=== PATIENT | male | born 1945 | race Caucasian/White ===

== ENCOUNTER → 2018-01-04 10:12 | Outpatient (CLI) | payer MEDICARE, SELFPAY ==
[2018-01-04 10:48] VITALS: PULSE 100; PULSE 103; PULSE 82; PULSE 86; PULSE 90; PULSE 99; O2SAT 96; O2SAT 97; O2SAT 98
--- NOTE | 2018-01-04 15:37 | WT_ITS ---
PSN 6 Minute Walk Test - 6 Minute Walk Test 6 Minute Walk Test: 6 Minute Walk Test PSN:6-Minute Walk Test Start: 01/04/18 10: 47 Freq: Status: Active Protocol: RESP.6MINW Document 01/04/18 10:48 LESLEY (Rec: 01/04/18 10:50 [place] [id number]) 6 Minute Walk Test Date Performed 01/04/18 Time Performed 10:40 Height 5 ft 9 in Weight: 78.471 kg Weight in Pounds 173.[address]: Jasen Stuart Assistive device used: None Pre-test Oxygen Delivery Method Room Air Pulse Ox (%) 98 Pulse Rate (60-100 beats/min) 82 Dyspnea Jose Scale (0-10) 0 Exertion Jose Scale (6-20) 6 1st minute Oxygen Delivery Method Room Air Pulse Ox (%) 97 Pulse Rate (60-100 beats/min) 90 2nd minute Oxygen Delivery Method Room Air Pulse Ox (%) 96 Pulse Rate (60-100 beats/min) 99 3rd minute Oxygen Delivery Method Room Air Pulse Ox (%) 97 Pulse Rate (60-100 beats/min) 99 4th minute Oxygen Delivery Method Room Air Pulse Ox (%) 96 Pulse Rate (60-100 beats/min) 103 H 5th minute Oxygen Delivery Method Room Air Pulse Ox (%) 96 Pulse Rate (60-100 beats/min) 100 6th minute Oxygen Delivery Method Room Air Pulse Ox (%) 96 Pulse Rate (60-100 beats/min) 100 Dyspnea Jose Scale (0-10) 0 Exertion Jose Scale (6-20) 11 Post-test Oxygen Delivery Method Room Air Pulse Ox (%) 97 Pulse Rate (60-100 beats/min) 86 Full Laps Walked 22 Partial Lap, Number of Tiles Walked 38 Total Distance Walked (ft) 1336 - Interpretation Interpretation: The patient was able to ambulate 1336 feet over the course of 6 minutes on room air with no assistive devices or breaks. No significant desaturation or tachycardia was noted during testing. - Recommendations Recommendations: These findings are consistent with a normal walking oximetry.
== END ==
PROVIDERS: Family Provider Family Medicine; PCP Family Medicine; Visit Provider Internal Medicine Critical Care Medicine
DX: J44.9 Chronic obstructive pulmonary disease, unspecified (principal); I26.99 Other pulmonary embolism without acute cor pulmonale; F17.200 Nicotine dependence, unspecified, uncomplicated
CPT/HCPCS: 94618

== ENCOUNTER → 2018-01-05 09:50 | Outpatient (CLI) | payer MEDICARE, SELFPAY ==
--- NOTE | 2018-01-05 14:37 | PFTCOMP_ITS ---
COMPLETE PULMONARY FUNCTION TEST INTERPRETATION Brief HPI: Patient is a 72 year old male, currently under the care of myself, who presents to [facility] for complete pulmonary function tests secondary to diagnosis of COPD. Respiratory therapist reports good effort and reproducible results. Interpretation: Forced expiration spirometry shows a moderate large airways obstructive ventilatory defect with an FEV1 of 77 % predicted. There is a significant bronchodilator response in FEV1 by ATS criteria. Spirograms are of good quality and plateau slowly, indicating slowly emptying areas of the lungs. The respiratory flow volume loop shows decreased expiratory flow rates at all lung volumes consistent with airway obstruction. Lung volumes by body plethysmography show an elevated total lung capacity at 8.29 L, 133% predicted. FRC and RV are elevated out of proportion. Lung volume measurements are consistent with hyperinflation and air-trapping. Diffusion capacity by carbon monoxide is normal at 94 % predicted. The airway resistance is elevated. Compared to previous pulmonary function tests from 01/13/2017, there has been a significant change in spirometric values, DLCO and air trapping. Impression: Partially reversible moderate large airways obstructive ventilatory defect resulting in air trapping with hyperinflation and consistent with COPD/asthma overlap syndrome. There has been significant improvement compared to previous testing.
== END ==
PROVIDERS: Family Provider Family Medicine; PCP Family Medicine; Visit Provider Internal Medicine Critical Care Medicine
DX: J44.9 Chronic obstructive pulmonary disease, unspecified (principal); I26.99 Other pulmonary embolism without acute cor pulmonale; F17.200 Nicotine dependence, unspecified, uncomplicated
CPT/HCPCS: 94060; 94726; 94729

== ENCOUNTER → 2018-02-24 20:00 | Outpatient (CLI) | payer MEDICARE, SELFPAY | PROVIDERS: Family Provider Family Medicine; PCP Family Medicine; Visit Provider Internal Medicine Critical Care Medicine | DX: G47.10 Hypersomnia, unspecified (principal) | CPT/HCPCS: 95810 ==

== ENCOUNTER → 2018-03-30 20:43 | Outpatient (CLI) | payer MEDICARE, SELFPAY ==
[2018-03-30] MEDS: Zolpidem Tartrate 5 MG Tablet PO (21:50)
== END ==
PROVIDERS: Family Provider Family Medicine; PCP Family Medicine; Visit Provider Internal Medicine Critical Care Medicine
DX: G47.10 Hypersomnia, unspecified (principal)
CPT/HCPCS: 95811

== ENCOUNTER → 2018-06-18 11:17 | Outpatient (CLI) | payer MEDICARE, SELFPAY ==
[2018-06-18 12:36] LABS: Absolute Lymphocyte Count 10.24 X10^3/ul (0.83-4.51); Basophil# 0.02 X10^3/uL; Basophil% 0.2 % (0-1); Eosinophil# 0.14 X10^3/uL; Eosinophils% 1.1 % (0-5); Hemoglobin 9.9 g/dl (13.0-16.5); Lymphocyte # 10.24 X10^3/ul (4.0); Lymphocyte % 80.2 % (19-41); Mean Corpuscular Hgb 26.3 pg (27.0-32.0); Mean Corpuscular Volume 87.5 fL (80-94); Mean Platelet Vol. 9.2 fl (6.2-12.0); Monocyte# 0.37 X10^3/uL; Monocyte% 2.9 % (0-10); Neutrophil % 15.6 % (47-70); Platelet Count 314 K/mm3 (150-450); RBC Distribution Width CV 14.8 % (11.6-14.6); RBC Distribution Width SD 47.4 fl (35.1-43.9); Red Blood Count 3.77 M/mm3 (4.6-6.2); White Blood Count 12.8 K/mm3 (4.4-11.0)
[2018-06-18 12:39] LABS: Differential Indicated SCAN CRITERIA MET; POSITIVE COUNT NO; POSITIVE DIFFERENTIAL YES; POSITIVE MORPHOLOGY YES
[2018-06-18 12:59] LABS: ALB/GLOB Ratio 1.1 RATIO (0.9-2.4); AST(SGOT) 20 U/L (15-37); Alanine Aminotransfer ALT/SGPT 21 U/L (16-61); Albumin, Serum 3.7 g/dL (3.2-5.0); Alkaline Phosphatase 63 U/L (45-117); Anion Gap 7 (5-15); BUN 16 mg/dL (7-18); BUN/Creat Ratio 22.9 RATIO (10-20); Chloride 104 mmol/L (98-107); EST Glomerular Filtration Rate 118 mL/min (>60); Est Glom Filt Rate - Afr Amer 143 mL/min (>60); Globulin 3.5 g/dL (2.2-4.2); Glucose 86 mg/dL (74-106); PSA,Total - Annual Screen 1.39 ng/mL (0.00-4.00); Potassium 4.9 mmol/L (3.5-5.1); Protein, Total 7.2 g/dL (6.4-8.2); Sodium Level 140 mmol/L (136-145); Thyroid Stim Hormone (TSH) 0.66 uIU/mL (0.358-3.74)
[2018-06-21 14:42] LABS: Pathologist Review Reviewed
== END ==
PROVIDERS: Family Provider Family Medicine; PCP Family Medicine; Visit Provider Family Medicine
DX: Z00.01 Encounter for general adult medical examination with abnormal findings (principal); N40.1 Benign prostatic hyperplasia with lower urinary tract symptoms; E01.0 Iodine-deficiency related diffuse (endemic) goiter; Z12.5 Encounter for screening for malignant neoplasm of prostate; Z51.81 Encounter for therapeutic drug level monitoring
CPT/HCPCS: 36415; 80053; 84153; 84443; 85025; G0103

== ENCOUNTER → 2019-02-22 10:57 | Outpatient (CLI) | payer MEDICARE, OTHER, SELFPAY ==
[2019-02-22 12:59] LABS: Absolute Lymphocyte Count 9.28 X10^3/ul (0.83-4.51); Absolute Neutrophil Count 1.9 X10^3/uL (2.0-7.7); Basophil# 0.02 X10^3/uL; Basophil% 0.2 % (0-1); Eosinophil# 0.27 X10^3/uL; Eosinophils% 2.3 % (0-5); Hematocrit 28.1 % (40-54); Hemoglobin 8.6 g/dl (13.0-16.5); Lymphocyte # 9.28 X10^3/ul (4.0); Lymphocyte % 78.8 % (19-41); Mean Corp Hgb Conc 30.6 g/gl (32-36); Mean Corpuscular Volume 84.9 fL (80-94); Mean Platelet Vol. 8.5 fl (6.2-12.0); Monocyte# 0.31 X10^3/uL; Monocyte% 2.6 % (0-10); Neutrophil # 1.89 X10^3/uL (2.7-7.7); Platelet Count 345 K/mm3 (150-450); RBC Distribution Width CV 15.4 % (11.6-14.6); RBC Distribution Width SD 48.1 fl (35.1-43.9); Red Blood Count 3.31 M/mm3 (4.6-6.2); White Blood Count 11.8 K/mm3 (4.4-11.0)
[2019-02-22 13:00] LABS: Differential Indicated SCAN CRITERIA MET; POSITIVE COUNT NO; POSITIVE DIFFERENTIAL YES; POSITIVE MORPHOLOGY NO
[2019-02-22 13:12] LABS: Hypochromasia 2+; Platelet Estimate ADEQUATE (ADEQ); Schistocytes 1+
[2019-02-22 13:54] LABS: ALB/GLOB Ratio 1.2 RATIO (0.9-2.4); AST(SGOT) 18 U/L (15-37); Alanine Aminotransfer ALT/SGPT 20 U/L (16-61); Albumin, Serum 3.6 g/dL (3.2-5.0); Alkaline Phosphatase 63 U/L (45-117); Anion Gap 8 (5-15); BUN 19 mg/dL (7-18); Calcium,Total 8.6 mg/dL (8.5-10.1); Chloride 108 mmol/L (98-107); Creatinine, Serum 0.79 mg/dL (0.70-1.30); EST Glomerular Filtration Rate 102 mL/min (>60); Est Glom Filt Rate - Afr Amer 124 mL/min (>60); Ferritin 3 ng/mL (26-388); Glucose 96 mg/dL (74-106); Iron 22 ug/dL (65-175); Iron Binding Capacity,Total 458 ug/dL (250-450); Potassium 4.3 mmol/L (3.5-5.1); Protein, Total 6.6 g/dL (6.4-8.2); Sodium Level 142 mmol/L (136-145); Thyroid Stim Hormone (TSH) 0.41 uIU/mL (0.358-3.74)
[2019-02-22 14:03] LABS: Vitamin B12 405 pg/mL (211-911)
== END ==
PROVIDERS: Family Provider Family Medicine; PCP Family Medicine; Visit Provider Family Medicine
DX: I95.9 Hypotension, unspecified (principal); M79.609 Pain in unspecified limb; R20.2 Paresthesia of skin; R53.83 Other fatigue
CPT/HCPCS: 36415; 80053; 82607; 82728; 83540; 83550; 84443; 85025

== ENCOUNTER → 2019-05-05 10:38 | Outpatient (CLI) | payer MEDICARE, OTHER, SELFPAY ==
[2018-11-30 10:32] VITALS: BMI 25.4
[2019-05-05 10:55] VITALS: PULSE 87; PULSE 92; PULSE 93; PULSE 94; PULSE 95; O2SAT 92; O2SAT 94; O2SAT 95; O2SAT 96; O2SAT 97
--- NOTE | 2019-05-06 09:21 | PCM.PSN.6M ---
PSN 6 Minute Walk Test - 6 Minute Walk Test 6 Minute Walk Test: 6 Minute Walk Test PSN:6-Minute Walk Test Start: 05/05/19 10:55 Freq: Status: Active Protocol: RESP.6MINW Document 05/05/19 10:55 SMB (Rec: 05/05/19 10:58 SMB [id number]) 6 Minute Walk Test Date Performed 05/05/19 Time Performed 10:43 Height 5 ft 9 in Weight: 175 lb Weight in Pounds 175.[address]: Jasen Stuart Assistive device used: None Pre-test Oxygen Delivery Method Room Air Pulse Ox (%) 95 Pulse Rate (60-100 beats/min) 87 Dyspnea Jose Scale (0-10) 0 Exertion Jose Scale (6-20) 11 1st minute Oxygen Delivery Method Room Air Pulse Ox (%) 97 Pulse Rate (60-100 beats/min) 92 2nd minute Oxygen Delivery Method Room Air Pulse Ox (%) 92 Pulse Rate (60-100 beats/min) 92 3rd minute Oxygen Delivery Method Room Air Pulse Ox (%) 95 Pulse Rate (60-100 beats/min) 93 4th minute Oxygen Delivery Method Room Air Pulse Ox (%) 94 Pulse Rate (60-100 beats/min) 93 5th minute Oxygen Delivery Method Room Air Pulse Ox (%) 96 Pulse Rate (60-100 beats/min) 94 6th minute Oxygen Delivery Method Room Air Pulse Ox (%) 94 Pulse Rate (60-100 beats/min) 95 Post-test Oxygen Delivery Method Room Air Pulse Ox (%) 96 Pulse Rate (60-100 beats/min) 92 Dyspnea Jose Scale (0-10) 0 Exertion Jose Scale (6-20) 13 Full Laps Walked 22 Partial Lap, Number of Tiles Walked 7 Total Distance Walked (ft) 1305 - Interpretation Interpretation: The patient ambulated 1305 feet over the course of 6 minutes beginning on room air without assistive devices or breaks. Pretesting oxygen saturation was noted to be 95% on room air. With ambulation, the isac oxygen saturation was 92%. There was no significant exertional oxygen desaturation. - Recommendations Recommendations: There is no indication for the use of supplemental oxygen at this time.
== END ==
PROVIDERS: Family Provider Family Medicine; PCP Family Medicine; Referring Provider Internal Medicine Critical Care Medicine; Visit Provider Internal Medicine Critical Care Medicine
DX: J47.9 Bronchiectasis, uncomplicated (principal); I26.92 Saddle embolus of pulmonary artery without acute cor pulmonale
CPT/HCPCS: 94618

== ENCOUNTER → 2019-05-10 10:38 | Outpatient (CLI) | payer MEDICARE, OTHER, SELFPAY ==
[2018-11-30 10:32] VITALS: BMI 25.4
--- NOTE | 2019-05-10 13:13 | PFTCOMP ---
COMPLETE PULMONARY FUNCTION TEST INTERPRETATION Brief HPI: Patient is a 73 year old male, currently under the care of myself, who presents to [facility] for complete pulmonary function tests secondary to diagnosis of COPD. Respiratory therapist reports good effort and reproducible results. Interpretation: Forced expiration spirometry shows a moderately severe large airways obstructive ventilatory defect with an FEV1 of 56% predicted. There is no significant bronchodilator response by strict ATS criteria. Spirograms are of good quality and plateau slowly, indicating slowly emptying areas of the lungs. The respiratory flow volume loop shows decreased expiratory flow rates at all lung volumes consistent with airway obstruction. Lung volumes by body plethysmography show an elevated total lung capacity at 7.59 L, 122% predicted. FRC and RV are elevated out of proportion. Lung volume measurements are consistent with hyperinflation and air-trapping. Diffusion capacity by carbon monoxide is normal at 83% predicted. The airway resistance is elevated. Compared to previous pulmonary function tests from 01/05/2018, there is been a significant reduction in FVC and FEV1 by 19% and 16% respectively. Impression: Irreversible moderately severe large airways obstructive ventilatory defect resulting in air trapping with hyperinflation and slight worsening compared to previous testing.
== END ==
PROVIDERS: Family Provider Family Medicine; PCP Family Medicine; Referring Provider Internal Medicine Critical Care Medicine; Visit Provider Internal Medicine Critical Care Medicine
DX: J47.9 Bronchiectasis, uncomplicated (principal)
CPT/HCPCS: 94060; 94726; 94729

== ENCOUNTER → 2019-05-31 13:21 | Outpatient (CLI) | payer MEDICARE, OTHER, SELFPAY ==
[2019-05-23 08:26] VITALS: BMI 24.0
[2019-05-31 12:59] VITALS: BMI 24.3
--- NOTE | 2019-05-31 13:23 | CT_ITS ---
STUDY: LOW DOSE CT LUNG CANCER SCREENING REASON FOR EXAM: Male, 73 years old. Former smoker. The patient smoked 3 packs per day for 50 years. RADIATION DOSAGE (If Supplied By Facility): CTDIvol = ( 3.02 ) mGy, DLP = ( 107.97 ) mGycm TECHNIQUE: No contrast was administered. Low dose technique was utilized (average mAS-38 and kVp 120). 1.25 mm axial source images with a slice interval of 1.25-mm were reconstructed in lung windows. 2.5 mm axial source images with a slice interval of 2.5-mm were reconstructed in lung windows. 5.0 mm axial source images with a slice interval of 5.0-mm were reconstructed in soft tissue windows. Nodule measured using lung windows on PACS and/or independent workstation with automated measurement of minimum and maximum diameter. Nodule measurement reported as average diameter rounded to the nearest whole number. Growth is defined as an increase ins size of greater than 1.5 mm. COMPARISON: Comparison is made with prior examination dated August 21, 2017. NODULES: No nodular densities are seen. Emphysema: Hyperinflation. Mild degree of emphysematous changes. Focal area of bone can groundglass appearance with a small cystic changes in the posterior aspect of the left upper lobe abutting the left major fissure. This may represent a focal area of scarring and bronchiectasis. The previously seen reticular nodular pattern in both lungs have almost completely cleared. Endobronchial lesion: None. Aorta: Atherosclerotic plaques involving the aortic arch and descending thoracic aorta. Coronary arteries: Coronary artery calcifications. Mediastinal nodes: Small benign-appearing mediastinal lymph nodes. Other chest and abdominal findings: Moderate sized hiatal hernia. CT/Low Dose CT Lung Screening IMPRESSION: Lung-RADS category 2 - Continue annual screening with LDCT in 12 months. IMPORTANT NOTES FOR USE: ACR Lung-RADS Version 1.0 Assessment Categories Release Date: January 30, 2014 Category: Coded 0-4 bases on nodule(s) with highest degree of suspicion. Negative screen is defined as categories 1 and 2; a positive screen is defined as categories 3 and 4. Category 3 and 4A nodules that are unchanged on interval CT should be coded as category 2, and individuals returned to screening in 12 months. Category 4X: Category 3 or 4 nodules with additional imaging findings that increase the suspicion of lung cancer, such as spiculation, GGN that doubles in size in 1 year, enlarged lymph notes, etc. Category Modifiers: S (significant finding unrelated to lung cancer) and C (prior history of treated lung cancer) may be added to the 0-4 Lung-RADS Electronically Signed: Rodney Costello, at 13:47 EDT , Service support ,
== END ==
PROVIDERS: Family Provider Family Medicine; PCP Family Medicine; Referring Provider Nurse Practitioner Family; Visit Provider Nurse Practitioner Family
DX: Z12.2 Encounter for screening for malignant neoplasm of respiratory organs (principal)
CPT/HCPCS: G0297

== ENCOUNTER → 2019-11-15 06:14 | Outpatient (CLI) | payer MEDICARE, OTHER, SELFPAY ==
[2019-05-31 12:59] VITALS: BMI 24.3
--- NOTE | 2019-11-15 06:35 | MRI_ITS ---
STUDY: MRI LUMBAR SPINE WITHOUT CONTRAST REASON FOR EXAM: Male, 74 years old. lumbar radiculopathy, BACK PAIN, LEFT LEG PAIN,NKI TECHNIQUE: Standardized fat and water weighted pulse sequences were obtained in the sagittal and axial planes. COMPARISON: None FINDINGS: T12-L1: Normal endplates. Normal disc height, hydration and morphology. Normal bilateral facet joints. Normal central canal and bilateral lateral recesses. Normal bilateral intervertebral neural foramina. Normal lumbar lordosis. Mild scoliosis. Normal conus medullaris that terminates at the T12 level. L1-2: Normal endplates. Normal disc height, hydration and morphology. Normal bilateral facet joints. Normal central canal and bilateral lateral recesses. Normal bilateral intervertebral neural foramina. L2-3: Circumferential disc marginal osteophyte causing moderately severe narrowing of the neural foramina, left greater than right. Central thecal sac patent. L3-4: Disc space narrowing. Moderate central and lateral trefoil type spinal stenosis. Circumferential disc marginal osteophyte and hypertrophic facet disease. L4-5: Moderately severe central and lateral trefoil type spinal stenosis. L5-S1: Moderate to severe narrowing of the neural foramina, right greater than left due to hypertrophic facet disease. Thecal sac patent. Normal visualized sacral ala. Normal visualized paraspinous soft tissue structures. MRI/Spine Lumbar (Routine) IMPRESSION: Multilevel spinal stenosis as noted above. Mild scoliosis. Electronically Signed: Amaury Flanagan MD at 19:17 EST , Service support ,
== END ==
PROVIDERS: PCP Family Medicine; Referring Provider Family Medicine; Visit Provider Family Medicine
DX: M54.16 Radiculopathy, lumbar region (principal)
CPT/HCPCS: 72148

== ENCOUNTER 2019-11-28 20:50 | Emergency (ER) | payer MEDICARE, OTHER, SELFPAY ==
[2019-05-31 12:59] VITALS: BMI 24.3
[2019-11-28 20:51] VITALS: BP 118/61; PULSE 89; RESP 20; TEMP 36.7; O2SAT 93; BMI 24.3
--- NOTE | 2019-11-28 21:11 | EKG12_ITS ---
Test Reason : CP Blood Pressure : / mmHG Vent. Rate : 088 BPM Atrial Rate : 088 BPM P-R Int : 150 ms QRS Dur : 094 ms QT Int : 352 ms P-R-T Axes : 023 040 045 degrees QTc Int : 425 ms Normal sinus rhythm Normal ECG Confirmed by REBECCA LYON, ZACK ([id number]), health editor BERNA MOTA ([id number]) on 11/30/2019 1:53:08 PM Referred By: DAGOBERTO Confirmed By:ZACK FERNANDEZ MD
[2019-11-28 21:24] VITALS: BP 101/89; PULSE 84; RESP 16; TEMP 36.7; O2SAT 93
--- NOTE | 2019-11-28 21:30 | RAD_ITS ---
STUDY: X-RAY CHEST REASON FOR EXAM: Male, 74 years old. Chest pain. TECHNIQUE: Single AP portable view of the chest. COMPARISON: August 20, 2017. FINDINGS: The lungs are clear and expanded. There is no demonstrated pleural abnormality. Normal size heart. Normal mediastinum and wanda. Normal visualized pulmonary arteries. Normal visualized aortic arch and descending thoracic aorta. The thoracic spine is obscured by the mediastinum. Normal visualized ribs, clavicles, and shoulders. There is no demonstrated abnormality of the visualized soft tissue structures of the upper abdomen. RAD/Chest 1 View (Portable) IMPRESSION: No acute cardiopulmonary disease or major interval change. Electronically Signed: Aidan Medeiros DO at 21:43 EST Tel [phone], Service support ,
--- NOTE | 2019-11-28 21:33 | CT_ITS ---
STUDY: CTA CHEST REASON FOR EXAM: Male, 74 years old. DYSPNEA, CHEST DISCOMFORT SINCE YESTERDAY. Pt states feels like last time he had PE. Has been off thinners x 5 mo. RADIATION DOSAGE (If Supplied By Facility): CTDIvol = ( 12.82 ) mGy, DLP = ( 447.19 ) mGycm TECHNIQUE: The examination was performed with the intravenous administration of [id number] 75ml. Post-processing of the angiographic images was performed, with multiplanar reformation and 3D reconstruction. Individualized dose optimization techniques were used for this CT. COMPARISON: August 21, 2017 FINDINGS: Normal enhancement of the main pulmonary artery and right and left pulmonary arteries. Normal enhancement of the bilateral peripheral pulmonary arteries. There is no demonstrated pulmonary embolism. Atherosclerotic changes of the aorta without evidence for aneurysm.. There is no demonstrated aortic dissection. The heart is normal size and there is multivessel coronary artery calcification There are multiple enlarged mediastinal nodes of uncertain clinical significance Normal hilar regions. Normal visualized trachea and bronchi. The lungs are well expanded. There is mild atelectasis in both lower lobes greater on the left There is reticulonodular interstitial thickening in the left upper lobe as well as focal groundglass opacity. Normal pleura. Normal chest wall structures. Dorsal spine demonstrates degenerative changes Large hiatal hernia is observed Normal visualized upper abdomen. CT/CTA Chest W/WO Contrast IMPRESSION: Mild reticulonodular interstitial thickening in the left upper lobe possibly inflammatory as well as mild subsegmental atelectasis in both lower lobes greater on the left.. No definitive evidence for pulmonary embolus however if strong clinical suspicion for pulmonary embolus would recommend Doppler scan of the deep venous system of lower extremities Electronically Signed: Trevor Allen MD at 22:42 EST , Service support ,
[2019-11-28 21:37] LABS: Absolute Lymphocyte Count 12.34 X10^3/uL (0.83-4.51); Absolute Neutrophil Count 3.7 X10^3/uL (2.0-7.7); Basophil# 0.02 X10^3/uL; Basophil% 0.1 % (0-1); Eosinophil# 0.11 X10^3/uL; Eosinophils% 0.6 % (0-5); Hematocrit 33.9 % (40-54); Hemoglobin 11.1 g/dL (13.0-16.5); Lymphocyte # 12.34 X10^3/ul (4.0); Mean Corp Hgb Conc 32.7 g/dL (32-36); Mean Corpuscular Hgb 32.6 pg (27.0-32.0); Mean Corpuscular Volume 99.4 fL (80-94); Mean Platelet Vol. 8.7 fl (6.2-12.0); Monocyte# 1.64 X10^3/uL; Monocyte% 9.2 % (0-10); NRBC Flagged by Analyzer 0 % (0-5); Neutrophil # 3.74 X10^3/uL (2.7-7.7); Neutrophil % 20.9 % (47-70); POSITIVE DIFFERENTIAL YES; POSITIVE MORPHOLOGY YES; Platelet Count 285 K/mm3 (150-450); RBC Distribution Width CV 12.1 % (11.6-14.6); RBC Distribution Width SD 44.1 fl (35.1-43.9); Red Blood Count 3.41 M/mm3 (4.6-6.2); White Blood Count 17.9 K/mm3 (4.4-11.0)
[2019-11-28 21:41] LABS: Differential Indicated SCAN CRITERIA MET
[2019-11-28] MEDS: Aspirin 81 MG TAB.CHEW 324 MG PO (21:54)
[2019-11-28 21:58] LABS: Anion Gap 7 (5-15); BUN 16 mg/dL (7-18); BUN/Creat Ratio 20.8 RATIO (10-20); Calcium,Total 8.6 mg/dL (8.5-10.1); Chloride 106 mmol/L (98-107); Creatinine, Serum 0.77 mg/dL (0.70-1.30); EST Glomerular Filtration Rate 105 mL/min (>60); Est Glom Filt Rate - Afr Amer 127 mL/min (>60); Estimated Creatinine Clearance 65.79 ml/min; Glucose 109 mg/dL (74-106); Potassium 4.3 mmol/L (3.5-5.1); Sodium Level 139 mmol/L (136-145)
[2019-11-28 22:13] LABS: Differential Comment SCANNED
[2019-11-28 22:23] LABS: International Normalized Ratio 1.1; Prothrombin Time (Protime)PT. 14.3 SECONDS (11.7-14.9)
[2019-11-28 23:00] VITALS: BP 95/78; PULSE 83; RESP 15; O2SAT 96
--- NOTE | 2019-11-28 23:48 | ED.VISSUMM ---
- ER Visit Summary Date of Service: 11/28/19 Chief Complaint: Chest pain and shortness of breath History of Present Illness: The patient is a 74 M who presents with chest pain and shortness of breath that is been getting worse since yesterday. Patient states that his pain is sharp. Patient states the pain is over his lower chest, worse on the right. Patient states is worse with coughing and deep breathing. Patient admits to some diaphoresis. Patient admits to a cough but denies any sputum production. Patient does have a history of COPD. Patient states his pain is similar to the pain he had when he had a pulmonary embolism. Patient is no longer on Eliquis because his hemoglobin dropped below 8. Physical Examination: Vital signs are stable. Patient is afebrile. Patient is in no acute distress. Oral mucosa is pink and moist. Neck is supple. Trachea is midline. There is no JVD. Heart was regular rate and rhythm. Lung sounds were diminished bilaterally. There is adequate respiratory effort. Abdomen is soft. Bowel sounds are normal. Cranial nerves II through XII are intact. There are no focal motor or sensory deficits noted. Test Results: EKG showed normal sinus rhythm with a rate of 88. There are no acute ST or T wave changes. CBC shows a leukocytosis of 17.9. This is most likely due to his steroid. Hemoglobin was stable at 11.1. Troponin was normal. Portable chest x-ray was obtained. There are chronic changes. CTA of the chest was obtained. There is interstitial thickening of the left upper lobe but there is no evidence of pulmonary embolism. Emergency Department Course and Treatment: Patient was feeling better on reevaluation. Patient wants to go home. Patient was given a prescription for Levaquin. 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 Patient and his understood and were agreeable with the plan. All questions were answered. Disposition: Discharge home Impression: 1. COPD exacerbation 2. Bronchitis This note was generated with [employer] software. It may contain incorrect words, spelling, and punctuation that were not noted in review of the chart prior to signing ED Disposition - Plan for ED Patient: Disposition: Home or Assisted Living Diagnosis: COPD exacerbation, Bronchitis Instructions: Copd Flare Prescriptions: Levofloxacin [Levaquin] 750 mg PO DAILY #4 tab Prescription Printed Referrals: Evaristo Rodriguez DO [Primary Care Provider] - 5-7 Days Jasen Stuart MD [STAFF PHYSICIAN] - 5-7 Days
[2019-11-29 00:06] VITALS: BP 109/57; PULSE 84; RESP 14; O2SAT 93
[2019-11-29 14:41] LABS: Pathologist Review Reviewed
== END 2019-11-29 00:07 | disposition home or self-care (01) ==
PROVIDERS: Emergency Provider Emergency Medicine; PCP Family Medicine
DX: J44.1 Chronic obstructive pulmonary disease with (acute) exacerbation (principal); Z86.711 Personal history of pulmonary embolism; Z72.0 Tobacco use
CPT/HCPCS: 71045; 71275; 80048; 84484; 85025; 85610; 93005; 99285; Q9967; A4216

== ENCOUNTER → 2019-12-12 11:54 | Outpatient (CLI) | payer MEDICARE, OTHER, SELFPAY ==
[2019-11-28 20:51] VITALS: BMI 24.3
[2019-12-12 12:48] LABS: D-Dimer Quantitative (DVT/PE) 0.44 FEU/ug/m (0.27-0.49)
[2019-12-12 12:56] LABS: Anion Gap 8 (5-15); BUN 11 mg/dL (7-18); BUN/Creat Ratio 16.1 RATIO (10-20); Calcium,Total 9.2 mg/dL (8.5-10.1); Chloride 103 mmol/L (98-107); Creatinine, Serum 0.68 mg/dL (0.70-1.30); EST Glomerular Filtration Rate 121 mL/min (>60); Est Glom Filt Rate - Afr Amer 147 mL/min (>60); Glucose 99 mg/dL (74-106); Potassium 4.3 mmol/L (3.5-5.1); Sodium Level 139 mmol/L (136-145)
== END ==
PROVIDERS: PCP Family Medicine; Referring Provider Nurse Practitioner Acute Care; Visit Provider Nurse Practitioner Acute Care
DX: I26.99 Other pulmonary embolism without acute cor pulmonale (principal)
CPT/HCPCS: 36415; 80048; 85379

== ENCOUNTER 2019-12-12 19:51 | Emergency (ER) | payer MEDICARE, OTHER, SELFPAY ==
[2019-12-12 19:53] VITALS: BP 132/72; PULSE 98; RESP 17; TEMP 36.6; O2SAT 97; BMI 24.0
--- NOTE | 2019-12-12 20:24 | EKG12_ITS ---
Test Reason : CHEST OTHER Blood Pressure : / mmHG Vent. Rate : 089 BPM Atrial Rate : 089 BPM P-R Int : 152 ms QRS Dur : 088 ms QT Int : 340 ms P-R-T Axes : 023 060 059 degrees QTc Int : 413 ms Normal sinus rhythm Normal ECG Confirmed by REBECCA LYON, ZACK ([id number]), telegraph editor ERIN WHITE ([id number]) on 12/13/2019 1:47:26 PM Referred By: DAGOBERTO Confirmed By:ZACK FERNANDEZ MD
--- NOTE | 2019-12-12 20:25 | ED.VISSUMM ---
- ER Visit Summary Date of Service: 12/12/19 Chief Complaint: Chest pain History of Present Illness: The patient is a [address] COPD, anemia, hiatal hernia and spinal stenosis. Patient states for a month almost every day he has burning chest pain. Feels better when he belches. Worse when he lays down at night. Not associated with exertion. Today he had electrolytes and a negative d-dimer. His foster parent time to come the ER to be evaluated. He is never been told he had a hiatal hernia. He has had recent CTAs showing no PE. He did have a PE in the past. He denies any leg pain or swelling. This is not pleuritic. He denies any hemoptysis. Physical Examination: Older male no acute distress vital signs are stable afebrile. H EENT exam unremarkable. Neck nontender. Lungs clear to auscultation bilaterally. Heart regular rhythm no murmur. Abdomen soft and nontender. Normal bowel sounds no peritoneal signs. Patient is moving all 4 extremities. Calves are nontender without edema or cords. Neurologically is awake and alert with no focal motor deficits. Test Results: Chest x-ray shows no acute abnormality. Chronic changes concerning COPD and hiatal hernia. EKG normal sinus rhythm rate 89 no change from prior. CBC white counts 25,900 is been increasing recently. He just stopped steroids. Chemistries are normal. Normal creatinine and gap. Troponin negative. D-dimer from earlier today was negative. Emergency Department Course and Treatment: Clinically I think this is reflux from his hiatal hernia. Will undergo cardiac work-up. Pt. will be treated with GI cocktail and Protonix. Repeat exam patient states that his pain completely resolved after given a GI cocktail and Protonix. We discussed all his test results. Will be discharged home on Protonix. Treatment Plan: Protonix daily. Follow-up with his primary care physician. Disposition: discharge Impression: Chest pain Acute gastroesophageal reflux with history of hiatal hernia. This note was generated with [employer] dictation software. It may contain incorrect words, spelling, and punctuation that were not noted in review of the chart prior to signing ED Disposition - Plan for ED Patient: Referrals: Evaristo Rodriguez DO [Primary Care Provider] -
--- NOTE | 2019-12-12 20:30 | RAD_ITS ---
HISTORY: CHEST PAIN TODAY. PT WAS HAVING BLOOD WORK DRAWN AND SENT IN BY . EXAM: XR Chest 1 View COMPARISON: November 28, 2019 FINDINGS: LINES/DEVICES: None. LUNGS: There are chronic interstitial changes. No pneumothorax. No consolidation or effusion. Lungs are somewhat hyperexpanded with a paucity of peripheral parenchymal pulmonary perfusion suggestive of emphysema. MEDIASTINUM AND CARDIOVASCULAR STRUCTURES: Cardiac silhouette not enlarged. Central airways and mediastinal contour are unremarkable. Athersclerotic plaque within the aortic arch. Soft tissue prominence behind the heart is likely a hiatal hernia which is minimally larger than the previous study BONES AND SOFT TISSUES: Thoracic spondylosis. RAD/Chest 1 View (Portable) IMPRESSION: Chronic interestitial changes. No radiographic evidence of acute cardiopulmonary disease. COPD/emphysema. Hiatal hernia. at 2053 Reported and signed by: Demarcus Mims MD Electronically Signed: Demarcus Mims MD at 20:52 EDT Tel , Service support ,
[2019-12-12] MEDS: Mag Hydrox/Al Hydrox/Simeth 30 ML UDC PO (20:32)
[2019-12-12] MEDS: Pantoprazole Sodium 40 MG Tablet PO (20:46)
[2019-12-12 20:48] VITALS: PULSE 89; RESP 20; O2SAT 95
[2019-12-12 20:48] LABS: Absolute Lymphocyte Count 19.77 X10^3/uL (0.83-4.51); Absolute Neutrophil Count 4.2 X10^3/uL (2.0-7.7); Basophil# 0.04 X10^3/uL; Basophil% 0.2 % (0-1); Eosinophil# 0.05 X10^3/uL; Eosinophils% 0.2 % (0-5); Hematocrit 37.2 % (40-54); Lymphocyte # 19.77 X10^3/ul (4.0); Lymphocyte % 76.4 % (19-41); Mean Corp Hgb Conc 32.3 g/dL (32-36); Mean Corpuscular Hgb 32.6 pg (27.0-32.0); Mean Corpuscular Volume 101.1 fL (80-94); Mean Platelet Vol. 8.4 fl (6.2-12.0); Monocyte# 1.76 X10^3/uL; Monocyte% 6.8 % (0-10); NRBC Flagged by Analyzer 0 % (0-5); Neutrophil # 4.23 X10^3/uL (2.7-7.7); Neutrophil % 16.2 % (47-70); POSITIVE DIFFERENTIAL YES; POSITIVE MORPHOLOGY YES; Platelet Count 322 K/mm3 (150-450); RBC Distribution Width CV 12.3 % (11.6-14.6); RBC Distribution Width SD 45.5 fl (35.1-43.9); Red Blood Count 3.68 M/mm3 (4.6-6.2); White Blood Count 25.9 K/mm3 (4.4-11.0)
[2019-12-12 20:56] LABS: Differential Indicated SCAN CRITERIA MET
[2019-12-12 21:15] LABS: Anion Gap 2 (5-15); BUN 13 mg/dL (7-18); BUN/Creat Ratio 20.3 RATIO (10-20); Calcium,Total 8.9 mg/dL (8.5-10.1); Chloride 107 mmol/L (98-107); Creatinine, Serum 0.64 mg/dL (0.70-1.30); EST Glomerular Filtration Rate 130 mL/min (>60); Est Glom Filt Rate - Afr Amer 158 mL/min (>60); Estimated Creatinine Clearance 65.79 ml/min; Glucose 100 mg/dL (74-106); Potassium 4.7 mmol/L (3.5-5.1); Sodium Level 138 mmol/L (136-145)
[2019-12-12 23:22] VITALS: PULSE 78; RESP 18; O2SAT 96
--- NOTE | 2019-12-12 23:25 | ED.DEP ---
ED Disposition - Plan for ED Patient: Disposition: Home or Assisted Living Instructions: GERD (Adult) Prescriptions: Pantoprazole Sodium [Protonix] 40 mg PO DAILY #30 tab Prescription Printed Referrals: Evaristo Rodriguez DO [Primary Care Provider] - 1 Week if not improving Additional Instructions: Elevate the head of your bed. Protonix daily. Follow-up your primary care physician. Do not eat within 3 hours of going to bed.
== END 2019-12-12 23:31 | disposition home or self-care (01) ==
PROVIDERS: Emergency Provider Emergency Medicine; PCP Family Medicine
DX: I26.99 Other pulmonary embolism without acute cor pulmonale (principal); K21.9 Gastro-esophageal reflux disease without esophagitis; K44.9 Diaphragmatic hernia without obstruction or gangrene; J44.9 Chronic obstructive pulmonary disease, unspecified; D64.9 Anemia, unspecified
CPT/HCPCS: 36415; 71045; 80048; 84484; 85025; 85379; 93005; 99285

== ENCOUNTER → 2021-04-16 07:46 | Outpatient (CLI) | payer MEDICARE, OTHER, SELFPAY ==
[2020-10-16 07:47] VITALS: BMI 26.0
--- NOTE | 2021-04-17 09:44 | PFT ---
INTRODUCTION: The patient is a 75-year-old male that presents for pulmonary function studies secondary to a diagnosis of COPD. Respiratory therapy reports good patient effort. Bronchodilators were used during testing. INTERPRETATION: Forced expiration spirometry demonstrates the presence of a severe large airways obstructive ventilatory defect. There was a significant response to aerosolized bronchodilators noted. Spirograms are of good quality but do not plateau indicating slow emptying of the lungs. Body plethysmography was performed and reveals lung volumes to be within normal limits. Diffusing capacity by single breath CO is also within normal limits. When compared to previous pulmonary function studies from May 2019, there has been a 13% reduction in FEV1. IMPRESSION: Partially reversible severe large airways obstructive ventilatory defect with preserved lung volumes and diffusing capacity. There has been a reduction in FEV1 since 2019, as noted above.
== END ==
PROVIDERS: PCP Family Medicine; Referring Provider Internal Medicine Critical Care Medicine; Visit Provider Internal Medicine Critical Care Medicine
DX: J44.9 Chronic obstructive pulmonary disease, unspecified (principal)
CPT/HCPCS: 94060; 94726; 94729

== ENCOUNTER → 2021-05-02 07:37 | Outpatient (CLI) | payer MEDICARE, OTHER, SELFPAY ==
[2021-04-22 07:44] VITALS: BMI 26.9
--- NOTE | 2021-05-02 07:40 | CT_ITS ---
STUDY: LOW DOSE CT LUNG CANCER SCREENING REASON FOR EXAM: Male, 75 years old. Smoker and amp;amp;gt; 40 pack years RADIATION DOSAGE (If Supplied By Facility): CTDIvol = ( 3.02 ) mGy, DLP = ( 114.38 ) mGycm TECHNIQUE: No contrast was administered. Low dose technique was utilized (average mAS-38 and kVp 120). 1.25 mm axial source images with a slice interval of 1.25-mm were reconstructed in lung windows. 2.5 mm axial source images with a slice interval of 2.5-mm were reconstructed in lung windows. 5.0 mm axial source images with a slice interval of 5.0-mm were reconstructed in soft tissue windows. Nodule measured using lung windows on PACS and/or independent workstation with automated measurement of minimum and maximum diameter. Nodule measurement reported as average diameter rounded to the nearest whole number. Growth is defined as an increase ins size of greater than 1.5 mm. COMPARISON: Comparison is made with prior examination 05/31/2019. NODULES: No suspicious nodules are seen. Emphysema: Emphysematous changes. Stable 1.8 cm focal area of groundglass appearance in the posterior aspect of the left upper lobe adjacent to the left major fissure. Mild scarring in the lingular segment of the left upper lobe. Endobronchial lesion: None Aorta: Atherosclerotic plaques of the aorta. Coronary arteries: Coronary artery calcifications. Mediastinal nodes: Small benign-appearing mediastinal lymph nodes. Other chest and abdominal findings: CT/Low Dose CT Lung Screening IMPRESSION: Lung-RADS category 2 - Continue annual screening with LDCT in 12 months. IMPORTANT NOTES FOR USE: ACR Lung-RADS Version 1.1 Assessment Categories Release Date: 2018 Category: Coded 0-4 bases on nodule(s) with highest degree of suspicion. Negative screen is defined as categories 1 and 2; a positive screen is defined as categories 3 and 4. Category 3 and 4A nodules that are unchanged on interval CT should be coded as category 2, and individuals returned to screening in 12 months. Category 4X: Category 3 or 4 nodules with additional imaging findings that increase the suspicion of lung cancer, such as spiculation, GGN that doubles in size in 1 year, enlarged lymph notes, etc. Category Modifiers: S (significant finding unrelated to lung cancer) Electronically Signed: Rodney Costello MD at 9:25 EDT , Service support ,
== END ==
PROVIDERS: PCP Family Medicine; Referring Provider Nurse Practitioner Acute Care; Visit Provider Nurse Practitioner Acute Care
DX: Z12.2 Encounter for screening for malignant neoplasm of respiratory organs (principal); F17.210 Nicotine dependence, cigarettes, uncomplicated
CPT/HCPCS: 71271

== ENCOUNTER → 2021-07-17 | Outpatient (CLI) | payer MEDICARE, OTHER, SELFPAY ==
--- NOTE | 2021-07-17 14:40 | LES_PTH ---
PATIENT: REJI ORTIZ LOC: [facility] U#:[id number] AGE/SX: 75/M ROOM: RE07/17/[address]: Dr. Reji Payne MD : 1945 BED: DIS: 07/17/2021 SPEC #: [id number] RECD: 07/17/21 15:54 STATUS: HARRIET REMaria #: [id number] HEAVEN: 07/17/21 14:[address]: Reji Payne DEPT: SURGICAL PATHOLOGY RECD BY: Magi Puckett ENTERED: 07/18/21 09:02 SP TYPE: Lesion OTHR DR: Dr. 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 Mild actinic keratosis and solar elastosis. KENZIE:destiny 07/19/2021 COMMENT Case has been reviewed in consultation with Dr. Rolle who concurs with the above diagnosis. IDC:AM MICROSCOPIC DESCRIPTION Slides are reviewed. GROSS DESCRIPTION Received in fixative is one container labeled with the patient's name and designated left arm. The specimen consists of a lua-white skin ellipse measuring 3.4 x 1.5 cm and up to 0.5 cm in thickness. There is a round, raised lesion on the surface measuring 1.2 cm in diameter. The specimen is inked, serially sectioned and submitted entirely in two cassettes. Cassette 1 also contains the tips of the skin ellipse. / KENZIE:destiny 07/18/21 TC:0 CPT: 03796
== END | disposition home or self-care (01) ==
LOC: LABSPEC 07-18 08:36
PROVIDERS: PCP Family Medicine; Visit Provider Surgery
DX: C44.629 Squamous cell carcinoma of skin of left upper limb, including shoulder (principal); L57.8 Other skin changes due to chronic exposure to nonionizing radiation
CPT/HCPCS: 88305

== ENCOUNTER → 2022-02-17 | Outpatient (CLI) | payer MEDICARE, OTHER, SELFPAY ==
--- NOTE | 2022-02-17 14:45 | RAD_ITS ---
STUDY: X-RAY - LUMBAR SPINE REASON FOR EXAM: Male, 76 years old. LOW BACK PAIN/FALL TECHNIQUE: XR Spine Lumbar 2 or 3 Views COMPARISON: None FINDINGS: Normal lumbar lordosis. There is a dextroscoliosis of the lumbar spine. Grade 1 retrolisthesis of L3 on L4 and L5 to on L3. Vertebrae. There is multilevel endplate spondylosis of the lumbar vertebrae. There is multi-level degenerative disc disease with multi-level disc space narrowing. There are atherosclerotic vascular calcifications. The soft tissue structures are unremarkable. RAD/Lumbar Spine 2 or 3 Views IMPRESSION: Degenerative changes of the spine, as detailed above. Electronically Signed: Joe Bruce MD at 17:03 EDT ,
--- NOTE | 2022-02-17 14:45 | RAD_ITS ---
STUDY: X-RAY - PELVIS AND LEFT HIP REASON FOR EXAM: Male, 76 years old. PAIN OF LEFT HIP TECHNIQUE: XR Hip Unilateral with Pelvis when performed; 2-3 Views COMPARISON: None. FINDINGS: There is a non-specific bowel gas pattern. There are multiple calcified phleboliths. There are degenerative changes of the lumbar spine. Normal bilateral iliac wings, sacroiliac joints and visualized sacrum. Normal bilateral superior and inferior pubic rami. Normal pubic symphysis. Normal bilateral ischial tuberosities. Normal visualized femoral head. Normal acetabulum. There is mild articular joint space narrowing of the hip. RAD/HIP, UNI W/ Pelvis 2-3 Views IMPRESSION: Degenerative findings of the hips. Electronically Signed: Joe Bruce MD at 17:06 EDT ,
== END | disposition home or self-care (01) ==
LOC: RAD 14:39
PROVIDERS: PCP Family Medicine; Visit Provider Nurse Practitioner Family
DX: M54.50 Low back pain, unspecified (principal); M25.552 Pain in left hip
CPT/HCPCS: 36415; 72100; 73502; 85025; 86850; 86900; 86901

== ENCOUNTER 2022-02-18 05:49 | Day surgery (SDC) | payer MEDICARE, OTHER, SELFPAY ==
[2022-02-18 06:33] VITALS: BP 120/62; PULSE 96; RESP 18; TEMP 37.9; O2SAT 87; BMI 22.1
[2022-02-18] MEDS: Lactated Ringers 1,000 ML 15 ML IV (06:52)
--- NOTE | 2022-02-18 07:11 | PCM.HP.BLA ---
History and Physical Date of Admission: 02/18/22 Date of Service: 02/14/22 MR#:[id number]:[id number]: REJI ORTIZRep #:[id number] Provider:Heather Burnett/Sex: 76/M [facility] Vital Signs 02/14/22 08:38 02/14/22 09:02 Height 5 ft 9 in Weight: 151 lb 4 oz BMI 22.3 BP 79/45 L 101/48 L Blood Pressure Location Rt brachial Rt brachial Position Sitting Sitting Respiration 16 18 Pulse 95 Pulse Source NIBP Temp 96.8 F L Temp Source Temporal Pulse Oximetry (%) 92 Oxygen Delivery Method room air Intake Visit Reasons: PORT PLACEMENT Chief Complaint: discuss port Technical Publications Manager Required: No Is patient in pain?: No Allergies Penicillins Adverse Reaction (Severe, Verified 02/14/22 08:40) / promethazine [From Phenergan] Adverse Reaction (Severe, Verified 02/14/22 08:40) / adhesive Adverse Reaction (Intermediate, Verified 02/14/22 08:40) / enoxaparin [From Lovenox] Adverse Reaction (Intermediate, Verified 02/14/22 08:40) / PFSH Medical History Abnormal CT scan, chest Acute hypoxemic respiratory failure Arm pain, left Asthma Atrioventricular block, first degree B12 deficiency anemia Biceps tendinitis on left BPH (benign prostatic hyperplasia) Bronchiectasis Central sleep apnea CLL (chronic lymphocytic leukemia) Contusion of left shoulder COPD (chronic obstructive pulmonary disease) COPD exacerbation COPD with acute exacerbation Coronary atherosclerosis due to calcified coronary lesion Cough Degenerative joint disease Dyspnea Fatigue GERD (gastroesophageal reflux disease) HAP (hospital-acquired pneumonia) Hiatal hernia with gastroesophageal reflux History of Coumadin therapy History of SCC (squamous cell carcinoma) of skin HTN (hypertension) Hypoxia Impingement syndrome, shoulder, left Influenza A Iron deficiency anemia Left shoulder pain Orthopedic aftercare Osteoarthritis of left shoulder Other fracture of shaft of left humerus, initial encounter for closed fracture Pneumonia due to Streptococcus Pulmonary embolism Rotator cuff syndrome of left shoulder Rotator cuff tear, left Shoulder pain, right Sinus tachycardia Syncope Tobacco dependency Surgical History History of hydrocelectomy History of orchiectomy, unilateral Status post reverse total arthroplasty of left shoulder Family History Sister Breast cancer Mother Cancer patient states female cancer, when he was young Brother Lung cancer Social History household members: spouse current occupational status: retired Smoking Status: Current some day smoker tobacco type: cigarettes Tobacco: How many years used: 60 Electronic Cigarette Use: not used second hand exposure: Yes quit status: has quit before counseling given: provider counseling alcohol intake: current alcohol intake frequency: a few times a month substance use type: does not use caffeine: Yes Type: coffee Number of servings: 3 what type of physical activity do you participate in: none seatbelt use: always HPI HPI HPI: REJI ORTIZ, is a 76 M who presents to the office today for port placement due to CLL with his . Patient plan to start his chemo on Thursday next week. Initially patient's blood pressure was systolically 79 recheck was 101. Patient states she has not been eating much but has been drinking about 2-16 ounces of water and quite a bit of orange juice. Patient does have protein drinks at home as well but has not had 1 for 3 days. Patient states he does not have much of an appetite. ROS General General: Yes weight change and fatigue; No appetite, colon cancer or breast cancer HEENT HEENT: No difficulty swallowing, eye injury, eye surgery, swollen glands or hoarseness Endo Endocrine: No thyroid disease, diabetes mellitus, thyroid cancer, Hair loss, heat intolerance or cold intolerance Musc Musculoskeletal: Yes back problems Cardio Cardiovascular: No murmur, pacemaker, heart disease, atrial fibrillation, high blood pressure, heart attack, heart stent, palpitations, shortness of breat with exertion or chest pain Psych Psychiatric: No depression, anxiety or hearing voices Resp Respiratory: Yes shortness of breath, No sleep apnea, No cough, Yes COPD, Yes asthma, No emphysema and No wheezing Gastro Gastrointestinal: No abdominal pain, No nausea or vomiting, No diarrhea, Yes constipation, No blood in stool, Yes acid reflux, No hemorrhoids, No ulcers, No gallbladder problem and No black,tarry stools Filiberto Hematologic: No blood thinners, Yes blood disorders, No bleeding, Yes anemia and Yes blood clots Neuro Neurologic: No abnormal speech and No confusion Exam Const General: cooperative, healthy appearing, comfortable and no acute distress [facility] Head: normocephalic and atraumatic Neck Neck: normal visual inspection Resp Effort & Inspection: normal respiratory effort Cardio Rate: regular rate GI Inspection: non-distended Palpation: soft, no guarding and nontender Skin General: no rashes or lesions noted Neuro General: patient oriented x3 Psych Affect: normal affect COVID (Procedure Consent) Procedure Criteria Procedure Criteria: Yes Elective The surgeon/proceduralist and patient have discussed in detail the risk of exposure to and/or potential harm posed by the COVID-19 virus with having a surgery/procedure at this time versus the risk of delaying the surgery/procedure. It is not possible to know either the risk of delaying the surgery or procedure or chance of getting an infection with perfect accuracy, but a joint decision was made between the patient and the surgeon/proceduralist to proceed at this time with the scheduled surgery/procedure as indicated on the consent form. Assessment and Plan Assessment and Plan (1) Encounter for fitting and adjustment of vascular catheter: Status: Acute (2) CLL (chronic lymphocytic leukemia): Status: Chronic Plan - Dr. Jaquelin Carrizales MD: Patient's recheck of his blood pressure came back as 101/48 was previously 94 at oncology visit systolically. Discussed with patient the importance of continuing to drink and also drinking 3-4 protein drinks daily if he does not have much of an appetite as he will need good nutrition while going through chemotherapy. I have discussed above with the patient- Port-a-Cath placement. Right possible left scheduled for February 18 in a.m. Patient has been counseled as to the risks/benefits of the procedure. I have explained the risks of the surgery, including but not limited to: infection, bleeding, injury to any blood vessels/nerves, injury to lungs (such as pneumothorax or hemothorax and need for chest tube), not having any access, nonfunctioning of port due to thrombosis, infection of port, etc. the patient understands and agrees to proceed. I have answered all the patient's questions to the patient?s satisfaction and the patient and has no further questions. Jaquelin Carrizales M.D. Pager: [phone] [facility] [address] [place] [address], [address] [place] [id number] Office: [phone] Coding Level of Care Code Off vis,est,level 3 Diagnoses Encounter for fitting and adjustment of vascular catheter Z45.2 CLL (chronic lymphocytic leukemia) C91.10 02/14/22 0911<Electronically signed by Jaquelin Carrizales MD>Date Jaquelin Carrizales MD
[2022-02-18] MEDS: Cefazolin 2 GM in 0.9% Normal Saline 100 ML IV (07:26)
[2022-02-18] MEDS: Bupivacaine Mpf 0.5% 30 ML VIAL (07:47)
[2022-02-18] MEDS: Lidocaine 1% /Epi 1:100 (50ml) 50 ML VIAL (07:47)
--- NOTE | 2022-02-18 08:09 | OP.PCM_ITS ---
Report of Operation Date of Procedure: 02/18/22 Pre-Operative Diagnosis: z45.2, CLL Post-Operative Diagnosis: Same Surgery/Procedure Performed:: Placement of right IJ Port-A-Cath Use of fluoroscopy Use of ultrasound Surgeon: Jaquelin Carrizales Type of Anesthesia: Local MAC Anesthesiologist: Mervin Quintanilla Special Medications: Ancef 2 g IV x1 Specimen's removed: None Estimated Blood Loss (mL): < 10 cc Description of Procedure: After informed consent was given, the patient was brought to the operating room and placed in the supine position. Appropriate time out protocol was followed. Patient was then given IV conscious sedation for anesthesia. The patient's right upper chest and neck were then prepped with a surgical skin preparation and sterile surgical drapes were placed. After proper landmarks were ascertained, the skin at the upper right chest area was then infiltrated with 1:1 mixture of 1% lidocaine with epinephrine and 0.5% marcaine. A needle trocar was then inserted into the right internal jugular vein with ultrasound guidance-multiple vessels were viewed with u/s and the right IJ was chosen-- and there was good aspiration of venous blood. A wire was then threaded into the needle trocar and this was visualized under fluoroscopy to ensure that the wire was in the superior vena cava. Once this was done, then the needle trocar was removed. A small skin federico was made with an 11 blade knife at the wire entrance site. The dilator with the introducer sheath attached was then placed over the wire into the right internal jugular vein via the Seldinger technique and this was visualized under fluoroscopy. The dilator and sheath were in proper position as visualized by fluoroscopy. A subcutaneous pocket was then created caudad to the catheter insertion site. A transverse skin incision was made after the skin and subcutaneous tissues were infiltrated with local anesthetic. Blunt dissection was then used to create a space large enough for placement of the subcutaneous port. The catheter was then tunneled into the subcutaneous pocket. The wire and dilator were then removed. The catheter was then threaded into the introducer sheath and was positioned with its tip at the junction of the superior vena cava and the right atrium as visualized under fluoroscopy. The excess catheter was transected. The catheter was then attached to the subcutaneous port using manufacturers guidelines. The catheter was flushed with a heparin saline mixture prior to placement. Hemostasis was carefully controlled with electrocautery. The port was sutured to the subcutaneous fascia using 2-0 Vicryl suture at two sites. The port was then placed in the yoder bcutaneous pocket. The incision were reapproximated with interrupted subdermal 3-0 vicryl sutures. The skin was reapproximated with 3-0 nylon suture in a interrupted fashion. Steristrips were used for reinforcement of the skin closure at IJ insertion site and a sterile opsite dressings were applied. The patient tolerated the procedure well. Grafts/Implants Used: Implants Used: Bard PowerPort isp M.R.I. 6 Fr Lot [id number] Complications none
--- NOTE | 2022-02-18 08:11 | EX.PCM.DISCH ---
Discharge Instructions Procedure Port-A-Cath Diet Discharge Diet: Light diet - advance as tolerated Activity May shower in (days): 5 (Keep port site clean and dry x5 days. Neck incision okay to get wet after 1 day. Okay to lower shower and upper sponge bath. OR okay to taper off port site with a Ziploc bag to shower) Lifting Restrictions: No lifting > 15 pounds for 3 days with the arm on the side of the port Dressing / Incision Call your doctor if your incision/area has: Continuous Slow Oozing, Sudden Increased Bleeding, Increased Pain/ Swelling, Increased Redness, Foul Smelling Discharge and Swelling at the incision site Call your doctor if you observe: Fever of 101 or Higher Change Dressing in: 2 days Follow Up Care Please Follow Up With: Jaquelin Carrizales MD When: In 10 days for permanent suture removal?call office for appointment Test Results: Test results from this visit will be discussed in further detail at your follow-up appointment, if applicable. Discharge Plan Admission Attending Provider: Jaquelin Carrizales Primary Care Provider: Evaristo Rodriguez Discharge Orders/Prescriptions Prescriptions: New oxycodone-acetaminophen 5-325 mg tablet 1 tab PO Q6H PRN (Reason: pain) 3 Days Qty: 5 RF: 0 Continued albuterol sulfate [ProAir HFA] 90 mcg/actuation HFA aerosol inhaler 2 puff INHALATION Q6H PRN (Reason: shortness of breath or wheezing) Qty: 18 RF: 6 budesonide-formoterol [Symbicort] 160-4.5 mcg/actuation HFA aerosol inhaler 2 puff INHALATION BID Qty: 1 RF: 6 lorazepam 1 mg tablet 1 mg PO QHS PRN (Reason: Sleep) RF: 0 ferrous sulfate 325 mg (65 mg iron) tablet 325 mg PO DAILY RF: 0 cholecalciferol (vitamin D3) 50 mcg (2,000 unit) capsule 50 mcg PO DAILY RF: 0 lidocaine-prilocaine 2.5-2.5 % cream 1 applic topical ONCE PRN (Reason: port access) 30 Days Qty: 30 RF: 2 ondansetron 8 mg tablet,disintegrating 8 mg PO Q8H PRN (Reason: nausea and vomiting) Qty: 30 RF: 2 tamsulosin 0.4 MG capsule 0.8 mg PO QHS RF: 0 pantoprazole 40 MG tablet 40 mg PO DAILY Qty: 30 RF: 1 allopurinol 300 mg Tablet 300 mg PO DAILY 30 Days Qty: 30 RF: 0 Vitamin C 1,000 mg Tablet Extended Release 1,000 mg PO DAILY RF: 0 acyclovir 400 mg tablet 400 mg PO BID RF: 0 ropinirole 1 mg tablet 1 mg PO QHS Qty: 90 RF: 3 Referrals / Follow Up: Jasen Stuart MD [STAFF PHYSICIAN] - (Please call office for follow-up this week due to new supplemental O2) Evaristo Rodriguez DO [Primary Care Provider] - Jaquelin Carrizales MD [STAFF PHYSICIAN] - Disposition Disposition (needs filled in before D/C Order can be placed): Home, Self Care
--- NOTE | 2022-02-18 08:12 | RAD_ITS ---
STUDY: X-RAY CHEST REASON FOR EXAM: Male, 76 years old. Port -- pacu TECHNIQUE: Single AP portable view of the chest. COMPARISON: Comparison is made with prior study 12/12/2019. FINDINGS: A right-sided portacatheter has been placed. Tip is at the junction of the superior vena cava and right atrium. Mild degree of the vascular congestion. There is no demonstrated pleural abnormality. Normal size heart. Normal mediastinum and wanda. Normal visualized pulmonary arteries. There is atherosclerotic calcification of the aortic arch with tortuosity. There are diffuse degenerative changes of the visualized thoracic spine. Normal visualized ribs, clavicles, and shoulders. Hiatal hernia. RAD/CXR for Line Placement IMPRESSION: The tip of the right zach catheter is at the junction of the superior vena cava and right atrium. Mild degree of vascular congestion. Electronically Signed: Rodney Costello MD at 9:20 EDT ,
[2022-02-18 08:15] VITALS: BP 120/62; BP 98/49; PULSE 93; RESP 16; TEMP 37.7; O2SAT 95
[2022-02-18 08:20] VITALS: BP 106/54; BP 120/62; PULSE 92; RESP 16; O2SAT 95
[2022-02-18 08:25] VITALS: BP 112/58; BP 120/62; PULSE 90; RESP 16; O2SAT 95
[2022-02-18 08:30] VITALS: BP 114/64; BP 120/62; PULSE 87; RESP 18; TEMP 37.3; O2SAT 96
--- NOTE | 2022-02-18 09:30 | SUR.PHASEII ---
Pulse ox on room air is 83% pulse ox on o2 at 3L nc while ambulating is 89%
[2022-02-18 09:42] VITALS: BP 120/62; BP 98/73; PULSE 98; RESP 20; TEMP 36.9; O2SAT 93
--- NOTE | 2022-02-18 10:14 | CASEMGMT ---
RN CM updated that patient qualifies for home oxygen at discharge. RN CM in to discuss home oxygen setup with patient and . No preferences for DME and patient agreeable to [employer]. Patient needs 3 lpm at rest and with ambulation. Order received and faxed to [facility]. Patient provided with portable tank from [facility] for discharge. Patient and given instructions to call [employer] upon arrival at home for home setup. Patient and voiced understanding and had no further questions or concerns at this time.
== END 2022-02-18 10:08 | disposition home or self-care (01) ==
LOC: SDC 05:50 → AC 05:51
PROVIDERS: PCP Family Medicine; Referring Provider Surgery; Visit Provider Surgery
PROC: (CPT 36561; principal; 2022-02-18 07:15)
DX: Z45.2 Encounter for adjustment and management of vascular access device (principal); C91.10 Chronic lymphocytic leukemia of B-cell type not having achieved remission; J44.9 Chronic obstructive pulmonary disease, unspecified; F17.210 Nicotine dependence, cigarettes, uncomplicated; N40.0 Benign prostatic hyperplasia without lower urinary tract symptoms; K21.9 Gastro-esophageal reflux disease without esophagitis; I10 Essential (primary) hypertension; Z86.711 Personal history of pulmonary embolism; Z79.899 Other long term (current) drug therapy; Z79.51 Long term (current) use of inhaled steroids; D50.9 Iron deficiency anemia, unspecified; G47.33 Obstructive sleep apnea (adult) (pediatric); G25.81 Restless legs syndrome
CPT/HCPCS: 36561; 71045; 77001; J7120

== ENCOUNTER → 2022-03-04 | Outpatient (CLI) | payer MEDICARE, OTHER, SELFPAY ==
--- NOTE | 2022-03-04 13:46 | RAD_ITS ---
STUDY: XR Chest 2 Views 03/04/2022 1:55 PM REASON FOR EXAM: Male, 76 years old. CHEST PAIN Cough COMPARISON: 02/18/2022 TECHNIQUE: XR Chest 2 Views FINDINGS: There is no demonstrated pleural abnormality. There is a right Port-A-Cath and/or mediport in place. The tip is in the superior vena cava. There has been development of lower lobe infiltrates. Normal heart size. Normal mediastinum. Normal wanda. Prominent appearing increased interstitial lung markings. Normal visualized pulmonary arteries. There is atherosclerotic calcification of the aortic arch with tortuosity. There are diffuse degenerative changes of the visualized thoracic spine. There is degenerative osteoarthritis of the bilateral shoulders. There is no demonstrated abnormality of the visualized soft tissue structures of the upper abdomen. RAD/Chest PA and Lateral IMPRESSION: There has been development of lower lobe infiltrates. Electronically Signed: Joe Bruce MD at 14:14 EDT ,
== END | disposition home or self-care (01) ==
PROVIDERS: PCP Family Medicine; Referring Provider Physician Assistant Surgical; Visit Provider Physician Assistant Surgical
DX: C91.10 Chronic lymphocytic leukemia of B-cell type not having achieved remission (principal); J44.1 Chronic obstructive pulmonary disease with (acute) exacerbation
CPT/HCPCS: 71046

== ENCOUNTER 2022-03-05 10:02 | Inpatient (IN) | payer MEDICARE, OTHER, SELFPAY ==
[2022-03-05] VITALS (20 sets, daily range): BP systolic 84–110; BP diastolic 45–86; PULSE 77–117; RESP 18–25; TEMP 36.6–37.6; O2SAT 86–97; BMI 20.9; BMI 21.7
--- NOTE | 2022-03-05 10:18 | RAD_ITS ---
STUDY: X-RAY CHEST REASON FOR EXAM: Male, 76 years old. Tachypnea, hypoxia, bilateral rales and fever TECHNIQUE: Single AP portable view of the chest. COMPARISON: Comparison is made with prior study dated 03/04/2022. FINDINGS: EKG electrodes are seen. A right-sided Port-A-Cath is seen with the tip at the junction of the superior vena cava and right atrium. Since prior study, there has been progressive infiltrate in the left midlung and left lower lobe. Mild infiltrate at the right lung base. There is no demonstrated pleural abnormality. Normal size heart. Normal mediastinum and wanda. Normal visualized pulmonary arteries. There is atherosclerotic calcification of the aortic arch with tortuosity. Normal visualized thoracic spine. There is degenerative osteoarthritis of the bilateral shoulders. Small hiatal hernia. RAD/Chest 1 View (Portable) IMPRESSION: Progressive bilateral pulmonary infiltrates worse on the left side. This has progressed. Electronically Signed: Rodney Costello MD at 10:56 EDT ,
--- NOTE | 2022-03-05 10:18 | EKG12_ITS ---
Test Reason : SOB Blood Pressure : / mmHG Vent. Rate : 114 BPM Atrial Rate : 114 BPM P-R Int : 132 ms QRS Dur : 094 ms QT Int : 318 ms P-R-T Axes : 000 049 032 degrees QTc Int : 438 ms Sinus tachycardia Otherwise normal ECG Confirmed by YOUSIF LYON, FRANCA ([id number]), editor sound BERNA MOTA ([id number]) on 03/07/2022 1:46:37 PM Referred By: HARRY Confirmed By:CHAD DODD MD
[2022-03-05 10:46] LABS: Absolute Lymphocyte Count 22.32 X10^3/uL (0.83-4.51); Basophil# 0.03 X10^3/uL; Basophil% 0.1 % (0-1); Hematocrit 23.9 % (40-54); Hemoglobin 7.4 g/dL (13.0-16.5); Lymphocyte # 22.32 X10^3/ul (0.83-4.51); Lymphocyte % 91.2 % (19-41); Mean Corpuscular Hgb 33.9 pg (27.0-32.0); Mean Corpuscular Volume 109.6 fL (80-94); Mean Platelet Vol. 10.7 fl (6.2-12.0); Monocyte# 1.07 X10^3/uL; Monocyte% 4.4 % (0-10); NRBC Flagged by Analyzer 0 % (0-5); Neutrophil # 0.97 X10^3/uL (2.7-7.7); POSITIVE COUNT YES; POSITIVE DIFFERENTIAL YES; POSITIVE MORPHOLOGY YES; Platelet Count 97 K/mm3 (150-450); RBC Distribution Width CV 15.7 % (11.6-14.6); RBC Distribution Width SD 62.6 fl (35.1-43.9); Red Blood Count 2.18 M/mm3 (4.6-6.2); White Blood Count 24.5 K/mm3 (4.4-11.0)
--- NOTE | 2022-03-05 10:55 | EDS_ITS ---
HPI History of Present Illness Chief Complaint: Shortness of Breath Detail of Chief Complaint: Shortness of breath and cough for the past several days Informant: patient and family Onset/Context/Timing Onset: Days Context: Sudden Onset Timing: Continuous and Waxes and wanes Quality: Dyspnea, dyspnea on exertion and productive cough Location: Respiratory Current Severity: Mild Maximum Severity: Severe Worsened by: Movement Relieved by: Nothing Associated Symptoms Associated Symptoms: Subjective fever and shaking chills Narrative Narrative: Patient is a 76-year-old male who has history of CLL. Last dose of chemo February 20. He had a outpatient chest x-ray was interpreted as negative yesterday. Patient states he does not feel well. Family is concerned because he looks pale and he is ashen in color. He is tachypneic. He is on oxygen presently. Patient states he developed chest pain and was choking after having [place] food last night. He coughed up some phlegm. He thinks he may have aspirated. His has history of aspiration pneumonia. He complains of subjective fever. He denies chills. He does report cough productive of grayish sputum. He denies history of VTE. He denies leg pain, swelling discoloration. He has chronic postnasal drainage. He denies rhinorrhea or congestion. He denies anginal equivalent chest discomfort. He denies pleuritic chest discomfort. He denies black or maroon-colored stool. Prior similar symptoms: No Recent Illness/Hospitalization: No [facility], [facility] Medical History Abnormal CT scan, chest Acute hypoxemic respiratory failure Adjustment disorder Ambulates with cane Arm pain, left Asthma Atrioventricular block, first degree B12 deficiency anemia Back pain Biceps tendinitis on left BPH (benign prostatic hyperplasia) Bronchiectasis Cancer CLL (chronic lymphocytic leukemia) Contusion of left shoulder COPD (chronic obstructive pulmonary disease) COPD exacerbation COPD with acute exacerbation Coronary atherosclerosis due to calcified coronary lesion Cough Degenerative joint disease Dehydration Dyspnea Dysuria Easy bruising Encounter for education Fatigue Fever Former smoker GERD (gastroesophageal reflux disease) HAP (hospital-acquired pneumonia) Hiatal hernia with gastroesophageal reflux History of Coumadin therapy History of SCC (squamous cell carcinoma) of skin Hx of fracture of ankle Hypotension Hypoxia Impingement syndrome, shoulder, left Influenza A Iron deficiency anemia Left hip pain Left shoulder pain Low back pain Orthopedic aftercare Osteoarthritis of left shoulder Other fracture of shaft of left humerus, initial encounter for closed fracture Pneumonia due to Streptococcus Pulmonary embolism Pulmonary embolism Restless legs Rotator cuff syndrome of left shoulder Rotator cuff tear, left Shortness of breath on exertion Shoulder pain, right Sinus tachycardia Syncope Tobacco dependency Wears dentures Wears glasses Wears hearing aid Home Medications tamsulosin 0.8 mg PO QHS 08/20/17 [History Last Taken 08/20/17 19:00] pantoprazole 40 mg PO DAILY #30 tab 12/12/19 [Rx Last Taken 02/18/22 05:00] lorazepam 1 mg tablet 1 mg PO QHS PRN tab 07/09/21 [History Last Taken Unknown] ropinirole 1 mg tablet 1 mg PO QHS #90 tab 10/02/21 [Rx Last Taken Unknown] cholecalciferol (vitamin D3) 50 mcg (2,000 unit) capsule 50 mcg PO DAILY 01/30/22 [History Last Taken Unknown] ferrous sulfate 325 mg (65 mg iron) tablet 325 mg PO DAILY tab 01/30/22 [History Last Taken Unknown] allopurinol 300 mg PO DAILY 30 Days #30 tab 02/13/22 [Rx Last Taken 02/18/22 05:00] acyclovir 400 mg PO BID 02/14/22 [History Last Taken 02/18/22 05:00] lidocaine-prilocaine 2.5 %-2.5 % topical cream 1 applic TOPICAL ONCE PRN 30 Days #30 g 02/17/22 [Rx Last Taken Unknown] ondansetron 8 mg disintegrating tablet 8 mg PO Q8H PRN #30 tab 02/17/22 [Rx Last Taken Unknown] mirtazapine 15 mg tablet 7.5 mg PO DAILY #30 tab 02/25/22 [Rx Last Taken Unknown] albuterol sulfate 90 mcg/actuation aerosol inhaler 2 puff INHALATION Q6H PRN #18 g 03/05/22 [Rx Last Taken Unknown] budesonide-formoterol HFA 160 mcg-4.5 mcg/actuation aerosol inhaler 2 puff INHALATION BID #1 ea 03/05/22 [Rx Last Taken Unknown] Allergy/AdvReac Type Severity Reaction Status Date / Time No Known Allergies Allergy Verified 03/05/22 10:10 Family History Sister Breast cancer Mother Cancer patient states female cancer, when he was young Brother Lung cancer Surgical History History of hydrocelectomy History of orchiectomy, unilateral Social History household members: spouse current occupational status: retired Smoking Status: Former smoker Tobacco: How many years used: 60 Electronic Cigarette Use: not used second hand exposure: Yes quit status: has quit before counseling given: provider counseling alcohol intake: current alcohol intake frequency: a few times a month substance use type: does not use caffeine: Yes Type: coffee Number of servings: 3 what type of physical activity do you participate in: none seatbelt use: always ROS ROS ED Constitutional Constitutional ED: Reports chills, fever(s), sweats and weight loss Eyes Eyes: Denies blurry vision, change in vision or diplopia ENT ENT ED: Denies ear pain, rhinorrhea or sore throat Cardiovascular Cardiovascular: Denies chest pain, orthopnea, palpitations, paroxysmal nocturnal dyspnea or racing heartbeat Respiratory/Chest Respiratory/Chest: Reports cough, dyspnea and dyspnea on exertion; Denies orthopnea or paroxysmal nocturnal dyspnea Gastrointestinal Gastrointestinal: Reports nausea; Denies abdominal pain, constipation, diarrhea or vomiting Genitourinary Genitourinary ED: Denies dysuria, hematuria or urinary frequency Musculoskeletal Musculoskeletal: Denies arthralgias, back pain, myalgias or neck pain Integumentary Denies Abrasions or rash Neurologic Neurologic: Reports weakness; Denies headache(s) Endocrine Endocrinology: Denies polydipsia, polyphagia or polyuria Hematologic/Lymphatic Hematologic/Lymphatic: Reports anemia and easy bruising; Denies easy bleeding Allergic/Immunologic Allergic/Immunologic ED: Denies urticaria EXAM Physical Exam Const Vital Signs: 03/05/22 10:03 03/05/22 10:07 03/05/22 10:18 Temperature 99.7 F H 99.7 F H 99.6 F H Temperature Source Temporal Temporal Oral Pulse Rate 88 116 H 104 H Respiratory Rate 22 H 24 H 25 H Respiratory Effort Respiratory Depth Respiratory Pattern Blood Pressure 98/45 L 98/45 L 97/53 L Blood Pressure Mean 62 62 67 Pulse Ox 86 89 92 Oxygen Delivery Method Nasal Cannula Nasal Cannula Nasal Cannula Oxygen Flow Rate (L/min) 2 4 4 03/05/22 11:08 03/05/22 11:44 03/05/22 12:42 Temperature 98.7 F 97.8 F Temperature Source Oral Oral Pulse Rate 94 90 Respiratory Rate 24 H 25 H Respiratory Effort Labored Accessory Muscle Use Respiratory Depth Shallow Respiratory Pattern Tachypnea Blood Pressure 96/55 L 102/53 L Blood Pressure Mean 68 69 Pulse Ox 96 97 Oxygen Delivery Method Nasal Cannula Nasal Cannula Nasal Cannula Oxygen Flow Rate (L/min) 4 4 4 03/05/22 12:53 Temperature Temperature Source Pulse Rate 84 Respiratory Rate 20 H Respiratory Effort Respiratory Depth Respiratory Pattern Blood Pressure 110/54 L Blood Pressure Mean 72 Pulse Ox 96 Oxygen Delivery Method Nasal Cannula Oxygen Flow Rate (L/min) Positive well developed and cachectic General Appearance ED: well developed, cachectic, pallor and other Patient appears ill. He is tachypneic. He is ashen in color ; Negative for cyanotic, diaphoretic or NAD Nutritional Appearance: cachectic HEENT Reports dry mucous membranes HEENT Narrative: Posterior pharynx without erythema exudate. Mucosa is dry. Negative for trauma or tenderness Mouth ED: Yes dry mucous membranes Mouth: dry mucous membranes Eyes PERRL and EOMs intact bilaterally General Eye ED: Yes pale conjunctiva; Negative for scleral icterus Neck no lymphadenopathy, supple and no JVD Chest Wall inspection of chest normal Resp normal respiratory effort and clear to auscultation bilaterally Cardio regular rate, regular rhythm, S1 normal heart sound, S2 normal heart sound and no murmurs GI normal to inspection, nondistended, normoactive bowel sounds, non-tender and non-distended Palpation: soft Back/Spine no CVA tenderness Cervical Spine: cervical spine tenderness Thoracic Spine / Upper Back: thoracic spinal tenderness and paraspinal muscle te nderness Extremity normal to inspection General Extremety ED: Negative for edema or tenderness General Extremity: Negative for edema Neuro oriented x3 and CN's II-XII intact bilaterally Sensorium / Orientation: orientation impaired; Negative for alert Motor Exam: strength 5/5 throughout Psych mental status grossly normal Skin no rashes or lesions noted, no wounds and No skin turgor normal General Skin Exam: pallor; Negative for elasticity normal or jaundice MDM MDM MDM Narrative Medical decision making narrative: With patient being febrile at home and feels markedly warmer than his documented temperature concern patient has pneumonia. Sepsis work-up was initiated. Since he is hypotensive 1 L of normal saline was ordered. His systolic is greater than 90 and his mean arterial pressure 66. He was administered ceftriaxone and azithromycin for pulmonary pathogen coverage. Will obtain EKG to rule out ischemia since he is elderly and hypotensive. On reassessment at 1225 patient is hypotensive with a MAP less than 65. An additional liter of normal saline was ordered. Spoke with Dr. Brambila the hospitalist. She is going to personally see him and determine if he is a candidate for the ICU versus stepdown. Lab Data Attestation: I reviewed the patient's lab results. Lab results narrative: White count elevated due to CLL. He is anemic with a hemoglobin of 7.4. MCV is 109.6. Coags are unremarkable. Electrolyte panel is remarkable an elevated BUN to creatinine ratio. Lactate is normal. Labs: Laboratory Results - last 24 hr 03/05/22 03/05/22 03/05/22 10:35 10:35 10:35 WBC 24.5 H RBC 2.18 L Hgb 7.4 L Hct 23.9 L MCV 109.6 H MCH 33.9 H MCHC 31.0 L RDW Std Deviation 62.6 H RDW Coeff of Yao 15.7 H Plt Count 97 L MPV 10.7 Immature Gran % (Auto) 0.300 Neut % (Auto) 4.0 L Lymph % (Auto) 91.2 H Travis % (Auto) 4.4 Eos % (Auto) 0.0 Baso % (Auto) 0.1 Absolute Neuts (auto) 1.0 L Absolute Lymphs (auto) 22.32 H Nucleated RBC % 0 [address] Review May foll Smudge Cells 2+ Platelet Estimate SLT DEC PT 15.9 H INR 1.3 APTT 29.6 Sodium 135 L Potassium 4.3 Chloride 100 Carbon Dioxide 31.0 Anion Gap 4 L BUN 16 Creatinine 0.57 L Estim Creat Clear Calc 58.03 Est GFR (MDRD) Af Amer 179 Est GFR (MDRD) Non-Af 148 BUN/Creatinine Ratio 28.0 H Glucose 122 H Lactic Acid Calcium 8.1 L Total Bilirubin 0.70 AST 41 H ALT 58 Alkaline Phosphatase 76 Total Protein 5.7 L Albumin 2.1 L Globulin 3.6 Albumin/Globulin Ratio 0.6 L Blood Type Antibody Screen 03/05/22 03/05/22 10:35 10:35 WBC RBC Hgb Hct MCV MCH MCHC RDW Std Deviation RDW Coeff of Yao Plt Count MPV Immature Gran % (Auto) Neut % (Auto) Lymph % (Auto) Travis % (Auto) Eos % (Auto) Baso % (Auto) Absolute Neuts (auto) Absolute Lymphs (auto) Nucleated RBC % Diff Path Review Smudge Cells Platelet Estimate PT INR APTT Sodium Potassium Chloride Carbon Dioxide Anion Gap BUN Creatinine Estim Creat Clear Calc Est GFR (MDRD) Af Amer Est GFR (MDRD) Non-Af BUN/Creatinine Ratio Glucose Lactic Acid 0.8 Calcium Total Bilirubin AST ALT Alkaline Phosphatase Total Protein Albumin Globulin Albumin/Globulin Ratio Blood Type A POSITIVE Antibody Screen NEGATIVE Radiography Chest X-Ray - ED: 1 View and Read by ED Physician (Chest x-ray was independently reviewed and interpreted by me. There is hyperaeration with blunting of the costophrenic angle and flattening of his diaphragms. Cardiac silhouette and size normal. Perihilar region normal. [place] structures are unremarkable.) Diagnostic Testing: Clinical Impression(s) from Imaging Studies Chest X-Ray 03/05/22 10:18 IMPRESSION: Progressive bilateral pulmonary infiltrates worse on the left side. This has progressed. Electronically Signed: Rodney Costello MD at 10:56 EDT , EKG Initial EKG: Attestation: I personally reviewed and interpreted this EKG as follows: Interpretation: Sinus Tachycardia (Ventricular 114. PA interval 132 ms. Cures duration 94 ms. QT duration 318 ms. [place] is normal. Other than the tachycardia the EKG is normal.) Critical Care Time Critical Care Time: Yes Critical care time (excluding procedures): 30-74 minutes (34 minutes) and Including time spent: Discharge Plan Dx/Rx/DC Orders Clinical Impression: Acute hypotension, Fever, Acute and chronic respiratory failure with hypoxia, Chronic lymphocytic leukemia, Signs and symptoms of anemia, Symptomatic anemia Disposition Disposition: Acute Care [facility] Discharge Date/Time: 03/05/22 13:49
[2022-03-05 10:56] LABS: International Normalized Ratio 1.3; Partial Thromboplast Time 29.6 Seconds (24.1-36.2); Prothrombin Time (Protime)PT. 15.9 SECONDS (11.7-14.9)
[2022-03-05] MEDS: 0.9% Normal Saline 1,000 ML 999 ML IV (11:00)
[2022-03-05 11:03] LABS: ALB/GLOB Ratio 0.6 RATIO (0.9-2.4); AST(SGOT) 41 U/L (15-37); Alanine Aminotransfer ALT/SGPT 58 U/L (16-61); Albumin, Serum 2.1 g/dL (3.2-5.0); Alkaline Phosphatase 76 U/L (45-117); Anion Gap 4 (5-15); BUN 16 mg/dL (7-18); Calcium,Total 8.1 mg/dL (8.5-10.1); Chloride 100 mmol/L (98-107); Creatinine, Serum 0.57 mg/dL (0.70-1.30); EST Glomerular Filtration Rate 148 mL/min (>60); Est Glom Filt Rate - Afr Amer 179 mL/min (>60); Estimated Creatinine Clearance 58.03 ml/min; Globulin 3.6 g/dL (2.2-4.2); Glucose 122 mg/dL (74-106); Potassium 4.3 mmol/L (3.5-5.1); Protein, Total 5.7 g/dL (6.4-8.2); Sodium Level 135 mmol/L (136-145)
[2022-03-05 11:12] LABS: Differential Indicated SCAN CRITERIA MET
[2022-03-05 11:13] LABS: Platelet Estimate SLT DEC (ADEQ); Smudge Cells 2+
[2022-03-05 11:14] LABS: Lactic Acid 0.8 mmol/L (0.4-1.9)
[2022-03-05] MEDS: 0.9% Normal Saline 1,000 ML 1000 ML IV ×2 (11:37→13:15)
--- NOTE | 2022-03-05 12:33 | HP.PCM.HOS_ITS ---
[facility] - General General Date of Admission: 03/05/22 HPI Narrative REJI ORTIZ, is a 76 M with an extensive PMH as outlined who presents via the ED on 03/05/2022 with a complaint of weakness, fever and cough as well as shortness of breath,. His symptoms started a few days prior to admission. 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 He had an associated cough productive of grayish sputum. His last dose of chemotherapy was on the . He denied any chest pain, palpitations, dizziness, nausea or vomiting. However he was noted to be very pale and weak and so family brought him to the ED. He usually wears 3 L of oxygen at home but was requiring 5 L of oxygen. He also admitted to fever and chills. Review of systems otherwise negative. Patient was initially hypotensive in the ED but responded to fluids and at the time of review his blood pressure was up in the 100 systolic. At time of review, vitals were blood pressure 103/51, temperature of 97.8 and heart rate of 87. Respiratory rate was 20 on 4 L of oxygen. CBC showed hemoglobin of 7.4 with WBC of 24.5 and platelets of 97. Chemistry shows sodium of 135 with potassium of 4.3 and creatinine of 0.57. Urinalysis showed no evidence of UTI. Chest x-ray showed progressive bilateral pulmonary infiltrates worse on the left side. He was admitted to be managed for hypoxia due to pneumonia in an immunosuppressed patient. [facility] Medical History Abnormal CT scan, chest Acute hypoxemic respiratory failure Adjustment disorder Ambulates with cane Arm pain, left Asthma Atrioventricular block, first degree B12 deficiency anemia Back pain Biceps tendinitis on left BPH (benign prostatic hyperplasia) Bronchiectasis Cancer CLL (chronic lymphocytic leukemia) Contusion of left shoulder COPD (chronic obstructive pulmonary disease) COPD exacerbation COPD with acute exacerbation Coronary atherosclerosis due to calcified coronary lesion Cough Degenerative joint disease Dehydration Dyspnea Dysuria Easy bruising Encounter for education Fatigue Fever Former smoker GERD (gastroesophageal reflux disease) HAP (hospital-acquired pneumonia) Hiatal hernia with gastroesophageal reflux History of Coumadin therapy History of SCC (squamous cell carcinoma) of skin Hx of fracture of ankle Hypotension Hypoxia Impingement syndrome, shoulder, left Influenza A Iron deficiency anemia Left hip pain Left shoulder pain Low back pain Orthopedic aftercare Osteoarthritis of left shoulder Other fracture of shaft of left humerus, initial encounter for closed fracture Pneumonia due to Streptococcus Pulmonary embolism Pulmonary embolism Restless legs Rotator cuff syndrome of left shoulder Rotator cuff tear, left Shortness of breath on exertion Shoulder pain, right Sinus tachycardia Syncope Tobacco dependency Wears dentures Wears glasses Wears hearing aid Home Medications tamsulosin 0.8 mg PO QHS 08/20/17 [History Last Taken 08/20/17 19:00] pantoprazole 40 mg PO DAILY #30 tab 12/12/19 [Rx Last Taken 02/18/22 05:00] lorazepam 1 mg tablet 1 mg PO QHS PRN tab 07/09/21 [History Last Taken Unknown] ropinirole 1 mg tablet 1 mg PO QHS #90 tab 10/02/21 [Rx Last Taken Unknown] cholecalciferol (vitamin D3) 50 mcg (2,000 unit) capsule 50 mcg PO DAILY 01/30/22 [History Last Taken Unknown] ferrous sulfate 325 mg (65 mg iron) tablet 325 mg PO DAILY tab 01/30/22 [ History Last Taken Unknown] allopurinol 300 mg PO DAILY 30 Days #30 tab 02/13/22 [Rx Last Taken 02/18/22 05:00] acyclovir 400 mg PO BID 02/14/22 [History Last Taken 02/18/22 05:00] lidocaine-prilocaine 2.5 %-2.5 % topical cream 1 applic TOPICAL ONCE PRN 30 Days #30 g 02/17/22 [Rx Last Taken Unknown] ondansetron 8 mg disintegrating tablet 8 mg PO Q8H PRN #30 tab 02/17/22 [Rx Last Taken Unknown] mirtazapine 15 mg tablet 7.5 mg PO DAILY #30 tab 02/25/22 [Rx Last Taken Unknown] albuterol sulfate 90 mcg/actuation aerosol inhaler 2 puff INHALATION Q6H PRN #18 g 03/05/22 [Rx Last Taken Unknown] budesonide-formoterol HFA 160 mcg-4.5 mcg/actuation aerosol inhaler 2 puff INHALATION BID #1 ea 03/05/22 [Rx Last Taken Unknown] Allergy/AdvReac Type Severity Reaction Status Date / Time No Known Allergies Allergy Verified 03/05/22 10:10 Family History Sister Breast cancer Mother Cancer patient states female cancer, when he was young Brother Lung cancer Surgical History History of hydrocelectomy History of orchiectomy, unilateral Social History household members: spouse current occupational status: retired Smoking Status: Former smoker Tobacco: How many years used: 60 Electronic Cigarette Use: not used second hand exposure: Yes quit status: has quit before counseling given: provider counseling alcohol intake: current alcohol intake frequency: a few times a month substance use type: does not use caffeine: Yes Type: coffee Number of servings: 3 what type of physical activity do you participate in: none seatbelt use: always ROS Constitutional Constitutional: Reports chills, fatigue, fever(s), malaise and weakness; Denies anorexia or change in weight Eyes Eyes: Denies change in vision ENT HEENT: Denies dysphagia, nasal discharge or sore throat Cardiovascular Cardiovascular: Reports dyspnea on exertion; Denies chest pain, edema, lightheadedness, orthopnea, palpitations, paroxysmal nocturnal dyspnea, rapid heart rate or syncope Respiratory/Chest Respiratory/Chest: Reports cough, dyspnea, productive cough, shortness of breath at rest and shortness of breath with exertion; Denies excessive phlegm production, hemoptysis or wheezing Gastrointestinal Gastrointestinal: Denies abdominal pain, constipation, diarrhea, nausea or vomiting Genitourinary Genitourinary: Denies dysuria Neurologic Neurologic: Denies confusion, dizziness, focal weakness, numbness, seizures or syncope Psychiatric Psychiatric: Denies anxiety Vital Signs Vital Signs Vital Signs: 03/05/22 10:03 03/05/22 10:07 03/05/22 10:18 Temperature 99.7 F H 99.7 F H 99.6 F H Temperature Source Temporal Temporal Oral Pulse Rate 88 116 H 104 H Respiratory Rate 22 H 24 H 25 H Respiratory Effort Respiratory Depth Respiratory Pattern Blood Pressure 98/45 L 98/45 L 97/53 L Blood Pressure Mean 62 62 67 Pulse Ox 86 89 92 Oxygen Delivery Method Nasal Cannula Nasal Cannula Nasal Cannula Oxygen Flow Rate (L/min) 2 4 4 03/05/22 11:08 03/05/22 11:44 Temperature 98.7 F Temperature Source Oral Pulse Rate 94 Respiratory Rate 24 H Respiratory Effort Labored Accessory Muscle Use Respiratory Depth Shallow Respiratory Pattern Tachypnea Blood Pressure 96/55 L Blood Pressure Mean 68 Pulse Ox 96 Oxygen Delivery Method Nasal Cannula Nasal Cannula Oxygen Flow Rate (L/min) 4 4 Weight Weight: 141 lb 11.2 oz Body Mass Index (BMI) 20.9 Physical Exam Const alert and oriented x3 Constitutional Narrative: looks very pale and weak General Appearance: cooperative Orientation / Consciousness: lethargic HEENT normocephalic, head/scalp atraumatic and hearing grossly normal bilaterally HEENT Narrative: mucous membranes dry Eyes PERRL, EOMs intact bilaterally and conjunctivae normal Neck no lymphadenopathy and supple Resp Resp Narrative: Mildly diminished breath sounds bibasilarly. On 4 L of oxygen at time of review. Bilateral crackles. Minimal wheezing. Cardio regular rate, regular rhythm, S1 normal heart sound, S2 normal heart sound and no murmurs GI normal to inspection, nondistended, normoactive bowel sounds, soft to palpation, non-tender and non-distended Extremity normal to inspection, full ROM and no clubbing, cyanosis or edema Peripheral Pulses: Yes pulses 2+ throughout Skin no rashes or lesions noted Skin Narrative: Has chemotherapy port in place Neuro oriented x3 and CN's II-XII intact bilaterally Sensorium / Orientation: awake and alert Psych Psych Narrative: Looks lethargic. Results Lab / Micro Data Result Diagrams: 03/05/22 10:35 03/05/22 10:35 Labs: Laboratory Results - last 24 hr 03/05/22 10:35: WBC 24.5 H, RBC 2.18 L, Hgb 7.4 L, Hct 23.9 L, MCV 109.6 H, MCH 33.9 H, MCHC 31.0 L, RDW Std Deviation 62.6 H, RDW Coeff of Yao 15.7 H, Plt Count 97 L, MPV 10.7, Immature Gran % (Auto) 0.300, Neut % (Auto) 4.0 L, Lymph % (Auto) 91.2 H, Titus % (Auto) 4.4, Eos % (Auto) 0.0, Baso % (Auto) 0.1, Absolute Neuts (auto) 1.0 L, Absolute Lymphs (auto) 22.32 H, Nucleated RBC % 0, Diff Path Review May foll, Smudge Cells 2+, Platelet Estimate SLT 03/05/22 10:35: PT 15.9 H, INR 1.3, APTT 29.6 03/05/22 10:35: Sodium 135 L, Potassium 4.3, Chloride 100, Carbon Dioxide 31.0, Anion Gap 4 L, BUN 16, Creatinine 0.57 L, Estim Creat Clear Calc 58.03, Est GFR (MDRD) Af Amer 179, Est GFR (MDRD) Non-Af 148, BUN/Creatinine Ratio 28.0 H, Glucose 122 H, Calcium 8.1 L, Total Bilirubin 0.70, AST 41 H, ALT 58, Alkaline Phosphatase 76, Total Protein 5.7 L, Albumin 2.1 L, Globulin 3.6, Albumin/Globu esvin Ratio 0.6 L 03/05/22 10:35: Lactic Acid 0.8 03/05/22 10:35: Blood Type A POSITIVE, Antibody Screen NEGATIVE Radiology Impression Chest X-Ray 03/05/22 10:18 IMPRESSION: Progressive bilateral pulmonary infiltrates worse on the left side. This has progressed. Electronically Signed: Rodney Costello MD at 10:56 EDT , Assessment & Plan Assessment/Plan (1) Fever: (2) Acute and chronic respiratory failure with hypoxia: (3) Healthcare-associated pneumonia: PLAN: #Hypoxia due to health associated pneumonia * admit to PCU stepdown * continue hydration with IVF * start on IV vancomycin and zosyn * get blood and sputum cultures * titrate oxygen to maintain sats >90% * breathing treatment with bronchodilators. * #CLL * undergoing chemotherapy * has chemotherapy port in place * chemotherapy precautions * follow up with oncology on outpatient basis * #Acute Hypotension * responded to fluids * continue hydration with IVF and trend. * #Chronic hypoxic respiratory failure due to COPD * on 4L of oxygen. Usually wears 3L at home * titrate oxygen to maintain sats >90% * breathing treatment with bronchodilators * * #Restless leg syndrome: on ropinirole #BPH: on flomax #HYponatremia: platelets are 97. This is chronic. Will monitor. DVT prophylaxis: SCDs Code status: full code * Patient and counseled extensively about different types of CODE STATUS including full code, DNR CCA and DNR CCA. Patient elects to be full code. * Total [id number] time 18 minutes. Charges/Coding Visit Charges Inpatient E&M: 59816 Init Hosp L3 Procedures Hospitalists Procedures: 54200 Advncd Care Plan 30 Min
--- NOTE | 2022-03-05 14:00 | EKG12_ITS ---
Test Reason : CP/POSS ASPIRAION Blood Pressure : / mmHG Vent. Rate : 083 BPM Atrial Rate : 083 BPM P-R Int : 154 ms QRS Dur : 090 ms QT Int : 358 ms P-R-T Axes : -13 031 034 degrees QTc Int : 420 ms Normal sinus rhythm Normal ECG When compared with ECG of 05-MAR-2022 10:25, MANUAL COMPARISON REQUIRED, DATA IS UNCONFIRMED Confirmed by YOUSIF LYON, FRANCA ([id number]), editor & co founder BERNA MOTA ([id number]) on 03/07/2022 1:52:26 PM Referred By: JAZMIN Confirmed By:CHAD DODD MD
[2022-03-05] MEDS: Albuterol 2.5 MG/3 ML VIAL.NEB. INHALATION ×2 (14:48→20:05)
[2022-03-05 15:54] LABS: Squamous Epithelial Cells - UA 0 SEEN /hpf (0-5)
[2022-03-05 16:07] LABS: Color, Urine Yellow (Yellow); Glucose, Dipstick Normal (Normal); Ketone-Dipstick Negative (Negative); Leukocyte Esterase-Dipstick Negative /ul (Negative); Nitrite-Dipstick Negative (Negative); Occult Blood-Urine 10 /ul (Negative); Protein-Dipstick 15 mg/dl (Negative); Specific Gravity, Urine 1.015 (1.002-1.030); Urine Bilirubin Dipstick Negative (Negative); Urine Clarity Sl. Cloudy (Clear); Urine Urobilinogen 1 mg/dl (Normal)
[2022-03-05] MEDS: 0.9% Normal Saline 1,000 ML 150 ML IV (16:07)
[2022-03-05 16:21] LABS: Mucous, Urine 1+ /hpf (<or=2+)
[2022-03-05 16:22] LABS: Bacteria RARE /hpf (None Seen); Fine Granular Cast- Urine 0-5 SEEN /lpf (0-5); Red Blood Cells-Urine 0-5 SEEN /hpf (0-5); White Blood Cells 0-5 SEEN /hpf (0-5)
[2022-03-05] MEDS: Budesonide Respules 0.5 MG/2 ML AMPUL.NEB. INHALATION (20:05)
--- NOTE | 2022-03-05 20:22 | PCM.RX.CS ---
Consult Pharmacy has been consulted to manage selected antiobiotic: Vancomycin Type of Consult: New start Suspected Infection: Pneumonia Prior Doses of Antibiotics Received/Current Regimen: Received a loading dose of 1500mg iv x 1 on 03.05.22. Labs: Sodium 135 mmol/L (136-145) L 03/05/22 10:35 Potassium 4.3 mmol/L (3.5-5.1) 03/05/22 10:35 Chloride 100 mmol/L (98-107) 03/05/22 10:35 Carbon Dioxide 31.0 mmol/L (21.0-32.0) 03/05/22 10:35 Anion Gap 4 (5-15) L 03/05/22 10:35 BUN 16 mg/dL (7-18) 03/05/22 10:35 Creatinine 0.57 mg/dL (0.70-1.30) L 03/05/22 10:35 Est GFR (MDRD) Af Amer 179 mL/min (>60) 03/05/22 10:35 Est GFR (MDRD) Non-Af 148 mL/min (>60) 03/05/22 10:35 BUN/Creatinine Ratio 28.0 RATIO (10-20) H 03/05/22 10:35 Glucose 122 mg/dL (74-106) H 03/05/22 10:35 Weight used for dosin.7 kg Estimated Creatinine Clearance: 75 ml/min Goal Trough: 15-20 mcg/mL Pharmacy Plan for Drug Dosing: Renal function reviewed. Orders entered for 1gm iv q12h to start 12hrs after loading dose of 1500mg. Trough level ordered for 03.07.22 before 4th total dose. Pharmacy Service will continue to monitor and adjust dosing as required. Follow-Up Labs: Trough Vancomycin - 03.07.22 @0330 before 0400 dose
[2022-03-05] MEDS: Acyclovir 200 MG Capsule 400 MG PO (20:23)
[2022-03-05] MEDS: Pramipexole Di-HCl 0.5 MG Tablet PO (20:23)
[2022-03-05] MEDS: Tamsulosin HCl 0.4 MG Capsule 0.8 MG PO (20:23)
--- NOTE | 2022-03-05 21:20 | PCM.HOSP.N ---
Hospitalist Note Per discussion with staff, IVF temporarily had been held for abx administration. BP check with lower than prior. Ordered NS 500 cc bolus x 1 now and encouraged MIVF restart.
[2022-03-06] VITALS (23 sets, daily range): BP systolic 95–124; BP diastolic 50–71; PULSE 73–119; RESP 18–22; TEMP 36.1–36.8; O2SAT 92–100
[2022-03-06] MEDS: Vancomycin IV 1,000 MG/200 ML BAG 200 MG IV ×2 (03:26→16:01)
[2022-03-06] MEDS: Acetaminophen 325 MG Tablet 650 MG PO ×2 (05:06→17:32)
[2022-03-06] MEDS: 0.9% Normal Saline 1,000 ML 150 ML IV (05:22)
[2022-03-06] MEDS: 0.9% Saline Lock 10 ML Syringe IV ×2 (06:10→20:21)
[2022-03-06 06:19] LABS: Hematocrit 19.6 % (40-54); Mean Corp Hgb Conc 30.6 g/dL (32-36); Mean Corpuscular Hgb 34.1 pg (27.0-32.0); Mean Platelet Vol. 10.2 fl (6.2-12.0); POSITIVE COUNT YES; RBC Distribution Width CV 15.8 % (11.6-14.6); RBC Distribution Width SD 63.7 fl (35.1-43.9); Red Blood Count 1.76 M/mm3 (4.6-6.2); White Blood Count 16.8 K/mm3 (4.4-11.0)
[2022-03-06 06:23] LABS: Scan Indicated on CBC? Y/N YES- FLAGS NOTED
[2022-03-06 06:42] LABS: Mean Corpuscular Volume 111.4 fL (80-94); Platelet Count 69 K/mm3 (150-450)
[2022-03-06 07:11] LABS: Anion Gap 5 (5-15); BUN 12 mg/dL (7-18); BUN/Creat Ratio 32.1 RATIO (10-20); Calcium,Total 7.8 mg/dL (8.5-10.1); Chloride 107 mmol/L (98-107); Creatinine, Serum 0.37 mg/dL (0.70-1.30); EST Glomerular Filtration Rate 241 mL/min (>60); Est Glom Filt Rate - Afr Amer 291 mL/min (>60); Estimated Creatinine Clearance 60.24 ml/min; Glucose 100 mg/dL (74-106); Potassium 4.1 mmol/L (3.5-5.1); Sodium Level 140 mmol/L (136-145)
[2022-03-06] MEDS: Acyclovir 200 MG Capsule 400 MG PO ×2 (10:22→20:20)
[2022-03-06] MEDS: Pantoprazole Sodium 40 MG Tablet PO (10:23)
[2022-03-06] MEDS: Allopurinol 300 MG Tablet PO (10:23)
[2022-03-06] MEDS: Mirtazapine 15 MG Tablet 7.5 MG PO (10:23)
[2022-03-06] MEDS: Cholecalciferol (VIT D3) 25 MCG TABLET (1,000 UNITS) 50 MCG PO (10:23)
[2022-03-06] MEDS: Enoxaparin 40 MG/0.4 ML Syringe SC (10:52)
--- NOTE | 2022-03-06 11:21 | PN.HOSP_ITS ---
Subjective Subjective Patient seen and examined. He feels much better today. He has no active complaints and had an uneventful night. His breathing is better, though he is still coughing. Review of systems is otherwise negative. Objective Data Objective Data Vital Signs: Vital Signs Temp Pulse Resp BP Pulse Ox 97.1 F L 82 18 109/57 L 97 03/06/22 10:35 03/06/22 10:35 03/06/22 10:35 03/06/22 10:35 03/06/22 10:35 Oxygen Flow Rate (L/min) 2 Oxygen Delivery Method Nasal Cannula Weight: 147 lb 1.584 oz Body Mass Index (BMI) 21.7 Intake & Output: Intake and Output for Last 24 Hours 03/04/22 03/05/22 03/06/22 23:59 23:59 23:59 Intake Total 4622.5 / 4622.5 932.5 / 932.5 Output Total 100 / 100 500 / 500 Balance 4522.5 / 4522.5 432.5 / 432.5 Medical Nutrition Assessment Dietitian: Malnutrition Criteria Met Start: 03/05/22 1 6:14 Freq: Status: Active Protocol: Document 03/05/22 16:14 (Rec: 03/05/22 16:14 [id number]) Nutrition Malnutrition Evidence of Malnutrition Exists Yes Malnutrition (severe): Chronic Evidenced By Suboptimal Energy Intake ( Severe),Weight Loss (Severe), Physical Changes (Moderate) Clinical Problem Chronic Disease or Condition Related 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 Cloudy, Urine pH 6.0, Ur Specific [place] 1.015, Urine Protein 15 H, Urine Glucose (UA) Normal, Urine Ketones Negative, Urine Occult Blood 10 H, Urine Nitrite Negative, Urine Bilirubin Negative, Urine Urobilinogen 1 H, Ur Leukocyte Esterase Negative, Urine RBC 0-5 SEEN, Urine WBC 0-5 SEEN, Ur Squamous Epith Cells 0 SEEN, Urine Bacteria RARE, Fine Granular Casts 0-5 SEEN, Urine Mucus 1+ 03/06/22 06:00: WBC 16.8 H, RBC 1.76 L, Hgb 6.0 L*, Hct 19.6 L, MCV 111.4 H, MCH 34.1 H, MCHC 30.6 L, RDW Std Deviation 63.7 H, RDW Coeff of Yao 15.8 H, Plt Count 69 L, MPV 10.2, Diff Path Review February03/06/22 06:00: Sodium 140, Potassium 4.1, Chloride 107, Carbon Dioxide 28.0, Anion Gap 5, BUN 12, Creatinine 0.37 L, Estim Creat Clear Calc 60.24, Est GFR (MDRD) Af Amer 291, Est GFR (MDRD) Non-Af 241, BUN/Creatinine Ratio 32.1 H, Glucose 100, Calcium 7.8 L Micro: Microbiology 03/05/22 16:00 Sputum, Expectorated/Coughed Gram Stain - Final 03/05/22 16:00 Sputum, Expectorated/Coughed Respiratory Culture - Preliminary Gram negative lc 03/05/22 15:25 Urine, Clean Catch Urine Culture - Preliminary Culture exhibits no growth. Physical Exam Const alert, oriented x3 and no apparent distress Constitutional Narrative: looks much better today General Appearance: cooperative HEENT normocephalic, head/scalp atraumatic, hearing grossly normal bilaterally and moist oral mucous membranes Head and Scalp: normocephalic Eyes PERRL, EOMs intact bilaterally and conjunctivae normal Neck no lymphadenopathy and supple Resp Resp Narrative: Mildly diminished breath sounds bibasilarly. On 2L of oxygen at time of review. minimal wheezing and crackles. Cardio regular rate, regular rhythm, S1 normal heart sound, S2 normal heart sound and no murmurs GI normal to inspection, nondistended, normoactive bowel sounds, soft to palpation, non-tender and non-distended Extremity normal to inspection, full ROM and no clubbing, cyanosis or edema Peripheral Pulses: Yes pulses 2+ throughout Skin no rashes or lesions noted Skin Narrative: Has chemotherapy port in place Neuro oriented x3 and CN's II-XII intact bilaterally Sensorium / Orientation: awake and alert Psych Psych Narrative: Looks lethargic. Assessment & Plan Assessment/Plan (1) Fever: (2) Acute and chronic respiratory failure with hypoxia: (3) Healthcare-associated pneumonia: PLAN: #Hypoxia due to health associated pneumonia * feels much better today. breathing is much better and he is on 2L of oxygen * sputum and blood cultures pending * On IV vancomycin and zosyn * titrate oxygen to maintain sats >90% * breathing treatment with bronchodilators. 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 Says he has had repeated transfusions due to CLL, and was transfused with 2 units of PRBCs just last week * being transfused with a unit of PRBC * trend Hb and transfuse to keep Hb >7 * #CLL * undergoing chemotherapy * has chemotherapy port in place * chemotherapy precautions * follow up with oncology on outpatient basis * #Acute Hypotension * resolved. * #Chronic hypoxic respiratory failure due to COPD * on 2L of oxygen today. Usually wears 3L at home * titrate oxygen to maintain sats >90% * breathing treatment with bronchodilators * * #Restless leg syndrome: on ropinirole #BPH: on flomax #HYponatremia: * platelets are 69 today, down from 97 yesterday. * He does have chronic thrombocytopenia. DVT prophylaxis: SCDs Code status: full code * Charges/Coding Visit Charges Inpatient E&M: 04792 Subs Hosp L2
--- NOTE | 2022-03-06 11:35 | CASEMGMT ---
RN PITO Face to Face with patient for initial transition planning/care coordination assessment. RN CM introduced self and role at [facility]. Patient lying in bed, alert and oriented, at bedside. Patient willing to participate in assessment and is able to answer all questions appropriately. Care providers, pharmacy, and demographics verified. Patient wishes to discharge home, will monitor progress with therapy for possbile HHC. Patient states he has no further needs or concerns at this time. CM to follow for discharge planning needs that may arise. PCP: Michael Specialists: Narciso well drill operator rotary drill; Jones, oncologist Preferred Pharmacy: [facility] Insurance: [employer] other Prescription Benefit: yes Living Will/HPOA: yes, Kari Thomas LNOK: , son Living Arrangements: Patient lives with in a single story home with 3 steps and railing to enter the home. Patient states he was independent at home until recently as his has been assisting with ADLs. Transportation: DME/HHC: Patient states he [facility] shower chair, walker, [facility] with [facility]ability at 3lpm, pulse ox at home. No previous HHC or SNF. Disposition Plan: Patient to discharge home with family support and follow-up plans in place. Will monitor for HHC pending progress with therapy. Gwendolyn MCCARTY, RN, CM
[2022-03-06] MEDS: Ferrous Sulfate 325 MG Tablet PO (12:02)
[2022-03-06] MEDS: Albuterol 2.5 MG/3 ML VIAL.NEB. INHALATION ×2 (13:35→19:02)
[2022-03-06 14:03] LABS: Pathologist Review Reviewed
--- NOTE | 2022-03-06 14:51 | CASEMGMT ---
RN CM called [facility] and confirmed order for 3lpm continuously. CM to monitor if patient will need increase home oxygen needs at discharge.
[2022-03-06 15:27] LABS: Hematocrit 28.5 % (40-54); Hemoglobin 8.9 g/dL (13.0-16.5); POSITIVE COUNT YES
[2022-03-06] MEDS: Budesonide Respules 0.5 MG/2 ML AMPUL.NEB. INHALATION (19:02)
[2022-03-06] MEDS: Pramipexole Di-HCl 0.5 MG Tablet PO (20:19)
[2022-03-06] MEDS: Tamsulosin HCl 0.4 MG Capsule 0.8 MG PO (20:20)
[2022-03-07] VITALS (13 sets, daily range): BP systolic 96–122; BP diastolic 46–79; PULSE 77–106; RESP 18–20; TEMP 36.7–36.9; O2SAT 93–98
[2022-03-07 03:40] LABS: Hematocrit 25.6 % (40-54); Mean Corp Hgb Conc 31.3 g/dL (32-36); Mean Corpuscular Hgb 32.9 pg (27.0-32.0); Mean Corpuscular Volume 105.3 fL (80-94); Mean Platelet Vol. 11.3 fl (6.2-12.0); POSITIVE COUNT YES; POSITIVE MORPHOLOGY YES; Platelet Count 68 K/mm3 (150-450); RBC Distribution Width CV 18.5 % (11.6-14.6); RBC Distribution Width SD 69.5 fl (35.1-43.9); Red Blood Count 2.43 M/mm3 (4.6-6.2); White Blood Count 25.5 K/mm3 (4.4-11.0)
[2022-03-07 03:44] LABS: Scan Indicated on CBC? Y/N YES- FLAGS NOTED
[2022-03-07 03:57] LABS: Anion Gap 1 (5-15); BUN 9 mg/dL (7-18); BUN/Creat Ratio 24.9 RATIO (10-20); Calcium,Total 8.2 mg/dL (8.5-10.1); Chloride 106 mmol/L (98-107); Creatinine, Serum 0.36 mg/dL (0.70-1.30); EST Glomerular Filtration Rate 251 mL/min (>60); Est Glom Filt Rate - Afr Amer 303 mL/min (>60); Estimated Creatinine Clearance 60.24 ml/min; Glucose 97 mg/dL (74-106); Potassium 3.8 mmol/L (3.5-5.1); Sodium Level 140 mmol/L (136-145)
[2022-03-07 04:08] LABS: Vancomycin, Trough Level 9.5 ug/mL (5.0-15.0)
[2022-03-07 04:20] LABS: Differential Comment SCANNED
[2022-03-07] MEDS: Vancomycin IV 1,000 MG/200 ML BAG 200 MG IV (04:33)
--- NOTE | 2022-03-07 04:44 | PCM.RX.CS ---
Consult Pharmacy has been consulted to manage selected antiobiotic: Vancomycin Type of Consult: Follow-up Labs: Sodium 140 mmol/L (136-145) 03/07/22 03:23 Potassium 3.8 mmol/L (3.5-5.1) 03/07/22 03:23 Chloride 106 mmol/L (98-107) 03/07/22 03:23 Carbon Dioxide 33.0 mmol/L (21.0-32.0) H 03/07/22 03:23 Anion Gap 1 (5-15) L 03/07/22 03:23 BUN 9 mg/dL (7-18) 03/07/22 03:23 Creatinine 0.36 mg/dL (0.70-1.30) L 03/07/22 03:23 Est GFR (MDRD) Af Amer 303 mL/min (>60) 03/07/22 03:23 Est GFR (MDRD) Non-Af 251 mL/min (>60) 03/07/22 03:23 BUN/Creatinine Ratio 24.9 RATIO (10-20) H 03/07/22 03:23 Glucose 97 mg/dL (74-106) 03/07/22 03:23 Vancomycin Trough 9.5 ug/mL (5.0-15.0) 03/07/22 03:23 Microbiology: Microbiology 03/05/22 16:00 Sputum, Expectorated/Coughed Gram Stain - Final 03/05/22 16:00 Sputum, Expectorated/Coughed Respiratory Culture - Preliminary Gram negative lc 03/05/22 15:25 Urine, Clean Catch Urine Culture - Preliminary Culture exhibits no growth. Goal Trough: 15-20 mcg/mL Pharmacy Plan for Drug Dosing: Pharmacy Service will continue to monitor and adjust dosing as required. TROUGH 9.5 AT 11 HRS. INCREASE TO 1250 Q12 AND FOLLOW UP TROUGH PRIOR TO 4TH DOSE Follow-Up Labs: Trough Vancomycin Labs to be done on [date and time ordered]: 03/09 @ 2931
[2022-03-07] MEDS: Acetaminophen 325 MG Tablet 650 MG PO ×2 (05:48→12:32)
[2022-03-07] MEDS: Mirtazapine 15 MG Tablet 7.5 MG PO (08:42)
[2022-03-07] MEDS: Allopurinol 300 MG Tablet PO (08:43)
[2022-03-07] MEDS: Acyclovir 200 MG Capsule 400 MG PO ×2 (08:43→21:29)
[2022-03-07] MEDS: 0.9% Saline Lock 10 ML Syringe IV (08:43)
[2022-03-07] MEDS: Pantoprazole Sodium 40 MG Tablet PO (08:43)
[2022-03-07] MEDS: Cholecalciferol (VIT D3) 25 MCG TABLET (1,000 UNITS) 50 MCG PO (08:43)
[2022-03-07 09:14] LABS: Pathologist Review Reviewed
--- NOTE | 2022-03-07 09:28 | PN.HOSP_ITS ---
Subjective Subjective Patient seen and examined. He does feel much better today. He is still having an occasional cough productive of grayish sputum. He has no other complaints and review of systems is otherwise negative. Objective Data Objective Data Vital Signs: Vital Signs Temp Pulse Resp BP Pulse Ox 98.0 F 90 18 96/46 L 96 03/07/22 08:20 03/07/22 08:20 03/07/22 08:20 03/07/22 08:20 03/07/22 08:20 Oxygen Flow Rate (L/min) 4 Oxygen Delivery Method Nasal Cannula Weight: 147 lb 1.584 oz Body Mass Index (BMI) 21.7 Intake & Output: Intake and Output for Last 24 Hours 03/05/22 03/06/22 03/07/22 23:59 23:59 23:59 Intake Total 4622.5 / 4622.5 2780.0 / 2900.0 430 / 430 Output Total 100 / 100 825 / 825 900 / 900 Balance 4522.5 / 4522.5 1955.0 / 2075.0 -470 / -470 Medical Nutrition Assessment Dietitian: Malnutrition Criteria Met Start: 03/05/22 16:14 Freq: Status: Active Protocol: Document 03/05/22 16:14 LO (Rec: 03/05/22 16:14 LO [id number]) Nutrition Malnutrition Evidence of Malnutrition Exists Yes Malnutrition (severe): Chronic Evidenced By Suboptimal Energy Intake ( Severe),Weight Loss (Severe), Physical Changes (Moderate) Clinical Problem Chronic Disease or Condition Related 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3 L, RDW Std Deviation 69.5 H, RDW Coeff of Yao 18.5 H, Plt Count 68 L, MPV 11.3, Differential Comment SCANNED 03/07/22 03:23: Sodium 140, Potassium 3.8, Chloride 106, Carbon Dioxide 33.0 H, Anion Gap 1 L, BUN 9, Creatinine 0.36 L, Estim Creat Clear Calc 60.24, Est GFR (MDRD) Af Amer 303, Est GFR (MDRD) Non-Af 251, BUN/Creatinine Ratio 24.9 H, Glucose 97, Calcium 8.2 L 03/07/22 03:23: Vancomycin Trough 9.5 Micro: Microbiology 03/05/22 16:00 Sputum, Expectorated/Coughed Gram Stain - Final 03/05/22 16:00 Sputum, Expectorated/Coughed Respiratory Culture - Preliminary Citrobacter koseri Alpha Hemolytic Streptococcus 03/05/22 15:25 Urine, Clean Catch Urine Culture - Preliminary Culture exhibits no growth. Physical Exam Const alert, oriented x3 and no apparent distress General Appearance: cooperative Exam Limitations: no limitations HEENT normocephalic, head/scalp atraumatic, hearing grossly normal bilaterally and moist oral mucous membranes Head and Scalp: normocephalic Eyes PERRL, EOMs intact bilaterally and conjunctivae normal Neck no lymphadenopathy and supple Resp Resp Narrative: Mildly diminished breath sounds bibasilarly. On 3-4L of oxygen at time of review. Cardio regular rate, regular rhythm, S1 normal heart sound, S2 normal heart sound and no murmurs GI normal to inspection, nondistended, normoactive bowel sounds, soft to palpation, non-tender and non-distended Extremity normal to inspection, full ROM and no clubbing, cyanosis or edema Peripheral Pulses: Yes pulses 2+ throughout Skin no rashes or lesions noted Skin Narrative: Has chemotherapy port in place Neuro oriented x3 and CN's II-XII intact bilaterally Sensorium / Orientation: awake and alert Psych affect normal Assessment & Plan Assessment/Plan (1) Fever: (2) Acute and chronic respiratory failure with hypoxia: (3) Healthcare-associated pneumonia: PLAN: #Hypoxia due to health associated pneumonia * feels much better; still has a slight cough productive of grayish sputum * on 3-4L of oxygen today * sputum cultures growing Citrobacter koseir and Alpha hemolytic strep. DC vancomycin * titrate oxygen to maintain sats >90% * breathing treatment with bronchodilators. * blood cultures from 03/04 negative. * #Acute on chronic anemia due to CLL * s/p transfusion of one unit of PRBC. Hb today is up to 8. * has required recurrent transfusions due to acute on chronic anemia from CLL * goal is to keep Hb >7 * * #CLL * undergoing chemotherapy * has chemotherapy port in place * chemotherapy precautions * follow up with oncology on outpatient basis * #Acute Hypotension * resolved. * #Chronic hypoxic respiratory failure due to COPD * on 3-4L of oxygen today. Usually wears 3L at home * titrate oxygen to maintain sats >90% * breathing treatment with bronchodilators * #Restless leg syndrome: on ropinirole #BPH: on flomax #HYponatremia: * platelets are 68 today. * He does have chronic thrombocytopenia. Will monitor DVT prophylaxis: SCDs Code status: full code * Charges/Coding Visit Charges Inpatient E&M: 84942 Subs Hosp L2
[2022-03-07] MEDS: Ferrous Sulfate 325 MG Tablet PO (11:18)
--- NOTE | 2022-03-07 12:02 | CASEMGMT ---
Addendum entered by Belia Meyers 03/07/22 13:10: Pt qualifies for a Palliative referral per the [facility] palliative screening tool at this time. EPHRAIM SHELDON broached topic w/pt and . They are both agreeable to referral. Dr Baez aware and states ok for Palliative c/s at this time. Order placed. Call placed to Cass @ Palliative. Face Sheet and screening tool emailed to Palliative at this time. Original Note: EPHRAIM SHELDON NOTE: Per therapy, pt up w/SBA w/use of walker today. EPHRAIM SHELDON to room to discuss discharge planning. @ bedside. Pt and interested in HHC for pt. Pt and provided with list of HHC providers including quality and resource use data and consistent with the patient's preferred geographic region, medical needs, and insurance network. The preferred provider is [facility]. Order placed. Call placed to Casie @ [facility] and referral made. Awaiting acceptance. Jordyn MCCARTY RN CM
[2022-03-07] MEDS: Albuterol 2.5 MG/3 ML VIAL.NEB. INHALATION ×2 (13:22→19:12)
[2022-03-07] MEDS: Budesonide Respules 0.5 MG/2 ML AMPUL.NEB. INHALATION (19:12)
[2022-03-07] MEDS: Pramipexole Di-HCl 0.5 MG Tablet PO (19:50)
[2022-03-07] MEDS: Tamsulosin HCl 0.4 MG Capsule 0.8 MG PO (21:29)
[2022-03-08 03:26] VITALS: BP 109/58; PULSE 91; RESP 16; TEMP 36.7; O2SAT 96
[2022-03-08 04:37] VITALS: PULSE 80
[2022-03-08] MEDS: 0.9% Saline Lock 10 ML Syringe IV ×3 (05:43→10:14)
[2022-03-08] MEDS: Acetaminophen 325 MG Tablet 650 MG PO (05:58)
[2022-03-08 06:36] VITALS: PULSE 78
[2022-03-08 06:46] VITALS: PULSE 85; RESP 16; O2SAT 94
[2022-03-08] MEDS: Budesonide Respules 0.5 MG/2 ML AMPUL.NEB. INHALATION (06:46)
[2022-03-08] MEDS: Albuterol 2.5 MG/3 ML VIAL.NEB. INHALATION (06:46)
[2022-03-08 08:05] LABS: Hematocrit 25.8 % (40-54); Hemoglobin 8.1 g/dL (13.0-16.5); Mean Corp Hgb Conc 31.4 g/dL (32-36); Mean Corpuscular Hgb 33.5 pg (27.0-32.0); Mean Corpuscular Volume 106.6 fL (80-94); Mean Platelet Vol. 10.7 fl (6.2-12.0); POSITIVE COUNT YES; POSITIVE DIFFERENTIAL YES; POSITIVE MORPHOLOGY YES; Platelet Count 54 K/mm3 (150-450); RBC Distribution Width CV 17.6 % (11.6-14.6); Red Blood Count 2.42 M/mm3 (4.6-6.2); White Blood Count 23.9 K/mm3 (4.4-11.0)
[2022-03-08 08:09] LABS: Anion Gap 2 (5-15); BUN 7 mg/dL (7-18); BUN/Creat Ratio 13.6 RATIO (10-20); Calcium,Total 8.3 mg/dL (8.5-10.1); Chloride 106 mmol/L (98-107); Creatinine, Serum 0.52 mg/dL (0.70-1.30); EST Glomerular Filtration Rate 166 mL/min (>60); Est Glom Filt Rate - Afr Amer 201 mL/min (>60); Estimated Creatinine Clearance 60.24 ml/min; Glucose 100 mg/dL (74-106); Potassium 3.7 mmol/L (3.5-5.1); Sodium Level 142 mmol/L (136-145)
[2022-03-08 09:06] LABS: Scan Indicated on CBC? Y/N YES- FLAGS NOTED
[2022-03-08 09:13] VITALS: BP 99/52; PULSE 87; RESP 18; TEMP 36.2; O2SAT 97
[2022-03-08] MEDS: Cholecalciferol (VIT D3) 25 MCG TABLET (1,000 UNITS) 50 MCG PO (09:19)
[2022-03-08] MEDS: Allopurinol 300 MG Tablet PO (09:20)
[2022-03-08] MEDS: Pantoprazole Sodium 40 MG Tablet PO (09:20)
[2022-03-08] MEDS: Acyclovir 200 MG Capsule 400 MG PO (09:20)
--- NOTE | 2022-03-08 10:08 | PCM.DC.SUM ---
Providers Date of Admission: 03/05/22 Primary Care Physician: Dr. Evaristo Rodriguez DO Reason For Visit: PNEUMONIA Diagnosis Discharge Diagnosis (1) Fever: Status: Acute Code(s): R50.9 - Fever, unspecified Qualifiers: Fever type: unspecified Qualified Code(s): R50.9 - Fever, unspecified (2) Acute and chronic respiratory failure with hypoxia: Status: Chronic Code(s): J96.21 - Acute and chronic respiratory failure with hypoxia (3) Healthcare-associated pneumonia: Status: Acute Code(s): J18.9 - Pneumonia, unspecified organism Medications at Discharge Home Medications tamsulosin 0.8 mg PO QHS 08/20/17 pantoprazole 40 mg PO DAILY #30 tab 12/12/19 lorazepam 1 mg tablet 1 mg PO QHS PRN tab 07/09/21 ropinirole 1 mg tablet 1 mg PO QHS #90 tab 10/02/21 cholecalciferol (vitamin D3) 50 mcg (2,000 unit) capsule 50 mcg PO DAILY 01/30/22 ferrous sulfate 325 mg (65 mg iron) tablet 325 mg PO DAILY tab 01/30/22 allopurinol 300 mg PO DAILY 30 Days #30 tab 02/13/22 acyclovir 400 mg PO BID 02/14/22 lidocaine-prilocaine 2.5 %-2.5 % topical cream 1 applic TOPICAL ONCE PRN 30 Days #30 g 02/17/22 ondansetron 8 mg disintegrating tablet 8 mg PO Q8H PRN #30 tab 02/17/22 mirtazapine 15 mg tablet 7.5 mg PO DAILY #30 tab 02/25/22 albuterol sulfate 90 mcg/actuation aerosol inhaler 2 puff INHALATION Q6H PRN #18 g 03/05/22 budesonide-formoterol HFA 160 mcg-4.5 mcg/actuation aerosol inhaler 2 puff INHALATION BID #1 ea 03/05/22 levofloxacin 500 mg PO DAILY #5 tab 03/08/22 Hospital Course Summary of Care Provided Minutes Spent on Discharge: 45 Hospital Course: REJI ORTIZ, is a 76 M with an extensive PMH as outlined who presents via the ED on 03/05/2022 with a complaint of weakness, fever and cough as well as shortness of breath,. His symptoms started a few days prior to admission. 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 He had an associated cough productive of grayish sputum. His last dose of chemotherapy was on the . He denied any chest pain, palpitations, dizziness, nausea or vomiting. However he was noted to be very pale and weak and so family brought him to the ED. He usually wears 3 L of oxygen at home but was requiring 5 L of oxygen. He also admitted to fever and chills. Review of systems otherwise negative. Patient was initially hypotensive in the ED but responded to fluids and at the time of review his blood pressure was up in the 100 systolic. At time of review, vitals were blood pressure 103/51, temperature of 97.8 and heart rate of 87. Respiratory rate was 20 on 4 L of oxygen. CBC showed hemoglobin of 7.4 with WBC of 24.5 and platelets of 97. Chemistry shows sodium of 135 with potassium of 4.3 and creatinine of 0.57. Urinalysis showed no evidence of UTI. Chest x-ray showed progressive bilateral pulmonary infiltrates worse on the left side. He was admitted to be managed for hypoxia due to pneumonia in an immunosuppressed patient. He was placed on IV zosyn and vancomycin. His shortness of breath gradually improved and he felt much better. Blood cultures were negative and sputum cultures grew Citrobacter koseri and Streptoccus pneumoniae. He was weaned down to his baseline oxygen and felt much better. Hospital course was complicated by acute on chronic anemia, with Hb dropping to 6. This was due to his CLL which he required recurrent transfusions. He was transfused with one unit of PRBC, and Hb came up to 8. He remained stable and as discharged home on 03/08/2022 on PO levofloxacin 750mg daily x 5 days. He is to follow up with his PCP and oncologist in 1-2 weeks. Patient seen and examined prior to discharge. He had no active complaints and felt much better. Review of systems is otherwise negative. Labs and vitals reviewed. Home meds reivewed and reconciled. Physical Exam Const alert, oriented x3 and no apparent distress Constitutional Narrative: looks much better today General Appearance: cooperative and comfortable Orientation / Consciousness: awake Exam Limitations: no limitations HEENT normocephalic, head/scalp atraumatic, hearing grossly normal bilaterally and moist oral mucous membranes Eyes PERRL, EOMs intact bilaterally and conjunctivae normal Neck no lymphadenopathy and supple Resp Resp Narrative: Mildly diminished breath sounds bibasilarly. On 3-4L of oxygen, which is his baseline Cardio regular rate, regular rhythm, S1 normal heart sound, S2 normal heart sound and no murmurs GI normal to inspection, nondistended, normoactive bowel sounds, soft to palpation, non-tender and non-distended Extremity normal to inspection, full ROM and no clubbing, cyanosis or edema Skin no rashes or lesions noted Skin Narrative: Has chemotherapy port in place Neuro oriented x3 and CN's II-XII intact bilaterally Sensorium / Orientation: awake and alert Psych affect normal Medical Records Data Medical Nutrition Assessment Dietitian: Malnutrition Criteria Met Start: 03/05/22 16:14 Freq: Status: Active Protocol: Document 03/05/22 16:14 (Rec: 03/05/22 16:14 [id number]) Nutrition Malnutrition Evidence of Malnutrition Exists Yes Malnutrition (severe): Chronic Evidenced By Suboptimal Energy Intake ( Severe),Weight Loss (Severe), Physical Changes (Moderate) Clinical Problem Chronic Disease or Condition Related Malnutrition Etiology (severe) related to chronic lymphocytic leukemia Signs/Symptoms as evidenced by 5.7% weight loss in 1 month and <75% PO intake of estimated energy needs for >1 month Status Active Problem Recommendation Dietitian Recommendations/Changes Regular diet Ensure Enlive 4x daily with Medpass Weight / BMI Weight Weight: 147 lb 1.584 oz Body Mass Index (BMI) 21.7 ABG / Lab / Microbiology Data Result Diagrams: 03/08/22 07:43 03/08/22 07:43 Laboratory: Laboratory Results - last 24 hr 03/08/22 07:43: WBC 23.9 H, RBC 2.42 L, Hgb 8.1 L, Hct 25.8 L, MCV 106.6 H, MCH 33.5 H, MCHC 31.4 L, RDW Std Deviation 68.0 H, RDW Coeff of Yao 17.6 H, Plt Count 54 L, MPV 10.7, Differential Comment 03/08/22 07:43: Sodium 142, Potassium 3.7, Chloride 106, Carbon Dioxide 34.0 H, Anion Gap 2 L, BUN 7, Creatinine 0.52 L, Estim Creat Clear Calc 60.24, Est GFR (MDRD) Af Amer 201, Est GFR (MDRD) Non-Af 166, BUN/Creatinine Ratio 13.6, Glucose 100, Calcium 8.3 L Microbiology: Microbiology 03/05/22 16:00 Sputum, Expectorated/Coughed Gram Stain - Final 03/05/22 16:00 Sputum, Expectorated/Coughed Respiratory Culture - Preliminary Citrobacter koseri Streptococcus pneumoniae 03/05/22 15:25 Urine, Clean Catch Urine Culture - Final Culture exhibits no growth. 03/05/22 10:35 Blood Culture (Wb) - Port Blood Culture - Preliminary No growth in 48 hours. 03/05/22 11:10 Blood Culture (Wb) - Right Forearm Blood Culture - Preliminary No growth in 48 hours. D/C Instructions Discharge Diet: Low fat / Low cholesterol Discharge Activity: Return to Normal Activity Weight Bearing Status: Weight bearing as tolerated Call your doctor if you observe: Fever of 101 or Higher, Shortness of breath, Dizziness, Swelling in the ankles, Chest pain and Uncontrolled pain Meaningful Use Info Meaningful Use Diagnoses (Choose all that apply): None applicable Discharge Plan Admission Admit Date/Time: 03/05/22 12:56 Primary Reason for Your Visit: health associated pneumonia Attending Provider: Suejy Baez Primary Care Provider: Evaristo Rodriguez Instructions Patient Instructions: Healthcare-Associated Pneumonia Discharge Orders/Prescriptions Prescriptions: New levofloxacin 500 mg tablet 500 mg PO DAILY Qty: 5 RF: 0 Continued lorazepam 1 mg tablet 1 mg PO QHS PRN (Reason: Sleep) RF: 0 ferrous sulfate 325 mg (65 mg iron) tablet 325 mg PO DAILY RF: 0 cholecalciferol (vitamin D3) 50 mcg (2,000 unit) capsule 50 mcg PO DAILY RF: 0 lidocaine-prilocaine 2.5-2.5 % cream 1 applic topical ONCE PRN (Reason: port access) 30 Days Qty: 30 RF: 2 ondansetron 8 mg tablet,disintegrating 8 mg PO Q8H PRN (Reason: nausea and vomiting) Qty: 30 RF: 2 mirtazapine [Remeron] 15 mg tablet 7.5 mg PO DAILY Qty: 30 RF: 0 tamsulosin 0.4 MG capsule 0.8 mg PO QHS RF: 0 pantoprazole 40 MG tablet 40 mg PO DAILY Qty: 30 RF: 1 allopurinol 300 mg Tablet 300 mg PO DAILY 30 Days Qty: 30 RF: 0 acyclovir 400 mg tablet 400 mg PO BID RF: 0 ropinirole 1 mg tablet 1 mg PO QHS Qty: 90 RF: 3 albuterol sulfate [ProAir HFA] 90 mcg/actuation HFA aerosol inhaler 2 puff INHALATION Q6H PRN (Reason: shortness of breath or wheezing) Qty: 18 RF: 6 budesonide-formoterol [Symbicort] 160-4.5 mcg/actuation HFA aerosol inhaler 2 puff INHALATION BID Qty: 1 RF: 6 Referrals / Follow Up: Abner Goldman MD [STAFF PHYSICIAN] - Within 2 Weeks Evaristo Rodriguez DO [Primary Care Provider] - Within 2 Weeks Disposition Disposition (needs filled in before D/C Order can be placed): Home, Self Care Charges/Coding Visit Charges Inpatient E&M: 07033 Disch Hosp
[2022-03-08 10:46] VITALS: O2SAT 93; O2SAT 95
== END 2022-03-08 10:57 | disposition home or self-care (01) | DRG 177 ==
LOC: ED 13:02 → PCU 03-06 07:22
PROVIDERS: Family Medicine; Admitting Provider Student in an Organized Health Care Education/Training Program; Emergency Provider Emergency Medicine; PCP Family Medicine; Visit Provider Student in an Organized Health Care Education/Training Program
DX: J15.6 Pneumonia due to other Gram-negative bacteria (principal); E43 Unspecified severe protein-calorie malnutrition; D84.9 Immunodeficiency, unspecified; J96.11 Chronic respiratory failure with hypoxia; E87.1 Hypo-osmolality and hyponatremia; C91.10 Chronic lymphocytic leukemia of B-cell type not having achieved remission; J44.0 Chronic obstructive pulmonary disease with (acute) lower respiratory infection; J44.1 Chronic obstructive pulmonary disease with (acute) exacerbation; J13 Pneumonia due to Streptococcus pneumoniae; I95.9 Hypotension, unspecified; D63.0 Anemia in neoplastic disease; G25.81 Restless legs syndrome; I25.10 Atherosclerotic heart disease of native coronary artery without angina pectoris; N40.0 Benign prostatic hyperplasia without lower urinary tract symptoms; Y95 Nosocomial condition; Z68.21 Body mass index [BMI] 21.0-21.9, adult; Z99.81 Dependence on supplemental oxygen; Z79.899 Other long term (current) drug therapy; Z87.891 Personal history of nicotine dependence; Z80.1 Family history of malignant neoplasm of trachea, bronchus and lung
CPT/HCPCS: 36591; 71045; 71046; 80048; 80053; 80202; 81001; 83605; 85014; 85018; 85025; 85027; 85610; 85730; 86850; 86900; 86901; 86920; 86922; 87040; 87070; 87077; 87086; 87186; 87205; 93005; 94640; 97110; 97116; 97162; 97166; 97535; 97802; 99251; 99285; J7030; J7040; J7050; P9016; A4216; G0463; J0696

== ENCOUNTER 2022-04-21 20:27 | Emergency (ER) | payer MEDICARE, OTHER, SELFPAY ==
[2022-04-21 20:28] VITALS: BP 104/63; PULSE 113; RESP 18; TEMP 38.1; O2SAT 90; BMI 20.8
[2022-04-21 20:43] VITALS: TEMP 37.9
--- NOTE | 2022-04-21 20:57 | EKG12_ITS ---
Test Reason : fever Blood Pressure : / mmHG Vent. Rate : 097 BPM Atrial Rate : 097 BPM P-R Int : 154 ms QRS Dur : 090 ms QT Int : 328 ms P-R-T Axes : 072 064 063 degrees QTc Int : 416 ms Normal sinus rhythm Low voltage QRS (LIMB LEADS) Confirmed by REBECCA LYON, ZACK ([id number]), newspaper or periodical editor CARMEN MARIE ([id number]) on 04/22/2022 10:42:52 AM Referred By: Confirmed By:ZACK FERNANDEZ MD
--- NOTE | 2022-04-21 21:01 | EDS_ITS ---
HPI History of Present Illness Chief Complaint: Fever Informant: patient and spouse/S.O. Narrative Narrative: History of CLL diagnosed in February followed by Dr. Goldman, presents with mother today due to fever starting today. Unsteady gait. Patient reported productive cough starting yesterday. Last chemo was in March, she was due for recent 1 however held due to family members having COVID a week ago. He was negative from testing. He is vaccinated however did not get the last booster. No COVID infections in the past. No urinary symptoms. No recent vomiting or diarrhea. Status post Tylenol 8:30 PM of 650 mg prior to arrival. [facility] Medical History Abnormal CT scan, chest Acute hypoxemic respiratory failure Adjustment disorder Ambulates with cane Arm pain, left Asthma Atrioventricular block, first degree B12 deficiency anemia Back pain Biceps tendinitis on left BPH (benign prostatic hyperplasia) Bronchiectasis Cancer Chronic lymphocytic leukemia CLL (chronic lymphocytic leukemia) Contusion of left shoulder COPD (chronic obstructive pulmonary disease) COPD exacerbation COPD with acute exacerbation Coronary atherosclerosis due to calcified coronary lesion Cough Degenerative joint disease Dehydration Diarrhea Dyspnea Dysuria Easy bruising Encounter for chemotherapy management Encounter for education Fatigue Fever Former smoker GERD (gastroesophageal reflux disease) HAP (hospital-acquired pneumonia) Hiatal hernia with gastroesophageal reflux History of Coumadin therapy History of SCC (squamous cell carcinoma) of skin Hx of fracture of ankle Hypotension Hypoxia Impingement syndrome, shoulder, left Influenza A Iron deficiency anemia Left hip pain Left shoulder pain Low back pain Orthopedic aftercare Osteoarthritis of left shoulder Other fracture of shaft of left humerus, initial encounter for closed fracture Pneumonia due to Streptococcus Pulmonary embolism Pulmonary embolism Restless legs Rotator cuff syndrome of left shoulder Rotator cuff tear, left Shortness of breath on exertion Shoulder pain, right Signs and symptoms of anemia Sinus tachycardia Symptomatic anemia Syncope Tobacco dependency Wears dentures Wears glasses Wears hearing aid Home Medications tamsulosin 0.4 mg capsule 0.8 mg PO QHS prostate 08/20/17 [History Last Taken 08/20/17 19:00] pantoprazole 40 mg tablet,delayed release 40 mg PO DAILY #30 tabs 12/12/19 [Rx Last Taken 02/18/22 05:00] lorazepam 1 mg tablet 1 mg PO QHS PRN Sleep 07/09/21 [History Last Taken Unknown] ropinirole 1 mg tablet 1 mg PO QHS #90 tabs 10/02/21 [Rx Last Taken Unknown] cholecalciferol (vitamin D3) 50 mcg (2,000 unit) capsule 50 mcg PO DAILY vitamin 01/30/22 [History Last Taken Unknown] ferrous sulfate 325 mg (65 mg iron) tablet 325 mg PO DAILY supplement 01/30/22 [History Last Taken Unknown] acyclovir 400 mg tablet 400 mg PO BID CHEMO 02/14/22 [History Last Taken 02/18/22 05:00] lidocaine-prilocaine 2.5 %-2.5 % topical cream 1 applic topical ONCE PRN port access 30 days #30 grams 02/17/22 [Rx Last Taken Unknown] ondansetron 8 mg disintegrating tablet 8 mg PO Q8H PRN nausea and vomiting #30 tabs 02/17/22 [Rx Last Taken Unknown] albuterol sulfate 90 mcg/actuation aerosol inhaler (ProAir HFA) 2 puff inhalation Q6H PRN shortness of breath or wheezing #18 grams 03/05/22 [Rx Last Taken Unknown] budesonide-formoterol HFA 160 mcg-4.5 mcg/actuation aerosol inhaler (Symbicort) 2 puff inhalation BID #1 ea 03/05/22 [Rx Last Taken Unknown] mirtazapine 15 mg tablet (Remeron) 15 mg PO DAILY #30 tabs 03/27/22 [Rx Last Taken Unknown] midodrine 5 mg tablet 10 mg PO TID 04/21/22 [History Last Taken Unknown] nirmatrelvir 300 mg (150 mg x2)-ritonavir 100 mg tablet,dose pack(EUA) (Paxlovid) See Rx Instructions PO .COMPLEX #30 tabs 04/22/22 [Rx Last Taken Unknown] Allergy/AdvReac Type Severity Reaction Status Date / Time No Known Allergies Allergy Verified 04/21/22 20:31 Family History Sister Breast cancer Mother Cancer patient states female cancer, when he was young Brother Lung cancer Surgical History History of hydrocelectomy History of orchiectomy, unilateral Social History household members: spouse current occupational status: retired Smoking Status: Former smoker Tobacco: How many years used: 60 Electronic Cigarette Use: not used second hand exposure: Yes quit status: has quit before counseling given: provider counseling alcohol intake: current alcohol intake frequency: a few times a month substance use type: does not use caffeine: Yes Type: coffee Number of servings: 3 what type of physical activity do you participate in: none seatbelt use: always ROS ROS ED Constitutional Constitutional ED: Reports fever(s); Denies chills or sweats Eyes Eyes: Denies change in vision ENT ENT ED: Denies dysphagia or sore throat Cardiovascular Cardiovascular: Denies chest pain, leg edema, palpitations or racing heartbeat Respiratory/Chest Respiratory/Chest: Reports cough; Denies dyspnea or dyspnea on exertion Gastrointestinal Gastrointestinal: Denies abdominal pain, diarrhea, nausea or vomiting Genitourinary Genitourinary ED: Denies dysuria, hematuria or urinary frequency Musculoskeletal Musculoskeletal: Denies back pain, extremity pain or neck pain Integumentary Denies rash or wounds Neurologic Neurologic: Denies headache(s), paresthesias or weakness EXAM Physical Exam Const Vital Signs: 04/21/22 20:28 04/21/22 20:40 04/21/22 20:43 Temperature 100.6 F H 100.3 F H Temperature Source Temporal Oral Pulse Rate 113 H Respiratory Rate 18 Respiratory Effort Normal Non-Labored Respiratory Pattern Normal Blood Pressure 104/63 Blood Pressure Mean 76 Pulse Ox 90 Oxygen Delivery Method Room Air Oxygen Flow Rate (L/min) 04/21/22 21:24 04/21/22 21:24 04/21/22 21:24 Temperature 100.3 F H 100.3 F H Temperature Source Oral Oral Pulse Rate 94 Respiratory Rate 20 H Respiratory Effort Respiratory Pattern Blood Pressure 91/50 L Blood Pressure Mean 63 Pulse Ox 96 96 Oxygen Delivery Method Nasal Cannula Nasal Cannula Oxygen Flow Rate (L/min) 3 3 04/21/22 23:13 04/21/22 23:13 04/22/22 00:00 Temperature 98.1 F Temperature Source Oral Pulse Rate 77 86 Respiratory Rate 19 H 20 H Respiratory Effort Respiratory Pattern Blood Pressure 95/46 L 117/61 Blood Pressure Mean 62 79 Pulse Ox 97 97 Oxygen Delivery Method Nasal Cannula Nasal Cannula Oxygen Flow Rate (L/min) 3 3 Positive well nourished and well developed General Appearance ED: well developed and NAD HEENT Reports moist mucous membranes normocephalic and atraumatic Eyes PERRL, EOMs intact bilaterally and conjunctivae normal General Eye ED: Yes normal appearance of both eyes Neck no lymphadenopathy and supple General: Negative for tenderness Chest Wall Chest: Negative for tenderness Resp normal respiratory effort and normal air movement Effort and Inspection: symmetric chest movement; Negative for respiratory distress Cardio regular rate, regular rhythm and no murmurs Peripheral Pulses: pulses 2+ throughout GI normal to inspection, nondistended, normoactive bowel sounds and non-tender Palpation: Negative for guarding or rebound tenderness present Back/Spine no CVA tenderness and no thoracic nor lumbar tenderness Extremity normal to inspection General Extremety ED: Negative for edema or tenderness General Extremity: Negative for edema Neuro oriented x3 and no sensory deficits noted Sensorium / Orientation: awake and alert Skin no rashes or lesions noted and no wounds MDM MDM MDM Narrative Medical decision making narrative: Patient low-grade fever status post Tylenol. CLL patient last chemo over a month ago. Sepsis labs were ordered. White count of 8 hemoglobin 8.1 stable from previous. Creatinine 0.72. Sodium 134. Lactic is 0.8. Urine negative for any clear infection. Chest x-ray 1 view reviewed by myself and read by radiology shows no acute process. COVID testing however did return positive. Respiratory panel also negative. Initially came in on room air however supposed to wear chronic 3 L of oxygen. He was placed on this remained stable. He is in no respiratory distress. He is day 1 of symptoms with his fever today. Discussed treatment with Paxlovid for which she wishes to start. Only possible significant reaction was mirtazapine possible QT prolongation or normal QTC on EKG. Also noted tamsulosin could have increasing effects causing hypotension, he will hold this medication while taking COVID treatment meds. Strict return precautions. I spoke with his oncologist Dr. Goldman updated on his findings his chemo will be held for couple weeks. He will follow-up as an outpatient. Lab Data Attestation: I reviewed the patient's lab results. Labs: Laboratory Results - last 24 hr 04/21/22 04/21/22 04/21/22 21:00 21:00 21:00 WBC 8.0 RBC 2.35 L Hgb 8.1 L Hct 25.1 L MCV 106.8 H MCH 34.5 H MCHC 32.3 RDW Std Deviation 71.8 H RDW Coeff of Yao 18.5 H Plt Count 103 L MPV 10.4 Immature Gran % (Auto) 1.000 H Neut % (Auto) 23.7 L Lymph % (Auto) 69.7 H [place] % (Auto) 5.2 Eos % (Auto) 0.3 Baso % (Auto) 0.1 Absolute Neuts (auto) 1.9 L Absolute Lymphs (auto) 5.54 H Nucleated RBC % 0 Differential Comment SEE COMMENT Atypical Lymphocytes 1+ Platelet Estimate ADEQUATE RBC Morphology N CHROM Hypochromasia 1+ Anisocytosis 1+ Macrocytosis 1+ PT 15.5 H INR 1.3 APTT 29.0 Sodium 134 L Potassium 4.2 Chloride 100 Carbon Dioxide 28.0 Anion Gap 6 BUN 19 H Creatinine 0.72 Estim Creat Clear Calc 56.10 Est GFR (MDRD) Af Amer 137 Est GFR (MDRD) Non-Af 113 BUN/Creatinine Ratio 26.4 H Glucose 124 H Lactic Acid Calcium 7.9 L Total Bilirubin 0.30 AST 21 ALT 33 Alkaline Phosphatase 79 Total Protein 5.1 L Albumin 2.6 L Globulin 2.5 Albumin/Globulin Ratio 1.0 Urine Color Urine Clarity Urine pH Ur Specific [place] Urine Protein Urine Glucose (UA) Urine Ketones Urine Occult Blood Urine Nitrite Urine Bilirubin Urine Urobilinogen Ur Leukocyte Esterase Urine RBC Urine WBC Ur Squamous Epith Cells Urine Bacteria Urine Mucus 04/21/22 04/21/22 21:00 21:41 WBC RBC Hgb Hct MCV MCH MCHC RDW Std Deviation RDW Coeff of Yao Plt Count MPV Immature Gran % (Auto) Neut % (Auto) Lymph % (Auto) [place] % (Auto) Eos % (Auto) Baso % (Auto) Absolute Neuts (auto) Absolute Lymphs (auto) Nucleated RBC % Differential Comment Atypical Lymphocytes Platelet Estimate RBC Morphology Hypochromasia Anisocytosis Macrocytosis PT INR APTT Sodium Potassium Chloride Carbon Dioxide Anion Gap BUN Creatinine Estim Creat Clear Calc Est GFR (MDRD) Af Amer Est GFR (MDRD) Non-Af BUN/Creatinine Ratio Glucose Lactic Acid 0.8 Calcium Total Bilirubin AST ALT Alkaline Phosphatase Total Protein Albumin Globulin Albumin/Globulin Ratio Urine Color Yellow Urine Clarity Clear Urine pH 7.0 Ur Specific [place] 1.010 Urine Protein 15 H Urine Glucose (UA) Normal Urine Ketones Negative Urine Occult Blood 10 H Urine Nitrite Negative Urine Bilirubin Negative Urine Urobilinogen 1 H Ur Leukocyte Esterase 25 H Urine RBC 0-5 SEEN Urine WBC 0-5 SEEN Ur Squamous Epith Cells 0-5 SEEN Urine Bacteria RARE Urine Mucus 0 SEEN Radiography Chest X-Ray - ED: 1 View, Read by ED Physician and Read by Radiologist Diagnostic Testing: Clinical Impression(s) from Imaging Studies Chest X-Ray 04/21/22 21:28 IMPRESSION: Stable chest. No acute disease. Electronically Signed: Martin Fuentes MD at 22:19 EDT , EKG Initial EKG: Attestation: I personally reviewed and interpreted this EKG as follows: Comments: Sinus rate of 97, no ST or T wave changes. Discharge Plan Triage Chief Complaint: Fever ED Provider: Michael Auguste Dx/Rx/DC Orders Clinical Impression: COVID-19 virus infection, CLL (chronic lymphocytic leukemia), Fever, COPD (chronic obstructive pulmonary disease), Anemia Instructions: Coronavirus Disease 2019 (COVID-19): Caring for Yourself or Others Prescriptions: New Paxlovid (EUA) 300 mg (150 mg x 2)-100 mg tablets,dose pack See Rx Instructions .ROUTE .COMPLEX Qty: 30 0RF Rx Instructions: take TWO 150 mg tablets of nirmatrelvir with ONE 100 mg tablet of ritonavir twice daily for 5 days No Action lorazepam 1 mg tablet 1 mg PO QHS PRN (Reason: Sleep) ferrous sulfate 325 mg (65 mg iron) tablet 325 mg PO DAILY cholecalciferol (vitamin D3) 50 mcg (2,000 unit) capsule 50 mcg PO DAILY lidocaine-prilocaine 2.5-2.5 % cream 1 applic topical ONCE PRN (Reason: port access) 30 Days Qty: 30 2RF ondansetron 8 mg tablet,disintegrating 8 mg PO Q8H PRN (Reason: nausea and vomiting) Qty: 30 2RF tamsulosin 0.4 MG capsule 0.8 mg PO QHS Label Comments: urinary issues pantoprazole 40 MG tablet 40 mg PO DAILY Qty: 30 1RF acyclovir 400 mg tablet 400 mg PO BID midodrine 5 mg Tablet 10 mg PO TID Rx Instructions: do not give last dose of day after 6PM or within 4 hrs of bedtime ropinirole 1 mg tablet 1 mg PO QHS Qty: 90 3RF Rx Instructions: administer 1-3 hours before bedtime albuterol sulfate [ProAir HFA] 90 mcg/actuation HFA aerosol inhaler 2 puff INHALATION Q6H PRN (Reason: shortness of breath or wheezing) Qty: 18 6RF budesonide-formoterol [Symbicort] 160-4.5 mcg/actuation HFA aerosol inhaler 2 puff INHALATION BID Qty: 1 6RF Rx Instructions: administer with spacer, rinse mouth after each use mirtazapine [Remeron] 15 mg tablet 15 mg PO DAILY Qty: 30 2RF Primary Care Provider: Evaristo Rodriguez Referrals: Evaristo Rodriguez DO [Primary Care Provider] - 5-7 Days Activity Restrictions/Additional Instructions: Hold your tamsulosin while taking Paxlovid. Your chemo will be held for a couple weeks per Dr. goldman. Return for any worsening respiratory symptoms. Disposition Disposition: Home, Self Care Discharge Date/Time: 04/22/22 01:26
[2022-04-21 21:19] LABS: Absolute Lymphocyte Count 5.54 X10^3/uL (0.83-4.51); Absolute Neutrophil Count 1.9 X10^3/uL (2.0-7.7); Basophil# 0.01 X10^3/uL; Basophil% 0.1 % (0-1); Eosinophil# 0.02 X10^3/uL; Eosinophils% 0.3 % (0-5); Hematocrit 25.1 % (40-54); Hemoglobin 8.1 g/dL (13.0-16.5); Lymphocyte # 5.54 X10^3/ul (0.83-4.51); Lymphocyte % 69.7 % (19-41); Mean Corp Hgb Conc 32.3 g/dL (32-36); Mean Corpuscular Hgb 34.5 pg (27.0-32.0); Mean Corpuscular Volume 106.8 fL (80-94); Mean Platelet Vol. 10.4 fl (6.2-12.0); Monocyte# 0.41 X10^3/uL; Monocyte% 5.2 % (0-10); NRBC Flagged by Analyzer 0 % (0-5); Neutrophil # 1.89 X10^3/uL (2.7-7.7); Neutrophil % 23.7 % (47-70); POSITIVE DIFFERENTIAL YES; POSITIVE MORPHOLOGY YES; Platelet Count 103 K/mm3 (150-450); RBC Distribution Width CV 18.5 % (11.6-14.6); RBC Distribution Width SD 71.8 fl (35.1-43.9); Red Blood Count 2.35 M/mm3 (4.6-6.2)
[2022-04-21 21:24] VITALS: BP 91/50; PULSE 94; RESP 20; TEMP 37.9; O2SAT 96
[2022-04-21 21:28] LABS: AST(SGOT) 21 U/L (15-37); Alanine Aminotransfer ALT/SGPT 33 U/L (16-61); Albumin, Serum 2.6 g/dL (3.2-5.0); Alkaline Phosphatase 79 U/L (45-117); Anion Gap 6 (5-15); BUN 19 mg/dL (7-18); BUN/Creat Ratio 26.4 RATIO (10-20); Calcium,Total 7.9 mg/dL (8.5-10.1); Chloride 100 mmol/L (98-107); Creatinine, Serum 0.72 mg/dL (0.70-1.30); EST Glomerular Filtration Rate 113 mL/min (>60); Est Glom Filt Rate - Afr Amer 137 mL/min (>60); Globulin 2.5 g/dL (2.2-4.2); Glucose 124 mg/dL (74-106); International Normalized Ratio 1.3; Potassium 4.2 mmol/L (3.5-5.1); Protein, Total 5.1 g/dL (6.4-8.2); Prothrombin Time (Protime)PT. 15.5 SECONDS (11.7-14.9); Sodium Level 134 mmol/L (136-145)
--- NOTE | 2022-04-21 21:28 | RAD_ITS ---
EXAM: XR CHEST, 1 VIEW CLINICAL INDICATION: cough TECHNIQUE: Frontal view of the chest. This report was created using [employer] report generation technology. COMPARISON: 03/20/2022 FINDINGS: LUNGS AND PLEURAL SPACES: Unremarkable. No consolidation or edema. No pneumothorax. No effusion. HEART: Unremarkable. Cardiac silhouette not enlarged. MEDIASTINUM: Moderate size hiatal hernia redemonstrated. BONES/JOINTS: Degenerative changes of spine and acromioclavicular joints. SOFT TISSUES: Unremarkable. VASCULATURE: Atherosclerotic calcifications of the nonenlarged thoracic aortic arch. TUBES, LINES AND DEVICES: Stable right chest port. RAD/Chest 1 View (Portable) IMPRESSION: Stable chest. No acute disease. Electronically Signed: Martin Fuentes MD at 22:19 EDT ,
[2022-04-21 21:33] LABS: Lactic Acid 0.8 mmol/L (0.4-1.9)
[2022-04-21 21:54] LABS: Mucous, Urine 0 SEEN /hpf (<or=2+)
[2022-04-21 21:57] LABS: Color, Urine Yellow (Yellow); Glucose, Dipstick Normal (Normal); Ketone-Dipstick Negative (Negative); Leukocyte Esterase-Dipstick 25 /ul (Negative); Nitrite-Dipstick Negative (Negative); Occult Blood-Urine 10 /ul (Negative); Protein-Dipstick 15 mg/dl (Negative); Urine Bilirubin Dipstick Negative (Negative); Urine Clarity Clear (Clear); Urine Urobilinogen 1 mg/dl (Normal)
[2022-04-21 22:10] LABS: Differential Indicated SCAN CRITERIA MET
[2022-04-21 22:12] LABS: Platelet Estimate ADEQUATE (ADEQ)
[2022-04-21 22:13] LABS: Anisocytosis 1+; Atypical Lymphocyte 1+ %; Hypochromasia 1+; Macrocytosis 1+; Red Cell Morphology N CHROM NORMAL (NORM C&C)
[2022-04-21 22:41] LABS: Bacteria RARE /hpf (None Seen); Red Blood Cells-Urine 0-5 SEEN /hpf (0-5); Squamous Epithelial Cells - UA 0-5 SEEN /hpf (0-5); White Blood Cells 0-5 SEEN /hpf (0-5)
[2022-04-21 23:13] VITALS: BP 95/46; PULSE 77; RESP 19; TEMP 36.7; O2SAT 97
[2022-04-21 23:34] VITALS: O2SAT 97
[2022-04-22] VITALS: BP 117/61; PULSE 86; RESP 20; O2SAT 97
== END 2022-04-22 01:26 | disposition home or self-care (01) ==
PROVIDERS: Emergency Provider Emergency Medicine; PCP Family Medicine; Visit Provider Emergency Medicine
DX: U07.1 COVID-19 (principal); C91.10 Chronic lymphocytic leukemia of B-cell type not having achieved remission; J44.9 Chronic obstructive pulmonary disease, unspecified; D64.9 Anemia, unspecified; I25.10 Atherosclerotic heart disease of native coronary artery without angina pectoris; J45.909 Unspecified asthma, uncomplicated; M19.90 Unspecified osteoarthritis, unspecified site; Z87.891 Personal history of nicotine dependence; Z79.01 Long term (current) use of anticoagulants; Z79.899 Other long term (current) drug therapy
CPT/HCPCS: 36591; 71045; 80053; 81001; 83605; 85025; 85610; 85730; 87040; 87086; 87088; 87186; 87428; 87633; 93005; 99283; A4216

== ENCOUNTER → 2022-05-05 | Outpatient (CLI) | payer MEDICARE, OTHER, SELFPAY ==
--- NOTE | 2022-05-05 12:34 | CT_ITS ---
EXAM: CT CHEST, LUNG CANCER SCREENING WITHOUT INTRAVENOUS CONTRAST CLINICAL INDICATION: smoker and gt; 40 pack years TECHNIQUE: Helically acquired images were obtained of the chest without intravenous contrast using low dose (LDCT) lung cancer screening protocol. This CT exam was performed using one or more of the following dose reduction techniques: automated exposure control, adjustment of the mA and/or kV according to patient size, and/or use of iterative reconstruction technique. This report was created using [employer] report generation technology. COMPARISON: CT Lung Cancer Screening dated 05/02/2021 FINDINGS: LUNGS AND PLEURAL SPACES: Interval development of 2.4 cm lung density which appears to contain central cavitation. Additional new cluster of nodular densities within the left upper lobe associated with adjacent groundglass density in the lungs. Persistent slightly more prominent groundglass density within the posterior segment of the left upper lobe. All of these lesions may represent inflammatory or infectious process. Diffuse centrilobular pulmonary emphysema. No pleural effusion or thickening. No pneumothorax. HEART: Moderate coronary artery calcification. Heart size is normal. No pericardial effusion. MEDIASTINUM: Moderate size hiatal hernia is stable. Mediastinal lymph nodes are enlarged, increased in size from prior exam with short axis diameter of 12 mm. Esophagus is unremarkable. THYROID: Normal. No thyroid lesions. BONES/JOINTS: Normal. No suspicious lytic or blastic abnormality. VASCULATURE: Normal. Thoracic aorta is non-dilated. LYMPH NODES: See above. TUBES, LINES AND DEVICES: Interval placement of right IJ infusion catheter which extends to the mid superior vena cava. CT/Low Dose CT Lung Screening IMPRESSION: 1. New areas of pulmonary opacity within the upper lobes bilaterally which may represent inflammatory or infectious disease. Enlarging mediastinal lymph nodes which may be reactive in nature. 2. Lung-RADS score: 4BS - Very Suspicious. Additional clinically significant or potentially clinically significant findings are described. Recommend chest CT with or without contrast, PET/CT and/or tissue sampling depending on the probability of malignancy and comorbidities. PET/CT may be used when there is a >=8 mm solid component. For new large nodules that develop on an annual repeat screening CT, a 1 month LDCT may be recommended to address potentially infectious or inflammatory conditions. Electronically Signed: Jose Argueta MD at 16:49 EDT ,
== END | disposition home or self-care (01) ==
LOC: CT 12:30
PROVIDERS: PCP Family Medicine; Visit Provider Nurse Practitioner Acute Care
DX: Z12.2 Encounter for screening for malignant neoplasm of respiratory organs (principal); F17.210 Nicotine dependence, cigarettes, uncomplicated
CPT/HCPCS: 71271

== ENCOUNTER 2022-05-08 13:10 | Inpatient (IN) | payer MEDICARE, OTHER, SELFPAY ==
[2022-05-08] VITALS (15 sets, daily range): BP systolic 70–117; BP diastolic 32–69; PULSE 73–126; RESP 14–24; TEMP 36.6–37.5; O2SAT 90–100; BMI 19.9; BMI 20.9
--- NOTE | 2022-05-08 13:44 | EKG12_ITS ---
Test Reason : syncope Blood Pressure : / mmHG Vent. Rate : 109 BPM Atrial Rate : 109 BPM P-R Int : 144 ms QRS Dur : 084 ms QT Int : 314 ms P-R-T Axes : 068 050 050 degrees QTc Int : 422 ms Sinus tachycardia Otherwise normal ECG Confirmed by ONOFRE LYON, RADHA ([id number]), make up editor BERNA MOTA ([id number]) on 05/12/2022 11:24:55 AM Referred By: Confirmed By:RADHA ADHIKARI MD
--- NOTE | 2022-05-08 13:48 | EDS_ITS ---
HPI <ROSALIO Galvan - Last Filed: 05/08/22 17:36> History of Present Illness Chief Complaint: Fever Narrative Narrative: 76-year-old male with history of CLL who is currently under going chemotherapy, last dose was yesterday, today he did not go due to feeling ill. Patient also has COPD which he is on 3 L of nasal cannula daily. The last 24 hours he has been feeling fatigued, he had fevers from 99-1 03 at home. Due to him currently being on chemotherapy he is here for evaluation. He denies any cough, shortness of breath, however states that he was much more tired and per the , he had 4 syncopal episodes today while trying to get up and move around. Denies any injury. [facility] <ROSALIO Galvan - Last Filed: 05/08/22 17:36> [facility] Medical History (Updated 05/10/22 @ 10:[address] aPblito Lee, DO) Abnormal CT scan, chest Acute hypoxemic respiratory failure Adjustment disorder Ambulates with cane Arm pain, left Asthma Atrioventricular block, first degree B12 deficiency anemia Back pain Biceps tendinitis on left BPH (benign prostatic hyperplasia) Bronchiectasis Cancer Chronic anemia Chronic lymphocytic leukemia CLL (chronic lymphocytic leukemia) Contusion of left shoulder COPD (chronic obstructive pulmonary disease) COPD exacerbation COPD with acute exacerbation Coronary atherosclerosis due to calcified coronary lesion Cough Degenerative joint disease Dehydration Diarrhea Dyspnea Dysuria Easy bruising Encounter for chemotherapy management Encounter for education Fatigue Fever Former smoker GERD (gastroesophageal reflux disease) HAP (hospital-acquired pneumonia) Hiatal hernia Hiatal hernia with gastroesophageal reflux History of Coumadin therapy History of SCC (squamous cell carcinoma) of skin Hx of fracture of ankle Hypotension Hypoxia Impingement syndrome, shoulder, left Influenza A Iron deficiency anemia Left hip pain Left shoulder pain Low back pain On home oxygen therapy Orthopedic aftercare Osteoarthritis of left shoulder Other fracture of shaft of left humerus, initial encounter for closed fracture Pneumonia due to Streptococcus Pulmonary embolism Pulmonary embolism Restless legs Rotator cuff syndrome of left shoulder Rotator cuff tear, left Shortness of breath on exertion Shoulder pain, right Signs and symptoms of anemia Sinus tachycardia Symptomatic anemia Syncope Tobacco dependency Wears dentures Wears glasses Wears hearing aid Home Medications tamsulosin 0.4 mg capsule 0.8 mg PO QHS prostate 08/20/17 [History Last Taken 05/07/22] lorazepam 1 mg tablet 1 mg PO QHS PRN Sleep 07/09/21 [History Last Taken 05/08/22] cholecalciferol (vitamin D3) 50 mcg (2,000 unit) capsule 50 mcg PO DAILY vitamin 01/30/22 [History Last Taken 05/08/22] ferrous sulfate 325 mg (65 mg iron) tablet 325 mg PO DAILY supplement 01/30/22 [History Last Taken 05/08/22] acyclovir 400 mg tablet 400 mg PO BID CHEMO 02/14/22 [History Last Taken 05/08/22] lidocaine-prilocaine 2.5 %-2.5 % topical cream 1 applic topical ONCE PRN port access 30 days #30 grams 02/17/22 [Rx Last Taken 05/07/22] ondansetron 8 mg disintegrating tablet 8 mg PO Q8H PRN nausea and vomiting #30 tabs 02/17/22 [Rx Last Taken Unknown] albuterol sulfate 90 mcg/actuation aerosol inhaler (ProAir HFA) 2 puff inhalation Q6H PRN shortness of breath or wheezing #18 grams 03/05/22 [Rx Last Taken 3 Days Ago ~05/05/22] budesonide-formoterol HFA 160 mcg-4.5 mcg/actuation aerosol inhaler (Symbicort) 2 puff inhalation BID #1 ea 03/05/22 [Rx Last Taken 05/08/22] midodrine 5 mg tablet 10 mg PO TID 04/21/22 [History Last Taken 05/08/22] mirtazapine 15 mg tablet (Remeron) 15 mg PO QHS SLEEP 05/08/22 [History Last Taken 05/07/22] pantoprazole 40 mg tablet,delayed release 40 mg PO DAILY GERD 05/08/22 [History Last Taken 05/08/22] ropinirole 1 mg tablet 1 mg PO QHS RLS 05/08/22 [History Last Taken 05/07/22] amoxicillin 875 mg-potassium clavulanate 125 mg tablet 1 tab PO BID #10 tabs 05/10/22 [Rx Last Taken Unknown] Allergy/AdvReac Type Severity Reaction Status Date / Time No Known Allergies Allergy Verified 05/08/22 13:11 Family History Sister Breast cancer Mother Cancer patient states female cancer, when he was young Brother Lung cancer Surgical History History of hydrocelectomy History of orchiectomy, unilateral Social History household members: spouse current occupational status: retired Smoking Status: Former smoker Tobacco: How many years used: 60 Electronic Cigarette Use: not used second hand exposure: Yes quit status: has quit before counseling given: provider counseling alcohol intake: current alcohol intake frequency: a few times a month substance use type: does not use caffeine: Yes Type: coffee Number of servings: 3 what type of physical activity do you participate in: none seatbelt use: always ROS <ROSALIO Galvan - Last Filed: 05/08/22 17:36> ROS ED ROS Narrative Constitutional: Negative for weight loss, weakness. Positive for fever and chills Eyes: Negative for vision loss, vision change, double vision ENT: Negative for any sore throat, ear pain, congestion Cardiovascular: Negative for any chest pain, tightness, palpitations Respiratory: Negative for any cough, sputum production, hemoptysis, dyspnea, dyspnea on exertion, orthopnea Gastrointestinal: Negative for any abdominal pain, nausea, vomiting, diarrhea, constipation, blood in stool, blood in vomit. Positive for decreased appetite : Negative for any urinary frequency, dysuria, retention, blood in urine Muscle skeletal: Negative for any muscle joint pain, stiffness, myalgias, arthralgias, neck pain, back pain Neurological: Negative for any headache, syncope, numbness or tingling, dizziness Skin: Negative for any rashes, lumps, itching, abrasions, lacerations Psychiatric: Negative for any depression, anxiety, stress, suicidal ideation, homicidal ideation Hematologic: Negative for any easy bruising, excessive bruising, easy bleeding Allergies: Negative for any eczema, hives, rash EXAM <ROSALIO Galvan - Last Filed: 05/08/22 17:36> Physical Exam Narrative Exam Narrative: Vital signs reviewed. Patient has a 99.570 here which is low-grade, patient's blood pressure is low at 90/50, per the , he does have history of low blood pressure. HEET: Head normocephalic atraumatic, TMs clear bilaterally. Posterior pharynx is dry moist mucous membranes. Nares clear bilaterally. Neck: Supple with no lymphadenopathy or tenderness. No signs of meningismus, negative jolt sign. Cardiac: Regular rate and rhythm no murmurs gallops or rubs, equal peripheral pulses bilaterally. Respiratory: Patient lung sounds show some crackles to bilateral lower bases,. No chest tenderness. Abdomen: Soft, nontender, nondistended. No abdominal bruit or pulsatile masses. No hepatosplenomegaly Extremities: No peripheral edema, no signs of gross trauma or deformity. Active full range of motion of all extremities. Neuro: Cranial nerves II through XII intact, no focal neurological deficits. Skin: Clean dry and intact with no rash, purpura, petechiae, vesicles or pust ules. Backs/flank: No CVA tenderness, no midline spinal tenderness, no deformity. Psych: Normal mood and affect. No SI, HI or acute psychosis. Const Vital Signs: 05/08/22 13:11 05/08/22 13:17 05/08/22 13:17 Temperature 99.5 F H 99.5 F H 99.5 F H Temperature Source Temporal Oral Oral Pulse Rate 126 H 114 H 114 H Respiratory Rate 14 24 H 24 H Respiratory Pattern Blood Pressure 81/37 L 95/54 L 95/54 L Blood Pressure Mean 51 67 67 Pulse Ox 90 93 93 Oxygen Delivery Method Room Air Room Air Nasal Cannula Oxygen Flow Rate (L/min) 3 3 05/08/22 13:24 05/08/22 13:53 05/08/22 13:54 Temperature Temperature Source Pulse Rate 110 H Respiratory Rate 14 Respiratory Pattern Tachypnea Blood Pressure 70/50 L Blood Pressure Mean 56 Pulse Ox 93 93 Oxygen Delivery Method Nasal Cannula Nasal Cannula Oxygen Flow Rate (L/min) 3 3 05/08/22 13:54 05/08/22 15:05 05/08/22 16:06 Temperature 99.5 F H 98.8 F Temperature Source Oral Oral Pulse Rate 92 83 Respiratory Rate 22 H 24 H Respiratory Pattern Blood Pressure 72/37 L 78/42 L Blood Pressure Mean 48 54 Pulse Ox 97 100 Oxygen Delivery Method Nasal Cannula Nasal Cannula Oxygen Flow Rate (L/min) 3 3 05/08/22 16:31 05/08/22 16:33 05/08/22 17:17 Temperature Temperature Source Pulse Rate 80 80 80 Respiratory Rate 20 H 18 Respiratory Pattern Blood Pressure 75/46 L 91/45 L 96/46 L Blood Pressure Mean 55 60 62 Pulse Ox 100 97 Oxygen Delivery Method Nasal Cannula Nasal Cannula Oxygen Flow Rate (L/min) 3 [address] <Dr. Michael Auguste DO - Last Filed: 05/11/22 01:37> Physical Exam Const Vital Signs: 05/08/22 13:11 05/08/22 13:17 05/08/22 13:17 Temperature 99.5 F H 99.5 F H 99.5 F H Temperature Source Temporal Oral Oral Pulse Rate 126 H 114 H 114 H Respiratory Rate 14 24 H 24 H Respiratory Pattern Blood Pressure 81/37 L 95/54 L 95/54 L Blood Pressure Mean 51 67 67 Pulse Ox 90 93 93 Oxygen Delivery Method Room Air Room Air Nasal Cannula Oxygen Flow Rate (L/min) 3 3 05/08/22 13:24 05/08/22 13:53 05/08/22 13:54 Temperature Temperature Source Pulse Rate 110 H Respiratory Rate 14 Respiratory Pattern Tachypnea Blood Pressure 70/50 L Blood Pressure Mean 56 Pulse Ox 93 93 Oxygen Delivery Method Nasal Cannula Nasal Cannula Oxygen Flow Rate (L/min) 3 3 05/08/22 13:54 05/08/22 15:05 05/08/22 16:06 Temperature 99.5 F H 98.8 F Temperature Source Oral Oral Pulse Rate 92 83 Respiratory Rate 22 H 24 H Respiratory Pattern Blood Pressure 72/37 L 78/42 L Blood Pressure Mean 48 54 Pulse Ox 97 100 Oxygen Delivery Method Nasal Cannula Nasal Cannula Oxygen Flow Rate (L/min) 3 3 05/08/22 16:31 05/08/22 16:33 05/08/22 17:17 Temperature Temperature Source Pulse Rate 80 80 80 Respiratory Rate 20 H 18 Respiratory Pattern Blood Pressure 75/46 L 91/45 L 96/46 L Blood Pressure Mean 55 60 62 Pulse Ox 100 97 Oxygen Delivery Method Nasal Cannula Nasal Cannula Oxygen Flow Rate (L/min) 3 3 MDM <ROSALIO Galvan - Last Filed: 05/08/22 17:36> MDM Lab Data Labs: Laboratory Results - last 24 hr 05/08/22 05/08/22 05/08/22 14:45 14:45 14:45 WBC 14.2 H RBC 2.42 L Hgb 8.6 L Hct 26.6 L MCV 109.9 H MCH 35.5 H MCHC 32.3 RDW Std Deviation 69.3 H RDW Coeff of Yao 17.2 H Plt Count 100 L MPV 11.7 Immature Gran % (Auto) 0.400 Neut % (Auto) 48.5 Lymph % (Auto) 48.6 H Howard % (Auto) 2.0 Eos % (Auto) 0.3 Baso % (Auto) 0.2 Absolute Neuts (auto) 6.9 Absolute Lymphs (auto) 6.87 H Nucleated RBC % 0 Differential Comment SCANNED PT 16.2 H INR 1.3 APTT 27.7 Sodium 132 L Potassium 4.3 Chloride 99 Carbon Dioxide 27.0 Anion Gap 6 BUN 36 H Creatinine 1.16 Estim Creat Clear Calc 47.66 Est GFR (MDRD) Af Amer 79 Est GFR (MDRD) Non-Af 65 BUN/Creatinine Ratio 31.0 H Glucose 122 H Lactic Acid Calcium 7.4 L Total Bilirubin 0.20 AST 16 ALT 23 Alkaline Phosphatase 58 Total Protein 4.7 L Albumin 2.2 L Globulin 2.5 Albumin/Globulin Ratio 0.9 Urine Color Urine Clarity Urine pH Ur Specific Coolin Urine Protein Urine Glucose (UA) Urine Ketones Urine Occult Blood Urine Nitrite Urine Bilirubin Urine Urobilinogen Ur Leukocyte Esterase Urine RBC Urine WBC Ur Squamous Epith Cells Urine Bacteria Urine Mucus 05/08/22 05/08/22 14:45 15:06 WBC RBC Hgb Hct MCV MCH MCHC RDW Std Deviation RDW Coeff of Yao Plt Count MPV Immature Gran % (Auto) Neut % (Auto) Lymph % (Auto) Howard % (Auto) Eos % (Auto) Baso % (Auto) Absolute Neuts (auto) Absolute Lymphs (auto) Nucleated RBC % Differential Comment PT INR APTT Sodium Potassium Chloride Carbon Dioxide Anion Gap BUN Creatinine Estim Creat Clear Calc Est GFR (MDRD) Af Amer Est GFR (MDRD) Non-Af BUN/Creatinine Ratio Glucose Lactic Acid 1.9 Calcium Total Bilirubin AST ALT Alkaline Phosphatase Total Protein Albumin Globulin Albumin/Globulin Ratio Urine Color Yellow Urine Clarity Sl. Cloudy Urine pH 5.0 Ur Specific Coolin 1.020 Urine Protein 30 H Urine Glucose (UA) Normal Urine Ketones 5 H Urine Occult Blood 10 H Urine Nitrite Negative Urine Bilirubin Negative Urine Urobilinogen Normal Ur Leukocyte Esterase 25 H Urine RBC 0-5 SEEN Urine WBC 0-5 SEEN Ur Squamous Epith Cells 0-5 SEEN Urine Bacteria RARE Urine Mucus 0 SEEN Radiography Diagnostic Testing: Clinical Impression(s) from Imaging Studies Chest X-Ray 05/08/22 15:30 IMPRESSION: No radiographic evidence of acute cardiopulmonary disease. Electronically Signed: Paramjit Hernandez MD at 15:41 EDT , EKG Sinus tachycardia,: Attestation: I personally reviewed and interpreted this EKG as follows: Interpretation: Sinus Rhythm Comments: Sinus tachycardia at a rate of 109 bpm, ID interval 144 ms, QRS duration 84 ms, no acute ST elevation, no acute infarct noted Treatment and Re-Evaluation Narrative: Patient appears ill, patient is hypotensive, alert and orient x4. Patient presents the emergency department with fatigue, fevers, chills, 4 separate episodes of syncope at home. Patient did receive a full septic work-up with 2 sets of blood cultures. Patient's urinalysis shows 25 leuks however no significant infection. Patient's CBC shows a leukocytosis with a white blood count of 14.2, yesterday her white blood count 25.8. Patient is patient's hemoglobin is 8.6, patient's chemistries show a sodium of 132, patient's lactic acid is 1.9, creatinine is 1.16. Patient's positive for COVID-19 however this could be from patient's last COVID-19 admission 2 weeks ago. Patient has history of CLL and received chemotherapy. IV Rocephin was given. Patient blood pressure was 74 systolic, however after 2 L of IV fluid, patient's blood pressure is now 96/46, pulse of 80. Patient is on 3 L of nasal cannula, this is baseline. Patient's EKG showed tachycardia however no ectopy. Due to the patient's condition, hypotension, multiple syncopal episodes, patient will need to be admitted to the hospital. There is also concern the patient had fever and chills while being on chemotherapy, patient did have a positive urine culture for E. coli however patient's urine today is normal. Patient stable for admission. <Dr. Michael Auguste, DO - Last Filed: 05/11/22 01:37> MDM MDM Narrative Medical decision making narrative: Attending note: Patient seen and evaluated with procurement director. I perform my own [id number] evaluation. I agree with the plan of work-up. Presents with fever since yesterday with 4 syncopal episodes today. Denies chest pains or shortness of breath. History of CLL we started chemotherapy yesterday. Last month with held secondary to being diagnosed with COVID. Previously vaccinated without any booster. He was seen by myself approximately 2 weeks ago with his findings. There was sick contact with family who had COVID. He finished Paxlovid. Residual cough since COVID. He has no urinary symptoms. No vomiting or diarrhea. History of low blood pressure on midodrine. He was given his dose while in the ED. Wears chronic 3 L of oxygen. Denies any rash. Exam alert and orient x3 moist mucosal membranes. Heart was tachycardic. Abdomen soft. There is no rash of the skin. EKG sinus tachycardia. Neutropenic work-up initiated with chemo started yesterday. Will need admission due to multiple syncopal episodes. Will evaluating from last visit couple weeks ago he had leukocytes in urine is asymptomatic however culture returned positive for E. coli. Confirmed with spouse he was never called in antibiotics. Will cover with IV Rocephin. Lab Data Labs: Laboratory Results - last 24 hr 05/08/22 05/08/22 05/08/22 14:45 14:45 14:45 WBC 14.2 H RBC 2.42 L Hgb 8.6 L Hct 26.6 L MCV 109.9 H MCH 35.5 H MCHC 32.3 RDW Std Deviation 69.3 H RDW Coeff of Yao 17.2 H Plt Count 100 L MPV 11.7 Immature Gran % (Auto) 0.400 Neut % (Auto) 48.5 Lymph % (Auto) 48.6 H Howard % (Auto) 2.0 Eos % (Auto) 0.3 Baso % (Auto) 0.2 Absolute Neuts (auto) 6.9 Absolute Lymphs (auto) 6.87 H Nucleated RBC % 0 Differential Comment SCANNED PT 16.2 H INR 1.3 APTT 27.7 Sodium 132 L Potassium 4.3 Chloride 99 Carbon Dioxide 27.0 Anion Gap 6 BUN 36 H Creatinine 1.16 Estim Creat Clear Calc 47.66 Est GFR (MDRD) Af Amer 79 Est GFR (MDRD) Non-Af 65 BUN/Creatinine Ratio 31.0 H Glucose 122 H Lactic Acid Calcium 7.4 L Total Bilirubin 0.20 AST 16 ALT 23 Alkaline Phosphatase 58 Total Protein 4.7 L Albumin 2.2 L Globulin 2.5 Albumin/Globulin Ratio 0.9 Urine Color Urine Clarity Urine pH Ur Specific Coolin Urine Protein Urine Glucose (UA) Urine Ketones Urine Occult Blood Urine Nitrite Urine Bilirubin Urine Urobilinogen Ur Leukocyte Esterase Urine RBC Urine WBC Ur Squamous Epith Cells Urine Bacteria Urine Mucus 05/08/22 05/08/22 14:45 15:06 WBC RBC Hgb Hct MCV MCH MCHC RDW Std Deviation RDW Coeff of Yao Plt Count MPV Immature Gran % (Auto) Neut % (Auto) Lymph % (Auto) Howard % (Auto) Eos % (Auto) Baso % (Auto) Absolute Neuts (auto) Absolute Lymphs (auto) Nucleated RBC % Differential Comment PT INR APTT Sodium Potassium Chloride Carbon Dioxide Anion Gap BUN Creatinine Estim Creat Clear Calc Est GFR (MDRD) Af Amer Est GFR (MDRD) Non-Af BUN/Creatinine Ratio Glucose Lactic Acid 1.9 Calcium Total Bilirubin AST ALT Alkaline Phosphatase Total Protein Albumin Globulin Albumin/Globulin Ratio Urine Color Yellow Urine Clarity Sl. Cloudy Urine pH 5.0 Ur Specific Coolin 1.020 Urine Protein 30 H Urine Glucose (UA) Normal Urine Ketones 5 H Urine Occult Blood 10 H Urine Nitrite Negative Urine Bilirubin Negative Urine Urobilinogen Normal Ur Leukocyte Esterase 25 H Urine RBC 0-5 SEEN Urine WBC 0-5 SEEN Ur Squamous Epith Cells 0-5 SEEN Urine Bacteria RARE Urine Mucus 0 SEEN Radiography Diagnostic Testing: Clinical Impression(s) from Imaging Studies Chest X-Ray 05/08/22 15:30 IMPRESSION: No radiographic evidence of acute cardiopulmonary disease. Electronically Signed: Paramjit Hernandez MD at 15:41 EDT , Discharge Plan Dx/Rx/DC Orders Clinical Impression: Syncope, Acute hypotension, Fever and chills, History of cancer chemotherapy, COVID-19, Acute dehydration Disposition Disposition: Acute Care Hospital [facility]
[2022-05-08] MEDS: Acetaminophen 325 MG Tablet 650 MG PO (13:49)
[2022-05-08] MEDS: Lidocaine/Prilocaine HCl 5 GM Tube TOPICAL (14:29)
[2022-05-08] MEDS: 0.9% Normal Saline 1,000 ML 999 ML IV ×2 (14:56→15:47)
[2022-05-08 15:14] LABS: Absolute Lymphocyte Count 6.87 X10^3/uL (0.83-4.51); Absolute Neutrophil Count 6.9 X10^3/uL (2.0-7.7); Basophil# 0.03 X10^3/uL; Basophil% 0.2 % (0-1); Eosinophil# 0.04 X10^3/uL; Eosinophils% 0.3 % (0-5); Hematocrit 26.6 % (40-54); Hemoglobin 8.6 g/dL (13.0-16.5); Lymphocyte # 6.87 X10^3/ul (0.83-4.51); Lymphocyte % 48.6 % (19-41); Mean Corp Hgb Conc 32.3 g/dL (32-36); Mean Corpuscular Hgb 35.5 pg (27.0-32.0); Mean Corpuscular Volume 109.9 fL (80-94); Mean Platelet Vol. 11.7 fl (6.2-12.0); Monocyte# 0.29 X10^3/uL; NRBC Flagged by Analyzer 0 % (0-5); Neutrophil # 6.86 X10^3/uL (2.7-7.7); Neutrophil % 48.5 % (47-70); POSITIVE DIFFERENTIAL YES; POSITIVE MORPHOLOGY YES; Platelet Count 100 K/mm3 (150-450); RBC Distribution Width CV 17.2 % (11.6-14.6); RBC Distribution Width SD 69.3 fl (35.1-43.9); Red Blood Count 2.42 M/mm3 (4.6-6.2); White Blood Count 14.2 K/mm3 (4.4-11.0)
[2022-05-08 15:16] LABS: Differential Indicated SCAN CRITERIA MET
[2022-05-08 15:23] LABS: International Normalized Ratio 1.3; Partial Thromboplast Time 27.7 Seconds (24.1-36.2); Prothrombin Time (Protime)PT. 16.2 SECONDS (11.7-14.9)
[2022-05-08 15:28] LABS: Mucous, Urine 0 SEEN /hpf (<or=2+)
--- NOTE | 2022-05-08 15:30 | RAD_ITS ---
INDICATION: cough EXAMINATION/TECHNIQUE: X-RAY - XR Chest 1 View COMPARISON: 04/21/2022. FINDINGS: LINES/DEVICES: Right chest port visualizes catheter tip in SVC.. LUNGS: No consolidation, edema or effusion. No pneumothorax. MEDIASTINUM AND CARDIOVASCULAR STRUCTURES: Cardiac silhouette not enlarged. Central airways and mediastinal contour are unremarkable. BONES AND SOFT TISSUES: Unremarkable. RAD/Chest 1 View (Portable) IMPRESSION: No radiographic evidence of acute cardiopulmonary disease. Electronically Signed: Paramjit Hernandez MD at 15:41 EDT ,
[2022-05-08 15:32] LABS: Color, Urine Yellow (Yellow); Glucose, Dipstick Normal (Normal); Ketone-Dipstick 5 mg/dl (Negative); Leukocyte Esterase-Dipstick 25 /ul (Negative); Nitrite-Dipstick Negative (Negative); Occult Blood-Urine 10 /ul (Negative); Protein-Dipstick 30 mg/dl (Negative); Urine Bilirubin Dipstick Negative (Negative); Urine Clarity Sl. Cloudy (Clear); Urine Urobilinogen Normal (Normal)
[2022-05-08 15:41] LABS: ALB/GLOB Ratio 0.9 RATIO (0.9-2.4); AST(SGOT) 16 U/L (15-37); Alanine Aminotransfer ALT/SGPT 23 U/L (16-61); Albumin, Serum 2.2 g/dL (3.2-5.0); Alkaline Phosphatase 58 U/L (45-117); Anion Gap 6 (5-15); BUN 36 mg/dL (7-18); Calcium,Total 7.4 mg/dL (8.5-10.1); Chloride 99 mmol/L (98-107); Creatinine, Serum 1.16 mg/dL (0.70-1.30); EST Glomerular Filtration Rate 65 mL/min (>60); Est Glom Filt Rate - Afr Amer 79 mL/min (>60); Estimated Creatinine Clearance 47.66 ml/min; Globulin 2.5 g/dL (2.2-4.2); Glucose 122 mg/dL (74-106); Potassium 4.3 mmol/L (3.5-5.1); Protein, Total 4.7 g/dL (6.4-8.2); Sodium Level 132 mmol/L (136-145)
[2022-05-08 15:44] LABS: Differential Comment SCANNED
[2022-05-08 15:52] LABS: Lactic Acid 1.9 mmol/L (0.4-1.9)
[2022-05-08 16:00] LABS: Bacteria RARE /hpf (None Seen); Red Blood Cells-Urine 0-5 SEEN /hpf (0-5); Squamous Epithelial Cells - UA 0-5 SEEN /hpf (0-5); White Blood Cells 0-5 SEEN /hpf (0-5)
[2022-05-08] MEDS: Ceftriaxone 1 GM/50 ML BAG IV (16:30)
--- NOTE | 2022-05-08 18:11 | HP.PCM.HOS_ITS ---
HPI - General General Date of Admission: 05/08/22 Date of Service: 05/08/22 Chief Complaint: fever. syncope HPI Narrative REJI ORTIZ, is a 76 M who presents presents with fever. Fever began today and was anywhere between 99-104 Fahrenheit. Pt has been passing out, roughly 5x today. Hypotensive in ED, which responded well with 2 liters of IVF. Pt received CTX and Vanc in ED. Did have chemo yesterday and felt similar w chemo in past. H ad COVID 19 2 weeks ago and received paxlovid. [facility] Medical History Abnormal CT scan, chest Acute hypoxemic respiratory failure Adjustment disorder Ambulates with cane Arm pain, left Asthma Atrioventricular block, first degree B12 deficiency anemia Back pain Biceps tendinitis on left BPH (benign prostatic hyperplasia) Bronchiectasis Cancer Chronic lymphocytic leukemia CLL (chronic lymphocytic leukemia) Contusion of left shoulder COPD (chronic obstructive pulmonary disease) COPD exacerbation COPD with acute exacerbation Coronary atherosclerosis due to calcified coronary lesion Cough Degenerative joint disease Dehydration Diarrhea Dyspnea Dysuria Easy bruising Encounter for chemotherapy management Encounter for education Fatigue Fever Former smoker GERD (gastroesophageal reflux disease) HAP (hospital-acquired pneumonia) Hiatal hernia Hiatal hernia with gastroesophageal reflux History of Coumadin therapy History of SCC (squamous cell carcinoma) of skin Hx of fracture of ankle Hypotension Hypoxia Impingement syndrome, shoulder, left Influenza A Iron deficiency anemia Left hip pain Left shoulder pain Low back pain On home oxygen therapy Orthopedic aftercare Osteoarthritis of left shoulder Other fracture of shaft of left humerus, initial encounter for closed fracture Pneumonia due to Streptococcus Pulmonary embolism Pulmonary embolism Restless legs Rotator cuff syndrome of left shoulder Rotator cuff tear, left Shortness of breath on exertion Shoulder pain, right Signs and symptoms of anemia Sinus tachycardia Symptomatic anemia Syncope Tobacco dependency Wears dentures Wears glasses Wears hearing aid Home Medications tamsulosin 0.4 mg capsule 0.8 mg PO QHS prostate 08/20/17 [History Last Taken 05/07/22] lorazepam 1 mg tablet 1 mg PO QHS PRN Sleep 07/09/21 [History Last Taken 05/08/22] cholecalciferol (vitamin D3) 50 mcg (2,000 unit) capsule 50 mcg PO DAILY vitamin 01/30/22 [History Last Taken 05/08/22] ferrous sulfate 325 mg (65 mg iron) tablet 325 mg PO DAILY supplement 01/30/22 [History Last Taken 05/08/22] acyclovir 400 mg tablet 400 mg PO BID CHEMO 02/14/22 [History Last Taken 05/08/22] lidocaine-prilocaine 2.5 %-2.5 % topical cream 1 applic topical ONCE PRN port access 30 days #30 grams 02/17/22 [Rx Last Taken 05/07/22] ondansetron 8 mg disintegrating tablet 8 mg PO Q8H PRN nausea and vomiting #30 tabs 02/17/22 [Rx Last Taken Unknown] albuterol sulfate 90 mcg/actuation aerosol inhaler (ProAir HFA) 2 puff inhalation Q6H PRN shortness of breath or wheezing #18 grams 03/05/22 [Rx Last Taken 3 Days Ago ~05/05/22] budesonide-formoterol HFA 160 mcg-4.5 mcg/actuation aerosol inhaler (Symbicort) 2 puff inhalation BID #1 ea 03/05/22 [Rx Last Taken 05/08/22] midodrine 5 mg tablet 10 mg PO TID 04/21/22 [History Last Taken 05/08/22] mirtazapine 15 mg tablet (Remeron) 15 mg PO QHS SLEEP 05/08/22 [History Last Taken 05/07/22] pantoprazole 40 mg tablet,delayed release 40 mg PO DAILY GERD 05/08/22 [History Last Taken 05/08/22] ropinirole 1 mg tablet 1 mg PO QHS RLS 05/08/22 [History Last Taken 05/07/22] Allergy/AdvReac Type Severity Reaction Status Date / Time No Known Allergies Allergy Verified 05/08/22 13:11 Family History Sister Breast cancer Mother Cancer patient states female cancer, when he was young Brother Lung cancer Surgical History History of hydrocelectomy History of orchiectomy, unilateral Social History household members: spouse current occupational status: retired Smoking Status: Former smoker Tobacco: How many years used: 60 Electronic Cigarette Use: not used second hand exposure: Yes quit status: has quit before counseling given: provider counseling alcohol intake: current alcohol intake frequency: a few times a month substance use type: does not use caffeine: Yes Type: coffee Number of servings: 3 what type of physical activity do you participate in: none seatbelt use: always ROS ROS Narrative Lost 35# since October. Cough since COVID, non-productive. Otherwise ROS negative except as in HPI and ROS. Vital Signs Vital Signs Vital Signs: 05/08/22 13:11 05/08/22 13:17 05/08/22 13:17 Temperature 37.5 C H 37.5 C H 37.5 C H Temperature Source Temporal Oral Oral Pulse Rate 126 H 114 H 114 H Respiratory Rate 14 24 H 24 H Respiratory Pattern Blood Pressure 81/37 L 95/54 L 95/54 L Blood Pressure Mean 51 67 67 Pulse Ox 90 93 93 Oxygen Delivery Method Room Air Room Air Nasal Cannula Oxygen Flow Rate (L/min) 3 3 05/08/22 13:24 05/08/22 13:53 05/08/22 13:54 Temperature Temperature Source Pulse Rate 110 H Respiratory Rate 14 Respiratory Pattern Tachypnea Blood Pressure 70/50 L Blood Pressure Mean 56 Pulse Ox 93 93 Oxygen Delivery Method Nasal Cannula Nasal Cannula Oxygen Flow Rate (L/min) 3 3 05/08/22 13:54 05/08/22 15:05 05/08/22 16:06 Temperature 37.5 C H 37.1 C Temperature Source Oral Oral Pulse Rate 92 83 Respiratory Rate 22 H 24 H Respiratory Pattern Blood Pressure 72/37 L 78/42 L Blood Pressure Mean 48 54 Pulse Ox 97 100 Oxygen Delivery Method Nasal Cannula Nasal Cannula Oxygen Flow Rate (L/min) 3 3 05/08/22 16:31 05/08/22 16:33 05/08/22 17:17 Temperature Temperature Source Pulse Rate 80 80 80 Respiratory Rate 20 H 18 Respiratory Pattern Blood Pressure 75/46 L 91/45 L 96/46 L Blood Pressure Mean 55 60 62 Pulse Ox 100 97 Oxygen Delivery Method Nasal Cannula Nasal Cannula Oxygen Flow Rate (L/min) 3 3 05/08/22 17:43 Temperature 36.9 C Temperature Source Temporal Pulse Rate 77 Respiratory Rate 22 H Respiratory Pattern Blood Pressure 107/51 L Blood Pressure Mean 69 Pulse Ox 97 Oxygen Delivery Method Nasal Cannula Oxygen Flow Rate (L/min) 3 Weight Weight: 61.235 kg Body Mass Index (BMI) 19.9 Physical Exam Const alert and no apparent distress HEENT normocephalic and head/scalp atraumatic Resp normal respiratory effort, no retractions, no use of accessory muscles and clear to auscultation bilaterally Cardio regular rate, regular rhythm, S1 normal heart sound and S2 normal heart sound GI normal to inspection, nondistended, normoactive bowel sounds, soft to palpation, non-tender and non-distended Extremity normal to inspection Neuro Sensorium / Orientation: awake and alert Psych affect normal Results Lab / Micro Data Attestation: I reviewed the patient's lab results. Result Diagrams: 05/08/22 14:45 05/08/22 14:45 Labs: Laboratory Results - last 24 hr 05/08/22 14:45: WBC 14.2 H, RBC 2.42 L, Hgb 8.6 L, Hct 26.6 L, MCV 109.9 H, MCH 35.5 H, MCHC 32.3, RDW Std Deviation 69.3 H, RDW Coeff of Yao 17.2 H, Plt Count 100 L, MPV 11.7, Immature Gran % (Auto) 0.400, Neut % (Auto) 48.5, Lymph % (Au to) 48.6 H, [place] % (Auto) 2.0, Eos % (Auto) 0.3, Baso % (Auto) 0.2, Absolute Neuts (auto) 6.9, Absolute Lymphs (auto) 6.87 H, Nucleated RBC % 0, Differential Comment SCANNED 05/08/22 14:45: PT 16.2 H, INR 1.3, APTT 27.7 05/08/22 14:45: Sodium 132 L, Potassium 4.3, Chloride 99, Carbon Dioxide 27.0, Anion Gap 6, BUN 36 H, Creatinine 1.16, Estim Creat Clear Calc 47.66, Est GFR (MDRD) Af Amer 79, Est GFR (MDRD) Non-Af 65, BUN/Creatinine Ratio 31.0 H, Glucose 122 H, Calcium 7.4 L, Total Bilirubin 0.20, AST 16, ALT 23, Alkaline Phosphatase 58, Total Protein 4.7 L, Albumin 2.2 L, Globulin 2.5, Albumin/Globulin Ratio 0.9 05/08/22 14:45: Lactic Acid 1.9 05/08/22 15:06: Urine Color Yellow, Urine Clarity Sl. Cloudy, Urine pH 5.0, Ur Specific [place] 1.020, Urine Protein 30 H, Urine Glucose (UA) Normal, Urine Ketones 5 H, Urine Occult Blood 10 H, Urine Nitrite Negative, Urine Bilirubin Negative, Urine Urobilinogen Normal, Ur Leukocyte Esterase 25 H, Urine RBC 0-5 SEEN, Urine WBC 0-5 SEEN, Ur Squamous Epith Cells 0-5 SEEN, Urine Bacteria RARE, Urine Mucus 0 SEEN Micro: Microbiology 05/08/22 14:00 Nasal Secretion SARS-CoV-2 & FLU Antigen (Rapid) - Final SARS-CoV-2 (COVID 19) Radiology Impression Chest X-Ray 05/08/22 15:30 IMPRESSION: No radiographic evidence of acute cardiopulmonary disease. Electronically Signed: Paramjit Hernandez MD at 15:41 EDT Reading Location ID and State: [facility] / [place] Tel , Service support , Assessment & Plan Assessment/Plan (1) Hypotension: PLAN: Resolved Suspect d/t dehydration IVF monitor (2) COVID-19 virus infection: PLAN: +04/21 and received Paxlovid Positive again today. Unclear if this is persistent from prior infection, but cannot rule out a new infection or rebound. Since onset was a while ago, will not treat at this time. Isolation for now. Will d/w Inside [employer] 05/09 if to continue iso or not. Pt on chronic 3liters due to COPD (3) Pneumonia: PLAN: Suspect pneumococcal Check pneumonia studies CTX and azithromycin PLAN: Plan VTE prophylaxis: LMWH Code Status: d/w pt: full code. Charges/Coding Visit Charges Inpatient E&M: 18472 Init Hosp L3
[2022-05-08] MEDS: 0.9% Normal Saline 1,000 ML 150 ML IV (18:33)
[2022-05-08] MEDS: Hydrocortisone Sod Succinate 100 MG/2 ML Vial IV (21:10)
[2022-05-08] MEDS: Mirtazapine 15 MG Tablet PO (21:21)
[2022-05-08] MEDS: guaiFENesin 1,200 MG Tablet 1200 MG PO (21:21)
[2022-05-08] MEDS: Acyclovir 200 MG Capsule 400 MG PO (21:21)
[2022-05-08] MEDS: Midodrine HCl 5 MG Tablet 10 MG PO (21:22)
[2022-05-08] MEDS: Pramipexole Di-HCl 0.5 MG Tablet PO (21:22)
--- NOTE | 2022-05-08 22:23 | PCM.PN.BLA ---
Progress Note Patient remained hypotensive, IV fluid bolus and IV hydrocortisone ordered.
[2022-05-09] VITALS (12 sets, daily range): BP systolic 96–112; BP diastolic 41–65; PULSE 69–86; RESP 15–20; TEMP 36.2–37.1; O2SAT 92–100
[2022-05-09] MEDS: 0.9% Normal Saline 1,000 ML 150 ML IV ×5 (00:30→23:25)
[2022-05-09] MEDS: Hydrocortisone Sod Succinate 100 MG/2 ML Vial IV ×4 (05:03→23:25)
[2022-05-09] MEDS: Midodrine HCl 5 MG Tablet 10 MG PO ×3 (05:03→21:20)
[2022-05-09 06:35] LABS: Absolute Neutrophil Count 5.1 X10^3/uL (2.0-7.7); Basophil# 0.03 X10^3/uL; Basophil% 0.3 % (0-1); Eosinophil# 0.04 X10^3/uL; Eosinophils% 0.4 % (0-5); Hematocrit 24.2 % (40-54); Hemoglobin 7.7 g/dL (13.0-16.5); Lymphocyte % 48.6 % (19-41); Mean Corp Hgb Conc 31.8 g/dL (32-36); Mean Corpuscular Hgb 35.3 pg (27.0-32.0); Mean Platelet Vol. 11.7 fl (6.2-12.0); Monocyte# 0.53 X10^3/uL; Monocyte% 4.8 % (0-10); NRBC Flagged by Analyzer 0 % (0-5); Neutrophil # 5.09 X10^3/uL (2.7-7.7); Neutrophil % 45.6 % (47-70); POSITIVE COUNT YES; POSITIVE DIFFERENTIAL YES; POSITIVE MORPHOLOGY YES; Platelet Count 74 K/mm3 (150-450); RBC Distribution Width CV 17.2 % (11.6-14.6); RBC Distribution Width SD 69.6 fl (35.1-43.9); Red Blood Count 2.18 M/mm3 (4.6-6.2); White Blood Count 11.1 K/mm3 (4.4-11.0)
[2022-05-09 06:43] LABS: Differential Indicated SCAN CRITERIA MET
[2022-05-09] MEDS: Albuterol 2.5 MG/3 ML VIAL.NEB. INHALATION ×3 (07:03→19:04)
[2022-05-09] MEDS: Budesonide Respules 0.5 MG/2 ML AMPUL.NEB. INHALATION ×2 (07:03→19:04)
[2022-05-09 07:04] LABS: Differential Comment SCANNED; Platelet Estimate MOD DEC (ADEQ)
[2022-05-09 07:05] LABS: Anisocytosis RARE; Hypochromasia 1+; Microcytosis RARE
[2022-05-09 07:09] LABS: Anion Gap 4 (5-15); BUN 28 mg/dL (7-18); BUN/Creat Ratio 40.5 RATIO (10-20); Calcium,Total 7.1 mg/dL (8.5-10.1); Chloride 109 mmol/L (98-107); Creatinine, Serum 0.69 mg/dL (0.70-1.30); EST Glomerular Filtration Rate 118 mL/min (>60); Est Glom Filt Rate - Afr Amer 143 mL/min (>60); Estimated Creatinine Clearance 58.15 ml/min; Glucose 109 mg/dL (74-106); Potassium 4.1 mmol/L (3.5-5.1); Sodium Level 138 mmol/L (136-145)
--- NOTE | 2022-05-09 07:48 | PCM.PN.HOSP ---
Subjective Subjective No new events. Breathing well. Objective Data Objective Data Vital Signs: Vital Signs Temp Pulse Resp BP Pulse Ox O2 Del Method O2 Flow Rate 36.6 C 77 19 H 96/65 92 Nasal Cannula 4 05/09/22 04:00 05/09/22 07:04 05/09/22 07:04 05/09/22 04:00 05/09/22 07:04 05/09/22 07:04 05/09/22 07:04 Oxygen Flow Rate (L/min) 4 Oxygen Delivery Method Nasal Cannula Weight: 64.41 kg Body Mass Index (BMI) 20.9 Intake & Output: Intake and Output for Last 24 Hours 05/07/22 05/08/22 05/09/22 23:59 23:59 23:59 Intake Total 3472.5 / 3472.5 1120.0 / 1120.0 Output Total 400 / 400 Balance 3072.5 / 3072.5 1120.0 / 1120.0 Lab / Micro Data Result Diagrams: 05/09/22 06:20 05/09/22 06:20 Labs: Laboratory Results - last 24 hr 05/08/22 14:45: WBC 14.2 H, RBC 2.42 L, Hgb 8.6 L, Hct 26.6 L, MCV 109.9 H, MCH 35.5 H, MCHC 32.3, RDW Std Deviation 69.3 H, RDW Coeff of Yao 17.2 H, Plt Count 100 L, MPV 11.7, Immature Gran % (Auto) 0.400, Neut % (Auto) 48.5, Lymph % (Auto) 48.6 H, [place] % (Auto) 2.0, Eos % (Auto) 0.3, Baso % (Auto) 0.2, Absolute Neuts (auto) 6.9, Absolute Lymphs (auto) 6.87 H, Nucleated RBC % 0, Differential Comment SCANNED 05/08/22 14:45: PT 16.2 H, INR 1.3, APTT 27.7 05/08/22 14:45: Sodium 132 L, Potassium 4.3, Chloride 99, Carbon Dioxide 27.0, Anion Gap 6, BUN 36 H, Creatinine 1.16, Estim Creat Clear Calc 47.66, Est GFR (MDRD) Af Amer 79, Est GFR (MDRD) Non-Af 65, BUN/Creatinine Ratio 31.0 H, Glucose 122 H, Calcium 7.4 L, Total Bilirubin 0.20, AST 16, ALT 23, Alkaline Phosphatase 58, Total Protein 4.7 L, Albumin 2.2 L, Globulin 2.5, Albumin/Globulin Ratio 0.9 05/08/22 14:45: Lactic Acid 1.9 05/08/22 15:06: Urine Color Yellow, Urine Clarity Sl. Cloudy, Urine pH 5.0, Ur Specific [place] 1.020, Urine Protein 30 H, Urine Glucose (UA) Normal, Urine Ketones 5 H, Urine Occult Blood 10 H, Urine Nitrite Negative, Urine Bilirubin Negative, Urine Urobilinogen Normal, Ur Leukocyte Esterase 25 H, Urine RBC 0-5 SEEN, Urine WBC 0-5 SEEN, Ur Squamous Epith Cells 0-5 SEEN, Urine Bacteria RARE, Urine Mucus 0 SEEN 05/09/22 06:20: WBC 11.1 H, RBC 2.18 L, Hgb 7.7 L, Hct 24.2 L, MCV 111.0 H, MCH 35.3 H, MCHC 31.8 L, RDW Std Deviation 69.6 H, RDW Coeff of Yao 17.2 H, Plt Count 74 L, MPV 11.7, Immature Gran % (Auto) 0.300, Neut % (Auto) 45.6 L, Lymph % (Auto) 48.6 H, [place] % (Auto) 4.8, Eos % (Auto) 0.4, Baso % (Auto) 0.3, Absolute Neuts (auto) 5.1, Absolute Lymphs (auto) 5.40 H, Nucleated RBC % 0, Differential Comment SCANNED, Platelet Estimate MOD DEC, Hypochromasia 1+, Anisocytosis RARE, Microcytosis RARE 05/09/22 06:20: Sodium 138, Potassium 4.1, Chloride 109 H, Carbon Dioxide 25.0, Anion Gap 4 L, BUN 28 H, Creatinine 0.69 L, Estim Creat Clear Calc 58.15, Est GFR (MDRD) Af Amer 143, Est GFR (MDRD) Non-Af 118, BUN/Creatinine Ratio 40.5 H, Glucose 109 H, Calcium 7.1 L Micro: Microbiology 05/08/22 23:03 Urine, Clean Catch Legionella Antigen - Final 05/08/22 23:03 Urine, Clean Catch Streptococcus pneumoniae Antigen (M - Final 05/08/22 14:00 Nasal Secretion SARS-CoV-2 & FLU Antigen (Rapid) - Final SARS-CoV-2 (COVID 19) Radiography Diagnostic Testing: Radiology Impression Chest X-Ray 05/08/22 15:30 IMPRESSION: No radiographic evidence of acute cardiopulmonary disease. Electronically Signed: Paramjit Hernandez MD at 15:41 EDT Reading Location ID and State: [facility] / [place] Tel , Service support , Physical Exam Const alert and no apparent distress Resp normal respiratory effort, no retractions, no use of accessory muscles and clear to auscultation bilaterally Cardio regular rate, regular rhythm, S1 normal heart sound and S2 normal heart sound GI normal to inspection, nondistended, normoactive bowel sounds, soft to palpation, non-tender and non-distended Psych affect normal Assessment & Plan Assessment/Plan (1) Hypotension: QUALIFIERS: Hypotension type: hypotension due to hypovolemia Qualified Code(s): I95.89 - Other hypotension; E86.1 - Hypovolemia PLAN: Resolved Suspect d/t dehydration IVF monitor (2) COVID-19 virus infection: PLAN: +04/21 and received Paxlovid Positive again today. Unclear if this is persistent from prior infection, but cannot rule out a new infection or rebound. Since onset was a while ago, will not treat at this time. Given his underlying CLL as patient is immunocompromised as recommended by CDC guidelines and isolation with the test based strategy and that would be 2 consecutive respiratory specimens collected greater than 24 hours apart. Pt on chronic 3liters due to COPD (3) Pneumonia: QUALIFIERS: Pneumonia type: due to Pneumococcus Laterality: unspecified laterality Lung location: unspecified part of lung Qualified Code(s): J13 - Pneumonia due to Streptococcus pneumoniae PLAN: Suspect pneumococcal legionella and strep antigens negative. CTX and azithromycin (4) Chronic anemia: PLAN: Hemoglobin down slightly down to 7.7. No indication to transfuse. Will monitor. PLAN: Plan VTE prophylaxis: LMWH Code Status: d/w pt: full code. Discussed with the patient's . She said she contracted COVID-19 about 2 weeks prior to the patient. Charges/Coding Visit Charges Inpatient E&M: 00514 Subs Hosp L2
[2022-05-09] MEDS: Enoxaparin 40 MG/0.4 ML Syringe SC (09:32)
[2022-05-09] MEDS: guaiFENesin 1,200 MG Tablet 1200 MG PO ×2 (09:32→21:20)
[2022-05-09] MEDS: Acyclovir 200 MG Capsule 400 MG PO ×2 (09:32→21:20)
[2022-05-09] MEDS: Pantoprazole Sodium 40 MG Tablet PO (09:33)
[2022-05-09] MEDS: Ferrous Sulfate 325 MG Tablet PO (10:41)
--- NOTE | 2022-05-09 10:55 | CASEMGMT ---
RN PITO called patient in room for initial transition planning/care coordination assessment. RN PITO introduced self and role at [facility]. Patient alert and oriented, at bedside and prefers talk with CM. , Kari, willing to participate in assessment and is able to answer all questions appropriately. Care providers, pharmacy, and demographics verified. Patient and wish to discharge home with resumption of HHC with [facility]. states she has no further needs or concerns at this time. CM to follow for discharge planning needs that may arise. PCP: Michael Specialists: Narciso, brick loader; Jones, oncologist Preferred Pharmacy: [facility] Insurance: [employer] other Prescription Benefit: yes Living Will/HPOA: yes, Kari Thomas, HPOA LNOK: Living Arrangements: Patient lives with in a single story home with 3 steps and railing to enter the home. Patient is independent at home, but assists with ADLs at times. Transportation: DME/HHC: Patient has walker, shower chair, grab bars, pulse ox, and home oxygen through [employer] at 3lpm with portability. No previous SNF. Patient is active with [facility] for residential. Disposition Plan: Patient to discharge home with resumption of HHC, family support, and follow-up plans in place. Gwendolyn MCCARTY, RN, CM
--- NOTE | 2022-05-09 11:39 | CASEMGMT ---
Green sheet on chart for increased home oxygen and [facility] HHC. Merry YE CM
[2022-05-09] MEDS: Pramipexole Di-HCl 0.5 MG Tablet PO (21:20)
[2022-05-09] MEDS: Mirtazapine 15 MG Tablet PO (21:20)
[2022-05-10 03:00] VITALS: PULSE 63
[2022-05-10 04:00] VITALS: BP 97/47; PULSE 71; RESP 14; TEMP 37.1; O2SAT 96
[2022-05-10] MEDS: Midodrine HCl 5 MG Tablet 10 MG PO (06:03)
[2022-05-10] MEDS: Hydrocortisone Sod Succinate 100 MG/2 ML Vial IV (06:04)
[2022-05-10] MEDS: 0.9% Normal Saline 1,000 ML 150 ML IV (06:08)
[2022-05-10] MEDS: Budesonide Respules 0.5 MG/2 ML AMPUL.NEB. INHALATION (07:16)
[2022-05-10] MEDS: Albuterol 2.5 MG/3 ML VIAL.NEB. INHALATION (07:16)
[2022-05-10 07:17] VITALS: PULSE 72; RESP 18; O2SAT 94
[2022-05-10 07:23] VITALS: PULSE 68
[2022-05-10 08:58] VITALS: BP 120/58; PULSE 89; RESP 20; TEMP 36.1; O2SAT 94
[2022-05-10] MEDS: Pantoprazole Sodium 40 MG Tablet PO (09:00)
[2022-05-10] MEDS: Acyclovir 200 MG Capsule 400 MG PO (09:00)
[2022-05-10] MEDS: guaiFENesin 1,200 MG Tablet 1200 MG PO (09:00)
[2022-05-10] MEDS: Enoxaparin 40 MG/0.4 ML Syringe SC (09:00)
--- NOTE | 2022-05-10 10:30 | DCINST_ITS ---
Discharge Instructions Diet Discharge Diet: No restrictions Dressing / Incision Call your doctor if you observe: Shortness of breath and Fainting spells Follow Up Care Test Results: Test results from this visit will be discussed in further detail at your follow- up appointment, if applicable. Discharge Plan Admission Admit Date/Time: 05/08/22 18:01 Primary Reason for Your Visit: hypotension, syncope. Attending Provider: Pablito eLe Primary Care Provider: Evaristo Rodriguez Instructions Additional Instructions / Restrictions: Self isolate for at least 5 days, then wear a mask around people for the next 5 days. When around people in the same room, wear a face mask. Individuals also in the room should wear a mask. If possible, use a different bathroom and bedroom. Perform adequate hand hygiene. Avoid sharing dishes, glasses, etc. Discharge Orders/Prescriptions Prescriptions: New amoxicillin-pot clavulanate 875-125 mg tablet 1 tab PO BID Qty: 10 0RF Continued lorazepam 1 mg tablet 1 mg PO QHS PRN (Reason: Sleep) ferrous sulfate 325 mg (65 mg iron) tablet 325 mg PO DAILY cholecalciferol (vitamin D3) 50 mcg (2,000 unit) capsule 50 mcg PO DAILY lidocaine-prilocaine 2.5-2.5 % cream 1 applic topical ONCE PRN (Reason: port access) 30 Days Qty: 30 2RF ondansetron 8 mg tablet,disintegrating 8 mg PO Q8H PRN (Reason: nausea and vomiting) Qty: 30 2RF tamsulosin 0.4 MG capsule 0.8 mg PO QHS Label Comments: urinary issues acyclovir 400 mg tablet 400 mg PO BID midodrine 5 mg Tablet 10 mg PO TID Rx Instructions: do not give last dose of day after 6PM or within 4 hrs of bedtime ropinirole 1 mg tablet 1 mg PO QHS Rx Instructions: administer 1-3 hours before bedtime pantoprazole 40 MG tablet,delayed release (DR/EC) 40 mg PO DAILY mirtazapine [Remeron] 15 mg tablet 15 mg PO QHS albuterol sulfate [ProAir HFA] 90 mcg/actuation HFA aerosol inhaler 2 puff INHALATION Q6H PRN (Reason: shortness of breath or wheezing) Qty: 18 6RF budesonide-formoterol [Symbicort] 160-4.5 mcg/actuation HFA aerosol inhaler 2 puff INHALATION BID Qty: 1 6RF Rx Instructions: administer with spacer, rinse mouth after each use Referrals / Follow Up: Evaristo Rodriguez DO [Primary Care Provider] - Within 2 Weeks Disposition Disposition (needs filled in before D/C Order can be placed): Home Health Service
--- NOTE | 2022-05-10 10:37 | PCM.DC.SUM ---
Providers Date of Admission: 05/08/22 Primary Care Physician: Dr. Evaristo Rodriguez, Reason For Visit: HYPOTENSION Diagnosis Discharge Diagnosis (1) Hypotension: Status: Acute Code(s): I95.9 - Hypotension, unspecified Qualifiers: Hypotension type: hypotension due to hypovolemia Qualified Code(s): I95.89 - Other hypotension; E86.1 - Hypovolemia Plan: Resolved Suspect d/t dehydration IVF monitor (2) COVID-19 virus infection: Status: Acute Code(s): U07.1 - COVID-19 Plan: +04/21 and received Paxlovid Positive again today. Unclear if this is persistent from prior infection, but cannot rule out a new infection or rebound. Since onset was a while ago, will not treat at this time. Given his underlying CLL as patient is immunocompromised as recommended by CDC guidelines and isolation with the test based strategy and that would be 2 consecutive respiratory specimens collected greater than 24 hours apart. Pt on chronic 3liters due to COPD (3) Pneumonia: Status: Acute Code(s): J18.9 - Pneumonia, unspecified organism Qualifiers: Pneumonia type: due to Pneumococcus Laterality: unspecified laterality Lung location: unspecified part of lung Qualified Code(s): J13 - Pneumonia due to Streptococcus pneumoniae Plan: Suspect pneumococcal legionella and strep antigens negative. Discharged with 5 days of amoxicillin/clavulanic acid (4) Chronic anemia: Status: Chronic Code(s): D64.9 - Anemia, unspecified Plan: Hemoglobin down slightly down to 7.7. No indication to transfuse. Will monitor. (5) Syncope: Status: Acute Code(s): R55 - Syncope and collapse Plan: Present on admission. Secondary to hypotension. No further work-up necessary since hypotension has resolved. Plan VTE prophylaxis: LMWH Code Status: d/w pt: full code. Discussed with the patient's . She said she contracted COVID-19 about 2 weeks prior to the patient. Medications at Discharge Home Medications tamsulosin 0.4 mg capsule 0.8 mg PO QHS prostate 08/20/17 lorazepam 1 mg tablet 1 mg PO QHS PRN Sleep 07/09/21 cholecalciferol (vitamin D3) 50 mcg (2,000 unit) capsule 50 mcg PO DAILY vitamin 01/30/22 ferrous sulfate 325 mg (65 mg iron) tablet 325 mg PO DAILY supplement 01/30/22 acyclovir 400 mg tablet 400 mg PO BID CHEMO 02/14/22 lidocaine-prilocaine 2.5 %-2.5 % topical cream 1 applic topical ONCE PRN port access 30 days #30 grams 02/17/22 ondansetron 8 mg disintegrating tablet 8 mg PO Q8H PRN nausea and vomiting #30 tabs 02/17/22 albuterol sulfate 90 mcg/actuation aerosol inhaler (ProAir HFA) 2 puff inhalation Q6H PRN shortness of breath or wheezing #18 grams 03/05/22 budesonide-formoterol HFA 160 mcg-4.5 mcg/actuation aerosol inhaler (Symbicort) 2 puff inhalation BID #1 ea 03/05/22 midodrine 5 mg tablet 10 mg PO TID 04/21/22 mirtazapine 15 mg tablet (Remeron) 15 mg PO QHS SLEEP 05/08/22 pantoprazole 40 mg tablet,delayed release 40 mg PO DAILY GERD 05/08/22 ropinirole 1 mg tablet 1 mg PO QHS RLS 05/08/22 amoxicillin 875 mg-potassium clavulanate 125 mg tablet 1 tab PO BID #10 tabs 05/10/22 Hospital Course Operations None Procedures None Summary of Care Provided Minutes Spent on Discharge: 32 Physical Exam Const alert and no apparent distress Constitutional Narrative: On room air and pulse ox around 97%. Resp normal respiratory effort, no retractions, no use of accessory muscles and clear to auscultation bilaterally Medical Records Data Medical Nutrition Assessment Dietitian: Malnutrition Criteria Met Start: 05/09/22 12:06 Freq: Status: Active Protocol: Document 05/09/22 12:06 (Rec: 05/09/22 12:06 [id number]) Nutrition Malnutrition Evidence of Malnutrition Exists Yes Malnutrition (severe): Chronic Evidenced By Suboptimal Energy Intake ( Severe),Weight Loss (Severe) Clinical Problem Chronic Disease or Condition Related Malnutrition Etiology severe, chronic malnutrition r /t inadequate energy intake w/ increased energy needs d/t cancer Signs/Symptoms as evidenced by unintentional wt loss of 6.8kg/10% x 4 months, estimated PO intake meeting <75% of estimated energy needs > 3 months Status Active Problem Recommendation Dietitian Recommendations/Changes continue regular diet and 120mL ensure enlive 4x/day d/t malnutrition Weight / BMI Weight Weight: 64.41 kg Body Mass Index (BMI) 20.9 ABG / Lab / Microbiology Data Result Diagrams: 05/09/22 06:20 05/09/22 06:20 Microbiology: Microbiology 05/08/22 15:06 Urine, Clean Catch Urine Culture - Final Mixed Gram Pos & Gram Neg Org 05/09/22 16:05 Nasal Secretion SARS-CoV-2 Antigen (Rapid) - Final SARS-CoV-2 (COVID 19) 05/08/22 23:03 Urine, Clean Catch Legionella Antigen - Final 05/08/22 23:03 Urine, Clean Catch Streptococcus pneumoniae Antigen (M - Final 05/08/22 14:00 Nasal Secretion SARS-CoV-2 & FLU Antigen (Rapid) - Final SARS-CoV-2 (COVID 19) D/C Instructions Discharge Diet: No restrictions Call your doctor if you observe: Shortness of breath and Fainting spells Meaningful Use Info Meaningful Use Diagnoses (Choose all that apply): None applicable Discharge Plan Admission Admit Date/Time: 05/08/22 18:01 Primary Reason for Your Visit: hypotension, syncope. Attending Provider: Pablito Lee Primary Care Provider: Evaristo Rodriguez Instructions Additional Instructions / Restrictions: Self isolate for at least 5 days, then wear a mask around people for the next 5 days. When around people in the same room, wear a face mask. Individuals also in the room should wear a mask. If possible, use a different bathroom and bedroom. Perform adequate hand hygiene. Avoid sharing dishes, glasses, etc. Discharge Orders/Prescriptions Prescriptions: New amoxicillin-pot clavulanate 875-125 mg tablet 1 tab PO BID Qty: 10 0RF Continued lorazepam 1 mg tablet 1 mg PO QHS PRN (Reason: Sleep) ferrous sulfate 325 mg (65 mg iron) tablet 325 mg PO DAILY cholecalciferol (vitamin D3) 50 mcg (2,000 unit) capsule 50 mcg PO DAILY lidocaine-prilocaine 2.5-2.5 % cream 1 applic topical ONCE PRN (Reason: port access) 30 Days Qty: 30 2RF ondansetron 8 mg tablet,disintegrating 8 mg PO Q8H PRN (Reason: nausea and vomiting) Qty: 30 2RF tamsulosin 0.4 MG capsule 0.8 mg PO QHS Label Comments: urinary issues acyclovir 400 mg tablet 400 mg PO BID midodrine 5 mg Tablet 10 mg PO TID Rx Instructions: do not give last dose of day after 6PM or within 4 hrs of bedtime ropinirole 1 mg tablet 1 mg PO QHS Rx Instructions: administer 1-3 hours before bedtime pantoprazole 40 MG tablet,delayed release (DR/EC) 40 mg PO DAILY mirtazapine [Remeron] 15 mg tablet 15 mg PO QHS albuterol sulfate [ProAir HFA] 90 mcg/actuation HFA aerosol inhaler 2 puff INHALATION Q6H PRN (Reason: shortness of breath or wheezing) Qty: 18 6RF budesonide-formoterol [Symbicort] 160-4.5 mcg/actuation HFA aerosol inhaler 2 puff INHALATION BID Qty: 1 6RF Rx Instructions: administer with spacer, rinse mouth after each use Referrals / Follow Up: Evaristo Rodriguez DO [Primary Care Provider] - Within 2 Weeks *[facility] [Provider Group] - Within 1 Week Disposition Disposition (needs filled in before D/C Order can be placed): Home Health Service Charges/Coding Visit Charges Inpatient E&M: 17092 Disch Hosp
[2022-05-10 11:17] VITALS: O2SAT 93; O2SAT 97
== END 2022-05-10 11:42 | disposition home health service (06) | DRG 314 ==
LOC: ED 17:35 → PCU 18:13
PROVIDERS: Nurse Practitioner; Emergency Provider Emergency Medicine; PCP Family Medicine
DX: I95.89 Other hypotension (principal); J13 Pneumonia due to Streptococcus pneumoniae; U07.1 COVID-19; E43 Unspecified severe protein-calorie malnutrition; D84.81 Immunodeficiency due to conditions classified elsewhere; J44.0 Chronic obstructive pulmonary disease with (acute) lower respiratory infection; C91.10 Chronic lymphocytic leukemia of B-cell type not having achieved remission; E86.0 Dehydration; E86.1 Hypovolemia; D63.0 Anemia in neoplastic disease; I25.10 Atherosclerotic heart disease of native coronary artery without angina pectoris; Z99.81 Dependence on supplemental oxygen; Z68.20 Body mass index [BMI] 20.0-20.9, adult; Z79.899 Other long term (current) drug therapy; Z12.2 Encounter for screening for malignant neoplasm of respiratory organs; Z87.891 Personal history of nicotine dependence
CPT/HCPCS: 36415; 36591; 71045; 71271; 80048; 80053; 81001; 83605; 83615; 85025; 85610; 85730; 87040; 87070; 87077; 87086; 87088; 87186; 87205; 87428; 87449; 87811; 93005; 94640; 96361; 96367; 96375; 96376; 96413; 96415; 97802; 99284; J7030; J7040; J7050; J9034; A4216; J0696; J2405; J3490; Q5115

== ENCOUNTER 2022-07-04 15:27 | Inpatient (IN) | payer MEDICARE, OTHER, SELFPAY ==
[2022-07-04] VITALS (24 sets, daily range): BP systolic 62–138; BP diastolic 29–71; PULSE 108–162; RESP 17–29; TEMP 37.4–37.9; O2SAT 90–100; BMI 19.6; BMI 20.2
--- NOTE | 2022-07-04 15:49 | CT_ITS ---
STUDY: CT ABDOMEN AND PELVIS WITH CONTRAST REASON FOR EXAM: Male, 76 years old. Back pain, fever and chemo yesterday for CLL RADIATION DOSAGE (If Supplied By Facility): CTDIvol = ( 8.88 ) mGy, DLP = ( 522.52 ) mGycm TECHNIQUE: Transaxial images were obtained from the dome of the diaphragm to the symphysis pubis without oral contrast. IV 100mL Isovue-370 was administered. Sagittal and coronal images were reconstructed. Individualized dose optimization techniques were used for this CT. COMPARISON: None. FINDINGS: Patchy nodular airspace opacities are seen in the right lower lobe possibly representing inflammatory disease although metastasis are not entirely excluded. Heart is normal in size. There is a small pericardial effusion.. There is a large intrathoracic hiatal hernia The liver is enlarged but homogeneous attenuation. There is no focal mass. There is mild biliary duct dilatation. No definitive evidence for stone within the distal duct or pancreatic mass.. Tiny calcified stones in the gallbladder without evidence for acute cholecystitis.. Normal spleen. Normal pancreas. Normal bilateral adrenal glands. No evidence for renal obstruction. There is a tiny cyst in the right kidney.. Large intrathoracic hiatal hernia noted. Nonspecific ileus with diffuse fecal retention in colon.. No evidence for acute appendicitis. Atherosclerotic changes of the aorta without evidence for aneurysm. Normal inferior vena cava. Normal retroperitoneum. Nonspecific enlargement of the prostate encroaching upon the base of bladder which is mildly distended and diffusely thick-walled possibly due to outlet obstruction. Normal abdominal wall. Lumbar spine demonstrates advanced degenerative changes. There is wedging of the superior endplate of L1 which appears acute. In the absence of recent trauma pathologic fracture cannot be entirely excluded CT/Abdomen/Pelvis WITH Contrast IMPRESSION: Patchy nodular airspace opacities in the right lower lobe possibly inflammatory although metastatic disease not entirely excluded... Cholelithiasis in association with mild ductal dilatation but no definitive evidence for intraductal stone or pancreatic mass. MRI/MRCP would be helpful for further assessment if indicated Compression fracture of L1 which appears recent. In the absence of recent trauma however pathologic fracture may be considered. MRI would be useful for further evaluation if indicated. Electronically Signed: Trevor Allen MD at 18:27 EDT ,
--- NOTE | 2022-07-04 15:49 | EKG12_ITS ---
Test Reason : Blood Pressure : / mmHG Vent. Rate : 113 BPM Atrial Rate : 113 BPM P-R Int : 138 ms QRS Dur : 086 ms QT Int : 294 ms P-R-T Axes : 018 064 053 degrees QTc Int : 403 ms Sinus tachycardia Otherwise normal ECG Confirmed by ONOFRE LYON, RADHA ([id number]), book or script editor BERNA MOTA ([id number]) on 07/07/2022 10:21:39 AM Referred By: JAZIEL Confirmed By:RADHA ADHIKARI MD
--- NOTE | 2022-07-04 15:51 | EDS_ITS ---
HPI History of Present Illness Chief Complaint: Fever Narrative Narrative: Patient with past medical history of CLL, on chemotherapy, presents with his family because of fever. They state that while he was at the infusion center today he had a fever of 101 ?F. He had taken Tylenol this morning. He is also on medication for low blood pressure. While he was getting his Neupogen shot today, he complained of mid to low back pain. This is new for him. Family states that the infusion center was concerned that he might have an aneurysm. He is on round 5 of chemotherapy and is supposed to get another infusion next month. Patient is denying back pain currently however. They present him mainly because of the low blood pressure, fever, and mid to low back pain. [facility] Medical History Abnormal CT scan, chest Acute hypoxemic respiratory failure Adjustment disorder Ambulates with cane Anemia Arm pain, left Asthma Atrioventricular block, first degree B12 deficiency anemia Back pain Biceps tendinitis on left BPH (benign prostatic hyperplasia) Bronchiectasis Cancer Central sleep apnea Chronic anemia Chronic lymphocytic leukemia CLL (chronic lymphocytic leukemia) Contusion of left shoulder COPD (chronic obstructive pulmonary disease) COPD exacerbation COPD with acute exacerbation Coronary atherosclerosis due to calcified coronary lesion Cough Degenerative joint disease Dehydration Diarrhea Dyspnea Dysuria Easy bruising Edema Encounter for chemotherapy management Encounter for education Fatigue Fever Former smoker GERD (gastroesophageal reflux disease) HAP (hospital-acquired pneumonia) Hiatal hernia Hiatal hernia with gastroesophageal reflux History of Coumadin therapy History of SCC (squamous cell carcinoma) of skin HTN (hypertension) Hx of fracture of ankle Hypersomnia Hypotension Hypoxia Impingement syndrome, shoulder, left Influenza A Iron deficiency anemia Left hip pain Left shoulder pain Low back pain On home oxygen therapy Orthopedic aftercare ZOHRA (obstructive sleep apnea) Osteoarthritis of left shoulder Other fracture of shaft of left humerus, initial encounter for closed fracture Pneumonia due to Streptococcus Psoriasis Pulmonary embolism Pulmonary embolism Rash and other nonspecific skin eruption Restless leg syndrome Restless legs Rotator cuff syndrome of left shoulder Rotator cuff tear, left Shortness of breath on exertion Shoulder pain, right Signs and symptoms of anemia Sinus tachycardia Skin lesion of left arm Smoking greater than 40 pack years Squamous cell cancer of skin of forearm (~07/2021) Stage 3 severe COPD by GOLD classification Symptomatic anemia Syncope Thrombocytopenia Tobacco dependency Unexplained weight loss Wears dentures Wears glasses Wears hearing aid Home Medications tamsulosin 0.4 mg capsule 0.8 mg PO QHS prostate 08/20/17 [History Last Taken 07/03/22] lorazepam 1 mg tablet 1 mg PO QHS PRN Anxiety 07/09/21 [History Last Taken 07/04/22] cholecalciferol (vitamin D3) 50 mcg (2,000 unit) capsule 50 mcg PO DAILY vitamin 01/30/22 [History Last Taken 07/04/22] ferrous sulfate 325 mg (65 mg iron) tablet 325 mg PO DAILY supplement 01/30/22 [History Last Taken 07/04/22] acyclovir 400 mg tablet 400 mg PO BID CHEMO 02/14/22 [History Last Taken 07/04/22] lidocaine-prilocaine 2.5 %-2.5 % topical cream 1 applic topical ONCE PRN port access 30 days #30 grams 02/17/22 [Rx Last Taken 05/07/22] albuterol sulfate 90 mcg/actuation aerosol inhaler (ProAir HFA) 2 puff inhalation Q6H PRN shortness of breath or wheezing #18 grams 03/05/22 [Rx Last Taken 07/03/22] budesonide-formoterol HFA 160 mcg-4.5 mcg/actuation aerosol inhaler (Symbicort) 2 puff inhalation BID #1 ea 03/05/22 [Rx Last Taken 07/04/22] pantoprazole 40 mg tablet,delayed release 40 mg PO DAILY GERD 05/08/22 [History Last Taken 07/04/22] ropinirole 1 mg tablet 1 mg PO QHS RLS 05/08/22 [History Last Taken 07/03/22] sertraline 25 mg tablet (Zoloft) 25 mg PO QHS 05/29/22 [History Last Taken 07/03/22] midodrine 5 mg tablet 10 mg PO TID 07/04/22 [History Last Taken 07/04/22] triamcinolone acetonide 0.1 % topical cream 1 applic topical BID PRN PRN psoriasis 07/04/22 [History Last Taken 07/04/22] Allergy/AdvReac Type Severity Reaction Status Date / Time Penicillins Allergy Severe Rash Verified 07/04/22 15:28 Family History Sister Breast cancer Mother Cancer patient states female cancer, when he was young Brother Lung cancer Surgical History History of hydrocelectomy History of orchiectomy, unilateral Status post reverse total arthroplasty of left shoulder Social History household members: spouse current occupational status: retired Smoking Status: Former smoker Tobacco: How many years used: 60 Electronic Cigarette Use: not used second hand exposure: Yes quit status: has quit before counseling given: provider counseling alcohol intake: current alcohol intake frequency: a few times a month substance use type: does not use caffeine: Yes Type: coffee Number of servings: 3 what type of physical activity do you participate in: none seatbelt use: always ROS ROS ED ROS Narrative Constitutional: Positive fever, no chills. Reported low blood pressure, but on medication for it. HEENT: No sore throat. No neck pain. No loss of vision. No rhinorrhea. Cardiovascular: No chest pain. No palpitations. No pedal edema. Respiratory: Occasional cough, no shortness of breath. Abdominal: No abdominal pain. No nausea. No vomiting. Genitourinary: No dysuria. No hematuria. Musculoskeletal: No myalgias. No arthralgias. Mid to low back pain. Neurologic: No headaches. No dizziness. No lightheadedness. Skin: No rash. No change in color. Psychiatric: No depression. No anxiety. EXAM Physical Exam Narrative Exam Narrative: Afebrile. Vital signs noted. Mild cachexia. HEENT: Normocephalic. Atraumatic. PERRL, EOMI. Neck soft and supple. No point tenderness or step off. Cardiovascular: Positive tachycardia. No murmurs, rubs, or gallops appreciated. Respiratory: No tachypnea. Lungs clear to auscultation bilaterally. Gastrointestinal: Abdomen soft, nontender, with normoactive bowel sounds. No rebound or guarding. Neurological: Awake. Alert. Nonfocal, nonlateralizing. Skin: No rash. Normal color. No pallor. Musculoskeletal: No pedal edema. Full range of motion extremities. No vertebral point tenderness or bony step-off of back. Const Vital Signs: 07/04/22 15:29 07/04/22 16:00 07/04/22 16:00 Temperature 99.4 F H Temperature Source Temporal Pulse Rate 119 H 118 H Respiratory Rate 26 H 29 H Respiratory Effort Normal Respiratory Pattern Normal Blood Pressure 89/38 L 62/47 L Blood Pressure Mean 55 52 Pulse Ox 100 93 Oxygen Delivery Method Nasal Cannula Nasal Cannula Oxygen Flow Rate (L/min) 3 3 07/04/22 16:35 07/04/22 16:43 07/04/22 17:00 Temperature 99.9 F H 99.9 F H Temperature Source Temporal Temporal Pulse Rate 117 H 116 H Respiratory Rate 26 H 22 H Respiratory Effort Respiratory Pattern Blood Pressure 79/29 L 97/49 L Blood Pressure Mean 45 65 Pulse Ox 92 95 Oxygen Delivery Method Nasal Cannula Nasal Cannula Nasal Cannula Oxygen Flow Rate (L/min) 3 3 3 07/04/22 18:00 07/04/22 19:00 Temperature 99.7 F H 99.9 F H Temperature Source Temporal Oral Pulse Rate 122 H 108 H Respiratory Rate 23 H 22 H Respiratory Effort Respiratory Pattern Blood Pressure 93/39 L 71/46 L Blood Pressure Mean 57 54 Pulse Ox 93 96 Oxygen Delivery Method Room Air Nasal Cannula Oxygen Flow Rate (L/min) 3 Sepsis Attestation Sepsis Alert: Yes Sepsis Attestation: Agree w/Sepsis Date exam was performed: 07/04/22 Time exam was performed: 17:39 Possible Source of Sepsis: Pulmonary Sepsis Organ Dysfunction Criteria Present: SBP < 90 mmHg or MAP < 65 mmHg MDM MDM MDM Narrative Medical decision making narrative: Neutropenic fever work-up was instituted. Patient has baseline low blood pressure and has being medicated for it. He is neutropenic at 1.7 with hemoglobin 9.2, hematocrit 28.8. Platelet count low chronically at 62/throm bocytopenic. Coags are negative. CMP shows creatinine of 1.15 with a BUN of 38. Lactic acid normal at 1.7. Urinalysis shows no evidence of infection. Chest x-ray interpreted by myself shows questionable infiltrates in the bilateral lower lung bases. This was confirmed by radiology. After sepsis fluid bolus, his blood pressure still fluctuates but is below 100. I do feel this is his baseline, family states that is usually 105. Given his hypotension, he was treated for pneumonia with meropenem given his severe penicillin allergy and vancomycin. Patient was discussed with Dr. Christie with oncology who agrees with admission. Family was concerned with him having an aneurysm so CT of the abdomen pelvis was obtained which shows no acute process. Patient was then discussed with the hospitalist, Dr. Molina, for admission to the ICU. Disposition is admit. Lab Data Attestation: I reviewed the patient's lab results. Labs: Laboratory Results - last 24 hr 07/04/22 07/04/22 07/04/22 16:28 16:28 16:28 WBC 1.7 L RBC 2.63 L Hgb 9.2 L Hct 28.8 L MCV 109.5 H MCH 35.0 H MCHC 31.9 L RDW Std Deviation 59.0 H RDW Coeff of Yao 14.6 Plt Count 62 L MPV 10.4 Neut % (Auto) Not Reportable Absolute Neuts (auto) 0.6 L Absolute Lymphs (auto) 0.63 L Total Counted 100 Neutrophils % (Manual) 30 L Band Neutrophils % 6 H Lymphocytes % (Manual) 45 H Monocytes % (Manual) 8 Metamyelocytes % 6 H Myelocytes % 5 H Differential Comment SEE COMMENT Diff Path Review May foll Atypical Lymphocytes 1+ Platelet Estimate MOD DEC RBC Morphology N CHROM Hypochromasia RARE Anisocytosis 1+ Macrocytosis 1+ PT 17.0 H INR 1.4 APTT 32.8 Sodium 136 Potassium 4.1 Chloride 101 Carbon Dioxide 28.0 Anion Gap 7 BUN 38 H Creatinine 1.15 Estim Creat Clear Calc 47.36 Est GFR (MDRD) Af Amer 80 Est GFR (MDRD) Non-Af 66 BUN/Creatinine Ratio 33.0 H Glucose 101 Lactic Acid Calcium 8.4 L Total Bilirubin 0.60 AST 10 L ALT 14 L Alkaline Phosphatase 53 Total Protein 5.3 L Albumin 2.6 L Globulin 2.7 Albumin/Globulin Ratio 1.0 Urine Color Urine Clarity Urine pH Ur Specific [place] Urine Protein Urine Glucose (UA) Urine Ketones Urine Occult Blood Urine Nitrite Urine Bilirubin Urine Urobilinogen Ur Leukocyte Esterase Urine RBC Urine WBC Ur Squamous Epith Cells Urine Bacteria Urine Mucus 07/04/22 07/04/22 16:28 16:39 WBC RBC Hgb Hct MCV MCH MCHC RDW Std Deviation RDW Coeff of Yao Plt Count MPV Neut % (Auto) Absolute Neuts (auto) Absolute Lymphs (auto) Total Counted Neutrophils % (Manual) Band Neutrophils % Lymphocytes % (Manual) Monocytes % (Manual) Metamyelocytes % Myelocytes % Differential Comment Diff Path Review Atypical Lymphocytes Platelet Estimate RBC Morphology Hypochromasia Anisocytosis Macrocytosis PT INR APTT Sodium Potassium Chloride Carbon Dioxide Anion Gap BUN Creatinine Estim Creat Clear Calc Est GFR (MDRD) Af Amer Est GFR (MDRD) Non-Af BUN/Creatinine Ratio Glucose Lactic Acid 1.7 Calcium Total Bilirubin AST ALT Alkaline Phosphatase Total Protein Albumin Globulin Albumin/Globulin Ratio Urine Color Yellow Urine Clarity Sl. Cloudy Urine pH 5.0 Ur Specific [place] 1.015 Urine Protein 30 H Urine Glucose (UA) Normal Urine Ketones Negative Urine Occult Blood 10 H Urine Nitrite Negative Urine Bilirubin Negative Urine Urobilinogen Normal Ur Leukocyte Esterase Negative Urine RBC 0-5 SEEN Urine WBC 0 SEEN Ur Squamous Epith Cells 0-5 SEEN Urine Bacteria 2+ Urine Mucus 0 SEEN Radiography Diagnostic Testing: Clinical Impression(s) from Imaging Studies Abdomen/Pelvis CT 07/04/22 15:49 IMPRESSION: Patchy nodular airspace opacities in the right lower lobe possibly inflammatory although metastatic disease not entirely excluded... Cholelithiasis in association with mild ductal dilatation but no definitive evidence for intraductal stone or pancreatic mass. MRI/MRCP would be helpful for further assessment if indicated Compression fracture of L1 which appears recent. In the absence of recent trauma however pathologic fracture may be considered. MRI would be useful for further evaluation if indicated. Electronically Signed: Trevor Allen MD at 18:27 EDT , Chest X-Ray 07/04/22 16:52 IMPRESSION: Bilateral opacities which may represent developing pneumonia. Right-sided Port-A-Cath in stable position. Electronically Signed: Wilson Lombardo MD at 17:05 EDT , Critical Care Time Critical Care Time: Yes Critical care time (excluding procedures): 30-74 minutes (31) Discharge Plan Dx/Rx/DC Orders Clinical Impression: CLL (chronic lymphocytic leukemia), Pneumonia, Neutropenia with fever, Sepsis Disposition Disposition: Acute Care Hospital [facility]
[2022-07-04] MEDS: 0.9% Normal Saline 1,000 ML 999 ML IV ×2 (16:30→19:11)
[2022-07-04 16:45] LABS: Hematocrit 28.8 % (40-54); Hemoglobin 9.2 g/dL (13.0-16.5); Mean Corp Hgb Conc 31.9 g/dL (32-36); Mean Corpuscular Volume 109.5 fL (80-94); Mean Platelet Vol. 10.4 fl (6.2-12.0); POSITIVE COUNT YES; POSITIVE DIFFERENTIAL YES; POSITIVE MORPHOLOGY YES; Platelet Count 62 K/mm3 (150-450); RBC Distribution Width CV 14.6 % (11.6-14.6); Red Blood Count 2.63 M/mm3 (4.6-6.2); White Blood Count 1.7 K/mm3 (4.4-11.0)
[2022-07-04 16:52] LABS: International Normalized Ratio 1.4; Partial Thromboplast Time 32.8 Seconds (24.1-36.2)
--- NOTE | 2022-07-04 16:52 | RAD_ITS ---
EXAM: XR CHEST, 1 VIEW CLINICAL INDICATION: Fever TECHNIQUE: Frontal view of the chest. This report was created using [employer] report generation technology. COMPARISON: 05/08/2022 FINDINGS: LUNGS AND PLEURAL SPACES: There are focal opacities over the right lower and left upper lobe which may represent developing pneumonia. No effusions or pneumothorax is seen. HEART: Unremarkable. Cardiac silhouette not enlarged. MEDIASTINUM: Central airways and mediastinal contour are unremarkable. BONES/JOINTS: Unremarkable. SOFT TISSUES: Unremarkable. TUBES, LINES AND DEVICES: Right-sided Port-A-Cath in stable position. RAD/Chest 1 View (Portable) IMPRESSION: Bilateral opacities which may represent developing pneumonia. Right-sided Port-A-Cath in stable position. Electronically Signed: Wilson Lombardo MD at 17:05 EDT ,
[2022-07-04 16:58] LABS: Differential Indicated MANUAL DIFF
[2022-07-04 17:02] LABS: Mucous, Urine 0 SEEN /hpf (<or=2+); White Blood Cells 0 SEEN /hpf (0-5)
[2022-07-04 17:04] LABS: Color, Urine Yellow (Yellow); Glucose, Dipstick Normal (Normal); Ketone-Dipstick Negative (Negative); Leukocyte Esterase-Dipstick Negative /ul (Negative); Nitrite-Dipstick Negative (Negative); Occult Blood-Urine 10 /ul (Negative); Protein-Dipstick 30 mg/dl (Negative); Specific Gravity, Urine 1.015 (1.002-1.030); Urine Bilirubin Dipstick Negative (Negative); Urine Clarity Sl. Cloudy (Clear); Urine Urobilinogen Normal (Normal)
[2022-07-04 17:11] LABS: AST(SGOT) 10 U/L (15-37); Alanine Aminotransfer ALT/SGPT 14 U/L (16-61); Albumin, Serum 2.6 g/dL (3.2-5.0); Alkaline Phosphatase 53 U/L (45-117); Anion Gap 7 (5-15); BUN 38 mg/dL (7-18); Calcium,Total 8.4 mg/dL (8.5-10.1); Chloride 101 mmol/L (98-107); Creatinine, Serum 1.15 mg/dL (0.70-1.30); EST Glomerular Filtration Rate 66 mL/min (>60); Est Glom Filt Rate - Afr Amer 80 mL/min (>60); Estimated Creatinine Clearance 47.36 ml/min; Globulin 2.7 g/dL (2.2-4.2); Glucose 101 mg/dL (74-106); Potassium 4.1 mmol/L (3.5-5.1); Protein, Total 5.3 g/dL (6.4-8.2); Sodium Level 136 mmol/L (136-145)
[2022-07-04 17:14] LABS: Neutrophil-Band 6 % (0-5); Neutrophil-Segmented 30 % (47-70); Total Cells Counted 100 (MANUAL DIFF)
[2022-07-04 17:15] LABS: Lymphocyte 45 % (19-41); Metamyelocyte 6 % (0-1); Monocyte 8 % (0-10); Myelocyte 5 % (0-0)
[2022-07-04 17:22] LABS: Bacteria 2+ /hpf (None Seen); Red Blood Cells-Urine 0-5 SEEN /hpf (0-5); Squamous Epithelial Cells - UA 0-5 SEEN /hpf (0-5)
[2022-07-04 17:35] LABS: Absolute Lymphocyte Count 0.63 X10^3/uL (0.83-4.51); Absolute Neutrophil Count 0.6 X10^3/uL (2.0-7.7)
[2022-07-04 17:36] LABS: Atypical Lymphocyte 1+ %
[2022-07-04 17:37] LABS: Anisocytosis 1+; Hypochromasia RARE; Macrocytosis 1+; Platelet Estimate MOD DEC (ADEQ); Red Cell Morphology N CHROM NORMAL (NORM C&C)
[2022-07-04 18:07] LABS: Lactic Acid 1.7 mmol/L (0.4-1.9)
--- NOTE | 2022-07-04 19:24 | PCM.HP.STD ---
HPI - General General Date of Admission: 07/04/22 Date of Service: 07/04/22 Chief Complaint: Fever and hypotension HPI Narrative REJI ORTIZ, is a 76 M with a significant history of CLL who presents to the emergency department with fever and hypotension. Reportedly patient is on his fifth round of chemotherapy. At baseline patient has hypotension and on midodrine and with baseline blood pressure of around 105-110/60. On the day of presentation patient went to an infusion center to get erythrocyte stimulator shot. While at the infusion center patient was found to have hypotension and a fever of 101F. Also a day before presentation patient had chills. Further patient has fatigue; and anorexia. Patient complains of abdominal pain and lower back pain. Reportedly he took Tylenol on the day of presentation. He has a productive cough of yellow to lua sputum that is improving. His cough started when he had COVID this year, 2021. Family report that a CAT scan outpatient done showed an abnormal chest and there is plan to get a repeat CAT scan (probably high-sensitivity CAT scan) in August 2022. On presentation emergency department discussed the case with oncology who recommended patient stay at the hospital. Of note patient has lost about 30 pounds in the past 6 months. At baseline patient has urinary urgency. [facility] Medical History Abnormal CT scan, chest Acute hypoxemic respiratory failure Adjustment disorder Ambulates with cane Anemia Arm pain, left Asthma Atrioventricular block, first degree B12 deficiency anemia Back pain Biceps tendinitis on left BPH (benign prostatic hyperplasia) Bronchiectasis Cancer Central sleep apnea Chronic anemia Chronic lymphocytic leukemia CLL (chronic lymphocytic leukemia) Contusion of left shoulder COPD (chronic obstructive pulmonary disease) COPD exacerbation COPD with acute exacerbation Coronary atherosclerosis due to calcified coronary lesion Cough Degenerative joint disease Dehydration Diarrhea Dyspnea Dysuria Easy bruising Edema Encounter for chemotherapy management Encounter for education Fatigue Fever Former smoker GERD (gastroesophageal reflux disease) HAP (hospital-acquired pneumonia) Hiatal hernia Hiatal hernia with gastroesophageal reflux History of Coumadin therapy History of SCC (squamous cell carcinoma) of skin HTN (hypertension) Hx of fracture of ankle Hypersomnia Hypotension Hypoxia Impingement syndrome, shoulder, left Influenza A Iron deficiency anemia Left hip pain Left shoulder pain Low back pain On home oxygen therapy Orthopedic aftercare ZOHRA (obstructive sleep apnea) Osteoarthritis of left shoulder Other fracture of shaft of left humerus, initial encounter for closed fracture Pneumonia due to Streptococcus Psoriasis Pulmonary embolism Pulmonary embolism Rash and other nonspecific skin eruption Restless leg syndrome Restless legs Rotator cuff syndrome of left shoulder Rotator cuff tear, left Shortness of breath on exertion Shoulder pain, right Signs and symptoms of anemia Sinus tachycardia Skin lesion of left arm Smoking greater than 40 pack years Squamous cell cancer of skin of forearm (~07/2021) Stage 3 severe COPD by GOLD classification Symptomatic anemia Syncope Thrombocytopenia Tobacco dependency Unexplained weight loss Wears dentures Wears glasses Wears hearing aid Home Medications tamsulosin 0.4 mg capsule 0.8 mg PO QHS prostate 08/20/17 [History Last Taken 07/03/22] lorazepam 1 mg tablet 1 mg PO QHS PRN Anxiety 07/09/21 [History Last Taken 07/04/22] cholecalciferol (vitamin D3) 50 mcg (2,000 unit) capsule 50 mcg PO DAILY vitamin 01/30/22 [History Last Taken 07/04/22] ferrous sulfate 325 mg (65 mg iron) tablet 325 mg PO DAILY supplement 01/30/22 [History Last Taken 07/04/22] acyclovir 400 mg tablet 400 mg PO BID CHEMO 02/14/22 [History Last Taken 07/04/22] lidocaine-prilocaine 2.5 %-2.5 % topical cream 1 applic topical ONCE PRN port access 30 days #30 grams 02/17/22 [Rx Last Taken 05/07/22] albuterol sulfate 90 mcg/actuation aerosol inhaler (ProAir HFA) 2 puff inhalation Q6H PRN shortness of breath or wheezing #18 grams 03/05/22 [Rx Last Taken 07/03/22] budesonide-formoterol HFA 160 mcg-4.5 mcg/actuation aerosol inhaler (Symbicort) 2 puff inhalation BID #1 ea 03/05/22 [Rx Last Taken 07/04/22] pantoprazole 40 mg tablet,delayed release 40 mg PO DAILY GERD 05/08/22 [History Last Taken 07/04/22] ropinirole 1 mg tablet 1 mg PO QHS RLS 05/08/22 [History Last Taken 07/03/22] sertraline 25 mg tablet (Zoloft) 25 mg PO QHS 05/29/22 [History Last Taken 07/03/22] midodrine 5 mg tablet 10 mg PO TID 07/04/22 [History Last Taken 07/04/22] triamcinolone acetonide 0.1 % topical cream 1 applic topical BID PRN PRN psoriasis 07/04/22 [History Last Taken 07/04/22] Allergy/AdvReac Type Severity Reaction Status Date / Time Penicillins Allergy Severe Rash Verified 07/04/22 15:28 Family History Sister Breast cancer Mother Cancer patient states female cancer, when he was young Brother Lung cancer Surgical History History of hydrocelectomy History of orchiectomy, unilateral Status post reverse total arthroplasty of left shoulder Social History household members: spouse current occupational status: retired Smoking Status: Current some day smoker tobacco type: cigarettes Tobacco: How many years used: 60 Electronic Cigarette Use: not used second hand exposure: Yes quit status: has quit before counseling given: provider counseling alcohol intake: current alcohol intake frequency: a few times a month substance use type: does not use caffeine: Yes Type: coffee Number of servings: 3 what type of physical activity do you participate in: none seatbelt use: always ROS ROS Narrative Pertinent positives and pertinent negatives as noted in HPI. All other systems were reviewed and are negative Vital Signs Vital Signs Vital Signs: 07/04/22 15:29 07/04/22 16:00 07/04/22 16:00 Temperature 99.4 F H Temperature Source Temporal Pulse Rate 119 H 118 H Respiratory Rate 26 H 29 H Respiratory Effort Normal Respiratory Pattern Normal Blood Pressure 89/38 L 62/47 L Blood Pressure Mean 55 52 Pulse Ox 100 93 Oxygen Delivery Method Nasal Cannula Nasal Cannula Oxygen Flow Rate (L/min) 3 3 07/04/22 16:35 07/04/22 16:43 07/04/22 17:00 Temperature 99.9 F H 99.9 F H Temperature Source Temporal Temporal Pulse Rate 117 H 116 H Respiratory Rate 26 H 22 H Respiratory Effort Respiratory Pattern Blood Pressure 79/29 L 97/49 L Blood Pressure Mean 45 65 Pulse Ox 92 95 Oxygen Delivery Method Nasal Cannula Nasal Cannula Nasal Cannula Oxygen Flow Rate (L/min) 3 3 3 07/04/22 18:00 Temperature 99.7 F H Temperature Source Temporal Pulse Rate 122 H Respiratory Rate 23 H Respiratory Effort Respiratory Pattern Blood Pressure 93/39 L Blood Pressure Mean 57 Pulse Ox 93 Oxygen Delivery Method Room Air Oxygen Flow Rate (L/min) Weight Weight: 60.328 kg Body Mass Index (BMI) 19.6 Physical Exam Narrative Physical exam: General: Emaciated. Head: Normocephalic, atraumatic, no tenderness Eyes: Vision is grossly intact. EOMI ENT, no trauma, dry mucous membranes, thrush; no rhinorrhea Neck: Nontender, full range of motion CVS: Regular rate and rhythm. S1-S2 present. No murmur, gallop or rub. Respiratory : clear to auscultation bilaterally, chest wall nontender, no wheezing Abdomen: Soft, nontender, nondistended, normal bowel sounds, no masses : Deferred Back: Nontender, no CVA tenderness. Extremities: Nontender full range of motion, no trauma Skin: Diffused pinkish rash. No trauma, no abrasions Neuro:Lethargic, oriented, cranial nerves II through XII grossly intact. Psychiatry: Appears depressed. Results Lab / Micro Data Result Diagrams: 07/04/22 16:28 07/04/22 16:28 Labs: Laboratory Results - last 24 hr 07/04/22 16:28: WBC 1.7 L, RBC 2.63 L, Hgb 9.2 L, Hct 28.8 L, MCV 109.5 H, MCH 35.0 H, MCHC 31.9 L, RDW Std Deviation 59.0 H, RDW Coeff of Yao 14.6, Plt Count 62 L, MPV 10.4, Neut % (Auto) Not Reportable, Absolute Neuts (auto) 0.6 L, Absolute Lymphs (auto) 0.63 L, Total Counted 100, Neutrophils % (Manual) 30 L, Band Neutrophils % 6 H, Lymphocytes % (Manual) 45 H, Monocytes % (Manual) 8, Metamyelocytes % 6 H, Myelocytes % 5 H, Differential Comment SEE COMMENT, Diff Path Review May foll, Atypical Lymphocytes 1+, Platelet Estimate MOD DEC, RBC Morphology N CHROM, Hypochromasia RARE, Anisocytosis 1+, Macrocytosis 1+ 07/04/22 16:28: PT 17.0 H, INR 1.4, APTT 32.8 07/04/22 16:28: Sodium 136, Potassium 4.1, Chloride 101, Carbon Dioxide 28.0, Anion Gap 7, BUN 38 H, Creatinine 1.15, Estim Creat Clear Calc 47.36, Est GFR (MDRD) Af Amer 80, Est GFR (MDRD) Non-Af 66, BUN/Creatinine Ratio 33.0 H, Glucose 101, Calcium 8.4 L, Total Bilirubin 0.60, AST 10 L, ALT 14 L, Alkaline Phosphatase 53, Total Protein 5.3 L, Albumin 2.6 L, Globulin 2.7, Albumin/Globulin Ratio 1.0 07/04/22 16:28: Lactic Acid 1.7 07/04/22 16:39: Urine Color Yellow, Urine Clarity Sl. Cloudy, Urine pH 5.0, Ur Specific Sloan 1.015, Urine Protein 30 H, Urine Glucose (UA) Normal, Urine Ketones Negative, Urine Occult Blood 10 H, Urine Nitrite Negative, Urine Bilirubin Negative, Urine Urobilinogen Normal, Ur Leukocyte Esterase Negative, Urine RBC 0-5 SEEN, Urine WBC 0 SEEN, Ur Squamous Epith Cells 0-5 SEEN, Urine Bacteria 2+, Urine Mucus 0 SEEN Radiology Impression Abdomen/Pelvis CT 07/04/22 15:49 IMPRESSION: Patchy nodular airspace opacities in the right lower lobe possibly inflammatory although metastatic disease not entirely excluded... Cholelithiasis in association with mild ductal dilatation but no definitive evidence for intraductal stone or pancreatic mass. MRI/MRCP would be helpful for further assessment if indicated Compression fracture of L1 which appears recent. In the absence of recent trauma however pathologic fracture may be considered. MRI would be useful for further evaluation if indicated. Electronically Signed: Trevor Allen MD at 18:27 EDT , Chest X-Ray 07/04/22 16:52 IMPRESSION: Bilateral opacities which may represent developing pneumonia. Right-sided Port-A-Cath in stable position. Electronically Signed: Wilson Lombardo MD at 17:05 EDT , Assessment & Plan Assessment/Plan (1) Sepsis: (2) Pneumonia: (3) Neutropenia with fever: PLAN: Plan Sepsis likely secondary to pneumonia The patient presented with sepsis due to (pneumonia) with acute sepsis related organ dysfunction as evidenced by (hypotension with MAP below his baseline.). SIRS criteria: Respiratory rate more than 20 Heart rate more than 90 WBC of less than 4000 organ dysfunction: MAP less than 65; and less than at patient baseline MAP. Thrombocytopenia is chronic. INR more than 1.5 or APTT more than 60 seconds Lactic acid is less than 2. Review of patient's chest x-ray showed some opacities. Also family report that chest CT post COVID is abnormal. However chest x-ray on presentation was visualized and independently interpreted shows developing pneumonia and I agree with radiologist interpretation. CT lungs and 05/05/2022 is noted for a pulmonary opacities and enlarging mediastinal lymph nodes. Patient is allergic to penicillin (rash). Patient received vancomycin and Merrem at the emergency department and continued. Patient received normal saline bolus at 30 mL/kg per sepsis protocol. Patient was successfully resuscitated to around baseline blood pressures. Of note family report that previously patient got edema toes from IV hydration at the hospital. Maintenance infusion of normal saline 75 mils per hour ordered. Levophed was ordered but not initiated as his blood pressure improved to baseline. Strep pneumoniae and Legionella urine antigen ordered. Blood cultures ordered emergency department. Urinalysis reviewed showed negative leukocyte esterase; negative nitrites; urine bacteria 2+; urine WBC 0. Urine culture ordered emergency department follow. Neutropenic fever Reportedly home temperature of 101. Absolute neutrophil of 600. Port-A-Cath area does not look infected. Antibiotics as above. Neutropenic precautions ordered. KAI His creatinine on presentation was 1.15. His baseline creatinine is from 0.56-0.69. Gentle IV hydration ordered. Avoid nephrotoxic's. Trend BMP. COPD Stable with no wheezes. Home inhalers continued. Thrush Nystatin swish and swallow ordered. Mild protein calorie malnutrition. Emaciated. Lost about 30 pounds in the past 6 months. BMI of 19.6 kg per metered square. Albumin of 2.6. Dietitian consult. Ensure Enlive ordered. CLL Active and on chemotherapy. DVT prophylaxis SCDs ordered. No chemical thromboprophylaxis secondary to thrombocytopenia Charges/Coding Visit Charges Inpatient E&M: 31219 Init Hosp L3
[2022-07-04] MEDS: Acetaminophen 500 MG Tablet 1000 MG PO (20:10)
--- NOTE | 2022-07-04 21:28 | SEPSISATNOTE ---
Sepsis Attestation Sepsis Attestation: Agree w/Sepsis Date exam was performed: 07/04/22 Time exam was performed: 19:30 Possible Source of Sepsis: Pulmonary Sepsis Organ Dysfunction Criteria Present: SBP < 90 mmHg or MAP < 65 mmHg Fluid Resuscitation Fluid resuscitation indicated?: Yes Fluid Resuscitation ordered: 30 ml/kg fluid bolus ordered Sepsis Note Response to fluids: Fluid responsive hypotension
[2022-07-04] MEDS: 0.9% Normal Saline 1,000 ML 75 ML IV (21:38)
[2022-07-04] MEDS: NYSTATIN 500,000 UNIT/5 ML UDC 500000 UNIT PO (21:41)
[2022-07-04] MEDS: Acyclovir 200 MG Capsule 400 MG PO (21:42)
[2022-07-04] MEDS: Pramipexole Di-HCl 0.5 MG Tablet PO (21:42)
[2022-07-04] MEDS: Tamsulosin HCl 0.4 MG Capsule 0.8 MG PO (21:42)
[2022-07-04] MEDS: Sertraline 50 MG Tablet 25 MG PO (21:42)
--- NOTE | 2022-07-04 22:12 | NURSING ---
Levophed was started at 2114 d/t MAP<60 x3. notified, ordered new MAP goal to be at least 60mmHg.
[2022-07-04] MEDS: TITRATION PARAMETER CHANGE 1 EACH IV (23:05)
--- NOTE | 2022-07-04 23:10 | NURSING ---
Pt sitting up at side of bed, refuses to wait on staff to gown and place N-95 masks on, states I have to pee, this ain't natural going in the bed. Pt reassured that he was not soiling his bed by using the primofit. When the room lights were turned on, pt found to have pulled out his PIV and had his own blood down both bed rails, across his face and chest. Site cleansed and dried, no drsg needed. IVF connected to VAD. Pt given bath and linens changed. Bed exit alarm remains on.
--- NOTE | 2022-07-04 23:10 | PCM.RX.CS ---
Consult Pharmacy has been consulted to manage selected antiobiotic: Vancomycin Type of Consult: New start Suspected Infection: Sepsis Prior Doses of Antibiotics Received/Current Regimen: Medications Vancomycin HCl 750 mg/ Sodium (Chloride) 265 mls @ 250 mls/hr IV Q24H SINDY Discontinued Medications Vancomycin HCl 1,500 mg/ (Sodium Chloride) 530 mls @ 250 mls/hr IV X1 ONE Stop: 07/04/22 20:37 Last Admin: 07/04/22 20:14 Dose: 250 mls/hr Labs: Sodium 136 mmol/L (136-145) 07/04/22 16:28 Potassium 4.1 mmol/L (3.5-5.1) 07/04/22 16:28 Chloride 101 mmol/L (98-107) 07/04/22 16:28 Carbon Dioxide 28.0 mmol/L (21.0-32.0) 07/04/22 16:28 Anion Gap 7 (5-15) 07/04/22 16:28 BUN 38 mg/dL (7-18) H 07/04/22 16:28 Creatinine 1.15 mg/dL (0.70-1.30) 07/04/22 16:28 Est GFR (MDRD) Af Amer 80 mL/min (>60) 07/04/22 16:28 Est GFR (MDRD) Non-Af 66 mL/min (>60) 07/04/22 16:28 BUN/Creatinine Ratio 33.0 RATIO (10-20) H 07/04/22 16:28 Glucose 101 mg/dL (74-106) 07/04/22 16:28 Microbiology: Microbiology 07/04/22 18:02 Nasal Secretion SARS-CoV-2 & FLU Antigen (Rapid) - Final SARS-CoV-2 (COVID 19) Weight used for dosin.1 kg Estimated Creatinine Clearance: 47 Goal Trough: 10-15 mcg/mL Pharmacy Plan for Drug Dosing: Pharmacy Service will continue to monitor and adjust dosing as required. Follow-Up Labs: Trough Vancomycin Labs to be done on [date and time ordered]: 07/06/22 @1930
--- NOTE | 2022-07-04 23:20 | EKG12_ITS ---
Test Reason : RHYTHM CHANGE Blood Pressure : / mmHG Vent. Rate : 158 BPM Atrial Rate : 163 BPM P-R Int : 000 ms QRS Dur : 086 ms QT Int : 318 ms P-R-T Axes : 000 050 060 degrees QTc Int : 515 ms Supraventricular tachycardia Otherwise normal ECG When compared with ECG of 04-JUL-2022 16:03, MANUAL COMPARISON REQUIRED, DATA IS UNCONFIRMED Confirmed by ONOFRE LYON, RADHA ([id number]), writer editor BERNA MOTA ([id number]) on 07/08/2022 12:51:33 PM Referred By: GILBERTO CORONADO Confirmed By:RADHA ADHIKARI MD
--- NOTE | 2022-07-04 23:30 | NURSING ---
Pt repeated attempts to get up w/out staff d/t needing to pee, coretemp F/C placed after educating pt on its use and he gives consent for placement.
--- NOTE | 2022-07-04 23:30 | EKG12_ITS ---
Test Reason : AFIB Blood Pressure : / mmHG Vent. Rate : 134 BPM Atrial Rate : 120 BPM P-R Int : 000 ms QRS Dur : 086 ms QT Int : 264 ms P-R-T Axes : 000 058 055 degrees QTc Int : 394 ms Atrial fibrillation Abnormal ECG When compared with ECG of 04-JUL-2022 23:12, MANUAL COMPARISON REQUIRED, DATA IS UNCONFIRMED Confirmed by ONOFRE LYON, RADHA ([id number]), publications editor BERNA MOTA ([id number]) on 07/08/2022 12:51:17 PM Referred By: IVONNE Confirmed By:RADHA ADHIKARI MD
[2022-07-05] VITALS (62 sets, daily range): BP systolic 65–149; BP diastolic 42–90; PULSE 78–148; RESP 15–28; TEMP 36.7–38.6; O2SAT 95–100
[2022-07-05] MEDS: 0.9% Saline Lock 10 ML Syringe IV ×2 (00:47→05:07)
[2022-07-05] MEDS: Amiodarone 360 MG in Dextrose 5% Viaflo Bag 192.8 ML 33.3 MG CONT INF (00:56)
[2022-07-05 04:13] LABS: Hematocrit 27.4 % (40-54); Hemoglobin 8.6 g/dL (13.0-16.5); Mean Corp Hgb Conc 31.4 g/dL (32-36); Mean Corpuscular Hgb 34.4 pg (27.0-32.0); Mean Corpuscular Volume 109.6 fL (80-94); Mean Platelet Vol. 10.7 fl (6.2-12.0); POSITIVE COUNT YES; POSITIVE DIFFERENTIAL YES; POSITIVE MORPHOLOGY YES; RBC Distribution Width CV 14.5 % (11.6-14.6); RBC Distribution Width SD 58.8 fl (35.1-43.9); White Blood Count 1.7 K/mm3 (4.4-11.0)
[2022-07-05 04:18] LABS: Differential Indicated MANUAL DIFF; Platelet Count 45 K/mm3 (150-450)
[2022-07-05 04:30] LABS: Anion Gap 6 (5-15); BUN 28 mg/dL (7-18); BUN/Creat Ratio 37.4 RATIO (10-20); Calcium,Total 7.7 mg/dL (8.5-10.1); Chloride 108 mmol/L (98-107); Creatinine, Serum 0.75 mg/dL (0.70-1.30); EST Glomerular Filtration Rate 108 mL/min (>60); Est Glom Filt Rate - Afr Amer 131 mL/min (>60); Estimated Creatinine Clearance 56.06 ml/min; Glucose 94 mg/dL (74-106); Potassium 3.8 mmol/L (3.5-5.1); Sodium Level 141 mmol/L (136-145)
[2022-07-05 05:02] LABS: Magnesium 1.9 mg/dL (1.6-2.6); Thyroid Stim Hormone (TSH) 0.13 uIU/mL (0.358-3.74)
[2022-07-05 05:19] LABS: Neutrophil-Band 3 % (0-5); Neutrophil-Segmented 7 % (47-70); Total Cells Counted 100 (MANUAL DIFF)
[2022-07-05 05:20] LABS: Lymphocyte 77 % (19-41); Metamyelocyte 2 % (0-1); Monocyte 8 % (0-10); Myelocyte 3 % (0-0); Platelet Estimate MKD DEC (ADEQ)
[2022-07-05 05:21] LABS: Absolute Lymphocyte Count 1.29 X10^3/uL (0.83-4.51); Absolute Neutrophil Count 0.2 X10^3/uL (2.0-7.7); Anisocytosis RARE; Hypochromasia RARE; Lymphocyte # 1.29 X10^3/ul (0.83-4.51); Microcytosis RARE; Neutrophil # 0.17 X10^3/uL (2.7-7.7)
[2022-07-05] MEDS: Amiodarone 360 MG in Dextrose 5% Viaflo Bag 192.8 ML 16.7 MG CONT INF ×2 (06:32→16:58)
[2022-07-05] MEDS: Acetaminophen 325 MG Tablet 650 MG PO (07:58)
[2022-07-05] MEDS: NYSTATIN 500,000 UNIT/5 ML UDC 500000 UNIT PO ×4 (07:58→20:41)
[2022-07-05] MEDS: Cholecalciferol (VIT D3) 25 MCG TABLET (1,000 UNITS) 50 MCG PO (07:59)
[2022-07-05] MEDS: Midodrine HCl 5 MG Tablet 10 MG PO ×3 (07:59→16:58)
[2022-07-05] MEDS: Pantoprazole Sodium 40 MG Tablet PO (07:59)
[2022-07-05] MEDS: Acyclovir 200 MG Capsule 400 MG PO ×2 (08:00→20:42)
[2022-07-05] MEDS: CHLORHEXIDINE GLUC 2% CLOTH 1 EACH TOWELETTE TOPICAL (10:23)
--- NOTE | 2022-07-05 11:37 | PCM.PN.HOSP ---
Subjective Subjective Maintaining his blood pressures on pressors. But he is alert and interactive. Objective Data Objective Data Vital Signs: Vital Signs Temp Pulse Resp BP Pulse Ox O2 Del Method O2 Flow Rate 99.2 F H 94 18 110/58 L 98 Nasal Cannula 3 07/05/22 10:00 07/05/22 11:00 07/05/22 11:00 07/05/22 11:15 07/05/22 11:00 07/05/22 11:00 07/05/22 11:00 Oxygen Flow Rate (L/min) 3 Oxygen Delivery Method Nasal Cannula Weight: 135 lb 5.821 oz Body Mass Index (BMI) 20.2 Intake & Output: Intake and Output for Last 24 Hours 07/04/22 07/05/22 07/06/22 03:59 03:59 03:59 Intake Total 2845.27 / 3249.97 1477.76 / 1477.76 Output Total 150 / 1600 1450 / 1450 Balance 2695.27 / 1649.97 27.76 / 27.76 Lab / Micro Data Result Diagrams: 07/06/22 03:00 07/06/22 03:00 Labs: Laboratory Results - last 24 hr 07/04/22 16:28: WBC 1.7 L, RBC 2.63 L, Hgb 9.2 L, Hct 28.8 L, MCV 109.5 H, MCH 35.0 H, MCHC 31.9 L, RDW Std Deviation 59.0 H, RDW Coeff of Yao 14.6, Plt Count 62 L, MPV 10.4, Neut % (Auto) Not Reportable, Absolute Neuts (auto) 0.6 L, Absolute Lymphs (auto) 0.63 L, Total Counted 100, Neutrophils % (Manual) 30 L, Band Neutrophils % 6 H, Lymphocytes % (Manual) 45 H, Monocytes % (Manual) 8, Metamyelocytes % 6 H, Myelocytes % 5 H, Differential Comment SEE COMMENT, Diff Path Review May foll, Atypical Lymphocytes 1+, Platelet Estimate MOD DEC, RBC Morphology N CHROM, Hypochromasia RARE, Anisocytosis 1+, Macrocytosis 1+ 07/04/22 16:28: PT 17.0 H, INR 1.4, APTT 32.8 07/04/22 16:28: Sodium 136, Potassium 4.1, Chloride 101, Carbon Dioxide 28.0, Anion Gap 7, BUN 38 H, Creatinine 1.15, Estim Creat Clear Calc 47.36, Est GFR (MDRD) Af Amer 80, Est GFR (MDRD) Non-Af 66, BUN/Creatinine Ratio 33.0 H, Glucose 101, Calcium 8.4 L, Total Bilirubin 0.60, AST 10 L, ALT 14 L, Alkaline Phosphatase 53, Total Protein 5.3 L, Albumin 2.6 L, Globulin 2.7, Albumin/Globulin Ratio 1.0 07/04/22 16:28: Lactic Acid 1.7 07/04/22 16:39: Urine Color Yellow, Urine Clarity Sl. Cloudy, Urine pH 5.0, Ur Specific [place] 1.015, Urine Protein 30 H, Urine Glucose (UA) Normal, Urine Ketones Negative, Urine Occult Blood 10 H, Urine Nitrite Negative, Urine Bilirubin Negative, Urine Urobilinogen Normal, Ur Leukocyte Esterase Negative, Urine RBC 0-5 SEEN, Urine WBC 0 SEEN, Ur Squamous Epith Cells 0-5 SEEN, Urine Bacteria 2+, Urine Mucus 0 SEEN 07/05/22 03:55: WBC 1.7 L, RBC 2.50 L, Hgb 8.6 L, Hct 27.4 L, MCV 109.6 H, MCH 34.4 H, MCHC 31.4 L, RDW Std Deviation 58.8 H, RDW Coeff of Yao 14.5, Plt Count 45 L*, MPV 10.7, Neut % (Auto) Not Reportable, Absolute Neuts (auto) 0.2 L, Absolute Lymphs (auto) 1.29, Total Counted 100, Neutrophils % (Manual) 7 L, Band Neutrophils % 3, Lymphocytes % (Manual) 77 H*, Monocytes % (Manual) 8, Metamyelocytes % 2 H, Myelocytes % 3 H, Diff Path Review May foll, Platelet Estimate MKD DEC, Hypochromasia RARE, Anisocytosis RARE, Microcytosis RARE 07/05/22 03:55: Sodium 141, Potassium 3.8, Chloride 108 H, Carbon Dioxide 27.0, Anion Gap 6, BUN 28 H, Creatinine 0.75, Estim Creat Clear Calc 56.06, Est GFR (MDRD) Af Amer 131, Est GFR (MDRD) Non-Af 108, BUN/Creatinine Ratio 37.4 H, Glucose 94, Calcium 7.7 L 07/05/22 03:55: Magnesium 1.9, TSH 0.13 L Micro: Microbiology 07/04/22 16:39 Urine, Clean Catch Urine Culture - Preliminary Mixed Gram Pos & Gram Neg Org 07/05/22 03:55 Urine Catheter - Jo Legionella Antigen - Final 07/05/22 03:55 Urine Catheter - Jo Streptococcus pneumoniae Antigen (M - Final 07/04/22 18:02 Nasal Secretion SARS-CoV-2 & FLU Antigen (Rapid) - Final SARS-CoV-2 (COVID 19) Radiography Diagnostic Testing: Radiology Impression Abdomen/Pelvis CT 07/04/22 15:49 IMPRESSION: Patchy nodular airspace opacities in the right lower lobe possibly inflammatory although metastatic disease not entirely excluded... Cholelithiasis in association with mild ductal dilatation but no definitive evidence for intraductal stone or pancreatic mass. MRI/MRCP would be helpful for further assessment if indicated Compression fracture of L1 which appears recent. In the absence of recent trauma however pathologic fracture may be considered. MRI would be useful for further evaluation if indicated. Electronically Signed: Trevor Allen MD at 18:27 EDT , Chest X-Ray 07/04/22 16:52 IMPRESSION: Bilateral opacities which may represent developing pneumonia. Right-sided Port-A-Cath in stable position. Electronically Signed: Wilson Lombardo MD at 17:05 EDT , Physical Exam Narrative General: Alert, Oriented x3, Cooperative, No apparent distress HEENT: Atraumatic, PERRLA, EOMI, Normocephalic Oral: Dry mucosa Neck: Supple, No JVD Lungs: Clear to auscultation, Normal air movement, No rhonchi, No wheeze, No rales Cardiovascular: Regular rate, Regular Rhythm, Normal S1, Normal S2, No murmurs Abdomen: Soft, Non Tender, Non-Distended, No Hepato-splenomegaly Extremities: No edema, Capillary Refill Less than 3 Seconds Skin: No rashes, No breakdown Musculoskeletal: No Tenderness to Palpation of Joints or Extremities Neurological: Cranial nerves II-XII grossly intact, Motor Exam 5/5 strength throughout, Sensory exam intact to light touch and pain Psych/Mental Status: Flat affect, Appropriate Assessment & Plan Assessment/Plan (1) Sepsis: (2) Pneumonia: (3) Neutropenia with fever: PLAN: Plan 1. Septic shock secondary to pneumonia with neutropenic fever/CLL/KAI/thrombocytopenia ? Continue with pressor support as well as IV fluids ? He does have significant allergy to penicillin so continue with meropenem and vancomycin ?Appreciate director of physical security assistance ? We will obtain a CT of his chest today ? Currently on chemotherapy ? Absolute neutrophil count is down to 200 ? Creatinine has normalized ? Continue with his oral midodrine as well as as acyclovir ? Thrombocytopenia is likely secondary to both infection as well as chemotherapy ? COVID antigen came back positive however he did develop COVID in April so I do believe that he is just continuing to turn positive despite not being COVID-positive 2. COPD ? Stable not currently in exacerbation ? Continue with inhalers 3. Mild protein calorie malnutrition ? Consult human resources benefits assistant DVT: SCDs Charges/Coding Visit Charges Inpatient E&M: 17905 Subs Hosp L2
[2022-07-05] MEDS: Menthol/Lanolin/Calamine/Znox 113 GM Tube 1 APPLIC TOPICAL ×2 (12:01→20:47)
--- NOTE | 2022-07-05 12:04 | CASEMGMT ---
EPHRAIM SHELDON Assessment: TC to pt for initial transition planning/care coordination assessment. Assessment completed with pt . EPHRAIM SHELDON introduced self and role at [facility], pt voices understanding and consents to assessment. Care providers, pharmacy, and demographics verified/updated. Admitting Dx: sepsis, neutropenic fever PCP:Michael Specialists:ted Stuart; jason Goldman Preferred Pharmacy: [facility] Insurance: My 1% other Prescription Benefit: yes LW/HPOA: Pt has a LW on file at [facility]. Pt states pt also has a DPOA and she will bring in to be scanned into the chart. LNOK: Kari Thomas, ' Armando Thomas, son Living Arrangements: Pt lives with and son in a single story house with 3 steps to enter with a rail. reports she assists pt with bathing and dressing for safety. Transportation: Pt provides transportation for pt. DME/HHC/SNF: Pt has a walker, shower chair, grab bars in the bathroom, pox and oxygen through [employer] at 3L with portability. Pt will bring in portable tank upon dc. Pt is currently receiving services through [facility] for SN. Pt denies SNF stays. Pt states no concerns with going home at time of dc. She states pt would not like to have any further services than the SN from the [facility]. Pt states no further concerns/needs. CM to follow. Advised pt to ask CM if any further question/concerns/needs arise, voices understanding. Pt Goal: Home with resumption of HHC Plan: Home with resumption of HHC
[2022-07-05] MEDS: Ensure Plus High Protein 120 ML LIQUID PO ×2 (13:32→16:58)
[2022-07-05] MEDS: Triamcinolone 0.5% Cream 1 APPLIC TOPICAL (13:34)
--- NOTE | 2022-07-05 13:50 | CT_ITS ---
STUDY: CT Chest W/O Contrast Injection 07/05/2022 3:09 PM REASON FOR EXAM: Male, 76 years old. CLL with hypoxemia, new opacities seen on CXR Individualized dose optimization techniques were used for this CT. TECHNIQUE: Transaxial imaging was performed withoutIV contrast material. COMPARISON: 05.05.22 FINDINGS: There are degenerative changes of the shoulders. There is no pneumothorax. There are bilateral pleural effusions. There are bilateral diffuse patchy infiltrates suggesting a pneumonia. There is a right Port-A-Cath and/or mediport in place. The tip is in the superior vena cava. There are calcifications of the coronary arteries. Normal mediastinum. Normal hilar regions. Normal pulmonary arteries. There is atherosclerotic calcification of the aortic arch with tortuosity and elongation of the aortic arch and descending thoracic aorta. There are multi-level degenerative changes of the thoracic spine. There is a small hiatal hernia. Stable hypodensity in the liver. Lymph nodes around the stomach at the level of the hiatal hernia. Stable L1 compression deformity. CT/Chest without Contrast IMPRESSION: Small bilateral pleural effusions. There is a hiatal hernia. Since the prior study, there is been development of more numerous infiltrate suggesting a pneumonia which has worsened or metastatic disease which is worse Electronically Signed: Joe Bruce MD at 15:13 EDT ,
--- NOTE | 2022-07-05 14:03 | EX.PCM.CONCC ---
Assessment & Plan Assessment/Plan (1) Sepsis: (2) Pneumonia: (3) Neutropenia with fever: PLAN: Plan Sepsis likely secondary to pneumonia The patient presented with sepsis due to (pneumonia) with acute sepsis related organ dysfunction as evidenced by (hypotension with MAP below his baseline.). Review of patient's chest x-ray showed some opacities. Also family report that chest CT post COVID is abnormal. However chest x-ray on presentation was visualized and independently interpreted shows developing pneumonia and I agree with radiologist interpretation. CT lungs and 05/05/2022 is noted for a pulmonary opacities and enlarging mediastinal lymph nodes. Patient is allergic to penicillin (rash). Patient received vancomycin and Meropenem at the emergency department and continued. Patient received normal saline bolus at 30 mL/kg per sepsis protocol. Patient was successfully resuscitated to around baseline blood pressures. Of note family report that previously patient got edema toes from IV hydration at the hospital. Maintenance infusion of normal saline 75 mils per hour ordered. Levophed was ordered but not initiated as his blood pressure improved to baseline. Strep pneumoniae and Legionella urine antigen ordered. Blood cultures ordered emergency department. Urinalysis reviewed showed negative leukocyte esterase; negative nitrites; urine bacteria 2+; urine WBC 0. Urine culture ordered emergency department follow. - Plan to obtain CT Chest WO Contrast today given new pulmonary opacities - Will have to obtain his CT imaging from 1 month ago to assess and compare - Continue antibiotics for now Shock Combined septic + hypovolemic He has been febrile and has significant unaccounted for losses Given that he is making good UO, that is a re-assuring sign If pressor requirement worsens during the day, consider low threshold to add stress dose steroids Neutropenic fever Reportedly home temperature of 101. Absolute neutrophil of 600. Port-A-Cath area does not look infected. Antibiotics as above. Neutropenic precautions to continue. KAI His creatinine on presentation was 1.15. His baseline creatinine is from 0.56-0.69. Gentle IV hydration ordered. Avoid nephrotoxic's. Trend BMP. COPD Stable with no wheezes. Home inhalers continued. Thrush Nystatin swish and swallow ordered. Mild protein calorie malnutrition. Emaciated. Lost about 30 pounds in the past 6 months. BMI of 19.6 kg per metered square. Albumin of 2.6. Dietitian consult. Ensure Enlive ordered. CLL Active and on chemotherapy. DVT prophylaxis SCDs ordered. No chemical thromboprophylaxis secondary to thrombocytopenia I have personally spent 45 minutes of face to face critical care time in this consultation not including time spent in procedures. I have discussed his plan of care with family members at bedside as well as primary Medicine Attending, all questions have been answered as well. Billing code for service: [id number] HPI Consult Data Date of Consult: 07/05/22 HPI Narrative HPI Narrative: REJI ORTIZ, is a 76 M with a significant history of CLL who presents to the emergency department with fever and hypotension.? Reportedly patient is on his fifth round of chemotherapy.? At baseline patient has hypotension and on midodrine and with baseline blood pressure of around 105-110/60.? On the day of presentation patient went to an infusion center to get erythrocyte stimulator shot.? While at the infusion center patient was found to have hypotension and a fever of 101F.? Also a day before presentation patient had chills.? Further patient has fatigue; and anorexia.? Patient complains of abdominal pain and lower back pain.? Reportedly he took Tylenol on the day of presentation.? He has a productive cough of yellow to lua sputum that is improving.? His cough started when he had COVID this year, 2021.? Family report that a CAT scan outpatient done showed an abnormal chest and there is plan to get a repeat CAT scan (probably high-sensitivity CAT scan) in August 2022. On presentation emergency department discussed the case with oncology who recommended patient stay at the hospital. Of note patient has lost about 30 pounds in the past 6 months. At baseline patient has urinary urgency. Pulmonary / ICU has been consulted due to ongoing shock / sepsis and hypoxemia with abnormal imaging. [facility] Medical History Abnormal CT scan, chest Acute hypoxemic respiratory failure Adjustment disorder Ambulates with cane Anemia Arm pain, left Asthma Atrioventricular block, first degree B12 deficiency anemia Back pain Biceps tendinitis on left BPH (benign prostatic hyperplasia) Bronchiectasis Cancer Central sleep apnea Chronic anemia Chronic lymphocytic leukemia CLL (chronic lymphocytic leukemia) Contusion of left shoulder COPD (chronic obstructive pulmonary disease) COPD exacerbation COPD with acute exacerbation Coronary atherosclerosis due to calcified coronary lesion Cough Degenerative joint disease Dehydration Diarrhea Dyspnea Dysuria Easy bruising Edema Encounter for chemotherapy management Encounter for education Fatigue Fever Former smoker GERD (gastroesophageal reflux disease) HAP (hospital-acquired pneumonia) Hiatal hernia Hiatal hernia with gastroesophageal reflux History of Coumadin therapy History of SCC (squamous cell carcinoma) of skin HTN (hypertension) Hx of fracture of ankle Hypersomnia Hypotension Hypoxia Impingement syndrome, shoulder, left Influenza A Iron deficiency anemia Left hip pain Left shoulder pain Low back pain On home oxygen therapy Orthopedic aftercare ZOHRA (obstructive sleep apnea) Osteoarthritis of left shoulder Other fracture of shaft of left humerus, initial encounter for closed fracture Pneumonia due to Streptococcus Psoriasis Pulmonary embolism Pulmonary embolism Rash and other nonspecific skin eruption Restless leg syndrome Restless legs Rotator cuff syndrome of left shoulder Rotator cuff tear, left Shortness of breath on exertion Shoulder pain, right Signs and symptoms of anemia Sinus tachycardia Skin lesion of left arm Smoking greater than 40 pack years Squamous cell cancer of skin of forearm (~07/2021) Stage 3 severe COPD by GOLD classification Symptomatic anemia Syncope Thrombocytopenia Tobacco dependency Unexplained weight loss Wears dentures Wears glasses Wears hearing aid Home Medications tamsulosin 0.4 mg capsule 0.8 mg PO QHS prostate 08/20/17 [History Last Taken 07/03/22] lorazepam 1 mg tablet 1 mg PO QHS PRN Anxiety 07/09/21 [History Last Taken 07/04/22] cholecalciferol (vitamin D3) 50 mcg (2,000 unit) capsule 50 mcg PO DAILY vitamin 01/30/22 [History Last Taken 07/04/22] ferrous sulfate 325 mg (65 mg iron) tablet 325 mg PO DAILY supplement 01/30/22 [History Last Taken 07/04/22] acyclovir 400 mg tablet 400 mg PO BID CHEMO 02/14/22 [History Last Taken 07/04/22] lidocaine-prilocaine 2.5 %-2.5 % topical cream 1 applic topical ONCE PRN port access 30 days #30 grams 02/17/22 [Rx Last Taken 05/07/22] albuterol sulfate 90 mcg/actuation aerosol inhaler (ProAir HFA) 2 puff inhalation Q6H PRN shortness of breath or wheezing #18 grams 03/05/22 [Rx Last Taken 07/03/22] budesonide-formoterol HFA 160 mcg-4.5 mcg/actuation aerosol inhaler (Symbicort) 2 puff inhalation BID #1 ea 03/05/22 [Rx Last Taken 07/04/22] pantoprazole 40 mg tablet,delayed release 40 mg PO DAILY GERD 05/08/22 [History Last Taken 07/04/22] ropinirole 1 mg tablet 1 mg PO QHS RLS 05/08/22 [History Last Taken 07/03/22] sertraline 25 mg tablet (Zoloft) 25 mg PO QHS 05/29/22 [History Last Taken 07/03/22] midodrine 5 mg tablet 10 mg PO TID 07/04/22 [History Last Taken 07/04/22] triamcinolone acetonide 0.1 % topical cream 1 applic topical BID PRN PRN psoriasis 07/04/22 [History Last Taken 07/04/22] Allergy/AdvReac Type Severity Reaction Status Date / Time Penicillins Allergy Severe Rash Verified 07/04/22 15:28 Family History Sister Breast cancer Mother Cancer patient states female cancer, when he was young Brother Lung cancer Surgical History History of hydrocelectomy History of orchiectomy, unilateral Status post reverse total arthroplasty of left shoulder Social History household members: spouse current occupational status: retired Smoking Status: Current some day smoker tobacco type: cigarettes Tobacco: How many years used: 60 Electronic Cigarette Use: not used second hand exposure: Yes quit status: has quit before counseling given: provider counseling alcohol intake: current alcohol intake frequency: a few times a month substance use type: does not use caffeine: Yes Type: coffee Number of servings: 3 what type of physical activity do you participate in: none seatbelt use: always Physical Exam Narrative General: Emaciated. Head: Normocephalic, atraumatic, no tenderness Eyes: Vision is grossly intact. EOMI ENT, no trauma, dry mucous membranes, thrush; no rhinorrhea Neck: Nontender, full range of motion CVS:? Regular rate and rhythm.? S1-S2 present.? No murmur, gallop or rub. Respiratory : clear to auscultation bilaterally, chest wall nontender, no wheezing Abdomen: Soft, nontender, nondistended, normal bowel sounds, no masses : Deferred Back: Nontender, no CVA tenderness. Extremities: Nontender full range of motion, no trauma Skin: Diffused pinkish rash.? No trauma, no abrasions Neuro:Lethargic, oriented, cranial nerves II through XII grossly intact. Psychiatry: Appears depressed. Medical Records Data Medical Nutrition Assessment Dietitian: Malnutrition Criteria Met Start: 07/05/22 11:59 Freq: Status: Active Protocol: Document 07/05/22 12:00 RMA (Rec: 07/05/22 12:00 RMA [id number]) Nutrition Malnutrition Evidence of Malnutrition Exists Yes Malnutrition (severe): Chronic Evidenced By Suboptimal Energy Intake ( Severe),Weight Loss (Severe), Physical Changes (Moderate) Clinical Problem Chronic Disease or Condition Related Malnutrition Etiology Severe protein-calorie malnutrition in the context of chronic disease related to increased energy expenditure and inadequate oral intake Signs/Symptoms as evidenced by ~15% wt loss x past 6 months, ~8-9% wt loss x past 4 months, BMI 20.0, moderate muscle/fat wasting in the clavicle, orbitals, arms, legs and face and oral intake meeting less than 50% estimated nutrition needs x past 4-6 months Status Active Problem Recommendation Dietitian Recommendations/Changes Continue regular diet and encourage PO at meals. Will add magic cup BID w/ lunch and dinner. Will add 120 ml ensure plus high protein 4 times per day w / medpass. Adjust ONS as needed to optimize oral intake and prevent further weight loss. Lab / Micro Data Result Diagrams: 07/05/22 03:55 07/05/22 03:55 Labs: Laboratory Results - last 24 hr 07/04/22 16:28: WBC 1.7 L, RBC 2.63 L, Hgb 9.2 L, Hct 28.8 L, MCV 109.5 H, MCH 35.0 H, MCHC 31.9 L, RDW Std Deviation 59.0 H, RDW Coeff of Yao 14.6, Plt Count 62 L, MPV 10.4, Neut % (Auto) Not Reportable, Absolute Neuts (auto) 0.6 L, Absolute Lymphs (auto) 0.63 L, Total Counted 100, Neutrophils % (Manual) 30 L, Band Neutrophils % 6 H, Lymphocytes % (Manual) 45 H, Monocytes % (Manual) 8, Metamyelocytes % 6 H, Myelocytes % 5 H, Differential Comment SEE COMMENT, Diff Path Review May foll, Atypical Lymphocytes 1+, Platelet Estimate MOD DEC, RBC Morphology N CHROM, Hypochromasia RARE, Anisocytosis 1+, Macrocytosis 1+ 07/04/22 16:28: PT 17.0 H, INR 1.4, APTT 32.8 07/04/22 16:28: Sodium 136, Potassium 4.1, Chloride 101, Carbon Dioxide 28.0, Anion Gap 7, BUN 38 H, Creatinine 1.15, Estim Creat Clear Calc 47.36, Est GFR (MDRD) Af Amer 80, Est GFR (MDRD) Non-Af 66, BUN/Creatinine Ratio 33.0 H, Glucose 101, Calcium 8.4 L, Total Bilirubin 0.60, AST 10 L, ALT 14 L, Alkaline Phosphatase 53, Total Protein 5.3 L, Albumin 2.6 L, Globulin 2.7, Albumin/Globulin Ratio 1.0 07/04/22 16:28: Lactic Acid 1.7 07/04/22 16:39: Urine Color Yellow, Urine Clarity Sl. Cloudy, Urine pH 5.0, Ur Specific Cameron 1.015, Urine Protein 30 H, Urine Glucose (UA) Normal, Urine Ketones Negative, Urine Occult Blood 10 H, Urine Nitrite Negative, Urine Bilirubin Negative, Urine Urobilinogen Normal, Ur Leukocyte Esterase Negative, Urine RBC 0-5 SEEN, Urine WBC 0 SEEN, Ur Squamous Epith Cells 0-5 SEEN, Urine Bacteria 2+, Urine Mucus 0 SEEN 07/05/22 03:55: WBC 1.7 L, RBC 2.50 L, Hgb 8.6 L, Hct 27.4 L, MCV 109.6 H, MCH 34.4 H, MCHC 31.4 L, RDW Std Deviation 58.8 H, RDW Coeff of Yao 14.5, Plt Count 45 L*, MPV 10.7, Neut % (Auto) Not Reportable, Absolute Neuts (auto) 0.2 L, Absolute Lymphs (auto) 1.29, Total Counted 100, Neutrophils % (Manual) 7 L, Band Neutrophils % 3, Lymphocytes % (Manual) 77 H*, Monocytes % (Manual) 8, Metamyelocytes % 2 H, Myelocytes % 3 H, Diff Path Review May caroline, Platelet Estimate MKD DEC, Hypochromasia RARE, Anisocytosis RARE, Microcytosis RARE 07/05/22 03:55: Sodium 141, Potassium 3.8, Chloride 108 H, Carbon Dioxide 27.0, Anion Gap 6, BUN 28 H, Creatinine 0.75, Estim Creat Clear Calc 56.06, Est GFR (MDRD) Af Amer 131, Est GFR (MDRD) Non-Af 108, BUN/Creatinine Ratio 37.4 H, Glucose 94, Calcium 7.7 L 07/05/22 03:55: Magnesium 1.9, TSH 0.13 L Micro: Microbiology 07/04/22 16:39 Urine, Clean Catch Urine Culture - Preliminary Mixed Gram Pos & Gram Neg Org 07/05/22 03:55 Urine Catheter - Jo Legionella Antigen - Final 07/05/22 03:55 Urine Catheter - Jo Streptococcus pneumoniae Antigen (M - Final 07/04/22 18:02 Nasal Secretion SARS-CoV-2 & FLU Antigen (Rapid) - Final SARS-CoV-2 (COVID 19) Radiology Impression Abdomen/Pelvis CT 07/04/22 15:49 IMPRESSION: Patchy nodular airspace opacities in the right lower lobe possibly inflammatory although metastatic disease not entirely excluded... Cholelithiasis in association with mild ductal dilatation but no definitive evidence for intraductal stone or pancreatic mass. MRI/MRCP would be helpful for further assessment if indicated Compression fracture of L1 which appears recent. In the absence of recent trauma however pathologic fracture may be considered. MRI would be useful for further evaluation if indicated. Electronically Signed: Trevor Allen MD at 18:27 EDT , Chest X-Ray 07/04/22 16:52 IMPRESSION: Bilateral opacities which may represent developing pneumonia. Right-sided Port-A-Cath in stable position. Electronically Signed: Wilson Lombardo MD at 17:05 EDT ,
[2022-07-05] MEDS: 0.9% Normal Saline 1,000 ML 75 ML IV (18:23)
[2022-07-05] MEDS: Budesonide Respules 0.5 MG/2 ML AMPUL.NEB. INHALATION (20:16)
[2022-07-05] MEDS: Tamsulosin HCl 0.4 MG Capsule 0.8 MG PO (20:41)
[2022-07-05] MEDS: Sertraline 50 MG Tablet 25 MG PO (20:41)
[2022-07-05] MEDS: Pramipexole Di-HCl 0.5 MG Tablet PO ×2 (20:41→20:42)
[2022-07-05] MEDS: LORazepam 1 MG Tablet PO (21:34)
[2022-07-06] VITALS (30 sets, daily range): BP systolic 86–120; BP diastolic 47–71; PULSE 75–97; RESP 16–25; TEMP 36.7–37.3; O2SAT 94–100
[2022-07-06] MEDS: Budesonide Respules 0.5 MG/2 ML AMPUL.NEB. INHALATION ×2 (07:32→20:09)
[2022-07-06] MEDS: Pantoprazole Sodium 40 MG Tablet PO (07:56)
[2022-07-06] MEDS: Acyclovir 200 MG Capsule 400 MG PO ×2 (07:56→21:39)
[2022-07-06] MEDS: Cholecalciferol (VIT D3) 25 MCG TABLET (1,000 UNITS) 50 MCG PO (07:57)
[2022-07-06] MEDS: NYSTATIN 500,000 UNIT/5 ML UDC 500000 UNIT PO ×4 (07:57→21:37)
[2022-07-06] MEDS: Midodrine HCl 5 MG Tablet 10 MG PO ×3 (07:57→17:03)
[2022-07-06] MEDS: Ensure Plus High Protein 120 ML LIQUID PO ×3 (07:57→17:04)
[2022-07-06] MEDS: Menthol/Lanolin/Calamine/Znox 113 GM Tube 1 APPLIC TOPICAL ×2 (07:57→21:40)
[2022-07-06 08:40] LABS: Absolute Lymphocyte Count 0.34 X10^3/uL (0.83-4.51); Absolute Neutrophil Count 0.2 X10^3/uL (2.0-7.7); Basophil# 0.01 X10^3/uL; Basophil% 1.6 % (0-1); Eosinophil# 0.02 X10^3/uL; Eosinophils% 3.2 % (0-5); Hematocrit 24.4 % (40-54); Hemoglobin 8.1 g/dL (13.0-16.5); Lymphocyte # 0.34 X10^3/ul (0.83-4.51); Lymphocyte % 54.8 % (19-41); Mean Corp Hgb Conc 33.2 g/dL (32-36); Mean Corpuscular Hgb 35.8 pg (27.0-32.0); Mean Platelet Vol. 12.7 fl (6.2-12.0); Monocyte# 0.04 X10^3/uL; Monocyte% 6.5 % (0-10); NRBC Flagged by Analyzer 0 % (0-5); Neutrophil # 0.21 X10^3/uL (2.7-7.7); Neutrophil % 33.9 % (47-70); POSITIVE COUNT YES; POSITIVE DIFFERENTIAL YES; POSITIVE MORPHOLOGY YES; Platelet Count 28 K/mm3 (150-450); RBC Distribution Width CV 14.5 % (11.6-14.6); RBC Distribution Width SD 56.8 fl (35.1-43.9); Red Blood Count 2.26 M/mm3 (4.6-6.2); White Blood Count 0.6 K/mm3 (4.4-11.0)
[2022-07-06 08:41] LABS: Differential Indicated SCAN CRITERIA MET
[2022-07-06 09:00] LABS: Anion Gap 7 (5-15); BUN 25 mg/dL (7-18); BUN/Creat Ratio 45.4 RATIO (10-20); Calcium,Total 7.8 mg/dL (8.5-10.1); Chloride 108 mmol/L (98-107); Creatinine, Serum 0.55 mg/dL (0.70-1.30); EST Glomerular Filtration Rate 154 mL/min (>60); Est Glom Filt Rate - Afr Amer 186 mL/min (>60); Estimated Creatinine Clearance 57.24 ml/min; Glucose 101 mg/dL (74-106); Potassium 3.9 mmol/L (3.5-5.1); Sodium Level 142 mmol/L (136-145)
[2022-07-06] MEDS: CHLORHEXIDINE GLUC 2% CLOTH 1 EACH TOWELETTE TOPICAL (10:08)
[2022-07-06] MEDS: 0.9% Normal Saline 1,000 ML 75 ML IV (11:08)
--- NOTE | 2022-07-06 11:58 | PN.CC_ITS ---
Assessment & Plan Assessment/Plan (1) Sepsis: (2) Pneumonia: (3) Neutropenia with fever: PLAN: Plan Sepsis likely secondary to pneumonia The patient presented with sepsis due to (pneumonia) with acute sepsis related organ dysfunction as evidenced by (hypotension with MAP below his baseline.). Review of patient's chest x-ray showed some opacities. Also family report that chest CT post COVID is abnormal. However chest x-ray on presentation was visualized and independently interpreted shows developing pneumonia and I agree with radiologist interpretation. CT lungs and 05/05/2022 is noted for a pulmonary opacities and enlarging mediastinal lymph nodes. Patient is allergic to penicillin (rash). Patient received vancomycin and Meropenem at the emergency department and continued. Patient received normal saline bolus at 30 mL/kg per sepsis protocol. Patient was successfully resuscitated to around baseline blood pressures. Of note family report that previously patient got edema toes from IV hydration at the hospital. Maintenance infusion of normal saline 75 mils per hour ordered. Levophed was ordered but not initiated as his blood pressure improved to baseline. Strep pneumoniae and Legionella urine antigen ordered. Blood cultures ordered emergency department. Urinalysis reviewed showed negative leukocyte esterase; negative nitrites; urine bacteria 2+; urine WBC 0. Urine culture ordered emergency department follow. - CT chest suggestive of worsening bilateral patchy infiltrates - concerning for worsening infection. - Continue antibiotics for now until cultures finalize - May need a bronchoscopy with BAL if clinical condition and radiographic picture does not continue to improve - Will likely need an outpatient CT Chest WO Contrast in 6 weeks Shock Combined septic + hypovolemic He has been febrile and has significant unaccounted for losses Given that he is making good UO, that is a re-assuring sign Off pressors since this am Neutropenic fever Reportedly home temperature of 101. Absolute neutrophil of 600. Port-A-Cath area does not look infected. Antibiotics as above. Neutropenic precautions to continue. KAI His creatinine on presentation was 1.15. His baseline creatinine is from 0.56- 0.69. Gentle IV hydration ordered. Avoid nephrotoxic's. Trend BMP. COPD Stable with no wheezes. Home inhalers continued. Thrush Nystatin swish and swallow ordered. Mild protein calorie malnutrition. Emaciated. Lost about 30 pounds in the past 6 months. BMI of 19.6 kg per metered square. Albumin of 2.6. Dietitian consult. Ensure Enlive ordered. CLL Active and on chemotherapy. DVT prophylaxis SCDs ordered. No chemical thromboprophylaxis secondary to thrombocytopenia I have personally spent 33 minutes of face to face critical care time in this consultation not including time spent in procedures. I have discussed his plan of care with family members at bedside as well as primary Medicine Attending, all questions have been answered as well. Billing code for service: 88646 Subjective Subjective Feels much better today. Off pressors since this am. CT chest suggestive of worsening bilateral patchy infiltrates - concerning for worsening infection. Sputum is growing pseudomonas. Objective Data Objective Data Vital Signs: Vital Signs Temp Pulse Resp BP Pulse Ox O2 Del Method O2 Flow Rate 36.9 C 80 18 113/67 100 Nasal Cannula 3 07/06/22 10:00 07/06/22 11:03 07/06/22 11:00 07/06/22 11:00 07/06/22 11:00 07/06/22 11:00 07/06/22 11:00 Oxygen Flow Rate (L/min) 3 Oxygen Delivery Method Nasal Cannula Weight: 63.4 kg Body Mass Index (BMI) 20.2 Intake & Output: Intake and Output for Last 24 Hours 07/04/22 07/05/22 07/06/22 23:59 23:59 23:59 Intake Total 2683.52 / 2685.87 3293.80 / 3293.80 1282.06 / 1282.06 Output Total 150 / 150 2600 / 2600 825 / 825 Balance 2533.52 / 2535.87 693.80 / 693.80 457.06 / 457.06 Medical Nutrition Assessment Dietitian: Malnutrition Criteria Met Start: 07/05/22 11:59 Freq: Status: Active Protocol: Document 07/05/22 12:00 RMA (Rec: 07/05/22 12:00 RMA [id number]) Nutrition Malnutrition Evidence of Malnutrition Exists Yes Malnutrition (severe): Chronic Evidenced By Suboptimal Energy Intake ( Severe),Weight Loss (Severe), Physical Changes (Moderate) Clinical Problem Chronic Disease or Condition Related Malnutrition Etiology Severe protein-calorie malnutrition in the context of chronic disease related to increased energy expenditure and inadequate oral intake Signs/Symptoms as evidenced by ~15% wt loss x past 6 months, ~8-9% wt loss x past 4 months, BMI 20.0, moderate muscle/fat wasting in the clavicle, orbitals, arms, legs and face and oral intake meeting less than 50% estimated nutrition needs x past 4-6 months Status Active Problem Recommendation Dietitian Recommendations/Changes Continue regular diet and encourage PO at meals. Will add magic cup BID w/ lunch and dinner. Will add 120 ml ensure plus high protein 4 times per day w / medpass. Adjust ONS as needed to optimize oral intake and prevent further weight loss. Lab / Micro Data Result Diagrams: 07/06/22 03:00 07/06/22 03:00 Labs: Laboratory Results - last 24 hr 07/06/22 03:00: WBC 0.6 L*, RBC 2.26 L, Hgb 8.1 L, Hct 24.4 L, MCV 108.0 H, MCH 35.8 H, MCHC 33.2 D, RDW Std Deviation 56.8 H, RDW Coeff of Yao 14.5, Plt Count 28 L*, MPV 12.7 H, Immature Gran % (Auto) 0.000, Neut % (Auto) 33.9 L, Lymph % (Auto) 54.8 H, [place] % (Auto) 6.5, Eos % (Auto) 3.2, Baso % (Auto) 1.6 H, Absolute Neuts (auto) 0.2 L, Absolute Lymphs (auto) 0.34 L, Nucleated RBC % 0, Differential Comment , Diff Path Review February07/06/22 03:00: Sodium 142, Potassium 3.9, Chloride 108 H, Carbon Dioxide 27.0, Anion Gap 7, BUN 25 H, Creatinine 0.55 L, Estim Creat Clear Calc 57.24, Est GFR (MDRD) Af Amer 186, Est GFR (MDRD) Non-Af 154, BUN/Creatinine Ratio 45.4 H, Gluc ose 101, Calcium 7.8 L Micro: Microbiology 07/05/22 12:15 Sputum, Expectorated/Coughed Respiratory Culture - Preliminary GNR Poss Pseudomonas sp 07/04/22 16:39 Urine, Clean Catch Urine Culture - Final Mixed Gram Pos & Gram Neg Org 07/05/22 03:55 Urine Catheter - Jo Legionella Antigen - Final 07/05/22 03:55 Urine Catheter - Jo Streptococcus pneumoniae Antigen (M - Final 07/04/22 18:02 Nasal Secretion SARS-CoV-2 & FLU Antigen (Rapid) - Final SARS-CoV-2 (COVID 19) Radiography Diagnostic Testing: Radiology Impression Chest CT 07/05/22 13:50 IMPRESSION: Small bilateral pleural effusions. There is a hiatal hernia. Since the prior study, there is been development of more numerous infiltrate suggesting a pneumonia which has worsened or metastatic disease which is worse Electronically Signed: Joe Bruce MD at 15:13 EDT Reading Location ID and State: [facility] / [place] , Service support , Physical Exam Narrative General: Emaciated. Head: Normocephalic, atraumatic, no tenderness Eyes: Vision is grossly intact. EOMI ENT, no trauma, dry mucous membranes, thrush; no rhinorrhea Neck: Nontender, full range of motion CVS:? Regular rate and rhythm.? S1-S2 present.? No murmur, gallop or rub. Respiratory : clear to auscultation bilaterally, chest wall nontender, no wheezing Abdomen: Soft, nontender, nondistended, normal bowel sounds, no masses : Deferred Back: Nontender, no CVA tenderness. Extremities: Nontender full range of motion, no trauma Skin: Diffused pinkish rash.? No trauma, no abrasions Neuro:Lethargic, oriented, cranial nerves II through XII grossly intact. Psychiatry: Appears depressed.
--- NOTE | 2022-07-06 13:00 | PN.HOSP_ITS ---
Subjective Subjective Doing well today, no issues overnight. Off of pressors Objective Data Objective Data Vital Signs: Vital Signs Temp Pulse Resp BP Pulse Ox O2 Del Method O2 Flow Rate 98.1 F 80 16 86/52 L 100 Nasal Cannula 3 07/06/22 12:00 07/06/22 12:00 07/06/22 12:00 07/06/22 12:00 07/06/22 12:00 07/06/22 12:00 07/06/22 12:00 Oxygen Flow Rate (L/min) 3 Oxygen Delivery Method Nasal Cannula Weight: 139 lb 12.369 oz Body Mass Index (BMI) 20.2 Intake & Output: Intake and Output for Last 24 Hours 07/05/22 07/06/22 07/07/22 03:59 03:59 03:59 Intake Total 2845.27 / 3249.97 3377.86 / 3377.86 1036.25 / 1036.25 Output Total 150 / 1600 2900 / 2900 525 / 525 Balance 2695.27 / 1649.97 477.86 / 477.86 511.25 / 511.25 Medical Nutrition Assessment Dietitian: Malnutrition Criteria Met Start: 07/05/22 11:59 Freq: Status: Active Protocol: Document 07/05/22 12:00 RMA (Rec: 07/05/22 12:00 RMA [id number]) Nutrition Malnutrition Evidence of Malnutrition Exists Yes Malnutrition (severe): Chronic Evidenced By Suboptimal Energy Intake ( Severe),Weight Loss (Severe), Physical Changes (Moderate) Clinical Problem Chronic Disease or Condition Related Malnutrition Etiology Severe protein-calorie malnutrition in the context of chronic disease related to increased energy expenditure and inadequate oral intake Signs/Symptoms as evidenced by ~15% wt loss x past 6 months, ~8-9% wt loss x past 4 months, BMI 20.0, moderate muscle/fat wasting in the clavicle, orbitals, arms, legs and face and oral intake meeting less than 50% estimated nutrition needs x past 4-6 months Status Active Problem Recommendation Dietitian Recommendations/Changes Continue regular diet and encourage PO at meals. Will add magic cup BID w/ lunch and dinner. Will add 120 ml ensure plus high protein 4 times per day w / medpass. Adjust ONS as needed to optimize oral intake and prevent further weight loss. Lab / Micro Data Result Diagrams: 07/06/22 03:00 07/06/22 03:00 Labs: Laboratory Results - last 24 hr 07/06/22 03:00: WBC 0.6 L*, RBC 2.26 L, Hgb 8.1 L, Hct 24.4 L, MCV 108.0 H, MCH 35.8 H, MCHC 33.2 D, RDW Std Deviation 56.8 H, RDW Coeff of Yao 14.5, Plt Count 28 L*, MPV 12.7 H, Immature Gran % (Auto) 0.000, Neut % (Auto) 33.9 L, Lymph % (Auto) 54.8 H, [place] % (Auto) 6.5, Eos % (Auto) 3.2, Baso % (Auto) 1.6 H, Absolute Neuts (auto) 0.2 L, Absolute Lymphs (auto) 0.34 L, Nucleated RBC % 0, Differential Comment , Diff Path Review February07/06/22 03:00: Sodium 142, Potassium 3.9, Chloride 108 H, Carbon Dioxide 27.0, Anion Gap 7, BUN 25 H, Creatinine 0.55 L, Estim Creat Clear Calc 57.24, Est GFR (MDRD) Af Amer 186, Est GFR (MDRD) Non-Af 154, BUN/Creatinine Ratio 45.4 H, Glucose 101, Calcium 7.8 L Micro: Microbiology 07/05/22 12:15 Sputum, Expectorated/Coughed Respiratory Culture - Preliminary GNR Poss Pseudomonas sp 07/04/22 16:39 Urine, Clean Catch Urine Culture - Final Mixed Gram Pos & Gram Neg Org 07/05/22 03:55 Urine Catheter - Jo Legionella Antigen - Final 07/05/22 03:55 Urine Catheter - Oj Streptococcus pneumoniae Antigen (M - Final 07/04/22 18:02 Nasal Secretion SARS-CoV-2 & FLU Antigen (Rapid) - Final SARS-CoV-2 (COVID 19) Radiography Diagnostic Testing: Radiology Impression Chest CT 07/05/22 13:50 IMPRESSION: Small bilateral pleural effusions. There is a hiatal hernia. Since the prior study, there is been development of more numerous infiltrate suggesting a pneumonia which has worsened or metastatic disease which is worse Electronically Signed: Joe Bruce MD at 15:13 EDT , Physical Exam Narrative General: Alert, Oriented x3, Cooperative, No apparent distress HEENT: Atraumatic, PERRLA, EOMI, Normocephalic Oral: Dry mucosa Neck: Supple, No JVD Lungs: Clear to auscultation, Normal air movement, No rhonchi, No wheeze, No rales Cardiovascular: Regular rate, Regular Rhythm, Normal S1, Normal S2, No murmurs Abdomen: Soft, Non Tender, Non-Distended, No Hepato-splenomegaly Extremities: No edema, Capillary Refill Less than 3 Seconds Skin: No rashes, No breakdown Musculoskeletal: No Tenderness to Palpation of Joints or Extremities Neurological: Cranial nerves II-XII grossly intact, Motor Exam 5/5 strength throughout, Sensory exam intact to light touch and pain Psych/Mental Status: Flat affect, Appropriate Assessment & Plan Assessment/Plan (1) Sepsis: (2) Pneumonia: (3) Neutropenia with fever: PLAN: Plan 1. Septic shock secondary to pneumonia with neutropenic fever/CLL/KAI/thrombocytopenia ? Continue with pressor support as well as IV fluids ? He does have significant allergy to penicillin so continue with meropenem and vancomycin, sputum culture with possible Pseudomonas, previous sputum Pseudomonas was pansensitive ?Appreciate business economist assistance ? CT of the chest yesterday demonstrates either worsening metastatic disease or worsening infection ? Currently on chemotherapy, was at the infusion center and was sent over to the ER ? Absolute neutrophil count is down to 200, white blood cell count is down to 600 ? Creatinine has normalized ? Continue with his oral midodrine as well as as acyclovir ? Thrombocytopenia is likely secondary to both infection as well as chemotherapy ? COVID antigen came back positive however he did develop COVID in April so I do believe that he is just continuing to turn positive despite not being COVID- positive 2. COPD ? Stable not currently in exacerbation ? Continue with inhalers 3. Mild protein calorie malnutrition ? Consult field crop farm worker DVT: SCDs Charges/Coding Visit Charges Inpatient E&M: 19940 Subs Hosp L2
[2022-07-06] MEDS: Acetaminophen 325 MG Tablet 650 MG PO (17:07)
[2022-07-06 20:08] LABS: Vancomycin, Trough Level 3.9 ug/mL (5.0-15.0)
[2022-07-06] MEDS: Albuterol 2.5 MG/3 ML VIAL.NEB. INHALATION (20:09)
[2022-07-06] MEDS: LORazepam 1 MG Tablet PO (20:13)
[2022-07-06] MEDS: Sertraline 50 MG Tablet 25 MG PO (21:38)
[2022-07-06] MEDS: Tamsulosin HCl 0.4 MG Capsule 0.8 MG PO (21:41)
--- NOTE | 2022-07-06 23:13 | PCM.RX.CS ---
Consult Pharmacy has been consulted to manage selected antiobiotic: Vancomycin Type of Consult: Follow-up Suspected Infection: Sepsis Prior Doses of Antibiotics Received/Current Regimen: Medications Vancomycin HCl 750 mg/ Sodium (Chloride) 265 mls @ 250 mls/hr IV Q12H SINDY Discontinued Medications Vancomycin HCl 750 mg/ Sodium (Chloride) 265 mls @ 250 mls/hr IV Q24H SINDY Last Admin: 07/06/22 21:17 Dose: Infused Labs: Sodium 142 mmol/L (136-145) 07/06/22 03:00 Potassium 3.9 mmol/L (3.5-5.1) 07/06/22 03:00 Chloride 108 mmol/L (98-107) H 07/06/22 03:00 Carbon Dioxide 27.0 mmol/L (21.0-32.0) 07/06/22 03:00 Anion Gap 7 (5-15) 07/06/22 03:00 BUN 25 mg/dL (7-18) H 07/06/22 03:00 Creatinine 0.55 mg/dL (0.70-1.30) L 07/06/22 03:00 Est GFR (MDRD) Af Amer 186 mL/min (>60) 07/06/22 03:00 Est GFR (MDRD) Non-Af 154 mL/min (>60) 07/06/22 03:00 BUN/Creatinine Ratio 45.4 RATIO (10-20) H 07/06/22 03:00 Glucose 101 mg/dL (74-106) 07/06/22 03:00 Vancomycin Trough 3.9 ug/mL (5.0-15.0) L 07/06/22 19:47 Microbiology: Microbiology 07/05/22 12:15 Sputum, Expectorated/Coughed Gram Stain - Final 07/05/22 12:15 Sputum, Expectorated/Coughed Respiratory Culture - Preliminary GNR Poss Pseudomonas sp 07/04/22 16:39 Urine, Clean Catch Urine Culture - Final Mixed Gram Pos & Gram Neg Org 07/05/22 03:55 Urine Catheter - Jo Legionella Antigen - Final 07/05/22 03:55 Urine Catheter - Jo Streptococcus pneumoniae Antigen (M - Final 07/04/22 18:02 Nasal Secretion SARS-CoV-2 & FLU Antigen (Rapid) - Final SARS-CoV-2 (COVID 19) Weight used for dosin.4 kg Estimated Creatinine Clearance: 103 Goal Trough: 10-15 mcg/mL Pharmacy Plan for Drug Dosing: Vancomycin trough level of 3.9 was low. Target range is 10-15. Owing certainly to his increase in renal function (SCr decreased from 0.75 to 0.55). Per aminoglycoside dosing calculator, a new dose of 750mg q12h will give an estimated trough of 14.3. Will draw another level prior to the 4th dose of the new regimen. Pharmacy Service will continue to monitor and adjust dosing as required. Follow-Up Labs: Trough Vancomycin Labs to be done on [date and time ordered]: 07/08/22 @8921
[2022-07-07] VITALS (22 sets, daily range): BP systolic 90–148; BP diastolic 47–84; PULSE 79–105; RESP 16–28; TEMP 36.3–37.4; O2SAT 97–100
[2022-07-07] MEDS: 0.9% Normal Saline 1,000 ML 75 ML IV ×2 (00:28→14:23)
[2022-07-07] MEDS: Acetaminophen 325 MG Tablet 650 MG PO (05:21)
--- NOTE | 2022-07-07 06:32 | PCM.PN.INT ---
Assessment & Plan Assessment/Plan (1) Septic shock: PLAN: Plan Assessment: 1. Septic shock secondary to COVID-19/pseudomonal pneumonia 2. Neutropenic fever 3. Acute kidney injury 4. History of COPD 5. History of CLL on chemotherapy 6. Pancytopenia Plan: 1. Supplemental oxygen to maintain saturations at or above 90%. 2. Continue antimicrobials. Okay to discontinue vancomycin. 3. Continue to monitor blood counts and transfuse if hemoglobin drops below 7 g/dL. 4. Consider oncology consultation. 5. Given the patient's lack of vasopressors, okay to transfer out of the intensive care unit. This note was generated with [employer] dictation software. It may contain incorrect words, spelling, and punctuation that were not noted in checking the note before signing. Subjective Subjective The patient was seen and examined at the bedside this morning. Events from the last 24 hours have been reviewed. The patient is currently afebrile, hemodynamically stable and maintaining appropriate oxygen saturations on 3 L/min via nasal cannula. He is anxious to be discharged home. Objective Data Objective Data The patient's most recent lab work, culture data and imaging studies have all been personally reviewed. COVID rapid antigen testing was positive on July 04. Sputum culture was positive for Pseudomonas aeruginosa. Vital Signs: Vital Signs Temp Pulse Resp BP Pulse Ox O2 Del Method O2 Flow Rate 99.2 F H 86 22 H 113/65 98 Nasal Cannula 3 07/07/22 04:00 07/07/22 05:00 07/07/22 05:00 07/07/22 05:00 07/07/22 05:00 07/07/22 05:00 07/07/22 05:00 Oxygen Flow Rate (L/min) 3 Oxygen Delivery Method Nasal Cannula Weight: 142 lb 10.225 oz Body Mass Index (BMI) 20.2 Intake & Output: Intake and Output for Last 24 Hours 07/05/22 07/06/22 07/07/22 23:59 23:59 23:59 Intake Total 3293.80 / 3293.80 1907.06 / 1907.06 1120 / 1120 Output Total 2600 / 2600 1445 / 1845 900 / 900 Balance 693.80 / 693.80 462.06 / 62.06 220 / 220 Medical Nutrition Assessment Dietitian: Malnutrition Criteria Met Start: 07/05/22 11:59 Freq: Status: Active Protocol: Document 07/05/22 12:00 RMA (Rec: 07/05/22 12:00 RMA [id number]) Nutrition Malnutrition Evidence of Malnutrition Exists Yes Malnutrition (severe): Chronic Evidenced By Suboptimal Energy Intake ( Severe),Weight Loss (Severe), Physical Changes (Moderate) Clinical Problem Chronic Disease or Condition Related Malnutrition Etiology Severe protein-calorie malnutrition in the context of chronic disease related to increased energy expenditure and inadequate oral intake Signs/Symptoms as evidenced by ~15% wt loss x past 6 months, ~8-9% wt loss x past 4 months, BMI 20.0, moderate muscle/fat wasting in the clavicle, orbitals, arms, legs and face and oral intake meeting less than 50% estimated nutrition needs x past 4-6 months Status Active Problem Recommendation Dietitian Recommendations/Changes Continue regular diet and encourage PO at meals. Will add magic cup BID w/ lunch and dinner. Will add 120 ml ensure plus high protein 4 times per day w / medpass. Adjust ONS as needed to optimize oral intake and prevent further weight loss. Lab / Micro Data Attestation: I reviewed the patient's lab results. Result Diagrams: 07/08/22 04:18 07/08/22 04:18 Labs: Laboratory Results - last 24 hr 07/06/22 03:00: WBC 0.6 L*, RBC 2.26 L, Hgb 8.1 L, Hct 24.4 L, MCV 108.0 H, MCH 35.8 H, MCHC 33.2 D, RDW Std Deviation 56.8 H, RDW Coeff of Yao 14.5, Plt Count 28 L*, MPV 12.7 H, Immature Gran % (Auto) 0.000, Neut % (Auto) 33.9 L, Lymph % (Auto) 54.8 H, [place] % (Auto) 6.5, Eos % (Auto) 3.2, Baso % (Auto) 1.6 H, Absolute Neuts (auto) 0.2 L, Absolute Lymphs (auto) 0.34 L, Nucleated RBC % 0, Differential Comment , Diff Path Review February07/06/22 03:00: Sodium 142, Potassium 3.9, Chloride 108 H, Carbon Dioxide 27.0, Anion Gap 7, BUN 25 H, Creatinine 0.55 L, Estim Creat Clear Calc 57.24, Est GFR (MDRD) Af Amer 186, Est GFR (MDRD) Non-Af 154, BUN/Creatinine Ratio 45.4 H, Glucose 101, Calcium 7.8 L 07/06/22 19:47: Vancomycin Trough 3.9 L Micro: Microbiology 07/05/22 12:15 Sputum, Expectorated/Coughed Gram Stain - Final 07/05/22 12:15 Sputum, Expectorated/Coughed Respiratory Culture - Preliminary GNR Poss Pseudomonas sp 07/04/22 16:39 Urine, Clean Catch Urine Culture - Final Mixed Gram Pos & Gram Neg Org 07/05/22 03:55 Urine Catheter - Jo Legionella Antigen - Final 07/05/22 03:55 Urine Catheter - Jo Streptococcus pneumoniae Antigen (M - Final 07/04/22 18:02 Nasal Secretion SARS-CoV-2 & FLU Antigen (Rapid) - Final SARS-CoV-2 (COVID 19) Physical Exam Const alert and no apparent distress Constitutional Narrative: Sitting in bedside recliner. General Appearance: cooperative HEENT normocephalic and head/scalp atraumatic Eyes PERRL, EOMs intact bilaterally and conjunctivae normal Neck supple General: trachea midline Chest inspection of chest normal Resp normal respiratory effort Auscultation: Negative for rales, rhonchi or wheezes Cardio regular rate and regular rhythm GI normal to inspection, nondistended, normoactive bowel sounds Extremity no clubbing, cyanosis or edema Skin no rashes or lesions noted Neuro moves all extremities and no focal motor deficits Psych Mood & Affect: flat affect Charges/Coding Visit Charges Inpatient E&M: 73299 Subs Hosp L3
[2022-07-07 06:48] LABS: Absolute Lymphocyte Count 0.36 X10^3/uL (0.83-4.51); Absolute Neutrophil Count 0.1 X10^3/uL (2.0-7.7); Basophil# 0.01 X10^3/uL; Basophil% 1.8 % (0-1); Eosinophil# 0.02 X10^3/uL; Eosinophils% 3.6 % (0-5); Hematocrit 24.7 % (40-54); Hemoglobin 7.7 g/dL (13.0-16.5); Lymphocyte # 0.36 X10^3/ul (0.83-4.51); Lymphocyte % 65.5 % (19-41); Mean Corp Hgb Conc 31.2 g/dL (32-36); Mean Corpuscular Hgb 33.9 pg (27.0-32.0); Mean Corpuscular Volume 108.8 fL (80-94); Mean Platelet Vol. 12.9 fl (6.2-12.0); Monocyte# 0.05 X10^3/uL; Monocyte% 9.1 % (0-10); NRBC Flagged by Analyzer 0 % (0-5); Neutrophil % 18.2 % (47-70); POSITIVE COUNT YES; POSITIVE DIFFERENTIAL YES; POSITIVE MORPHOLOGY YES; RBC Distribution Width CV 13.9 % (11.6-14.6); RBC Distribution Width SD 55.5 fl (35.1-43.9); Red Blood Count 2.27 M/mm3 (4.6-6.2)
[2022-07-07 06:55] LABS: Anion Gap 4 (5-15); BUN 16 mg/dL (7-18); BUN/Creat Ratio 38.9 RATIO (10-20); Calcium,Total 7.9 mg/dL (8.5-10.1); Chloride 108 mmol/L (98-107); Creatinine, Serum 0.41 mg/dL (0.70-1.30); EST Glomerular Filtration Rate 216 mL/min (>60); Est Glom Filt Rate - Afr Amer 261 mL/min (>60); Estimated Creatinine Clearance 58.41 ml/min; Glucose 87 mg/dL (74-106); Potassium 3.3 mmol/L (3.5-5.1); Sodium Level 141 mmol/L (136-145)
[2022-07-07 07:01] LABS: Differential Indicated SCAN CRITERIA MET; Platelet Count 20 K/mm3 (150-450); White Blood Count 0.6 K/mm3 (4.4-11.0)
[2022-07-07] MEDS: Budesonide Respules 0.5 MG/2 ML AMPUL.NEB. INHALATION ×2 (07:07→18:58)
[2022-07-07 07:21] LABS: Differential Comment SCANNED
[2022-07-07] MEDS: Midodrine HCl 5 MG Tablet 10 MG PO ×3 (08:07→17:07)
[2022-07-07] MEDS: Cholecalciferol (VIT D3) 25 MCG TABLET (1,000 UNITS) 50 MCG PO (08:07)
[2022-07-07] MEDS: Menthol/Lanolin/Calamine/Znox 113 GM Tube 1 APPLIC TOPICAL (08:07)
[2022-07-07] MEDS: CHLORHEXIDINE GLUC 2% CLOTH 1 EACH TOWELETTE TOPICAL (08:08)
[2022-07-07] MEDS: Ensure Plus High Protein 120 ML LIQUID PO ×3 (08:08→17:07)
[2022-07-07] MEDS: NYSTATIN 500,000 UNIT/5 ML UDC 500000 UNIT PO ×4 (08:08→21:13)
[2022-07-07] MEDS: Pantoprazole Sodium 40 MG Tablet PO (08:10)
[2022-07-07] MEDS: Acyclovir 200 MG Capsule 400 MG PO ×2 (08:10→21:13)
--- NOTE | 2022-07-07 11:10 | PN.HOSP_ITS ---
Subjective Subjective Patient seen and examined. He has no complaints this morning and states he feels he is getting better. He denied any fever, chills, chest pain, palpitations, dizziness, nausea or vomiting. Review of systems otherwise negative. He remains pancytopenic. Objective Data Objective Data Vital Signs: Vital Signs Temp Pulse Resp BP Pulse Ox O2 Del Method O2 Flow Rate 98.4 F 90 27 H 118/73 97 Nasal Cannula 3 07/07/22 08:00 07/07/22 08:00 07/07/22 08:00 07/07/22 08:00 07/07/22 08:00 07/07/22 08:00 07/07/22 08:00 Oxygen Flow Rate (L/min) 3 Oxygen Delivery Method Nasal Cannula Weight: 142 lb 10.225 oz Body Mass Index (BMI) 20.2 Intake & Output: Intake and Output for Last 24 Hours 07/05/22 07/06/22 07/07/22 23:59 23:59 23:59 Intake Total 3293.80 / 3293.80 1907.06 / 1907.06 1745 / 1745 Output Total 2600 / 2600 1445 / 1845 900 / 900 Balance 693.80 / 693.80 462.06 / 62.06 845 / 845 Medical Nutrition Assessment Dietitian: Malnutrition Criteria Met Start: 07/05/22 11:59 Freq: Status: Active Protocol: Document 07/07/22 10:29 RMA (Rec: 07/07/22 10:29 RMA [id number]) Nutrition Malnutrition Evidence of Malnutrition Exists Yes Malnutrition (severe): Chronic Evidenced By Suboptimal Energy Intake ( Severe),Weight Loss (Severe), Physical Changes (Moderate) Clinical Problem Chronic Disease or Condition Related Malnutrition Etiology Severe protein-calorie malnutrition in the context of chronic disease related to increased energy expenditure and inadequate oral intake Signs/Symptoms as evidenced by ~15% wt loss x past 6 months, ~8-9% wt loss x past 4 months, BMI 20.0, moderate muscle/fat wasting in the clavicle, orbitals, arms, legs and face and oral intake meeting less than 50% estimated nutrition needs x past 4-6 months Status Active Problem Recommendation Dietitian Recommendations/Changes Continue regular diet and encourage PO at meals. Continue magic cup BID w/ lunch and dinner. Continue 120 ml ensure plus high protein 4 times per day w / medpass. Adjust ONS as needed to optimize oral intake and prevent further weight loss. Lab / Micro Data Result Diagrams: 07/07/22 04:50 07/07/22 04:50 Labs: Laboratory Results - last 24 hr 07/06/22 19:47: Vancomycin Trough 3.9 L 07/07/22 04:50: WBC 0.6 L*, RBC 2.27 L, Hgb 7.7 L, Hct 24.7 L, MCV 108.8 H, MCH 33.9 H, MCHC 31.2 L D, RDW Std Deviation 55.5 H, RDW Coeff of Yao 13.9, Plt Count 20 L*, MPV 12.9 H, Immature Gran % (Auto) 1.800 H, Neut % (Auto) 18.2 L, Lymph % (Auto) 65.5 H, [place] % (Auto) 9.1, Eos % (Auto) 3.6, Baso % (Auto) 1.8 H, Absolute Neuts (auto) 0.1 L, Absolute Lymphs (auto) 0.36 L, Nucleated RBC % 0, Differential Comment SCANNED, Diff Path Review February foll 07/07/22 04:50: Sodium 141, Potassium 3.3 L, Chloride 108 H, Carbon Dioxide 29.0, Anion Gap 4 L, BUN 16, Creatinine 0.41 L, Estim Creat Clear Calc 58.41, Est GFR (MDRD) Af Amer 261, Est GFR (MDRD) Non-Af 216, BUN/Creatinine Ratio 38.9 H, Glucose 87, Calcium 7.9 L Micro: Microbiology 07/05/22 12:15 Sputum, Expectorated/Coughed Gram Stain - Final 07/05/22 12:15 Sputum, Expectorated/Coughed Respiratory Culture - Final Pseudomonas aeroginosa 07/04/22 16:39 Urine, Clean Catch Urine Culture - Final Mixed Gram Pos & Gram Neg Org 07/05/22 03:55 Urine Catheter - Jo Legionella Antigen - Final 07/05/22 03:55 Urine Catheter - Jo Streptococcus pneumoniae Antigen (M - Final 07/04/22 18:02 Nasal Secretion SARS-CoV-2 & FLU Antigen (Rapid) - Final SARS-CoV-2 (COVID 19) Physical Exam Const alert, oriented x3 and no apparent distress HEENT head/scalp atraumatic, moist oral mucous membranes and oropharynx normal Head and Scalp: normocephalic Mouth: oral and palatal mucosa normal Eyes PERRL, EOMs intact bilaterally and conjunctivae normal Neck no lymphadenopathy, supple and no JVD Resp normal respiratory effort, no retractions, no use of accessory muscles and clear to auscultation bilaterally Cardio regular rate, regular rhythm, S1 normal heart sound, S2 normal heart sound and no murmurs GI normal to inspection, nondistended, normoactive bowel sounds, soft to palpation, non-tender and non-distended Extremity normal to inspection, full ROM and no clubbing, cyanosis or edema Neuro oriented x3, CN's II-XII intact bilaterally, moves all extremities and no focal motor deficits Sensorium / Orientation: awake Psych affect normal Assessment & Plan Assessment/Plan (1) Septic shock: (2) Pneumonia: (3) Neutropenia with fever: (4) Thrombocytopenia: (5) CLL (chronic lymphocytic leukemia): PLAN: Plan #Septic shock due to probable hospital acquired pneumonia * sputum cultured Pseudomonas * -on IV meropenem and vancomycin; vancomycin discontinued today. * critical care on board. * CT of the chest showed development of more numerous infiltrates suggesting a pneumonia which may have worsened on metastatic disease which is worsened * Breathing treatments of bronchodilators. * Of note, patient tested positive for COVID on this admission. Patient has however been positive for COVID in April 2022. I discussed this with ID and in light of his persistent positive COVID state in April, May and June, it is reasonable to take him out of isolation as abscess is unlikely that he has an active COVID infection. * #Pancytopenia * Likely due to chemotherapy for CLL as well as acute infection * WBC is 0.6, down from 1.7 on 07/05/2022. * Hemoglobin is 7.7 and platelets are 20. * I spoke to patient's primary oncologist Dr. Rosenbaum. The neutropenia and thrombocytopenia is likely due to post chemotherapy bone marrow suppression. Recommendation therefore is to monitor for improvement. Oncology would prefer to keep his hemoglobin above 8 so will transfuse with 1 unit today as hemoglobin is 7.7. * Transfuse if hemoglobin less than 7. * #Neutropenic fever: As above. On acyclovir #History of CLL: On chemotherapy as above. #KAI: Resolved #Severe protein calorie malnutrition * As evidenced by approximately 15% weight loss over the last 6 months and 89% weight loss over the last 4 months. * [employer] [place] on board * #COPD * not in exacerbation. * breathing treatment with bronchodilators * DVT prophylaxis: SCDs Charges/Coding Visit Charges Inpatient E&M: 96832 Subs Hosp L3
--- NOTE | 2022-07-07 11:54 | CHAPLAIN ---
Type of Pastoral Visit _x__ Initial Visit ___ Follow-up Visit ___ On-call Visit ___ General Patient Visit ___ Spiritual Assessment ___ Family Conference ___ Bereavement ___ Rapid Response ___ Code Blue ___ Other (describe below) Pastoral Care Referral From _x__ Patient ___ Family ___ Nurse ___ Physician ___ [place] ___ Principal Examiner ___ Other (describe below) Sacrament/Intervention _x__ Active listening ___ Anointing ___ Latter-Day ___ Bereavement ___ Communion ___ Yanelis exploration ___ ___ Life review ___ Prayer ___ Reconciliation ___ Sacrament of Sick _x__ Supportive presence ___ Wedding ___ Other (describe below) Pastoral Comments patient is alert and reports doing better now and hoping to go home soon; pt gives brief update on his cancer treatments; spouse is also with patient; pt reports help from son and daughter as well; no extra concerns
[2022-07-07 13:14] LABS: Pathologist Review Reviewed
[2022-07-07 13:14] LABS: Pathologist Review Reviewed
[2022-07-07 13:15] LABS: Pathologist Review Reviewed
--- NOTE | 2022-07-07 14:03 | NURSING ---
Patient arrived from ICU at this time.
[2022-07-07] MEDS: Albuterol 2.5 MG/3 ML VIAL.NEB. INHALATION (15:46)
--- NOTE | 2022-07-07 15:59 | CASEMGMT ---
Per therapy notes, SNF recommended and this RN CM to room with list of SNF providers including quality and resource use data and consistent with the pt's preferred geographic region, medical needs, and insurance network. Therapy notes state pt went 3 ft today and pt states 'went all over.' Pt's is not at bedside. CM to f/u with pt/ tomorrow. S[place]en RN CM
[2022-07-07] MEDS: Pramipexole Di-HCl 0.5 MG Tablet PO (21:13)
[2022-07-07] MEDS: Tamsulosin HCl 0.4 MG Capsule 0.8 MG PO (21:13)
[2022-07-07] MEDS: Sertraline 50 MG Tablet 25 MG PO (21:14)
[2022-07-07] MEDS: LORazepam 1 MG Tablet PO (21:18)
[2022-07-08] VITALS (12 sets, daily range): BP systolic 125–145; BP diastolic 61–70; PULSE 77–90; RESP 16–22; TEMP 36.2–36.7; O2SAT 96–100
[2022-07-08] MEDS: 0.9% Normal Saline 1,000 ML 75 ML IV ×2 (04:35→20:44)
[2022-07-08 05:06] LABS: Anion Gap 5 (5-15); BUN 12 mg/dL (7-18); Calcium,Total 7.9 mg/dL (8.5-10.1); Chloride 106 mmol/L (98-107); Creatinine, Serum 0.31 mg/dL (0.70-1.30); EST Glomerular Filtration Rate 301 mL/min (>60); Est Glom Filt Rate - Afr Amer 364 mL/min (>60); Estimated Creatinine Clearance 58.41 ml/min; Glucose 85 mg/dL (74-106); Potassium 3.2 mmol/L (3.5-5.1); Sodium Level 142 mmol/L (136-145)
[2022-07-08 05:47] LABS: Absolute Lymphocyte Count 0.49 X10^3/uL (0.83-4.51); Absolute Neutrophil Count 0.1 X10^3/uL (2.0-7.7); Basophil# 0.01 X10^3/uL; Basophil% 1.4 % (0-1); Eosinophil# 0.04 X10^3/uL; Eosinophils% 5.4 % (0-5); Hematocrit 25.8 % (40-54); Hemoglobin 8.4 g/dL (13.0-16.5); Lymphocyte # 0.49 X10^3/ul (0.83-4.51); Lymphocyte % 66.2 % (19-41); Mean Corp Hgb Conc 32.6 g/dL (32-36); Mean Corpuscular Hgb 33.9 pg (27.0-32.0); Mean Platelet Vol. 11.9 fl (6.2-12.0); Monocyte# 0.09 X10^3/uL; Monocyte% 12.2 % (0-10); NRBC Flagged by Analyzer 0 % (0-5); Neutrophil # 0.05 X10^3/uL (2.7-7.7); Neutrophil % 6.7 % (47-70); POSITIVE COUNT YES; POSITIVE DIFFERENTIAL YES; POSITIVE MORPHOLOGY YES; Platelet Count 19 K/mm3 (150-450); RBC Distribution Width CV 15.5 % (11.6-14.6); RBC Distribution Width SD 59.4 fl (35.1-43.9); Red Blood Count 2.48 M/mm3 (4.6-6.2); White Blood Count 0.7 K/mm3 (4.4-11.0)
[2022-07-08 05:49] LABS: Differential Indicated SCAN CRITERIA MET
[2022-07-08 05:51] LABS: Anisocytosis 1+; Macrocytosis 2+; Platelet Estimate MKD DEC (ADEQ)
--- NOTE | 2022-07-08 06:05 | NURSING ---
Pt reports he hasn't slept much in the last 4 days. He has been up to the chair multiple times overnight. Offerred tylenol pt declined. Adjusted temperature in room for comfort.
[2022-07-08] MEDS: Budesonide Respules 0.5 MG/2 ML AMPUL.NEB. INHALATION ×2 (06:57→19:28)
--- NOTE | 2022-07-08 08:18 | PN.CC_ITS ---
Assessment & Plan Assessment/Plan (1) Septic shock: PLAN: Plan Assessment: 1. Septic shock secondary to COVID-19/pseudomonal pneumonia 2. Neutropenic fever 3. Acute kidney injury 4. History of COPD 5. History of CLL on chemotherapy 6. Pancytopenia Plan: 1. Supplemental oxygen to maintain saturations at or above 90%. 2. Continue antimicrobials. Okay to discontinue vancomycin. 3. Continue to monitor blood counts and transfuse if hemoglobin drops below 7 g/dL. 4. Encourage incentive spirometer use and mobilize patient as tolerated. This note was generated with [employer] dictation software. It may contain incorrect words, spelling, and punctuation that were not noted in checking the note before signing. Subjective Subjective The patient was seen and examined at the bedside this morning. Events from the last 24 hours have been reviewed. The patient is currently afebrile, hemodynamically stable and maintaining appropriate oxygen saturations on 3 L/min via nasal cannula. The patient did receive 1 unit of packed red blood cells yesterday. The patient remains pancytopenic this morning. Objective Data Objective Data The patient's most recent lab work, culture data and imaging studies have all been personally reviewed. COVID rapid antigen testing was positive on July 04. Sputum culture was positive for Pseudomonas aeruginosa. Vital Signs: Vital Signs Temp Pulse Resp BP Pulse Ox O2 Del Method O2 Flow Rate 97.2 F L 81 19 H 125/61 H 97 Nasal Cannula 3 07/08/22 03:10 07/08/22 07:00 07/08/22 06:57 07/08/22 03:10 07/08/22 06:57 07/08/22 06:57 07/08/22 06:57 Oxygen Flow Rate (L/min) 3 Oxygen Delivery Method Nasal Cannula Weight: 143 lb 1.28 oz Body Mass Index (BMI) 20.2 Intake & Output: Intake and Output for Last 24 Hours 07/06/22 07/07/22 07/08/22 23:59 23:59 23:59 Intake Total 1907.06 / 1907.06 4303.75 / 4543.75 1062.5 / 1062.5 Output Total 1445 / 1845 1425 / 1725 500 / 500 Balance 462.06 / 62.06 2878.75 / 2818.75 562.5 / 562.5 Medical Nutrition Assessment Dietitian: Malnutrition Criteria Met Start: 07/05/22 11:59 Freq: Status: Active Protocol: Document 07/07/22 10:29 RMA (Rec: 07/07/22 10:29 RMA [id number]) Nutrition Malnutrition Evidence of Malnutrition Exists Yes Malnutrition (severe): Chronic Evidenced By Suboptimal Energy Intake ( Severe),Weight Loss (Severe), Physical Changes (Moderate) Clinical Problem Chronic Disease or Condition Related Malnutrition Etiology Severe protein-calorie malnutrition in the context of chronic disease related to increased energy expenditure and inadequate oral intake Signs/Symptoms as evidenced by ~15% wt loss x past 6 months, ~8-9% wt loss x past 4 months, BMI 20.0, moderate muscle/fat wasting in the clavicle, orbitals, arms, legs and face and oral intake meeting less than 50% estimated nutrition needs x past 4-6 months Status Active Problem Recommendation Dietitian Recommendations/Changes Continue regular diet and encourage PO at meals. Continue magic cup BID w/ lunch and dinner. Continue 120 ml ensure plus high protein 4 times per day w / medpass. Adjust ONS as needed to optimize oral intake and prevent further weight loss. Lab / Micro Data Attestation: I reviewed the patient's lab results. Result Diagrams: 07/09/22 04:18 07/09/22 04:18 Labs: Laboratory Results - last 24 hr 07/04/22 16:28: Diff Path Review Reviewed 07/05/22 03:55: Diff Path Review Reviewed 07/06/22 03:00: Diff Path Review Reviewed 07/07/22 13:20: Blood Type A POSITIVE, Antibody Screen NEGATIVE, Crossmatch See Detail 07/08/22 04:18: WBC Cancelled, Corrected WBC Cancelled, RBC Cancelled, Hgb Cancelled, Hct Cancelled, MCV Cancelled, MCH Cancelled, MCHC Cancelled, RDW Std Deviation Cancelled, RDW Coeff of Yao Cancelled, Plt Count Cancelled, MPV Cancelled, Immature Gran % (Auto) Cancelled, Neut % (Auto) Cancelled, Lymph % (Auto) Cancelled, [place] % (Auto) Cancelled, Eos % (Auto) Cancelled, Baso % (Auto) Cancelled, Absolute Neuts (auto) Cancelled, Absolute Lymphs (auto) Cancelled, Total Counted Cancelled, Neutrophils % (Manual) Cancelled, Band Neutrophils % C ancelled, Lymphocytes % (Manual) Cancelled, Monocytes % (Manual) Cancelled, Eosinophils % (Manual) Cancelled, Basophils % (Manual) Cancelled, Metamyelocytes % Cancelled, Myelocytes % Cancelled, Promyelocytes % Cancelled, Blast Cells % Cancelled, Plasma Cell % (Manual) Cancelled, Other Cells % Cancelled, Nucleated RBC % Cancelled, Nucleated RBCs/100 WBC Cancelled, Differential Comment Cancelled, Diff Path Review Cancelled, Hypersegmented Neuts Cancelled, Atypical Lymphocytes Cancelled, Reactive Lymphocytes Cancelled, Smudge Cells Cancelled, Toxic Granulation Cancelled, Toxic Vacuolation Cancelled, Dohle Bodies Cancelled, Shannan Rods Cancelled, Platelet Estimate Cancelled, Plt Morphology Comment Cancelled, RBC Morphology Cancelled, Polychromasia Cancelled, Hypochromasia Cancelled, Poikilocytosis Cancelled, Basophilic Stippling Cancelled, Anisocytosis Cancelled, Microcytosis Cancelled, Macrocytosis Cancelled, Spherocytes Cancelled, Sickle Cells Cancelled, Target Cells Cancelled, Tear Drop Cells Cancelled, Ovalocytes Cancelled, Stomatocytes Cancelled, [place] Bodies Cancelled, [place] Cells Cancelled, Bite Cells Cancelled, Crenated Cell Cancelled, Acanthocytes (Spur) Cancelled, Rouleaux Cancelled, Schistocytes Cancelled 07/08/22 04:18: Sodium 142, Potassium 3.2 L, Chloride 106, Carbon Dioxide 31.0, Anion Gap 5, BUN 12, Creatinine 0.31 L, Estim Creat Clear Calc 58.41, Est GFR (MDRD) Af Amer 364, Est GFR (MDRD) Non-Af 301, BUN/Creatinine Ratio 39.0 H, Glucose 85, Calcium 7.9 L 07/08/22 04:18: WBC 0.7 L*, RBC 2.48 L, Hgb 8.4 L, Hct 25.8 L, MCV 104.0 H, MCH 33.9 H, MCHC 32.6, RDW Std Deviation 59.4 H, RDW Coeff of Yao 15.5 H, Plt Count 19 L*, MPV 11.9, Immature Gran % (Auto) 8.100 H, Neut % (Auto) 6.7 L, Lymph % (Auto) 66.2 H, [place] % (Auto) 12.2 H, Eos % (Auto) 5.4 H, Baso % (Auto) 1.4 H, Absolute Neuts (auto) 0.1 L, Absolute Lymphs (auto) 0.49 L, Nucleated RBC % 0, Diff Path Review May , Platelet Estimate MKD DEC, Anisocytosis 1+, Macrocyto sis 2+ Micro: Microbiology 07/04/22 18:50 Blood Culture (Wb) - Left Forearm Blood Culture - Preliminary No growth in 48 hours. 07/04/22 16:28 Blood Culture (Wb) - Right Forearm Blood Culture - Preli minary No growth in 48 hours. 07/05/22 12:15 Sputum, Expectorated/Coughed Gram Stain - Final 07/05/22 12:15 Sputum, Expectorated/Coughed Respiratory Culture - Final Pseudomonas aeroginosa 07/04/22 16:39 Urine, Clean Catch Urine Culture - Final Mixed Gram Pos & Gram Neg Org 07/05/22 03:55 Urine Catheter - Jo Legionella Antigen - Final 07/05/22 03:55 Urine Catheter - Jo Streptococcus pneumoniae Antigen (M - Final 07/04/22 18:02 Nasal Secretion SARS-CoV-2 & FLU Antigen (Rapid) - Final SARS-CoV-2 (COVID 19) Physical Exam Const alert and no apparent distress General Appearance: cooperative HEENT normocephalic and head/scalp atraumatic Eyes PERRL, EOMs intact bilaterally and conjunctivae normal Neck supple General: trachea midline Chest inspection of chest normal Resp normal respiratory effort Auscultation: Negative for rales, rhonchi or wheezes Cardio regular rate and regular rhythm GI normal to inspection, nondistended, normoactive bowel sounds Extremity no clubbing, cyanosis or edema Skin no rashes or lesions noted Neuro moves all extremities and no focal motor deficits Psych Mood & Affect: flat affect Charges/Coding Visit Charges Inpatient E&M: 26826 Subs Hosp L2
--- NOTE | 2022-07-08 10:12 | PN.HOSP_ITS ---
Subjective Subjective Patient seen and examined. HE has no active complaints today, apart from saying he has not been able to sleep for the past 4 days. He wants something to help him sleep. REview of systems is otherwise negative. Platelets are down to 19, and wbc is still 0.7 Objective Data Objective Data Vital Signs: Vital Signs Temp Pulse Resp BP Pulse Ox O2 Del Method O2 Flow Rate 97.8 F 90 22 H 130/67 H 99 Nasal Cannula 3 07/08/22 09:45 07/08/22 09:45 07/08/22 09:45 07/08/22 09:45 07/08/22 09:45 07/08/22 09:45 07/08/22 09:45 Oxygen Flow Rate (L/min) 3 Oxygen Delivery Method Nasal Cannula Weight: 143 lb 1.28 oz Body Mass Index (BMI) 20.2 Intake & Output: Intake and Output for Last 24 Hours 07/06/22 07/07/22 07/08/22 23:59 23:59 23:59 Intake Total 1907.06 / 1907.06 4303.75 / 4543.75 1062.5 / 1062.5 Output Total 1445 / 1845 1425 / 1725 500 / 500 Balance 462.06 / 62.06 2878.75 / 2818.75 562.5 / 562.5 Medical Nutrition Assessment Dietitian: Malnutrition Criteria Met Start: 07/05/22 11:59 Freq: Status: Active Protocol: Document 07/07/22 10:29 RMA (Rec: 07/07/22 10:29 RMA [id number]) Nutrition Malnutrition Evidence of Malnutrition Exists Yes Malnutrition (severe): Chronic Evidenced By Suboptimal Energy Intake ( Severe),Weight Loss (Severe), Physical Changes (Moderate) Clinical Problem Chronic Disease or Condition Related Malnutrition Etiology Severe protein-calorie malnutrition in the context of chronic disease related to increased energy expenditure and inadequate oral intake Signs/Symptoms as evidenced by ~15% wt loss x past 6 months, ~8-9% wt loss x past 4 months, BMI 20.0, moderate muscle/fat wasting in the clavicle, orbitals, arms, legs and face and oral intake meeting less than 50% estimated nutrition needs x past 4-6 months Status Active Problem Recommendation Dietitian Recommendations/Changes Continue regular diet and encourage PO at meals. Continue magic cup BID w/ lunch and dinner. Continue 120 ml ensure plus high protein 4 times per day w / medpass. Adjust ONS as needed to optimize oral intake and prevent further weight loss. Lab / Micro Data Result Diagrams: 07/08/22 04:18 07/08/22 04:18 Labs: Laboratory Results - last 24 hr 07/04/22 16:28: Diff Path Review Reviewed 07/05/22 03:55: Diff Path Review Reviewed 07/06/22 03:00: Diff Path Review Reviewed 07/07/22 13:20: Blood Type A POSITIVE, Antibody Screen NEGATIVE, Crossmatch See Detail 07/08/22 04:18: WBC Cancelled, Corrected WBC Cancelled, RBC Cancelled, Hgb Cancelled, Hct Cancelled, MCV Cancelled, MCH Cancelled, MCHC Cancelled, RDW Std Deviation Cancelled, RDW Coeff of Yao Cancelled, Plt Count Cancelled, MPV Cancelled, Immature Gran % (Auto) Cancelled, Neut % (Auto) Cancelled, Lymph % (Auto) Cancelled, [place] % (Auto) Cancelled, Eos % (Auto) Cancelled, Baso % (Auto) Cancelled, Absolute Neuts (auto) Cancelled, Absolute Lymphs (auto) Cancelled, Total Counted Cancelled, Neutrophils % (Manual) Cancelled, Band Neutrophils % Cancelled, Lymphocytes % (Manual) Cancelled, Monocytes % (Manual) Cancelled, Eosinophils % (Manual) Cancelled, Basophils % (Manual) Cancelled, Metamyelocytes % Cancelled, Myelocytes % Cancelled, Promyelocytes % Cancelled, Blast Cells % Cancelled, Plasma Cell % (Manual) Cancelled, Other Cells % Cancelled, Nucleated RBC % Cancelled, Nucleated RBCs/100 WBC Cancelled, Differential Comment Cancelled, Diff Path Review Cancelled, Hypersegmented Neuts Cancelled, Atypical Lymphocytes Cancelled, Reactive Lymphocytes Cancelled, Smudge Cells Cancelled, Toxic Granulation Cancelled, Toxic Vacuolation Cancelled, Dohle Bodies Cancelled, Shannan Rods Cancelled, Platelet Estimate Cancelled, Plt Morphology Comment Cancelled, RBC Morphology Cancelled, Polychromasia Cancelled, Hypochromasia Cancelled, Poikilocytosis Cancelled, Basophilic Stippling Cancelled, Anisocytosis Cancelled, Microcytosis Cancelled, Macrocytosis Cancelled, Spherocytes Cancelled, Sickle Cells Cancelled, Target Cells Cancelled, Tear Drop Cells Cancelled, Ovalocytes Cancelled, Stomatocytes Can celled, [place]aines[place] Bodies Cancelled, [place]va Cells Cancelled, Bite Cells Cancelled, Crenated Cell Cancelled, Acanthocytes (Spur) Cancelled, Rouleaux Cancelled, Schistocytes Cancelled 07/08/22 04:18: Sodium 142, Potassium 3.2 L, Chloride 106, Carbon Dioxide 31.0, Anion Gap 5, BUN 12, Creatinine 0.31 L, Estim Creat Clear Calc 58.41, Est GFR (MDRD) Af Amer 364, Est GFR (MDRD) Non-Af 301, BUN/Creatinine Ratio 39.0 H, Glucose 85, Calcium 7.9 L 07/08/22 04:18: WBC 0.7 L*, RBC 2.48 L, Hgb 8.4 L, Hct 25.8 L, MCV 104.0 H, MCH 33.9 H, MCHC 32.6, RDW Std Deviation 59.4 H, RDW Coeff of Yao 15.5 H, Plt Count 19 L*, MPV 11.9, Immature Gran % (Auto) 8.100 H, Neut % (Auto) 6.7 L, Lymph % (Auto) 66.2 H, [place] % (Auto) 12.2 H, Eos % (Auto) 5.4 H, Baso % (Auto) 1.4 H, Absolute Neuts (auto) 0.1 L, Absolute Lymphs (auto) 0.49 L, Nucleated RBC % 0, Diff Path Review February foll, Platelet Estimate MKD DEC, Anisocytosis 1+, Macrocytosis 2+ Micro: Microbiology 07/04/22 18:50 Blood Culture (Wb) - Left Forearm Blood Culture - Preliminary No growth in 48 hours. 07/04/22 16:28 Blood Culture (Wb) - Right Forearm Blood Culture - Preliminary No growth in 48 hours. 07/05/22 12:15 Sputum, Expectorated/Coughed Gram Stain - Final 07/05/22 12:15 Sputum, Expectorated/Coughed Respiratory Culture - Final Pseudomonas aeroginosa 07/04/22 16:39 Urine, Clean Catch Urine Culture - Final Mixed Gram Pos & Gram Neg Org 07/05/22 03:55 Urine Catheter - Jo Legionella Antigen - Final 07/05/22 03:55 Urine Catheter - Jo Streptococcus pneumoniae Antigen (M - Final 07/04/22 18:02 Nasal Secretion SARS-CoV-2 & FLU Antigen (Rapid) - Final SARS-CoV-2 (COVID 19) Physical Exam Const alert, oriented x3 and no apparent distress HEENT head/scalp atraumatic, moist oral mucous membranes and oropharynx normal Head and Scalp: normocephalic Mouth: oral and palatal mucosa normal Eyes PERRL, EOMs intact bilaterally and conjunctivae normal Neck no lymphadenopathy, supple and no JVD Resp normal respiratory effort, no retractions, no use of accessory muscles and clear to auscultation bilaterally Cardio regular rate, regular rhythm, S1 normal heart sound, S2 normal heart sound and no murmurs GI normal to inspection, nondistended, normoactive bowel sounds, soft to palpation, non-tender and non-distended Extremity normal to inspection, full ROM and no clubbing, cyanosis or edema Neuro oriented x3, CN's II-XII intact bilaterally, moves all extremities and no focal motor deficits Sensorium / Orientation: awake and alert Psych affect normal Assessment & Plan Assessment/Plan (1) Septic shock: (2) Pneumonia: (3) Neutropenia with fever: (4) Thrombocytopenia: (5) CLL (chronic lymphocytic leukemia): PLAN: Plan #Septic shock due to probable hospital acquired pneumonia * sputum cultured Pseudomonas * on IV meropenem. * critical care on board. * CT of the chest showed development of more numerous infiltrates suggesting a pneumonia which may have worsened on metastatic disease which is worsened * Breathing treatments with bronchodilators. * * #Pancytopenia * Likely due to chemotherapy for CLL as well as acute infection * WBC is 0.7 today, * Hb is 8.4 today; he was transfused with one unit of blood yesterday to keep Hb >8. Platelets are 19 today. * per his oncologist, this is likely due to post chemotherapy bone marrow suppression, and should improve with time. To transfuse if platelets <10 and Hb <8 * #Neutropenic fever: As above. On acyclovir #History of CLL: On chemotherapy as above. #KAI: Resolved #Severe protein calorie malnutrition * As evidenced by approximately 15% weight loss over the last 6 months and 89% weight loss over the last 4 months. * inside tester on board * #COPD * not in exacerbation. * breathing treatment with bronchodilators * DVT prophylaxis: SCDs Charges/Coding Visit Charges Inpatient E&M: 60419 Subs Hosp L2
[2022-07-08] MEDS: Midodrine HCl 5 MG Tablet 10 MG PO ×2 (10:15→17:44)
[2022-07-08] MEDS: Acyclovir 200 MG Capsule 400 MG PO ×2 (10:16→21:04)
[2022-07-08] MEDS: NYSTATIN 500,000 UNIT/5 ML UDC 500000 UNIT PO ×3 (10:16→21:04)
[2022-07-08] MEDS: Pantoprazole Sodium 40 MG Tablet PO (10:16)
[2022-07-08] MEDS: Cholecalciferol (VIT D3) 25 MCG TABLET (1,000 UNITS) 50 MCG PO (10:16)
[2022-07-08] MEDS: Ensure Plus High Protein 120 ML LIQUID PO (16:15)
--- NOTE | 2022-07-08 18:22 | NURSING ---
Charting reviewed with Jory Pena RN
[2022-07-08 20:13] LABS: Vancomycin, Trough Level 8.3 ug/mL (5.0-15.0)
--- NOTE | 2022-07-08 21:01 | PCM.RX.CS ---
Consult Pharmacy has been consulted to manage selected antiobiotic: Vancomycin Type of Consult: Follow-up Suspected Infection: Sepsis Labs: Sodium 142 mmol/L (136-145) 07/08/22 04:18 Potassium 3.2 mmol/L (3.5-5.1) L 07/08/22 04:18 Chloride 106 mmol/L (98-107) 07/08/22 04:18 Carbon Dioxide 31.0 mmol/L (21.0-32.0) 07/08/22 04:18 Anion Gap 5 (5-15) 07/08/22 04:18 BUN 12 mg/dL (7-18) 07/08/22 04:18 Creatinine 0.31 mg/dL (0.70-1.30) L 07/08/22 04:18 Est GFR (MDRD) Af Amer 364 mL/min (>60) 07/08/22 04:18 Est GFR (MDRD) Non-Af 301 mL/min (>60) 07/08/22 04:18 BUN/Creatinine Ratio 39.0 RATIO (10-20) H 07/08/22 04:18 Glucose 85 mg/dL (74-106) 07/08/22 04:18 Vancomycin Trough 8.3 ug/mL (5.0-15.0) 07/08/22 19:27 Microbiology: Microbiology 07/04/22 18:50 Blood Culture (Wb) - Left Forearm Blood Culture - Preliminary No growth in 48 hours. 07/04/22 16:28 Blood Culture (Wb) - Right Forearm Blood Culture - Preliminary No growth in 48 hours. 07/05/22 12:15 Sputum, Expectorated/Coughed Gram Stain - Final 07/05/22 12:15 Sputum, Expectorated/Coughed Respiratory Culture - Final Pseudomonas aeroginosa 07/04/22 16:39 Urine, Clean Catch Urine Culture - Final Mixed Gram Pos & Gram Neg Org 07/05/22 03:55 Urine Catheter - Jo Legionella Antigen - Final 07/05/22 03:55 Urine Catheter - Jo Streptococcus pneumoniae Antigen (M - Final 07/04/22 18:02 Nasal Secretion SARS-CoV-2 & FLU Antigen (Rapid) - Final SARS-CoV-2 (COVID 19) Goal Trough: 10-15 mcg/mL Pharmacy Plan for Drug Dosing: VANCOMYCIN LEVEL RECEIVED Current Vancomycin Dose: 750mg q12h () Number of Doses Received: x3 of current dose Vancomycin Level: 8.3 Hours Since Last Dose: 9 Renal Function: SrCr 0.31 Renal Function Trend: Lab/Micro: Vancomycin Plan/Comments: resulted trough of 8.3 is below the ordered goal trough of 10-15. recommend increasing dose from 750mg q12 to 1000mg q12. Pending Level: 07/10/22 at 1930 Pharmacy Service will continue to monitor and adjust dosing as required. Follow-Up Labs: Trough Vancomycin - 07/10/22 at 1930
[2022-07-08] MEDS: Sertraline 50 MG Tablet 25 MG PO (21:04)
[2022-07-08] MEDS: LORazepam 1 MG Tablet PO (21:04)
[2022-07-08] MEDS: Tamsulosin HCl 0.4 MG Capsule 0.8 MG PO (21:04)
[2022-07-08] MEDS: Pramipexole Di-HCl 0.5 MG Tablet PO (21:05)
[2022-07-09] VITALS (38 sets, daily range): BP systolic 92–160; BP diastolic 47–84; PULSE 68–116; RESP 14–26; TEMP 36.8–38.2; O2SAT 92–100
[2022-07-09] MEDS: LORazepam 1 MG Tablet PO (02:06)
[2022-07-09 04:59] LABS: Absolute Lymphocyte Count 0.37 X10^3/uL (0.83-4.51); Absolute Neutrophil Count 0.3 X10^3/uL (2.0-7.7); Eosinophil# 0.05 X10^3/uL; Eosinophils% 6.5 % (0-5); Hematocrit 28.1 % (40-54); Hemoglobin 8.7 g/dL (13.0-16.5); Lymphocyte # 0.37 X10^3/ul (0.83-4.51); Lymphocyte % 48.1 % (19-41); Mean Corpuscular Hgb 33.7 pg (27.0-32.0); Mean Corpuscular Volume 108.9 fL (80-94); Monocyte# 0.06 X10^3/uL; Monocyte% 7.8 % (0-10); NRBC Flagged by Analyzer 0 % (0-5); Neutrophil # 0.29 X10^3/uL (2.7-7.7); Neutrophil % 37.6 % (47-70); POSITIVE COUNT YES; POSITIVE DIFFERENTIAL YES; POSITIVE MORPHOLOGY YES; Platelet Count 14 K/mm3 (150-450); RBC Distribution Width CV 14.9 % (11.6-14.6); RBC Distribution Width SD 60.3 fl (35.1-43.9); Red Blood Count 2.58 M/mm3 (4.6-6.2); White Blood Count 0.8 K/mm3 (4.4-11.0)
[2022-07-09 05:01] LABS: Differential Indicated SCAN CRITERIA MET
--- NOTE | 2022-07-09 05:47 | RAD_ITS ---
STUDY: X-RAY CHEST REASON FOR EXAM: Male, 76 years old. ETT placement TECHNIQUE: AP portable. 6:03 AM COMPARISON: 07/04/2022. FINDINGS: LINES/DEVICES: Tip of the endotracheal tube is 5 cm above the bora. NG tube tip in the stomach. Indwelling central venous catheter unchanged. LUNGS: Multifocal opacities throughout the lungs and nodular components appear increased. No pneumothorax. MEDIASTINUM: Aorta atherosclerotic. CARDIAC SILHOUETTE: Not enlarged. BONES AND SOFT TISSUES: No acute abnormalities. RAD/Chest 1 View (Portable) IMPRESSION: Satisfactory ET tube position. Increased bilateral infiltrates. Electronically Signed: Na Borges MD at 6:39 EDT ,
[2022-07-09] MEDS: Furosemide 40 MG/4 ML Vial IV (05:50)
[2022-07-09 05:57] LABS: Anion Gap 3 (5-15); BUN 9 mg/dL (7-18); BUN/Creat Ratio 28.7 RATIO (10-20); Chloride 107 mmol/L (98-107); Creatinine, Serum 0.31 mg/dL (0.70-1.30); EST Glomerular Filtration Rate 294 mL/min (>60); Est Glom Filt Rate - Afr Amer 356 mL/min (>60); Estimated Creatinine Clearance 58.59 ml/min; Glucose 89 mg/dL (74-106); Potassium 3.2 mmol/L (3.5-5.1); Sodium Level 144 mmol/L (136-145)
[2022-07-09] MEDS: Propofol 10MG/Ml 1,000 MG/100 ML Bottle 4 MG CONT INF (06:08)
--- NOTE | 2022-07-09 06:15 | CB_ITS ---
Code Blue Report Code Blue Summary Code Blue Summary: Patient found to have ventricular tachycardia and asystole on monitor. Continue to follow patient was gasping for air. Patient lost pulse or respiration. ACLS with compressions and Ambu bag and was started. Patient received epinephrine 1 mg x 1. Also he received magnesium IV and bicarbonate. ROSC was obtained. Patient was intubated. Patient was transferred to the intensive care unit. Case was discussed with cooker operator.
--- NOTE | 2022-07-09 06:15 | PCM.PN.BLA ---
Progress Note Intubation Indication: Acute respiratory failure Consent was not obtained since this was an emergent procedure. The patient was placed in the appropriate sniffing position. Preoxygenated sedation via ambu-bagging was provided for a minimum of 3 minutes. The patient had continuous cardiac as well as pulse oximetry monitoring during the procedure. No procedure sedation was given Direct laryngoscopy was then performed using a number 7.5 blade, which revealed a grade 2 view. A 7.5 mm endotracheal tube was visualized advancing between the cords to the level of 25 cm at the lip. The stylette was then removed and discarded. Tube placement was confirmed by fogging in the tube along with equal and bilateral breath sounds. Colorimetric change was visualized on the CO2 meter. The cuff was then inflated and the tube secured using a commercially available device. A good pulse oximetry waveform was seen on the monitor throughout the procedure. A portable chest x-ray has been ordered to confirm appropriate placement. The patient tolerated the procedure well. Procedures Hospitalists Procedures: [id number] Insert Emergency Airway
[2022-07-09 06:23] LABS: Anisocytosis 1+; Macrocytosis 2+; Platelet Estimate MKD DEC (ADEQ)
--- NOTE | 2022-07-09 06:26 | PN.CC_ITS ---
Assessment & Plan Assessment/Plan (1) Septic shock: PLAN: Plan RECOMMENDATIONS: 1. Continue assist-control mode mechanical ventilation. Wean FiO2/PEEP to maintain saturations at or above 90%. 2. Obtain arterial blood gas and resend sputum culture. 3. Obtain oncology consultation. 4. Transfuse platelets as ordered. 5. Continue scheduled bronchodilators and IV steroids. 6. Check BNP and obtain echocardiogram. 7. Narrow antimicrobials based upon prior cultures/sensitivities. IMPRESSIONS: 1. Acute hypoxemic respiratory failure status post cardiac arrest The patient was transferred to the ICU after sustaining a cardiac arrest during the county extension agent hours of July 09. He does have a baseline history of gold stage III obstructive lung disease. He will be continued on assist control mode of mechanical ventilation. FiO2 and PEEP will be weaned to maintain oxygen saturations at or above 90%. Plan to continue scheduled bronchodilators and IV steroids. Check BNP and obtain echocardiogram. Plan to continue antimicrobials to address the pansensitive Pseudomonas identified on sputum culture. 2. GOLD stage III COPD/history of tobacco dependency/bronchiectasis Continue supportive measures as noted above, along with scheduled bronchodilators and IV steroids. Recommend obtaining repeat sputum culture, given intubation status. 3. History of CLL with associated pancytopenia The patient has had worsening pancytopenia. Accordingly, will obtain hematology/oncology evaluation. Continue Granix as ordered. Plan to transfuse platelets as ordered. Check blood counts posttransfusion. 4. Septic shock secondary to COVID-19/pseudomonal pneumonia/neutropenic fever Improved. The patient is currently hemodynamically stable and will remain on antimicrobials to address the pansensitive Pseudomonas identified on sputum culture. TIME: 38 minutes of critical care time, independent of procedures, was spent addressin g the patient's acute hypoxemic respiratory failure status postcardiac arrest, COPD, bronchiectasis, history of CLL, pancytopenia, review of all data and collaboration with the care team. Subjective Subjective The patient was seen and examined at the bedside this morning. Events from the last 24 hours have been reviewed. The patient was transferred back to the medical intensive care unit early this morning after he sustained a cardiac arrest, which was likely PEA with return of spontaneous circulation achieved in less than 10 minutes. The patient's respirations were noted to be agonal and he was subsequently intubated. The patient remains pancytopenic with a hemoglobin of 8.7 g/dL and platelet count of 14,000. Objective Data Objective Data The patient's most recent lab work, culture data and imaging studies have all been personally reviewed. COVID rapid antigen testing was positive on July 04. Sputum culture was positive for Pseudomonas aeruginosa. Vital Signs: Vital Signs Temp Pulse Resp BP Pulse Ox O2 Del Method O2 Flow Rate 98.5 F 116 H 18 144/75 H 100 Nasal Cannula 3 07/09/22 02:00 07/09/22 05:35 07/09/22 02:00 07/09/22 05:35 07/09/22 02:00 07/09/22 02:18 07/09/22 02:18 Oxygen Flow Rate (L/min) 3 Oxygen Delivery Method Nasal Cannula Weight: 147 lb 0.773 oz Body Mass Index (BMI) 20.2 Intake & Output: Intake and Output for Last 24 Hours 07/07/22 07/08/22 07/09/22 23:59 23:59 23:59 Intake Total 4303.75 / 4543.75 3192.5 / 3192.5 120 / 120 Output Total 1425 / 1725 500 / 875 375 / 375 Balance 2878.75 / 2818.75 2692.5 / 2317.5 -255 / -255 Medical Nutrition Assessment Dietitian: Malnutrition Criteria Met Start: 07/05/22 11:59 Freq: Status: Active Protocol: Document 07/07/22 10:29 RMA (Rec: 07/07/22 10:29 RMA [id number]) Nutrition Malnutrition Evidence of Malnutrition Exists Yes Malnutrition (severe): Chronic Evidenced By Suboptimal Energy Intake ( Severe),Weight Loss (Severe), Physical Changes (Moderate) Clinical Problem Chronic Disease or Condition Related Malnutrition Etiology Severe protein-calorie malnutrition in the context of chronic disease related to increased energy expenditure and inadequate oral intake Signs/Symptoms as evidenced by ~15% wt loss x past 6 months, ~8-9% wt loss x past 4 months, BMI 20.0, moderate muscle/fat wasting in the clavicle, orbitals, arms, legs and face and oral intake meeting less than 50% estimated nutrition needs x past 4-6 months Status Active Problem Recommendation Dietitian Recommendations/Changes Continue regular diet and encourage PO at meals. Continue magic cup BID w/ lunch and dinner. Continue 120 ml ensure plus high protein 4 times per day w / medpass. Adjust ONS as needed to optimize oral intake and prevent further weight loss. Lab / Micro Data Attestation: I reviewed the patient's lab results. Result Diagrams: 07/09/22 04:18 07/09/22 04:18 Labs: Laboratory Results - last 24 hr 07/08/22 19:27: Vancomycin Trough 8.3 07/09/22 04:18: WBC 0.8 L*, RBC 2.58 L, Hgb 8.7 L, Hct 28.1 L, MCV 108.9 H, MCH 33.7 H, MCHC 31.0 L, RDW Std Deviation 60.3 H, RDW Coeff of Yao 14.9 H, Plt Count 14 L*, Immature Gran % (Auto) 0.000, Neut % (Auto) 37.6 L, Lymph % (Auto) 48.1 H, [place] % (Auto) 7.8, Eos % (Auto) 6.5 H, Baso % (Auto) 0.0, Absolute Neuts (auto) 0.3 L, Absolute Lymphs (auto) 0.37 L, Nucleated RBC % 0, Diff Path Review May foll, Platelet Estimate MKD DEC, Anisocytosis 1+, Macrocytosis 2+ 07/09/22 04:18: Sodium 144, Potassium 3.2 L, Chloride 107, Carbon Dioxide 34.0 H , Anion Gap 3 L, BUN 9, Creatinine 0.31 L, Estim Creat Clear Calc 58.59, Est GFR (MDRD) Af Amer 356, Est GFR (MDRD) Non-Af 294, BUN/Creatinine Ratio 28.7 H, Glucose 89, Calcium 8.0 L Micro: Microbiology 07/04/22 18:50 Blood Culture (Wb) - Left Forearm Blood Culture - Preliminary No growth in 48 hours. 07/04/22 16:28 Blood Culture (Wb) - Right Forearm Blood Culture - Preliminary No growth in 48 hours. 07/05/22 12:15 Sputum, Expectorated/Coughed Gram Stain - Final 07/05/22 12:15 Sputum, Expectorated/Coughed Respiratory Culture - Final Pseudomonas aeroginosa 07/04/22 16:39 Urine, Clean Catch Urine Culture - Final Mixed Gram Pos & Gram Neg Org 07/05/22 03:55 Urine Catheter - Jo Legionella Antigen - Final 07/05/22 03:55 Urine Catheter - Jo Streptococcus pneumoniae Antigen (M - Final 07/04/22 18:02 Nasal Secretion SARS-CoV-2 & FLU Antigen (Rapid) - Final SARS-CoV-2 (COVID 19) Physical Exam Const no apparent distress General Appearance: intubated and patient mechanically ventilated HEENT normocephalic and head/scalp atraumatic Mouth: endotracheal tube in place and OG tube in place Eyes PERRL and EOMs intact bilaterally Neck supple General: trachea midline Resp Effort and Inspection: tachypneic Auscultation: rales, wheezes and diminished lung sounds Cardio S1 normal heart sound and S2 normal heart sound Rate: tachycardic GI normal to inspection, nondistended, normoactive bowel sounds Extremity no clubbing, cyanosis or edema Skin no rashes or lesions noted Neuro Sensorium / Orientation: sedated on vent Charges/Coding Procedures Hospitalists Procedures: [id number] Critial Care 1st Hr
[2022-07-09] MEDS: 0.9% Saline Lock 10 ML Syringe IV (06:44)
[2022-07-09] MEDS: MethylPREDNISolone 125 MG/2 ML Vial IV (06:51)
[2022-07-09 06:52] LABS: CPK Total, Creatine Kinase 16 U/L (39-308); Triglycerides 62 mg/dL
--- NOTE | 2022-07-09 06:57 | ECHOD_ITS ---
Reason For Study: S/P CARDIAC ARREST Procedure This was a 2D Doppler, Color Flow transthoracic echocardiogram. The study was technically difficult. Pt on vent at time of exam. Limited views obtained. Exam performed portable in ICU/CCU. Left Ventricle The left ventricle is normal in size, thickness, and systolic function. The left ventricular ejection fraction is 60 %. Right Ventricle Normal right ventricle. Atria The left and right atria are normal. Mitral Valve The mitral valve is structurally normal. No prolapse or stenosis seen. Tricuspid Valve Trivial tricuspid valve insufficiency. Aortic Valve Normal aortic valve. Pulmonic Valve The pulmonic valve is not well visualized. Great Vessels Normal sized aortic root. The inferior vena cava is dilated. Pericardium/Pleural Trivial pericardial effusion. MMode/2D Measurements & Calculations LVIDd: 5.0 cm IVSd: 0.87 cm Ao root diam: 3.2 cm LVIDs: 3.1 cm LVPWd: 0.99 cm FS: 38.9 % LA dimension(2D): 3.3 cm Time Measurements MV dec time: 0.19 sec Doppler Measurements & Calculations MV E max cuong: 55.6 cm/sec Lat Peak E' Cuong: 10.0 cm/sec Med Peak E' Cuong: 10.0 cm/sec MV A max cuong: 75.0 cm/sec E/E' lat: 5.5 E/E' med: 5.5 MV E/A: 0.74 Ao V2 max: 111.5 cm/sec LV V1 max: 95.0 cm/sec PA V2 max: 102.6 cm/sec Ao max P.0 mmHg LV V1 max P.6 mmHg TR max cuong: 302.5 cm/sec TR max P.6 mmHg ECHO/Echo Complete Interpretation Summary The left ventricular ejection fraction is 60 %. The inferior vena cava is dilated Ordering Physician: Abe Dorantes Referring Physician: CHACE LUO Performed By: Luci Stahl RDCS
[2022-07-09 07:30] LABS: Allen Test Positive; Base Excess 11 mmol/L (-2 to +2); Bicarbonate 35.7 mmol/L (22-26); Blood Gas Specimen Type ART; FI02 60; Mode AC; O2 Delivery Device ET Tube; PEEP 5; PO2 165 mmHG (75-100); RR 14; SITE R Radial; SO2 99 % (95-99); Total Carbon Dioxide 38 mmol/L; Vt 400; pCO2 58.2 mmHg (35-45)
[2022-07-09 08:00] LABS: BNP,B-Type NATRIURETIC PEPTIDE 529.3 pg/mL (0-100)
[2022-07-09] MEDS: Midodrine HCl 5 MG Tablet 10 MG PO ×3 (08:02→17:06)
[2022-07-09] MEDS: Ipratropium/Albuterol Sulfate 3 ML AMPUL.NEB INHALATION ×4 (08:41→22:25)
[2022-07-09 09:27] LABS: Pathologist Review Reviewed
[2022-07-09 09:27] LABS: Pathologist Review Reviewed
[2022-07-09] MEDS: Acyclovir 200 MG Capsule 400 MG PO ×2 (09:45→21:22)
[2022-07-09] MEDS: Cholecalciferol (VIT D3) 25 MCG TABLET (1,000 UNITS) 50 MCG PO (09:45)
--- NOTE | 2022-07-09 10:10 | CASEMGMT ---
This RN CM participated in ICU multidisciplinary rounds. Pt intubated after code blue this am. Pt's and son at bedside. This RN CM stayed after rounds to discuss therapy recommendations with family prior to intubation and SNF list left with pt previously, /son voice understanding. states would like pt placed on TCU list and CM to follow. This RN CM notified Laz[facility] in TCU to place pt on list. SStaten RN CM
[2022-07-09] MEDS: Chlorhexidine 15 ML PO ×2 (10:23→21:22)
[2022-07-09] MEDS: CHLORHEXIDINE GLUC 2% CLOTH 1 EACH TOWELETTE TOPICAL (10:30)
--- NOTE | 2022-07-09 10:30 | PN.HOSP_ITS ---
Subjective Subjective Patient seen and examined. He was emergently transferred to the ICU in the early hours of this morning after he had a code blue. He had ventricular tachcyardia and asystole on the monitor.He was successfully resuscitated via ACLS protocol and transferred to the ICU. Patient seen in the ICU this morning. He remains intubated and sedated. was by his bedside. Unable to do review of systems as he is intubated. He is febrile this morning with temperature of 100.8F. Objective Data Objective Data Vital Signs: Vital Signs Temp Pulse Resp BP Pulse Ox O2 Del Method O2 Flow Rate 100.7 F H 94 17 132/60 H 92 Mechanical Ventilator 3 07/09/22 08:00 07/09/22 08:42 07/09/22 08:42 07/09/22 08:00 07/09/22 08:00 07/09/22 08:00 07/09/22 02:18 FiO2 40 07/09/22 08:00 Oxygen Flow Rate (L/min) 3 Oxygen Delivery Method Mechanical Ventilator Weight: 147 lb 0.773 oz Body Mass Index (BMI) 20.2 Intake & Output: Intake and Output for Last 24 Hours 07/07/22 07/08/22 07/09/22 23:59 23:59 23:59 Intake Total 4303.75 / 4543.75 3192.5 / 3192.5 164.22 / 164.22 Output Total 1425 / 1725 500 / 875 2725 / 2725 Balance 2878.75 / 2818.75 2692.5 / 2317.5 -2560.78 / -2560.78 Medical Nutrition Assessment Dietitian: Malnutrition Criteria Met Start: 07/05/22 11:59 Freq: Status: Active Protocol: Document 07/07/22 10:29 RMA (Rec: 07/07/22 10:29 RMA [id number]) Nutrition Malnutrition Evidence of Malnutrition Exists Yes Malnutrition (severe): Chronic Evidenced By Suboptimal Energy Intake ( Severe),Weight Loss (Severe), Physical Changes (Moderate) Clinical Problem Chronic Disease or Condition Related Malnutrition Etiology Severe protein-calorie malnutrition in the context of chronic disease related to increased energy expenditure and inadequate oral intake Signs/Symptoms as evidenced by ~15% wt loss x past 6 months, ~8-9% wt loss x past 4 months, BMI 20.0, moderate muscle/fat wasting in the clavicle, orbitals, arms, legs and face and oral intake meeting less than 50% estimated nutrition needs x past 4-6 months Status Active Problem Recommendation Dietitian Recommendations/Changes Continue regular diet and encourage PO at meals. Continue magic cup BID w/ lunch and dinner. Continue 120 ml ensure plus high protein 4 times per day w / medpass. Adjust ONS as needed to optimize oral intake and prevent further weight loss. Lab / Micro Data Result Diagrams: 07/09/22 04:18 07/09/22 04:18 Labs: Laboratory Results - last 24 hr 07/07/22 04:50: Diff Path Review Reviewed 07/08/22 04:18: Diff Path Review Reviewed 07/08/22 19:27: Vancomycin Trough 8.3 07/09/22 04:18: WBC 0.8 L*, RBC 2.58 L, Hgb 8.7 L, Hct 28.1 L, MCV 108.9 H, MCH 33.7 H, MCHC 31.0 L, RDW Std Deviation 60.3 H, RDW Coeff of Yao 14.9 H, Plt Count 14 L*, Immature Gran % (Auto) 0.000, Neut % (Auto) 37.6 L, Lymph % (Auto) 48.1 H, [place] % (Auto) 7.8, Eos % (Auto) 6.5 H, Baso % (Auto) 0.0, Absolute Neuts (auto) 0.3 L, Absolute Lymphs (auto) 0.37 L, Nucleated RBC % 0, Diff Path Review May foll, Platelet Estimate MKD DEC, Anisocytosis 1+, Macrocytosis 2+ 07/09/22 04:18: Sodium 144, Potassium 3.2 L, Chloride 107, Carbon Dioxide 34.0 H , Anion Gap 3 L, BUN 9, Creatinine 0.31 L, Estim Creat Clear Calc 58.59, Est GFR (MDRD) Af Amer 356, Est GFR (MDRD) Non-Af 294, BUN/Creatinine Ratio 28.7 H, Glucose 89, Calcium 8.0 L 07/09/22 04:18: Total Creatine Kinase 16 L, Triglycerides 62 07/09/22 04:18: B-Natriuretic Peptide 529.3 H Micro: Microbiology 07/04/22 18:50 Blood Culture (Wb) - Left Forearm Blood Culture - Preliminary No growth in 48 hours. 07/04/22 16:28 Blood Culture (Wb) - Right Forearm Blood Culture - Preliminary No growth in 48 hours. 07/05/22 12:15 Sputum, Expectorated/Coughed Gram Stain - Final 07/05/22 12:15 Sputum, Expectorated/Coughed Respiratory Culture - Final Pseudomonas aeroginosa 07/04/22 16:39 Urine, Clean Catch Urine Culture - Final Mixed Gram Pos & Gram Neg Org 07/05/22 03:55 Urine Catheter - Jo Legionella Antigen - Final 07/05/22 03:55 Urine Catheter - Jo Streptococcus pneumoniae Antigen (M - Final 07/04/22 18:02 Nasal Secretion SARS-CoV-2 & FLU Antigen (Rapid) - Final SARS-CoV-2 (COVID 19) ABG Data ABG results: ABG 07/09/22 07:23 Specimen Type ART Sample Site R Radial pH 7.40 Bicarbonate Actual 35.7 H Total CO2 38 Base Excess 11 H O2 Saturation 99 O2 % 60 ABG pCO2 58.2 H ABG pO2 165 H Dionicio Test Positive Respiration Rate 14 O2 Delivery Device ET Tube Vent Mode AC Tidal Volume 400 POC PEEP 5 Radiography Diagnostic Testing: Radiology Impression Chest X-Ray 07/09/22 05:47 IMPRESSION: Satisfactory ET tube position. Increased bilateral infiltrates. Electronically Signed: Na Borges MD at 6:39 EDT , Physical Exam Const Constitutional Narrative: intubated, sedated, RASS score is -4 HEENT head/scalp atraumatic, moist oral mucous membranes and oropharynx normal Eyes PERRL, EOMs intact bilaterally and conjunctivae normal Neck no lymphadenopathy, supple and no JVD Resp Resp Narrative: intubated, sedated, RASS score is -4, diminished breath sounds bibasally, few crackles. Cardio regular rate, regular rhythm, S1 normal heart sound, S2 normal heart sound and no murmurs GI normal to inspection, nondistended, normoactive bowel sounds, soft to palpation, non-tender and non-distended Extremity normal to inspection, full ROM and no clubbing, cyanosis or edema Neuro Neuro Narrative: intubated, sedated, RASS score is -4 Assessment & Plan Assessment/Plan (1) Septic shock: (2) Pneumonia: (3) Neutropenia with fever: (4) Thrombocytopenia: (5) CLL (chronic lymphocytic leukemia): PLAN: Plan #Acute hypoxic respiratory failure due to acute cardiopulmonary arrest * had cardiopulmonary arrest with code blue called early this morning. * currently intubated and sedated. * on IV vancomycin and meropenem * 2D echocardiogram and BNP ordered. * titrate oxygen to maintain sats >90% * breathing treatment with bronchodilators * on IV levofloxacin, meropenem and vancomycin * repeat sputum culture ordered * 2D echo showed EF of 60% and dilated inferior vena cava #Septic shock due to probable hospital acquired pneumonia * sputum cultured Pseudomonas * on IV meropenem. levofloxacin and vancomycin ordered * critical care on board. * CT of the chest showed development of more numerous infiltrates suggesting a pneumonia which may have worsened on metastatic disease which is worsened * Breathing treatments with bronchodilators. * * #Pancytopenia * Likely due to chemotherapy for CLL as well as acute infection * WBC is 0.8 today, * Hb is 8.7 today; he was transfused with one unit of blood yesterday to keep Hb >8. Platelets are down to 14 today * per his oncologist, this is likely due to post chemotherapy bone marrow suppression, and should improve with time. To transfuse if platelets <10 and Hb <8 * oncology consulted * * #Neutropenic fever: As above. On acyclovir #History of CLL: On chemotherapy as above. #KAI: Resolved #Severe protein calorie malnutrition * As evidenced by approximately 15% weight loss over the last 6 months and 89% weight loss over the last 4 months. * cant hooker on board * #COPD * not in exacerbation. * breathing treatment with bronchodilators * DVT prophylaxis: SCDs Charges/Coding Visit Charges Inpatient E&M: 25690 Subs Hosp L3
[2022-07-09] MEDS: levoFLOXacin IV 750 MG/150 ML BAG 100 MG IV (10:59)
[2022-07-09] MEDS: Menthol/Lanolin/Calamine/Znox 113 GM Tube 1 APPLIC TOPICAL ×2 (12:03→21:21)
--- NOTE | 2022-07-09 12:09 | CHAPLAIN ---
Type of Pastoral Visit ___ Initial Visit _x__ Follow-up Visit ___ On-call Visit ___ General Patient Visit ___ Spiritual Assessment ___ Family Conference ___ Bereavement ___ Rapid Response ___ Code Blue ___ Other (describe below) Pastoral Care Referral From ___ Patient _x__ Family ___ Nurse ___ Physician ___ [employer]le House Cleaners Supervisor ___ Practice Architect ___ Other (describe below) Sacrament/Intervention _x__ Active listening ___ Anointing ___ Orthodox ___ Bereavement ___ Communion ___ Yanelis exploration ___ ___ Life review _x__ Prayer ___ Reconciliation ___ Sacrament of Sick _x__ Supportive presence ___ Wedding ___ Other (describe below) Pastoral Comments follow up with this patient who came back to ICU after a code blue this morning; spouse and daughter in the room; daughter asks questions about DNR and DNR-CC; this chiropractic physician refers family to RN, DR, and SW to ask those questions and affirmed that these discussions are very important; spouse wants to wait until patient is able to tell her his desires; daughter is pressing for some answers and speaks/acknowledging of deferring to spouse; both welcome presence and prayer for patient by this chiropractic physician
[2022-07-09] MEDS: Propofol 10MG/Ml 1,000 MG/100 ML Bottle 14 MG CONT INF (12:25)
--- NOTE | 2022-07-09 12:51 | ONC.CONSULT ---
Assessment & Plan Assessment/Plan (1) Neutropenia with fever: Status: Acute Code(s): D70.9 - Neutropenia, unspecified; R50.81 - Fever presenting with conditions classified elsewhere Plan: Received most recent cycle, 5, of BR on 07/02/22. No further role for short acting growth factors in this setting as he was supported with Fulphila on 07/04/22 prior to this admission. ANC today, 0.3, improved, albeit modestly. Antimicrobials managed by primary team. (2) Pancytopenia due to antineoplastic chemotherapy: Status: Acute Code(s): D61.810 - Antineoplastic chemotherapy induced pancytopenia; T45.1X5A - Adverse effect of antineoplastic and immunosuppressive drugs, initial encounter Plan: As evidenced by Hgb 8.7 and platelets 14,000 today. Has received 1 unit of PRBCs this admission. Transfuse to keep Hgb >8 g/dL d/t presence of severe COPD. Typically advise transfusion if platelets < 20,000 but given he underwent an emergent intubation earlier, advise transfusion if platelets <20,000 or for platelets >20,000 if blood is noted in respiratory secretions. (3) CLL (chronic lymphocytic leukemia): Status: Chronic Code(s): C91.10 - Chronic lymphocytic leukemia of B-cell type not having achieved remission Plan: S/P 5 of 6 planned cycles of bendamustine/rituximab. Patient has experienced significant improvement of his disease both clinically and hematologically. Await recovery of bone marrow suppression. (4) At high risk for deep venous thrombosis: Status: Acute Code(s): Z91.89 - Other specified personal risk factors, not elsewhere classified Plan: Advise compression devices as chemical prophylaxis contraindicated d/t thrombocytopenia. This case was discussed with Dr. Goldman who was in agreement with aforementioned plan. HPI Consult Data Date of Service:: 07/09/22 PCP / Referring Provider: Dr. Chace Rodriguez DO Attending: Dr. Sujey Baez MD Chief Complaint Chief Complaint: CLL History of Present Illness History of Present Illness: Mr. Santana Thomas is a 76-year-old gentleman with a PMH significant for chronic GI blood loss, GERD, COPD, HTN, CAD, sleep apnea, BPH, and PE (unprovoked no longer on anticoagulation) who was diagnosed with chronic lymphocytic leukemia after presenting with increasing anemia, new onset thrombocytopenia and B symptoms January 2022. His CLL is CD38 positive (unfavorable), but FISH panel is 13 q. deletion positive (as a sole abnormality is favorable) Results for CCND1/IGH, ALAN, chromosome 12, and TP53 were normal.? Patient is a standard risk disease. Mr. Thomas started systemic therapy with Bendamustine Rituxan February 19, 2022, had a significant improvement clinically and by lab. Care has been complicated by multiple respiratory infections, including COVID April 2022, requiring multiple hospital admissions. ?He received cycle 5 BR on July 02, 2022. Patient developed a fever after receiving GCSF on day 3 of this cycle, July 04 and reported to [facility] ED. He was found to be hypotensive, tachycardic, neutropenic with lactic acid of 1.7. UA evidence of infection but chest x-ray demonstrated questionable infiltrates in bilateral lower lung bases. He was subsequently admitted to ICU for management of sepsis, pneumonia. Patient started on vancomycin meropenem with fluid resuscitation. Overall clinical condition including hypotension improved patient was transferred to patient care unit on 07/08/2022 however this morning sustained cardiac arrest. Patient was emergently intubated, successfully resuscitated and transferred back to the ICU. Remains pancytopenic. Interval History Interval History: Upon and entering the room patient is resting with eyes closed. Spouse and adult daughter at the bedside. Advanced Directives Power of Journeyman [employer]: Yes Living Will: Yes [facility] Medical History (Updated 07/09/22 @ 17:08 by Sondra Christie [employer], [employer]) Abnormal CT scan, chest Acute hypoxemic respiratory failure Adjustment disorder Ambulates with cane Anemia Arm pain, left Asthma At high risk for deep venous thrombosis Atrioventricular block, first degree B12 deficiency anemia Back pain Biceps tendinitis on left BPH (benign prostatic hyperplasia) Bronchiectasis Cancer Central sleep apnea Chronic anemia Chronic lymphocytic leukemia CLL (chronic lymphocytic leukemia) Contusion of left shoulder COPD (chronic obstructive pulmonary disease) COPD exacerbation COPD with acute exacerbation Coronary atherosclerosis due to calcified coronary lesion Cough Degenerative joint disease Dehydration Diarrhea Dyspnea Dysuria Easy bruising Edema Encounter for chemotherapy management Encounter for education Fatigue Fever Former smoker GERD (gastroesophageal reflux disease) HAP (hospital-acquired pneumonia) Hiatal hernia Hiatal hernia with gastroesophageal reflux History of Coumadin therapy History of SCC (squamous cell carcinoma) of skin HTN (hypertension) Hx of fracture of ankle Hypersomnia Hypotension Hypoxia Impingement syndrome, shoulder, left Influenza A Iron deficiency anemia Left hip pain Left shoulder pain Low back pain On home oxygen therapy Orthopedic aftercare ZOHRA (obstructive sleep apnea) Osteoarthritis of left shoulder Other fracture of shaft of left humerus, initial encounter for closed fracture Pancytopenia due to antineoplastic chemotherapy Pneumonia due to Streptococcus Psoriasis Pulmonary embolism Pulmonary embolism Rash and other nonspecific skin eruption Restless leg syndrome Restless legs Rotator cuff syndrome of left shoulder Rotator cuff tear, left Shortness of breath on exertion Shoulder pain, right Signs and symptoms of anemia Sinus tachycardia Skin lesion of left arm Smoking greater than 40 pack years Squamous cell cancer of skin of forearm (~07/2021) Stage 3 severe COPD by GOLD classification Symptomatic anemia Syncope Thrombocytopenia Tobacco dependency Unexplained weight loss Wears dentures Wears glasses Wears hearing aid Home Medications tamsulosin 0.4 mg capsule 0.8 mg PO QHS prostate 08/20/17 [History Last Taken 07/03/22] lorazepam 1 mg tablet 1 mg PO QHS PRN Anxiety 07/09/21 [History Last Taken 07/04/22] cholecalciferol (vitamin D3) 50 mcg (2,000 unit) capsule 50 mcg PO DAILY vitamin 01/30/22 [History Last Taken 07/04/22] ferrous sulfate 325 mg (65 mg iron) tablet 325 mg PO DAILY supplement 01/30/22 [History Last Taken 07/04/22] acyclovir 400 mg tablet 400 mg PO BID CHEMO 02/14/22 [History Last Taken 07/04/22] lidocaine-prilocaine 2.5 %-2.5 % topical cream 1 applic topical ONCE PRN port access 30 days #30 grams 02/17/22 [Rx Last Taken 05/07/22] albuterol sulfate 90 mcg/actuation aerosol inhaler (ProAir HFA) 2 puff inhalation Q6H PRN shortness of breath or wheezing #18 grams 03/05/22 [Rx Last Taken 07/03/22] budesonide-formoterol HFA 160 mcg-4.5 mcg/actuation aerosol inhaler (Symbicort) 2 puff inhalation BID #1 ea 03/05/22 [Rx Last Taken 07/04/22] pantoprazole 40 mg tablet,delayed release 40 mg PO DAILY GERD 05/08/22 [History Last Taken 07/04/22] ropinirole 1 mg tablet 1 mg PO QHS RLS 05/08/22 [History Last Taken 07/03/22] sertraline 25 mg tablet (Zoloft) 25 mg PO QHS 05/29/22 [History Last Taken 07/03/22] midodrine 5 mg tablet 10 mg PO TID 07/04/22 [History Last Taken 07/04/22] triamcinolone acetonide 0.1 % topical cream 1 applic topical BID PRN PRN psoriasis 07/04/22 [History Last Taken 07/04/22] Allergy/AdvReac Type Severity Reaction Status Date / Time Penicillins Allergy Severe Rash Verified 07/04/22 15:28 Family History Sister Breast cancer Mother Cancer patient states female cancer, when he was young Brother Lung cancer Surgical History History of hydrocelectomy History of orchiectomy, unilateral Status post reverse total arthroplasty of left shoulder Social History household members: spouse current occupational status: retired Smoking Status: Current some day smoker tobacco type: cigarettes Tobacco: How many years used: 60 Electronic Cigarette Use: not used second hand exposure: Yes quit status: has quit before counseling given: provider counseling alcohol intake: current alcohol intake frequency: a few times a month substance use type: does not use caffeine: Yes Type: coffee Number of servings: 3 what type of physical activity do you participate in: none seatbelt use: always ROS Review of Systems ROS Unobtainable: due to endotracheal tube Physical Exam Const Constitutional Narrative: intubated, sedated HEENT HEENT Narrative: Evidence of dried blood bilat nares' Mouth: dry mucous membranes and endotracheal tube in place Eyes conjunctivae normal Neck no lymphadenopathy, supple and no JVD Resp Auscultation: crackles and diminished lung sounds Cardio regular rate, regular rhythm, S1 normal heart sound and S2 normal heart sound GI normal to inspection, nondistended, normoactive bowel sounds, soft to palpation, non-tender and non-distended Extremity Extremity Narrative: BLE with trace edema Skin General Skin Exam: ecchymosis Vital Signs Temperature 100.8 F H 07/09/22 10:00 Temperature Source Core 07/09/22 10:00 Pulse Rate 88 07/09/22 10:59 Pulse Strength Normal (2+) 07/08/22 22:00 Respiratory Rate 16 07/09/22 10:59 Respiratory Effort 07/09/22 08:00 Respiratory Depth Normal 07/09/22 08:00 Respiratory Pattern Normal 07/09/22 10:59 Blood Pressure 155/76 H 07/09/22 10:00 Blood Pressure Mean 102 07/09/22 10:00 Blood Pressure Source Monitor 07/09/22 10:00 Blood Pressure Position Semi-Fowlers 07/09/22 10:00 Blood Pressure Location Left Arm 07/09/22 10:00 Pulse Ox 98 07/09/22 10:59 Oxygen Delivery Method Mechanical Ventilator 07/09/22 10:00 Oxygen Flow Rate (L/min) 3 07/09/22 02:18 Fraction of Inspired Oxygen (FIO2) 40 07/09/22 10:59 Laboratory Results - last 24 hr 07/07/22 04:50: Diff Path Review Reviewed 07/08/22 04:18: Diff Path Review Reviewed 07/08/22 19:27: Vancomycin Trough 8.3 07/09/22 04:18: WBC 0.8 L*, RBC 2.58 L, Hgb 8.7 L, Hct 28.1 L, MCV 108.9 H, MCH 33.7 H, MCHC 31.0 L, RDW Std Deviation 60.3 H, RDW Coeff of Yao 14.9 H, Plt Count 14 L*, Immature Gran % (Auto) 0.000, Neut % (Auto) 37.6 L, Lymph % (Auto) 48.1 H, Daniels % (Auto) 7.8, Eos % (Auto) 6.5 H, Baso % (Auto) 0.0, Absolute Neuts (auto) 0.3 L, Absolute Lymphs (auto) 0.37 L, Nucleated RBC % 0, Diff Path Review May caroline, Platelet Estimate MKD DEC, Anisocytosis 1+, Macrocytosis 2+ 07/09/22 04:18: Sodium 144, Potassium 3.2 L, Chloride 107, Carbon Dioxide 34.0 H, Anion Gap 3 L, BUN 9, Creatinine 0.31 L, Estim Creat Clear Calc 58.59, Est GFR (MDRD) Af Amer 356, Est GFR (MDRD) Non-Af 294, BUN/Creatinine Ratio 28.7 H, Glucose 89, Calcium 8.0 L 07/09/22 04:18: Total Creatine Kinase 16 L, Triglycerides 62 07/09/22 04:18: B-Natriuretic Peptide 529.3 H Microbiology 07/09/22 06:52 Sputum, Induced/Lukens Gram Stain - Final Diagnostic Data Abdomen/Pelvis CT 07/04/22 15:49 IMPRESSION: Patchy nodular airspace opacities in the right lower lobe possibly inflammatory although metastatic disease not entirely excluded... Cholelithiasis in association with mild ductal dilatation but no definitive evidence for intraductal stone or pancreatic mass. MRI/MRCP would be helpful for further assessment if indicated Compression fracture of L1 which appears recent. In the absence of recent trauma however pathologic fracture may be considered. MRI would be useful for further evaluation if indicated. Electronically Signed: Trevor Allen MD at 18:27 EDT , Chest CT 07/05/22 13:50 IMPRESSION: Small bilateral pleural effusions. There is a hiatal hernia. Since the prior study, there is been development of more numerous infiltrate suggesting a pneumonia which has worsened or metastatic disease which is worse Electronically Signed: Joe Bruce MD at 15:13 EDT , Chest X-Ray 07/09/22 05:47 IMPRESSION: Satisfactory ET tube position. Increased bilateral infiltrates. Electronically Signed: Na Borges MD at 6:39 EDT , Echocardiogram 07/09/22 06:57 Interpretation Summary The left ventricular ejection fraction is 60 %. The inferior vena cava is dilated Ordering Physician: Abe Dorantes Referring Physician: CHACE RODRIGUEZ Performed By: Luci Stahl RDCS
[2022-07-09 12:58] LABS: Pathologist Review Reviewed
[2022-07-09] MEDS: 0.9% Normal Saline 1,000 ML 75 ML IV (17:06)
[2022-07-09] MEDS: Propofol 10MG/Ml 1,000 MG/100 ML Bottle 16 MG CONT INF ×2 (17:08→22:29)
[2022-07-09] MEDS: Pramipexole Di-HCl 0.5 MG Tablet PO (21:22)
[2022-07-09] MEDS: Sertraline 50 MG Tablet 25 MG PO (21:23)
[2022-07-10] VITALS (39 sets, daily range): BP systolic 99–161; BP diastolic 48–78; PULSE 85–132; RESP 15–28; TEMP 36.6–37.4; O2SAT 93–100
[2022-07-10] MEDS: Potassium Chloride Oral Soln 20 MEQ/15 ML UDC 40 MEQ PO ×2 (00:33→04:26)
[2022-07-10] MEDS: Ipratropium/Albuterol Sulfate 3 ML AMPUL.NEB INHALATION ×4 (02:25→18:50)
[2022-07-10 03:23] LABS: Hematocrit 24.8 % (40-54); Hemoglobin 7.9 g/dL (13.0-16.5); Mean Corp Hgb Conc 31.9 g/dL (32-36); Mean Corpuscular Hgb 33.9 pg (27.0-32.0); Mean Corpuscular Volume 106.4 fL (80-94); POSITIVE COUNT YES; POSITIVE DIFFERENTIAL YES; POSITIVE MORPHOLOGY YES; RBC Distribution Width CV 14.9 % (11.6-14.6); RBC Distribution Width SD 58.4 fl (35.1-43.9); Red Blood Count 2.33 M/mm3 (4.6-6.2); White Blood Count 1.7 K/mm3 (4.4-11.0)
[2022-07-10 03:30] LABS: Magnesium 1.8 mg/dL (1.6-2.6)
[2022-07-10 03:39] LABS: Anion Gap 4 (5-15); BUN 13 mg/dL (7-18); BUN/Creat Ratio 25.4 RATIO (10-20); Chloride 103 mmol/L (98-107); Creatinine, Serum 0.51 mg/dL (0.70-1.30); EST Glomerular Filtration Rate 168 mL/min (>60); Est Glom Filt Rate - Afr Amer 203 mL/min (>60); Estimated Creatinine Clearance 60.22 ml/min; Glucose 145 mg/dL (74-106); Potassium 3.3 mmol/L (3.5-5.1); Sodium Level 145 mmol/L (136-145)
[2022-07-10 03:41] LABS: Differential Indicated MANUAL DIFF; Platelet Count 17 K/mm3 (150-450)
[2022-07-10 03:47] LABS: Platelet Estimate MKD DEC (ADEQ)
[2022-07-10 03:48] LABS: Anisocytosis 1+; Macrocytosis 2+
[2022-07-10 04:02] LABS: Absolute Neutrophil Count 0.9 X10^3/uL (2.0-7.7)
[2022-07-10 04:03] LABS: Absolute Lymphocyte Count 0.45 X10^3/uL (0.83-4.51); Lymphocyte 26 % (19-41); Metamyelocyte 3 % (0-1); Monocyte 3 % (0-10); Myelocyte 14 % (0-0); Neutrophil-Band 25 % (0-5); Neutrophil-Segmented 29 % (47-70); Total Cells Counted 100 (MANUAL DIFF)
[2022-07-10] MEDS: 0.9% Saline Lock 10 ML Syringe IV ×2 (04:25→04:26)
[2022-07-10] MEDS: CHLORHEXIDINE GLUC 2% CLOTH 1 EACH TOWELETTE TOPICAL (04:26)
[2022-07-10] MEDS: 0.9% Normal Saline 1,000 ML 75 ML IV (05:14)
[2022-07-10] MEDS: TITRATION PARAMETER CHANGE 1 EACH IV (06:16)
--- NOTE | 2022-07-10 06:17 | PCM.PN.INT ---
Assessment & Plan Assessment/Plan (1) Septic shock: PLAN: Plan RECOMMENDATIONS: 1. Proceed with a trial of extubation this morning. 2. Once extubated, wean supplemental oxygen to maintain saturations at or above 90%. 3. Perform bedside swallow evaluation and advance diet accordingly. 4. Continue antimicrobials as ordered. 5. Continue bronchodilators and IV steroids. 6. Encourage incentive spirometer use and mobilize patient as tolerated. IMPRESSIONS: 1. Acute hypoxemic respiratory failure status post cardiac arrest Improved. 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 He does have a baseline history of gold stage III obstructive lung disease. The patient improved from a respiratory perspective with invasive mechanical ventilatory support. Plan to proceed with extubation this morning. In the interim, the patient will be continued on scheduled bronchodilators and IV steroids, along with antimicrobials to address his underlying pseudomonal infection. Surface echocardiogram was unrevealing. 2. GOLD stage III COPD/history of tobacco dependency/bronchiectasis Continue supportive measures as noted above, along with scheduled bronchodilators and IV steroids. 3. History of CLL with associated pancytopenia The patient has pancytopenia related to recent chemotherapy administration. Continue supportive measures as noted above. 4. Septic shock secondary to COVID-19/pseudomonal pneumonia/neutropenic fever Improved. The patient is currently hemodynamically stable and will remain on antimicrobials to address the pansensitive Pseudomonas identified on sputum culture. TIME: 34 minutes of critical care time, independent of procedures, was spent addressing the patient's acute hypoxemic respiratory failure status postcardiac arrest, COPD, bronchiectasis, history of CLL, pancytopenia, review of all data and collaboration with the care team. Subjective Subjective The patient was seen and examined at the bedside this morning. Events from the last 24 hours have been reviewed. The patient currently has a low-grade fever but remains otherwise hemodynamically stable on assist control mode mechanical ventilation with an FiO2 requirement of 35%. The patient is currently documented to be overall net +7.8 L for the hospitalization. The patient remains pancytopenic this morning with a hemoglobin of 7.9 g/dL and platelet count of 17,000. The patient did receive a unit of platelets yesterday. The patient passed his spontaneous breathing trial this morning and is appropriately alert and interactive. Objective Data Objective Data The patient's most recent lab work, culture data and imaging studies have all been personally reviewed. COVID rapid antigen testing was positive on July 04. Sputum culture was positive for Pseudomonas aeruginosa. Vital Signs: Vital Signs Temp Pulse Resp BP Pulse Ox O2 Del Method O2 Flow Rate 99.1 F 98 23 H 116/64 98 Mechanical Ventilator 3 07/10/22 06:00 07/10/22 06:00 07/10/22 06:00 07/10/22 06:00 07/10/22 06:00 07/10/22 06:00 07/09/22 02:18 FiO2 35 07/10/22 06:00 Oxygen Flow Rate (L/min) 3 Oxygen Delivery Method Mechanical Ventilator Weight: 144 lb 13.499 oz Body Mass Index (BMI) 20.2 Intake & Output: Intake and Output for Last 24 Hours 07/08/22 07/09/22 07/10/22 23:59 23:59 23:59 Intake Total 3192.5 / 3192.5 2277.72 / 2303.72 1270.88 / 1270.88 Output Total 500 / 875 4700 / 4700 255 / 255 Balance 2692.5 / 2317.5 -2422.28 / -2396.28 1015.88 / 1015.88 Medical Nutrition Assessment Dietitian: Malnutrition Criteria Met Start: 07/05/22 11:59 Freq: Status: Active Protocol: Document 07/09/22 10:40 AG (Rec: 07/09/22 10:51 AG [id number]) Nutrition Malnutrition Evidence of Malnutrition Exists Yes Malnutrition (severe): Chronic Evidenced By Suboptimal Energy Intake ( Severe),Weight Loss (Severe), Physical Changes (Moderate) Clinical Problem Chronic Disease or Condition Related Malnutrition Etiology Severe protein-calorie malnutrition in the context of chronic disease related to increased energy expenditure and inadequate oral intake Signs/Symptoms as evidenced by ~15% wt loss x past 6 months, ~8-9% wt loss x past 4 months, BMI 20.0, moderate muscle/fat wasting in the clavicle, orbitals, arms, legs and face and oral intake meeting less than 50% estimated nutrition needs x past 4-6 months Status Active Problem Recommendation Dietitian Recommendations/Changes 1) NPO while intubated. 2) If pt to remain intubated, recommend enteral nutrition support via OGT- Vital AF 1.2 at goal rate of 65mL/hour w/ 100mL H2O flush every 4 hours to provide 1872 calories, 117 g protein, and 1865mL total fluid/day. Would start at 20mL /hour and increase by 15mL/ hour every 8-12 hours as tolerated until goal rate is achieved. 3) Upon extubation, continue regular diet and encourage PO at meals; magic cup BID w/ lunch and dinner; 120 ml ensure plus high protein 4 times per day w/ medpass. 4) Daily wts. Close monitoring of electrolytes. Lab / Micro Data Attestation: I reviewed the patient's lab results. Result Diagrams: 07/10/22 03:10 07/10/22 03:10 Labs: Laboratory Results - last 24 hr 07/07/22 04:50: Diff Path Review Reviewed 07/07/22 13:20: Crossmatch See Detail 07/08/22 04:18: Diff Path Review Reviewed 07/09/22 04:18: Diff Path Review Reviewed, Platelet Estimate MKD DEC, Anisocytosis 1+, Macrocytosis 2+ 07/09/22 04:18: Total Creatine Kinase 16 L, Triglycerides 62 07/09/22 04:18: B-Natriuretic Peptide 529.3 H 07/10/22 03:10: WBC 1.7 L, RBC 2.33 L, Hgb 7.9 L, Hct 24.8 L, MCV 106.4 H, MCH 33.9 H, MCHC 31.9 L, RDW Std Deviation 58.4 H, RDW Coeff of Yao 14.9 H, Plt Count 17 L*, MPV TNP, Neut % (Auto) Not Reportable, Absolute Neuts (auto) 0.9 L, Absolute Lymphs (auto) 0.45 L, Total Counted 100, Neutrophils % (Manual) 29 L, Band Neutrophils % 25 H, Lymphocytes % (Manual) 26, Monocytes % (Manual) 3, Metamyelocytes % 3 H, Myelocytes % 14 H, Diff Path Review May foll, Platelet Estimate MKD DEC, Anisocytosis 1+, Macrocytosis 2+ 07/10/22 03:10: Sodium 145, Potassium 3.3 L, Chloride 103, Carbon Dioxide 38.0 H, Anion Gap 4 L, BUN 13, Creatinine 0.51 L, Estim Creat Clear Calc 60.22, Est GFR (MDRD) Af Amer 203, Est GFR (MDRD) Non-Af 168, BUN/Creatinine Ratio 25.4 H, Glucose 145 H, Calcium 8.0 L 07/10/22 03:10: Magnesium 1.8 Micro: Microbiology 07/09/22 06:52 Sputum, Induced/Lukens Gram Stain - Final 07/04/22 18:50 Blood Culture (Wb) - Left Forearm Blood Culture - Preliminary No growth in 48 hours. 07/04/22 16:28 Blood Culture (Wb) - Right Forearm Blood Culture - Preliminary No growth in 48 hours. 07/05/22 12:15 Sputum, Expectorated/Coughed Gram Stain - Final 07/05/22 12:15 Sputum, Expectorated/Coughed Respiratory Culture - Final Pseudomonas aeroginosa 07/04/22 16:39 Urine, Clean Catch Urine Culture - Final Mixed Gram Pos & Gram Neg Org 07/05/22 03:55 Urine Catheter - Jo Legionella Antigen - Final 07/05/22 03:55 Urine Catheter - Jo Streptococcus pneumoniae Antigen (M - Final 07/04/22 18:02 Nasal Secretion SARS-CoV-2 & FLU Antigen (Rapid) - Final SARS-CoV-2 (COVID 19) ABG Data ABG results: ABG 07/09/22 07:23 Specimen Type ART Sample Site R Radial pH 7.40 Bicarbonate Actual 35.7 H Total CO2 38 Base Excess 11 H O2 Saturation 99 O2 % 60 ABG pCO2 58.2 H ABG pO2 165 H Dionicio Test Positive Respiration Rate 14 O2 Delivery Device ET Tube Vent Mode AC Tidal Volume 400 POC PEEP 5 Radiography Diagnostic Testing: Radiology Impression Chest X-Ray 07/09/22 05:47 IMPRESSION: Satisfactory ET tube position. Increased bilateral infiltrates. Electronically Signed: Na Borges MD at 6:39 EDT , Echocardiogram 07/09/22 06:57 Interpretation Summary The left ventricular ejection fraction is 60 %. The inferior vena cava is dilated Ordering Physician: Abe Dorantes Referring Physician: CHACE LUO Performed By: Luci Stahl RDCS Physical Exam Const no apparent distress General Appearance: intubated and patient mechanically ventilated HEENT normocephalic and head/scalp atraumatic Mouth: endotracheal tube in place and OG tube in place Eyes PERRL and EOMs intact bilaterally Neck supple General: trachea midline Resp Auscultation: rales and diminished lung sounds Cardio regular rate, regular rhythm, S1 normal heart sound and S2 normal heart sound GI normal to inspection, nondistended, normoactive bowel sounds Extremity no clubbing, cyanosis or edema Skin no rashes or lesions noted Neuro Neuro Narrative: Alert and following commands appropriately. Psych cooperative Charges/Coding Procedures Hospitalists Procedures: [id number] Critial Care 1st Hr
--- NOTE | 2022-07-10 06:50 | NURSING ---
Pt extubated to 4 L NC @ 0635, tolerating well.
[2022-07-10 09:32] LABS: Pathologist Review Reviewed
[2022-07-10] MEDS: Menthol/Lanolin/Calamine/Znox 113 GM Tube 1 APPLIC TOPICAL ×2 (09:45→22:01)
[2022-07-10] MEDS: Ensure Plus High Protein 120 ML LIQUID PO ×4 (09:45→22:03)
[2022-07-10] MEDS: levoFLOXacin IV 750 MG/150 ML BAG 100 MG IV (09:45)
[2022-07-10] MEDS: Cholecalciferol (VIT D3) 25 MCG TABLET (1,000 UNITS) 50 MCG PO (09:46)
[2022-07-10] MEDS: Acyclovir 200 MG Capsule 400 MG PO ×2 (09:46→21:59)
--- NOTE | 2022-07-10 09:46 | CASEMGMT ---
Social Work SW attended ICU rounds. Pt's and daughter present during rounds and family confirms pt cannot return home at discharge as he will need short term SNF stay for rehab prior to return home. After rounds SW met with pt, pt's Kari and son Armando. SW discussed discharge plan and a list of SNF providers including quality and resource use data and consistent with the patient?s preferred geographic region, medical needs, and insurance network were provided from the [employer]. Pt preferred provided is [facility]. Pt is currently receiving chemo treatments and SW informed family that this will be on hold during SNF stay. Family acknowledged understanding and agreeable. Pt was diagnosed with Covid in April 2022 and most recent rapid test on 07/04 continues to be positive. FLORES spoke with Lazara in TCU and TCU is able to accept pt IF pt has two negative PCR covid tests 24 hours apart. If PCR is positive, pt cannot be accepted. SW explained this to pt and family and encouraged them to review SNF list and have two other options in the event TCU cannot accept due to positive covid test. Pt and family understanding and will review list. SW updated physician with request for PCR. Plan: TCU, pending negative covid test. GRACE Melchor
--- NOTE | 2022-07-10 11:03 | PN.HOSP_ITS ---
Subjective Subjective Patient seen and examined. Family was by his bedside. He was successfully extubated this morning to 4 L of oxygen. 2 L of oxygen at time of my review. He denied any fever, chills, palpitations, dizziness, chest pain, nausea vomiting or diarrhea. Review of systems otherwise negative. Objective Data Objective Data Vital Signs: Vital Signs Temp Pulse Resp BP Pulse Ox O2 Del Method O2 Flow Rate 98.7 F 91 19 H 113/59 L 97 Nasal Cannula 3 07/10/22 10:00 07/10/22 10:00 07/10/22 10:00 07/10/22 10:00 07/10/22 10:00 07/10/22 10:00 07/10/22 10:00 FiO2 35 07/10/22 06:00 Oxygen Flow Rate (L/min) 3 Oxygen Delivery Method Nasal Cannula Weight: 144 lb 13.499 oz Body Mass Index (BMI) 20.2 Intake & Output: Intake and Output for Last 24 Hours 07/08/22 07/09/22 07/10/22 23:59 23:59 23:59 Intake Total 3192.5 / 3192.5 2277.72 / 2303.72 1966.88 / 1966.88 Output Total 500 / 875 4700 / 4700 430 / 430 Balance 2692.5 / 2317.5 -2422.28 / -2396.28 1536.88 / 1536.88 Medical Nutrition Assessment Dietitian: Malnutrition Criteria Met Start: 07/05/22 11:59 Freq: Status: Active Protocol: Document 07/09/22 10:40 AG (Rec: 07/09/22 10:51 AG [id number]) Nutrition Malnutrition Evidence of Malnutrition Exists Yes Malnutrition (severe): Chronic Evidenced By Suboptimal Energy Intake ( Severe),Weight Loss (Severe), Physical Changes (Moderate) Clinical Problem Chronic Disease or Condition Related Malnutrition Etiology Severe protein-calorie malnutrition in the context of chronic disease related to increased energy expenditure and inadequate oral intake Signs/Symptoms as evidenced by ~15% wt loss x past 6 months, ~8-9% wt loss x past 4 months, BMI 20.0, moderate muscle/fat wasting in the clavicle, orbitals, arms, legs and face and oral intake meeting less than 50% estimated nutrition needs x past 4-6 months Status Active Problem Recommendation Dietitian Recommendations/Changes 1) NPO while intubated. 2) If pt to remain intubated, recommend enteral nutrition support via OGT- Vital AF 1.2 at goal rate of 65mL/hour w/ 100mL H2O flush every 4 hours to provide 1872 calories, 117 g protein, and 1865mL total fluid/day. Would start at 20mL /hour and increase by 15mL/ hour every 8-12 hours as tolerated until goal rate is achieved. 3) Upon extubation, continue regular diet and encourage PO at meals; magic cup BID w/ lunch and dinner; 120 ml ensure plus high protein 4 times per day w/ medpass. 4) Daily wts. Close monitoring of electrolytes. Lab / Micro Data Result Diagrams: 07/10/22 03:10 07/10/22 03:10 Labs: Laboratory Results - last 24 hr 07/07/22 13:20: Crossmatch See Detail 07/09/22 04:18: Diff Path Review Reviewed 07/09/22 04:18: Total Creatine Kinase 16 L, Triglycerides 62 07/10/22 03:10: WBC 1.7 L, RBC 2.33 L, Hgb 7.9 L, Hct 24.8 L, MCV 106.4 H, MCH 33.9 H, MCHC 31.9 L, RDW Std Deviation 58.4 H, RDW Coeff of Yao 14.9 H, Plt Count 17 L*, MPV TNP, Neut % (Auto) Not Reportable, Absolute Neuts (auto) 0.9 L, Absolute Lymphs (auto) 0.45 L, Total Counted 100, Neutrophils % (Manual) 29 L, Band Neutrophils % 25 H, Lymphocytes % (Manual) 26, Monocytes % (Manual) 3, Metamyelocytes % 3 H, Myelocytes % 14 H, Diff Path Review Reviewed, Platelet Estimate MKD DEC, Anisocytosis 1+, Macrocytosis 2+ 07/10/22 03:10: Sodium 145, Potassium 3.3 L, Chloride 103, Carbon Dioxide 38.0 H , Anion Gap 4 L, BUN 13, Creatinine 0.51 L, Estim Creat Clear Calc 60.22, Est GFR (MDRD) Af Amer 203, Est GFR (MDRD) Non-Af 168, BUN/Creatinine Ratio 25.4 H, Glucose 145 H, Calcium 8.0 L 07/10/22 03:10: Magnesium 1.8 Micro: Microbiology 07/09/22 06:52 Sputum, Induced/Lukens Gram Stain - Final 07/09/22 06:52 Sputum, Induced/Lukens Respiratory Culture - Preliminary GNR Poss Pseudomonas sp 07/04/22 18:50 Blood Culture (Wb) - Left Forearm Blood Culture - Final No growth in 5 days. 07/04/22 16:28 Blood Culture (Wb) - Right Forearm Blood Culture - Final No growth in 5 days. 07/05/22 12:15 Sputum, Expectorated/Coughed Gram Stain - Final 07/05/22 12:15 Sputum, Expectorated/Coughed Respiratory Culture - Final Pseudomonas aeroginosa 07/04/22 16:39 Urine, Clean Catch Urine Culture - Final Mixed Gram Pos & Gram Neg Org 07/05/22 03:55 Urine Catheter - Jo Legionella Antigen - Final 07/05/22 03:55 Urine Catheter - Jo Streptococcus pneumoniae Antigen (M - Final 07/04/22 18:02 Nasal Secretion SARS-CoV-2 & FLU Antigen (Rapid) - Final SARS-CoV-2 (COVID 19) Radiography Diagnostic Testing: Radiology Impression Echocardiogram 07/09/22 06:57 Interpretation Summary The left ventricular ejection fraction is 60 %. The inferior vena cava is dilated Ordering Physician: Abe Dorantes Referring Physician: CHACE LUO Performed By: Luci Stahl RDCS Physical Exam Const alert, oriented x3 and no apparent distress HEENT head/scalp atraumatic, moist oral mucous membranes and oropharynx normal Head and Scalp: normocephalic Mouth: oral and palatal mucosa normal Eyes PERRL, EOMs intact bilaterally and conjunctivae normal Neck no lymphadenopathy, supple and no JVD Resp normal respiratory effort, no retractions, no use of accessory muscles and clear to auscultation bilaterally Resp Narrative: extubated and on 2L of oxygen by nasal canula Cardio regular rate, regular rhythm, S1 normal heart sound, S2 normal heart sound and no murmurs GI normal to inspection, nondistended, normoactive bowel sounds, soft to palpation, non-tender and non-distended Extremity normal to inspection, full ROM and no clubbing, cyanosis or edema Neuro oriented x3, CN's II-XII intact bilaterally, moves all extremities and no focal motor deficits Neuro Narrative: intubated, sedated, RASS score is -4 Sensorium / Orientation: awake and alert Motor Exam: strength 5/5 throughout Psych affect normal Assessment & Plan Assessment/Plan (1) Septic shock: (2) Pneumonia: (3) Neutropenia with fever: (4) Thrombocytopenia: (5) CLL (chronic lymphocytic leukemia): PLAN: Plan #Acute hypoxic respiratory failure due to acute cardiopulmonary arrest * successfully extubated this morning * 2D echo showed EF of 60%, with normal RV and normal LV size and systolic function. Inferior vena cava dilated * titrate oxygen to maintain sats >90% * breathing treatment with bronchodilators * on IV levofloxacin, meropenem and vancomycin * repeat sputum culture ordered #Sepsis due to probable hospital acquired pneumonia * sputum cultured Pseudomonas * on IV meropenem. levofloxacin and vancomycin ordered * critical care on board. * CT of the chest showed development of more numerous infiltrates suggesting a pneumonia which may have worsened on metastatic disease which is worsened * Breathing treatments with bronchodilators. * repeat sputum culture still growing Pseudomonas * * #Pancytopenia * Likely due to chemotherapy for CLL as well as acute infection * WBC is up to 1.7 today * he received platelet transfusion yesterday. Platelets are up to 17 * oncology on board * #Neutropenic fever: As above. On acyclovir #History of CLL: On chemotherapy as above. #KAI: Resolved #Severe protein calorie malnutrition * As evidenced by approximately 15% weight loss over the last 6 months and 89% weight loss over the last 4 months. * global technical writer on board * #COPD * not in exacerbation. * breathing treatment with bronchodilators * DVT prophylaxis: SCDs Charges/Coding Visit Charges Inpatient E&M: 19042 Subs Hosp L2
[2022-07-10 12:02] LABS: M R Staph aureus DNA By PCR Negative (Negative); Probe Check PASS; Specimen Processing Control PASS
[2022-07-10] MEDS: Acetaminophen 325 MG Tablet 650 MG PO ×2 (12:20→19:02)
--- NOTE | 2022-07-10 13:02 | CHAPLAIN ---
Type of Pastoral Visit ___ Initial Visit _x__ Follow-up Visit ___ On-call Visit ___ General Patient Visit ___ Spiritual Assessment ___ Family Conference ___ Bereavement ___ Rapid Response ___ Code Blue ___ Other (describe below) Pastoral Care Referral From ___ Patient _x__ Family ___ Nurse ___ Physician ___ Silk Screen Printer Machine ___ Deckhand Maintenance ___ Other (describe below) Sacrament/Intervention _x__ Active listening ___ Anointing ___ Temple ___ Bereavement ___ Communion ___ Yanelis exploration ___ ___ Life review _x__ Prayer ___ Reconciliation ___ Sacrament of Sick ___ Supportive presence ___ Wedding ___ Other (describe below) Pastoral Comments patient is alert and able to talk after his extubation this morning; pt states I'm alive; spouse and his daughter are in the room at bedside; pt expresses thanks for being alive and for good family support; pt goal he says is to go home; pt says he has no other concerns; pt accepts prayer when offered
--- NOTE | 2022-07-10 16:11 | CASEMGMT ---
Social Work SW met with pt, pt and pt daughter. Covid PCR test is positive and notified of this and that TCU cannot accept pt. SW spoke with and next SNF choice is [facility] and pt is agreeable. SW explained Medicare Coverage of SNF and will make referral. SW requested pt review list and make third choice if [facility] is not able to accept. Phone call to [facility] and spoke with Kaitlyn and they do have beds available. Referral sent via the [facility]. SW will await determination of acceptance. Plan: [facility], pending acceptance GRACE Melchor
[2022-07-10] MEDS: Triamcinolone 0.5% Cream 1 APPLIC TOPICAL (16:54)
[2022-07-10] MEDS: oxyCODONE 5 MG Tablet PO (21:57)
[2022-07-10] MEDS: LORazepam 1 MG Tablet PO (21:58)
[2022-07-10] MEDS: Tamsulosin HCl 0.4 MG Capsule 0.8 MG PO (21:59)
[2022-07-10] MEDS: Sertraline 50 MG Tablet 25 MG PO (22:00)
[2022-07-10] MEDS: Pramipexole Di-HCl 0.5 MG Tablet PO (22:00)
[2022-07-11] VITALS (23 sets, daily range): BP systolic 94–129; BP diastolic 42–73; PULSE 78–944; RESP 12–27; TEMP 36.6–37.3; O2SAT 84–99
[2022-07-11] MEDS: Acetaminophen 325 MG Tablet 650 MG PO ×3 (04:27→20:13)
[2022-07-11] MEDS: oxyCODONE 5 MG Tablet PO ×2 (04:28→14:09)
[2022-07-11 05:02] LABS: Hematocrit 26.5 % (40-54); Hemoglobin 8.1 g/dL (13.0-16.5); Mean Corp Hgb Conc 30.6 g/dL (32-36); Mean Corpuscular Hgb 33.5 pg (27.0-32.0); Mean Corpuscular Volume 109.5 fL (80-94); POSITIVE COUNT YES; POSITIVE MORPHOLOGY YES; RBC Distribution Width CV 14.8 % (11.6-14.6); RBC Distribution Width SD 59.3 fl (35.1-43.9); Red Blood Count 2.42 M/mm3 (4.6-6.2)
[2022-07-11 05:06] LABS: Differential Indicated MANUAL DIFF
[2022-07-11 05:08] LABS: Platelet Count 17 K/mm3 (150-450)
[2022-07-11 05:13] LABS: Anion Gap 2 (5-15); BUN 18 mg/dL (7-18); BUN/Creat Ratio 46.3 RATIO (10-20); Calcium,Total 7.8 mg/dL (8.5-10.1); Chloride 104 mmol/L (98-107); Creatinine, Serum 0.39 mg/dL (0.70-1.30); EST Glomerular Filtration Rate 230 mL/min (>60); Est Glom Filt Rate - Afr Amer 278 mL/min (>60); Estimated Creatinine Clearance 61.19 ml/min; Glucose 97 mg/dL (74-106); Potassium 3.8 mmol/L (3.5-5.1); Sodium Level 145 mmol/L (136-145)
[2022-07-11] MEDS: 0.9% Saline Lock 10 ML Syringe IV (06:05)
--- NOTE | 2022-07-11 06:28 | PCM.PN.INT ---
Assessment & Plan Assessment/Plan (1) Septic shock: PLAN: Plan RECOMMENDATIONS: 1. Wean supplemental oxygen to maintain saturations at or above 90%. 2. Initiate aggressive bronchopulmonary hygiene measures. 3. BiPAP with naps and nightly. 4. Continue antimicrobials along with scheduled bronchodilators and steroids. 5. Encourage incentive spirometer use and mobilize patient as tolerated. IMPRESSIONS: 1. Acute hypoxemic respiratory failure status post cardiac arrest Improved. The patient was transferred to the ICU after sustaining a cardiac arrest during the dental mold maker hours of July 09. He does have a baseline history of gold stage III obstructive lung disease. The patient improved from a respiratory perspective with invasive mechanical ventilatory support and was able to be successfully extubated. Plan to continue antimicrobials along with bronchodilators and steroids. Will initiate aggressive bronchopulmonary hygiene maneuvers to aid in clearance of secretions. Surface echocardiogram was unrevealing. Recommend BiPAP therapy with naps and nightly. 2. GOLD stage III COPD/history of tobacco dependency/bronchiectasis Continue supportive measures as noted above, along with scheduled bronchodilators and IV steroids. 3. History of CLL with associated pancytopenia The patient has pancytopenia related to recent chemotherapy administration. Continue supportive measures as noted above. 4. Septic shock secondary to COVID-19/pseudomonal pneumonia/neutropenic fever Improved. The patient is currently hemodynamically stable and will remain on antimicrobials to address the pansensitive Pseudomonas identified on sputum culture. This note was generated with [email or web address] dictation software. It may contain incorrect words, spelling, and punctuation that were not noted in checking the note before signing. Subjective Subjective The patient was seen and examined at the bedside this morning. Events from the last 24 hours have been reviewed. The patient is currently afebrile, hemodynamically stable and maintaining appropriate oxygen saturations on 3 L/min via nasal cannula. The patient has been experiencing pain related to chest compressions, which was medically managed with oxycodone overnight. The patient remains pancytopenic with a hemoglobin of 8.1 g/dL and platelet count of 17,000. Objective Data Objective Data The patient's most recent lab work, culture data and imaging studies have all been personally reviewed. COVID rapid antigen testing was positive on July 04. Sputum culture was positive for Pseudomonas aeruginosa. Vital Signs: Vital Signs Temp Pulse Resp BP Pulse Ox O2 Del Method O2 Flow Rate 98.3 F 84 23 H 110/60 97 Nasal Cannula 3 07/11/22 06:00 07/11/22 06:00 07/11/22 06:00 07/11/22 06:00 07/11/22 06:00 07/11/22 06:00 07/11/22 06:00 FiO2 35 07/10/22 11:00 Oxygen Flow Rate (L/min) 3 Oxygen Delivery Method Nasal Cannula Weight: 149 lb 6.869 oz Body Mass Index (BMI) 20.2 Intake & Output: Intake and Output for Last 24 Hours 07/09/22 07/10/22 07/11/22 23:59 23:59 23:59 Intake Total 2277.72 / 2303.72 3254.38 / 3404.38 250 / 250 Output Total 4700 / 4700 605 / 855 600 / 600 Balance -2422.28 / -2396.28 2649.38 / 2549.38 -350 / -350 Medical Nutrition Assessment Dietitian: Malnutrition Criteria Met Start: 07/05/22 11:59 Freq: Status: Active Protocol: Document 07/10/22 11:45 AG (Rec: 07/10/22 11:45 [id number]) Nutrition Malnutrition Evidence of Malnutrition Exists Yes Malnutrition (severe): Chronic Evidenced By Suboptimal Energy Intake ( Severe),Weight Loss (Severe), Physical Changes (Moderate) Clinical Problem Chronic Disease or Condition Related Malnutrition Etiology Severe protein-calorie malnutrition in the context of chronic disease related to increased energy expenditure and inadequate oral intake Signs/Symptoms as evidenced by ~15% wt loss x past 6 months, ~8-9% wt loss x past 4 months, BMI 20.0, moderate muscle/fat wasting in the clavicle, orbitals, arms, legs and face and oral intake meeting less than 50% estimated nutrition needs x past 4-6 months Status Active Problem Recommendation Dietitian Recommendations/Changes continue regular diet (easy to chew per pt request) and encourage PO at meals; magic cup BID w/ lunch and dinner; 120 ml ensure plus high protein 4 times per day w/ medpass. Lab / Micro Data Attestation: I reviewed the patient's lab results. Result Diagrams: 07/11/22 04:45 07/11/22 04:45 Labs: Laboratory Results - last 24 hr 07/09/22 04:18: Total Creatine Kinase 16 L, Triglycerides 62 07/10/22 03:10: Diff Path Review Reviewed 07/10/22 06:53: MRSA (PCR) Negative 07/10/22 11:50: COVID-19 (NIKKO) Detected 07/11/22 04:45: WBC 4.0 L, RBC 2.42 L, Hgb 8.1 L, Hct 26.5 L, MCV 109.5 H, MCH 33.5 H, MCHC 30.6 L, RDW Std Deviation 59.3 H, RDW Coeff of Yao 14.8 H, Plt Count 17 L*, MPV TNP, Neut % (Auto) Not Reportable 07/11/22 04:45: Sodium 145, Potassium 3.8, Chloride 104, Carbon Dioxide 39.0 H, Anion Gap 2 L, BUN 18, Creatinine 0.39 L, Estim Creat Clear Calc 61.19, Est GFR (MDRD) Af Amer 278, Est GFR (MDRD) Non-Af 230, BUN/Creatinine Ratio 46.3 H, Glucose 97, Calcium 7.8 L Micro: Microbiology 07/09/22 06:52 Sputum, Induced/Lukens Gram Stain - Final 07/09/22 06:52 Sputum, Induced/Lukens Respiratory Culture - Preliminary GNR Poss Pseudomonas sp 07/04/22 18:50 Blood Culture (Wb) - Left Forearm Blood Culture - Final No growth in 5 days. 07/04/22 16:28 Blood Culture (Wb) - Right Forearm Blood Culture - Final No growth in 5 days. 07/05/22 12:15 Sputum, Expectorated/Coughed Gram Stain - Final 07/05/22 12:15 Sputum, Expectorated/Coughed Respiratory Culture - Final Pseudomonas aeroginosa 07/04/22 16:39 Urine, Clean Catch Urine Culture - Final Mixed Gram Pos & Gram Neg Org 07/05/22 03:55 Urine Catheter - Jo Legionella Antigen - Final 07/05/22 03:55 Urine Catheter - Jo Streptococcus pneumoniae Antigen (M - Final 07/04/22 18:02 Nasal Secretion SARS-CoV-2 & FLU Antigen (Rapid) - Final SARS-CoV-2 (COVID 19) ABG Data ABG results: ABG 07/09/22 07:23 Specimen Type ART Sample Site R Radial pH 7.40 Bicarbonate Actual 35.7 H Total CO2 38 Base Excess 11 H O2 Saturation 99 O2 % 60 ABG pCO2 58.2 H ABG pO2 165 H Dionicio Test Positive Respiration Rate 14 O2 Delivery Device ET Tube Vent Mode AC Tidal Volume 400 POC PEEP 5 Radiography Diagnostic Testing: Radiology Impression Chest X-Ray 07/09/22 05:47 IMPRESSION: Satisfactory ET tube position. Increased bilateral infiltrates. Electronically Signed: Na Borges MD at 6:39 EDT Reading Location ID and State: [facility] / [place] Tel , Service support , Echocardiogram 07/09/22 06:57 Interpretation Summary The left ventricular ejection fraction is 60 %. The inferior vena cava is dilated Ordering Physician: Abe Dorantes Referring Physician: CHACE LUO Performed By: Luci Stahl RDCS Physical Exam Const alert and no apparent distress General Appearance: cooperative HEENT normocephalic and head/scalp atraumatic Eyes PERRL and EOMs intact bilaterally Neck supple General: trachea midline Resp Resp Narrative: Scant rhonchi present Auscultation: diminished lung sounds Cardio regular rate, regular rhythm, S1 normal heart sound and S2 normal heart sound GI normal to inspection, nondistended, normoactive bowel sounds Extremity no clubbing, cyanosis or edema Skin no rashes or lesions noted Neuro CN's II-XII intact bilaterally, moves all extremities and no focal motor deficits Psych cooperative and affect normal Charges/Coding Visit Charges Inpatient E&M: 96316 Subs Hosp L3
[2022-07-11 06:36] LABS: Total Cells Counted 100 (MANUAL DIFF)
[2022-07-11 06:39] LABS: Lymphocyte 33 % (19-41); Metamyelocyte 5 % (0-1); Monocyte 6 % (0-10); Myelocyte 4 % (0-0); Neutrophil-Band 12 % (0-5); Neutrophil-Segmented 40 % (47-70); Platelet Estimate MKD DEC (ADEQ)
[2022-07-11 06:40] LABS: Anisocytosis 1+; Hypochromasia 2+; Macrocytosis RARE; Microcytosis RARE; Ovalocyte RARE
[2022-07-11 06:41] LABS: Absolute Neutrophil Count 2.1 X10^3/uL (2.0-7.7); Neutrophil # 2.05 X10^3/uL (2.7-7.7)
[2022-07-11] MEDS: Ipratropium/Albuterol Sulfate 3 ML AMPUL.NEB INHALATION ×3 (06:52→19:12)
[2022-07-11] MEDS: Midodrine HCl 5 MG Tablet 10 MG PO ×3 (08:13→17:38)
[2022-07-11] MEDS: Acyclovir 200 MG Capsule 400 MG PO ×2 (08:13→21:59)
[2022-07-11] MEDS: Cholecalciferol (VIT D3) 25 MCG TABLET (1,000 UNITS) 50 MCG PO (08:13)
[2022-07-11] MEDS: Menthol/Lanolin/Calamine/Znox 113 GM Tube 1 APPLIC TOPICAL ×2 (08:14→22:00)
[2022-07-11] MEDS: levoFLOXacin IV 750 MG/150 ML BAG 100 MG IV (10:09)
--- NOTE | 2022-07-11 10:35 | PN.HOSP_ITS ---
Subjective Subjective Patient seen and examined. He has no active complaints and feels better today. He wasnt able to sleep last night, and would want something to help him sleep. Review of systems is otherwise negative. Objective Data Objective Data Vital Signs: Vital Signs Temp Pulse Resp BP Pulse Ox O2 Del Method O2 Flow Rate 98.5 F 88 22 H 94/55 L 95 Nasal Cannula 3 07/11/22 09:00 07/11/22 10:00 07/11/22 10:00 07/11/22 10:00 07/11/22 10:00 07/11/22 10:00 07/11/22 10:00 FiO2 30 07/11/22 09:00 Oxygen Flow Rate (L/min) 3 Oxygen Delivery Method Nasal Cannula Weight: 149 lb 6.869 oz Body Mass Index (BMI) 20.2 Intake & Output: Intake and Output for Last 24 Hours 07/09/22 07/10/22 07/11/22 23:59 23:59 23:59 Intake Total 2277.72 / 2303.72 3254.38 / 3404.38 360 / 360 Output Total 4700 / 4700 605 / 855 600 / 600 Balance -2422.28 / -2396.28 2649.38 / 2549.38 -240 / -240 Medical Nutrition Assessment Dietitian: Malnutrition Criteria Met Start: 07/05/22 11:59 Freq: Status: Active Protocol: Document 07/11/22 09:48 (Rec: 07/11/22 09:48 [id number]) Nutrition Malnutrition Evidence of Malnutrition Exists Yes Malnutrition (severe): Chronic Evidenced By Suboptimal Energy Intake ( Severe),Weight Loss (Severe), Physical Changes (Moderate) Clinical Problem Chronic Disease or Condition Related Malnutrition Etiology Severe protein-calorie malnutrition in the context of chronic disease related to increased energy expenditure and inadequate oral intake Signs/Symptoms as evidenced by ~15% wt loss x past 6 months, ~8-9% wt loss x past 4 months, BMI 20.0, moderate muscle/fat wasting in the clavicle, orbitals, arms, legs and face and oral intake meeting less than 50% estimated nutrition needs x past 4-6 months Status Active Problem Recommendation Dietitian Recommendations/Changes NPO until WATERMELON HARVESTING SUPERVISOR eval; recommend continue regular diet (texture /consistency per WATERMELON HARVESTING SUPERVISOR); magic cup BID w/ lunch and dinner; 120 ml ensure plus high protein 4 times per day w/ medpass. Lab / Micro Data Result Diagrams: 07/11/22 04:45 07/11/22 04:45 Labs: Laboratory Results - last 24 hr 07/10/22 06:53: MRSA (PCR) Negative 07/10/22 11:50: COVID-19 (NIKKO) Detected 07/11/22 04:45: WBC 4.0 L, RBC 2.42 L, Hgb 8.1 L, Hct 26.5 L, MCV 109.5 H, MCH 33.5 H, MCHC 30.6 L, RDW Std Deviation 59.3 H, RDW Coeff of Yao 14.8 H, Plt Count 17 L*, MPV TNP, Neut % (Auto) Not Reportable, Absolute Neuts (auto) 2.1, Absolute Lymphs (auto) 1.30, Total Counted 100, Neutrophils % (Manual) 40 L, Band Neutrophils % 12 H, Lymphocytes % (Manual) 33, Monocytes % (Manual) 6, Metamyelocytes % 5 H, Myelocytes % 4 H, Diff Path Review May , Platelet Estimate MKD DEC, Hypochromasia 2+, Anisocytosis 1+, Microcytosis RARE, Macrocytosis RARE, Ovalocytes RARE 07/11/22 04:45: Sodium 145, Potassium 3.8, Chloride 104, Carbon Dioxide 39.0 H, Anion Gap 2 L, BUN 18, Creatinine 0.39 L, Estim Creat Clear Calc 61.19, Est GFR (MDRD) Af Amer 278, Est GFR (MDRD) Non-Af 230, BUN/Creatinine Ratio 46.3 H, Glucose 97, Calcium 7.8 L Micro: Microbiology 07/09/22 06:52 Sputum, Induced/Lukens Gram Stain - Final 07/09/22 06:52 Sputum, Induced/Lukens Respiratory Culture - Final Pseudomonas aeroginosa 07/04/22 18:50 Blood Culture (Wb) - Left Forearm Blood Culture - Final No growth in 5 days. 07/04/22 16:28 Blood Culture (Wb) - Right Forearm Blood Culture - Final No growth in 5 days. 07/05/22 12:15 Sputum, Expectorated/Coughed Gram Stain - Final 07/05/22 12:15 Sputum, Expectorated/Coughed Respiratory Culture - Final Pseudomonas aeroginosa 07/04/22 16:39 Urine, Clean Catch Urine Culture - Final Mixed Gram Pos & Gram Neg Org 07/05/22 03:55 Urine Catheter - Jo Legionella Antigen - Final 07/05/22 03:55 Urine Catheter - Jo Streptococcus pneumoniae Antigen (M - Final 07/04/22 18:02 Nasal Secretion SARS-CoV-2 & FLU Antigen (Rapid) - Final SARS-CoV-2 (COVID 19) Physical Exam Const alert, oriented x3 and no apparent distress Constitutional Narrative: intubated, sedated, RASS score is -4 HEENT head/scalp atraumatic, moist oral mucous membranes and oropharynx normal Head and Scalp: normocephalic Mouth: oral and palatal mucosa normal Eyes PERRL, EOMs intact bilaterally and conjunctivae normal Neck no lymphadenopathy, supple and no JVD Resp normal respiratory effort, no retractions, no use of accessory muscles and clear to auscultation bilaterally Resp Narrative: extubated and on 2L of oxygen by nasal canula Cardio regular rate, regular rhythm, S1 normal heart sound, S2 normal heart sound and no murmurs GI normal to inspection, nondistended, normoactive bowel sounds, soft to palpation, non-tender and non-distended Extremity normal to inspection, full ROM and no clubbing, cyanosis or edema Neuro oriented x3, CN's II-XII intact bilaterally, moves all extremities and no focal motor deficits Sensorium / Orientation: awake and alert Motor Exam: strength 5/5 throughout Psych affect normal Assessment & Plan Assessment/Plan (1) Septic shock: (2) Pneumonia: (3) Neutropenia with fever: (4) Thrombocytopenia: (5) CLL (chronic lymphocytic leukemia): PLAN: Plan #Acute hypoxic respiratory failure due to acute cardiopulmonary arrest * on 3L of oxygen by nasal canula * 2D echo showed EF of 60%, with normal RV and normal LV size and systolic function. Inferior vena cava dilated * titrate oxygen to maintain sats >90% * breathing treatment with bronchodilators * on IV levofloxacin, meropenem and vancomycin * repeat sputum culture growing Pseudomonas aeruginosa #Sepsis due to probable hospital acquired pneumonia * sputum cultured Pseudomonas aeruginosa * on IV meropenem. levofloxacin and vancomycin ordered * critical care on board. * CT of the chest showed development of more numerous infiltrates suggesting a pneumonia which may have worsened on metastatic disease which is worsened * Breathing treatments with bronchodilators. * repeat sputum culture still growing Pseudomonas * * #Pancytopenia * Likely due to chemotherapy for CLL as well as acute infection * WBC is up to 4 today. * he received platelet transfusion yesterday. Platelets are up to 17 * oncology on board * #Neutropenic fever: As above. On acyclovir #History of CLL: On chemotherapy as above. #KAI: Resolved #Severe protein calorie malnutrition * As evidenced by approximately 15% weight loss over the last 6 months and 89% weight loss over the last 4 months. * engineering test mechanic on board * #COPD * not in exacerbation. * breathing treatment with bronchodilators * DVT prophylaxis: SCDs Disposition: transfer to PCU Charges/Coding Visit Charges Inpatient E&M: 02303 Subs Hosp L2
--- NOTE | 2022-07-11 11:35 | CPS ---
patient unable to tolerate vest therapy at this time, PEP started
--- NOTE | 2022-07-11 12:07 | ST.MBS ---
Modified Barium Swallow - Patient Information Study Date: 07/11/22 Study Time: 13:00 Direct Billable Minutes: 115 Total Minutes procedure & reportin Diagnosis: PNA (J18.19), CLL (C91.10) Referring Physician: Sujey Baez Reason for Referral: Objectively assess swallow function, risk for aspiration, and determine recommendations for least restrictive diet textures and compensatory strategies to improve safety of swallow. Medical History: Santana Thomas is a 76-year-old male with a significant PMH of acute hypoxemic respiratory failure, asthma, chronic lymphocytic leukemia, COPD, dehydration, encounter for chemotherapy management (currently receiving chemotherapy), fatigue, fever, GERD, former smoker, hiatal hernia, hospital acquired PNA, history of SCC of skin, HTN, hypotension, PNA due to streptococcus, and PE (SEE H&P for full PMH). He presented to [facility] ED 07/04/2022 with fever and hypotension. On the day of presentation, the patient went to an infusion center to get erythrocyte stimulator shot. While at the infusion center patient was found to have hypotension and a fever of 101F. Associated symptoms were chills, fever, anorexia, abdominal pain, lower back pain. Of note patient has lost about 30 pounds in the past 6 months. He experienced code blue event on 07/09/2022 and required intubation. He was extubated 07/10/2022 and passed RN dysphagia screen; however, the patient had a suspected aspiration event on 07/11/2022 with omelet and was made NPO prior to AGILE SCRUM MASTER evaluation. The patient required BIPAP after the event for ~15 minutes per RN. BSE completed 07/11/2022 and the patient was recommended for Easy to Chew textures / Thin liquids - Direct staff supervision for meals to ensure use of aspiration precautions. Additionally, the AGILE SCRUM MASTER recommended MBSS to objectively assess AGILE SCRUM MASTER concerns for silent aspiration due to previous chest x-ray revealing bilateral infiltrate, current rhoncorous lung sounds in bilateral lower lobes, acute respiratory failure requiring intubation during this hospitalization, and hx COPD. Current Diet Ordered: Easy to Chew textures / Thin liquids Dentition: Missing Teeth - dentures not present, but being brought in by family today Mental Status: WNL Respiratory Status: Oxygenating on 4L/M nasal cannula - Penetration-Aspiration Scale Penetration-Aspiration Scale: OBJECTIVE ASSESSMENT OF SWALLOW FUNCTION (QUANTITATIVE ? PER TRIAL): PENETRATION / ASPIRATION SCALE (GHOSH): 1 = does not enter airway 2 = enters airway/above vocal folds/ejected 3 = enters airway/above vocal folds/not ejected 4 = enters airway/contacts vocal folds/ejected 5 = enters airway/contacts vocal folds/not ejected 6 = enters airway/below vocal folds/ejected 7 = enters airway/below vocal folds/not ejected despite effort 8 = enters airway/below vocal folds/no effort VIDEOFLOROSCOPIC SCALE SCORE (GHOSH): Grade I = aspiration of material that has penetrated into the laryngeal vestibule, intact cough reflex Grade II = aspiration < 10 % of the bolus, intact cough reflex Grade III = aspiration of < 10 % of the bolus, reduced cough reflex or aspiration of > 10 % of the bolus, intact cough reflex Grade IV = aspiration of > 10 % of the bolus, reduced cough reflex - Penetration-Aspiration Scale Score Thin Liquid via teaspoon Result: 1= does not enter airway Thin Liquid via teaspoon Trial 2 Result: 1= does not enter airway Thin Liquid via small single sip from cup Result: 2= enter airway/above vocal folds/ejected [place] Thick Liquid via small single sip from cup Result: 1= does not enter airway Comment: coughing after the swallow - no contrast visible in laryngeal vestibule; however, view limited due to pt's body habitus Honey Thick Liquid via small single sip from cup Result: 1= does not enter airway Pudding via teaspoon with esophageal screen Result: 1= does not enter airway 1/2 Cookie Result: 1= does not enter airway Thin Liquid via single sip from straw Result: 2= enter airway/above vocal folds/ejected Thin Liquid via sequential sips from straw Result: 3= enters airways/above vocal folds/not ejected Comment: cued cough and re-swallow after the trial Thin Liquid via small single sip from cup Trial 2 Result: 3= enters airways/above vocal folds/not ejected Thin Liquid via small single sip from cup Effortful swallow Result: 1= does not enter airway [place] Thick Liquid via small single sip from cup Trial 2 Result: 1= does not enter airway - Oral Phase Labial Seal: No Labial Escape Tongue Control During Bolus Hold: Posterior escape of less than half of bolus Bolus Preparation/Mastication: Slow prolonged chewing/mashing with complete recollection Bolus Transport/Lingual Motion: Delayed initiation of tongue motion Oral Residue: Residue collection on oral structures - Pharyngeal Phase Initiation of Pharyngeal Swallow: Bolus head in pyriforms - bolus head in laryngeal vestibule prior to swallow onset for sips by straw Soft Palate Elevation: No bolus between soft palate and pharyngeal wall Laryngeal Elevation: Partial superior movement thyroid cart/partial apprx aryt-epig petiole Anterior Hyoid Excursion: Partial anterior movement Epiglottic Movement: Complete inversion Laryngeal Vestibule Closure at Height of Swallow: Incomplete; narrow column of air/contrast in laryngeal vestibule Pharyngeal Stripping Wave: Present - diminished Tongue Base Retraction: Narrow column of contrast between tongue base & post. pharyngeal wall Pharyngeal Residue: Collection of residue within or on pharyngeal structures - Esophageal Phase Esophageal Clearance: Esophageal retention - Mild retention of pudding bolus in middle esophagus, no retrograde flow observed - Treatment Strategies Effects of treatment strategies attemped:: Effortful swallow = Effective. Cough and re-swallow = Somewhat effective. - Diagnosis/Impression Diagnosis: Mild oropharyngeal phase dysphagia (R13.12) Impression: Due to patient's body habitus, AGILE SCRUM MASTER could only view the vocal folds and trachea during the swallow. Cannot definitely rule out aspiration for the above noted trials; however, the vocal folds and airway did appear clear of contrast during each swallow. AGILE SCRUM MASTER unable to score UES opening/duration due to patient's body habitus. The oral phase is primarily marked by... -Decreased bolus control as the study progressed with premature posterior loss of thin liquid boluses consumed in the latter half of the study. With thin liquid via single straw sips, the patient experienced premature posterior loss of bolus head to the laryngeal vestibule. Pt likely had decreased bolus control as the study progressed due to fatigue. -Prolonged, but adequate mastication abilities. He would benefit from softer diet textures and use of dentures to decrease fatigue at meals. -Trace-mild oral residue after the swallow. The pharyngeal phase is primarily marked by... -Increased delay initiating the swallow with thin liquids as the study progressed. -Decreased laryngeal elevation and anterior hyoid excursion contributing to decreased airway closure during the swallow. The patient did demonstrate full epiglottic inversion throughout the study. -Mildly decreased tongue base retraction with resulting trace-mild pharyngeal residues in the vallecula after the swallow. -Laryngeal penetration of sips of thin liquids by cup and straw, which did not reliably eject from the laryngeal vestibule for thin liquid trials. He had increased penetration of thin liquids towards the end of the study, likely due to fatigue. With use of hard swallow, the patient was able to improve airway closure during the swallow with thin liquids at the end of the study. - Recommendations Diet: Thin Liquids - Soft and Bite Size textures (IDDSI Level6) Comment: Cue cough and re-swallow if wet vocal quality Compensatory Strategies: Small Bites - thoroughly chew, Small Sips - hard swallow on each sip, No Straws, Slow Rate - sips one at a time, Alternate bites/solids and sips/liquids, Sitting upright, Remain sitting upright for 30 minutes after PO intake Supervision: 1:1 Close Supervision - staff supervision for meals Recommend Repeat Modified Barium Swallow: TBD Need for Skilled Speech Therapy Services: Yes Comment: Will recommend the patient for continued dysphagia therapy at current level of care to address deficits in oropharyngeal swallow function. Will recommend the patient for oropharyngeal strengthening to improve lingual strength, laryngeal elevation, hyoid excursion, tongue base retraction, and pharyngeal contraction (lingual resistance, Luna, CTAR, Albaro). The patient would benefit from thorough education regarding diet recommendations and recommended compensatory strategies. Will recommend treating AGILE SCRUM MASTER closely monitor lung sounds. If worsening lung sounds, pulmonary status, or increased s/s of aspiration with current diet, would consider downgrade to nectar/mildly thickened liquids. Education Completed: 1. Described result of evaluation., 2. Pt understands evaluation & agrees with goals and treatment plan., 4. Family/caregivers understand evaluation & agree w/ goals & tx plan., 7. Pt requires further education on strategies & risks. Comment: Discussed results of the study with review of images and verbal discussion with pt and family (daughter, Dianna, and , Bonnie). AGILE SCRUM MASTER additionally provided written recommendations for Maty YE, to post in pt's room and to give to family. Additionally, AGILE SCRUM MASTER provided diet texture testing and preparation information via handout for family. Maty YE, to give pt's family all handouts as he was resting upon AGILE SCRUM MASTER arrival to his room. - Status Active ST Patient: Active - Contact Information [facility] Speech Therapy:: Maral Verma M.A. [facility] Speech-Language Pathologist [facility] [address] [place] [address] [email or web address] [phone] 07/11/22 12:07
--- NOTE | 2022-07-11 13:07 | CASEMGMT ---
Social Work Phone call placed to and pt has been denied admission. SW met with pt and and informed of this. states next choice is [facility]. diane Crews/maureen phlebotomist medical lab assistant, updated and to send referral to [facility]. GRACE Melchor
[2022-07-11 13:13] LABS: Pathologist Review Reviewed
--- NOTE | 2022-07-11 13:18 | CASEMGMT ---
Discharge Injury Prevention Coordinator Eleonora contreras/maureen licensed physical therapist assistant sent referral to Ina at [facility] via [facility]. Will follow up. Plan: Eleonora Samaniego Discharge Injury Prevention Coordinator
--- NOTE | 2022-07-11 15:35 | CASEMGMT ---
Discharge Management Retail Intern Ina from [facility] reached out. [facility] can accept patient when medically ready. FLORES Cid notified. Plan: [facility], When medically ready. Eleonora Samaniego Discharge Management Retail Intern
--- NOTE | 2022-07-11 17:07 | CASEMGMT ---
Social Work SW called pt and updated that [facility] can accept. asking if referral can be changed to [facility]. SW explained that [facility] would be unable to review pt at this late hour and if pt is discharged over the weekend, pt will need to go to [facility]. If pt remains in hospital over the weekend, placement can possibly be reevaluated on Thursday. understanding and agreeable. Plan: [facility], when medically ready GRACE Melchor
[2022-07-11] MEDS: Sertraline 50 MG Tablet 25 MG PO (21:59)
[2022-07-11] MEDS: Pramipexole Di-HCl 0.5 MG Tablet PO (21:59)
[2022-07-11] MEDS: LORazepam 1 MG Tablet PO (21:59)
[2022-07-11] MEDS: Tamsulosin HCl 0.4 MG Capsule 0.8 MG PO (22:00)
[2022-07-12] VITALS (24 sets, daily range): BP systolic 83–134; BP diastolic 39–69; PULSE 84–101; RESP 14–30; TEMP 36.4–37.3; O2SAT 48–100
[2022-07-12] MEDS: Potassium Chloride Oral Tablet 20 MEQ PO (01:39)
[2022-07-12] MEDS: oxyCODONE 5 MG Tablet PO (01:54)
[2022-07-12] MEDS: 0.9% Saline Lock 10 ML Syringe IV ×2 (02:03→12:19)
[2022-07-12 05:59] LABS: Hematocrit 26.3 % (40-54); Mean Corp Hgb Conc 30.4 g/dL (32-36); Mean Corpuscular Hgb 33.6 pg (27.0-32.0); Mean Corpuscular Volume 110.5 fL (80-94); Mean Platelet Vol. 12.3 fl (6.2-12.0); POSITIVE COUNT YES; POSITIVE DIFFERENTIAL YES; POSITIVE MORPHOLOGY YES; RBC Distribution Width CV 14.6 % (11.6-14.6); RBC Distribution Width SD 59.4 fl (35.1-43.9); Red Blood Count 2.38 M/mm3 (4.6-6.2); White Blood Count 2.9 K/mm3 (4.4-11.0)
[2022-07-12 06:13] LABS: Differential Indicated MANUAL DIFF
[2022-07-12 06:14] LABS: Platelet Count 11 K/mm3 (150-450)
--- NOTE | 2022-07-12 06:18 | PN.CC_ITS ---
Assessment & Plan Assessment/Plan (1) Septic shock: PLAN: Plan RECOMMENDATIONS: 1. Wean supplemental oxygen to maintain saturations at or above 90%. 2. Continue aggressive bronchopulmonary hygiene measures. 3. BiPAP with naps and nightly. 4. Continue antimicrobials along with scheduled bronchodilators and steroids. 5. Encourage incentive spirometer use and mobilize patient as tolerated. IMPRESSIONS: 1. Acute hypoxemic respiratory failure status post cardiac arrest Improved. 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 He does have a baseline history of gold stage III obstructive lung disease. The patient improved from a respiratory perspective with invasive mechanical ventilatory support and was able to be successfully extubated. Plan to continue antimicrobials along with bronchodilators and steroids. Continue aggressive bronchopulmonary hygiene ma neuvers to aid in clearance of secretions. Surface echocardiogram was unrevealing. Recommend BiPAP therapy with naps and nightly. The patient is currently maintaining appropriate oxygen saturations on his baseline requirement of 3 L/min. 2. GOLD stage III COPD/history of tobacco dependency/bronchiectasis Continue supportive measures as noted above, along with scheduled bronchodilators and IV steroids. 3. History of CLL with associated pancytopenia The patient has pancytopenia related to recent chemotherapy administration. Continue supportive measures as noted above. 4. Septic shock secondary to COVID-19/pseudomonal pneumonia/neutropenic fever Improved. The patient is currently hemodynamically stable and will remain on antimicrobials to address the pansensitive Pseudomonas identified on sputum culture. This note was generated with [employer] dictation software. It may contain incorrect words, spelling, and punctuation that were not noted in checking the note before signing. Subjective Subjective The patient was seen and examined at the bedside this morning. Events from the last 24 hours have been reviewed. The patient is currently afebrile, hemodynamically stable and maintaining appropriate oxygen saturations on 3 L/min via nasal cannula, which is his baseline oxygen requirement. The patient remains pancytopenic with a hemoglobin of 8.0 and platelet count of 11,000. He does continue to have a productive cough. Objective Data Objective Data The patient's most recent lab work, culture data and imaging studies have all been personally reviewed. COVID rapid antigen testing was positive on July 04. Sputum culture was positive for Pseudomonas aeruginosa. Vital Signs: Vital Signs Temp Pulse Resp BP Pulse Ox O2 Del Method O2 Flow Rate 97.5 F L 89 18 128/58 H 93 Nasal Cannula 3 07/12/22 06:00 07/12/22 06:00 07/12/22 06:00 07/12/22 06:00 07/12/22 06:00 07/12/22 06:00 07/12/22 06:00 FiO2 30 07/11/22 09:00 Oxygen Flow Rate (L/min) 3 Oxygen Delivery Method Nasal Cannula Weight: 149 lb 6.869 oz Body Mass Index (BMI) 20.2 Intake & Output: Intake and Output for Last 24 Hours 07/10/22 07/11/22 07/12/22 23:59 23:59 23:59 Intake Total 3254.38 / 3404.38 685 / 685 104 / 104 Output Total 605 / 855 1175 / 1175 1075 / 1075 Balance 2649.38 / 2549.38 -490 / -490 -971 / -971 Medical Nutrition Assessment Dietitian: Malnutrition Criteria Met Start: 07/05/22 11:59 Freq: Status: Active Protocol: Document 07/11/22 09:48 AG (Rec: 07/11/22 09:48 [id number]) Nutrition Malnutrition Evidence of Malnutrition Exists Yes Malnutrition (severe): Chronic Evidenced By Suboptimal Energy Intake ( Severe),Weight Loss (Severe), Physical Changes (Moderate) Clinical Problem Chronic Disease or Condition Related Malnutrition Etiology Severe protein-calorie malnutrition in the context of chronic disease related to increased energy expenditure and inadequate oral intake Signs/Symptoms as evidenced by ~15% wt loss x past 6 months, ~8-9% wt loss x past 4 months, BMI 20.0, moderate muscle/fat wasting in the clavicle, orbitals, arms, legs and face and oral intake meeting less than 50% estimated nutrition needs x past 4-6 months Status Active Problem Recommendation Dietitian Recommendations/Changes NPO until [employer]CUE eval; recommend continue regular diet (texture /consistency per [employer]OL [employer] COMBAT RESCUE); magic cup BID w/ lunch and dinner; 120 ml ensure plus high protein 4 times per day w/ medpass. Lab / Micro Data Attestation: I reviewed the patient's lab results. Result Diagrams: 07/12/22 05:10 07/12/22 05:10 Labs: Laboratory Results - last 24 hr 07/11/22 04:45: Absolute Neuts (auto) 2.1, Absolute Lymphs (auto) 1.30, Total Counted 100, Neutrophils % (Manual) 40 L, Band Neutrophils % 12 H, Lymphocytes % (Manual) 33, Monocytes % (Manual) 6, Metamyelocytes % 5 H, Myelocytes % 4 H, Diff Path Review Reviewed, Platelet Estimate MKD DEC, Hypochromasia 2+, Anisocytosis 1+, Microcytosis RARE, Macrocytosis RARE, Ovalocytes RARE 07/12/22 05:10: WBC 2.9 L, RBC 2.38 L, Hgb 8.0 L, Hct 26.3 L, MCV 110.5 H, MCH 33.6 H, MCHC 30.4 L, RDW Std Deviation 59.4 H, RDW Coeff of Yao 14.6, Plt Count 11 L*, MPV 12.3 H, Neut % (Auto) Not Reportable Micro: Microbiology 07/09/22 06:52 Sputum, Induced/Lukens Gram Stain - Final 07/09/22 06:52 Sputum, Induced/Lukens Respiratory Culture - Final Pseudomonas aeroginosa 07/04/22 18:50 Blood Culture (Wb) - Left Forearm Blood Culture - Final No growth in 5 days. 07/04/22 16:28 Blood Culture (Wb) - Right Forearm Blood Culture - Final No growth in 5 days. 07/05/22 12:15 Sputum, Expectorated/Coughed Gram Stain - Final 07/05/22 12:15 Sputum, Expectorated/Coughed Respiratory Culture - Final Pseudomonas aeroginosa 07/04/22 16:39 Urine, Clean Catch Urine Culture - Final Mixed Gram Pos & Gram Neg Org 07/05/22 03:55 Urine Catheter - Jo Legionella Antigen - Final 07/05/22 03:55 Urine Catheter - Jo Streptococcus pneumoniae Antigen (M - Final 07/04/22 18:02 Nasal Secretion SARS-CoV-2 & FLU Antigen (Rapid) - Final SARS-CoV-2 (COVID 19) ABG Data ABG results: ABG 07/09/22 07:23 Specimen Type ART Sample Site R Radial pH 7.40 Bicarbonate Actual 35.7 H Total CO2 38 Base Excess 11 H O2 Saturation 99 O2 % 60 ABG pCO2 58.2 H ABG pO2 165 H Dionicio Test Positive Respiration Rate 14 O2 Delivery Device ET Tube Vent Mode AC Tidal Volume 400 POC PEEP 5 Radiography Diagnostic Testing: Radiology Impression Chest X-Ray 07/09/22 05:47 IMPRESSION: Satisfactory ET tube position. Increased bilateral infiltrates. Electronically Signed: Na Borges MD at 6:39 EDT , Echocardiogram 07/09/22 06:57 Interpretation Summary The left ventricular ejection fraction is 60 %. The inferior vena cava is dilated Ordering Physician: Abe Dorantes Referring Physician: CHACE LUO Performed By: Luci Stahl RDCS Physical Exam Const alert and no apparent distress Constitutional Narrative: Sitting in bedside recliner. General Appearance: cooperative HEENT normocephalic and head/scalp atraumatic Eyes PERRL and EOMs intact bilaterally Neck supple General: trachea midline Resp Resp Narrative: Scant rhonchi present Auscultation: wheezes and diminished lung sounds Cardio regular rate, regular rhythm, S1 normal heart sound and S2 normal heart sound GI normal to inspection, nondistended, normoactive bowel sounds Extremity no clubbing, cyanosis or edema Skin no rashes or lesions noted Neuro CN's II-XII intact bilaterally, moves all extremities and no focal motor deficits Psych cooperative and affect normal Charges/Coding Visit Charges Inpatient E&M: 41902 Subs Hosp L2
[2022-07-12 06:45] LABS: Anion Gap 1 (5-15); BUN 12 mg/dL (7-18); Calcium,Total 7.7 mg/dL (8.5-10.1); Chloride 101 mmol/L (98-107); EST Glomerular Filtration Rate 310 mL/min (>60); Est Glom Filt Rate - Afr Amer 375 mL/min (>60); Estimated Creatinine Clearance 61.48 ml/min; Glucose 89 mg/dL (74-106); Potassium 3.9 mmol/L (3.5-5.1); Sodium Level 143 mmol/L (136-145)
[2022-07-12 06:46] LABS: Neutrophil-Segmented 66 % (47-70); Total Cells Counted 100 (MANUAL DIFF)
[2022-07-12 06:47] LABS: Lymphocyte 14 % (19-41); Metamyelocyte 3 % (0-1); Monocyte 5 % (0-10); Myelocyte 1 % (0-0); Neutrophil-Band 11 % (0-5); Platelet Estimate MKD DEC (ADEQ)
[2022-07-12 06:48] LABS: Absolute Lymphocyte Count 0.41 X10^3/uL (0.83-4.51); Absolute Neutrophil Count 2.2 X10^3/uL (2.0-7.7); Anisocytosis RARE; Hypochromasia 1+; Lymphocyte # 0.41 X10^3/ul (0.83-4.51); Microcytosis RARE; Neutrophil # 2.23 X10^3/uL (2.7-7.7); Ovalocyte RARE
[2022-07-12] MEDS: Ipratropium/Albuterol Sulfate 3 ML AMPUL.NEB INHALATION ×3 (06:56→15:01)
--- NOTE | 2022-07-12 07:36 | NURSING ---
Charting reviewed with Angela RN during shift.
--- NOTE | 2022-07-12 10:46 | PN.HOSP_ITS ---
Subjective Subjective Patient seen and examined. He had no active complaints today and had an uneventful night. He subsequently complained of some anxiety. Review of systems is otherwise negative. Objective Data Objective Data Vital Signs: Vital Signs Temp Pulse Resp BP Pulse Ox O2 Del Method O2 Flow Rate 97.5 F L 89 20 H 128/58 H 98 Nasal Cannula 3 07/12/22 06:00 07/12/22 07:04 07/12/22 06:56 07/12/22 06:00 07/12/22 06:56 07/12/22 08:43 07/12/22 08:43 FiO2 30 07/11/22 09:00 Oxygen Flow Rate (L/min) 3 Oxygen Delivery Method Nasal Cannula Weight: 150 lb 2.157 oz Body Mass Index (BMI) 20.2 Intake & Output: Intake and Output for Last 24 Hours 07/10/22 07/11/22 07/12/22 23:59 23:59 23:59 Intake Total 3254.38 / 3404.38 685 / 685 104 / 104 Output Total 605 / 855 1175 / 1175 1075 / 1075 Balance 2649.38 / 2549.38 -490 / -490 -971 / -971 Medical Nutrition Assessment Dietitian: Malnutrition Criteria Met Start: 07/05/22 11:59 Freq: Status: Active Protocol: Document 07/11/22 09:48 AG (Rec: 07/11/22 09:48 [id number]) Nutrition Malnutrition Evidence of Malnutrition Exists Yes Malnutrition (severe): Chronic Evidenced By Suboptimal Energy Intake ( Severe),Weight Loss (Severe), Physical Changes (Moderate) Clinical Problem Chronic Disease or Condition Related Malnutrition Etiology Severe protein-calorie malnutrition in the context of chronic disease related to increased energy expenditure and inadequate oral intake Signs/Symptoms as evidenced by ~15% wt loss x past 6 months, ~8-9% wt loss x past 4 months, BMI 20.0, moderate muscle/fat wasting in the clavicle, orbitals, arms, legs and face and oral intake meeting less than 50% estimated nutrition needs x past 4-6 months Status Active Problem Recommendation Dietitian Recommendations/Changes NPO until BELT REPAIRER eval; recommend continue regular diet (texture /consistency per BELT REPAIRER); magic cup BID w/ lunch and dinner; 120 ml ensure plus high protein 4 times per day w/ medpass. Lab / Micro Data Result Diagrams: 07/12/22 05:10 07/12/22 05:10 Labs: Laboratory Results - last 24 hr 07/11/22 04:45: Diff Path Review Reviewed 07/12/22 05:10: WBC 2.9 L, RBC 2.38 L, Hgb 8.0 L, Hct 26.3 L, MCV 110.5 H, MCH 33.6 H, MCHC 30.4 L, RDW Std Deviation 59.4 H, RDW Coeff of Yao 14.6, Plt Count 11 L*, MPV 12.3 H, Neut % (Auto) Not Reportable, Absolute Neuts (auto) 2.2, Absolute Lymphs (auto) 0.41 L, Total Counted 100, Neutrophils % (Manual) 66, Band Neutrophils % 11 H, Lymphocytes % (Manual) 14 L, Monocytes % (Manual) 5, Metamyelocytes % 3 H, Myelocytes % 1 H, Diff Path Review May foll, Platelet Estimate MKD DEC, Hypochromasia 1+, Anisocytosis RARE, Microcytosis RARE, Ovalocytes RARE 07/12/22 05:10: Sodium 143, Potassium 3.9, Chloride 101, Carbon Dioxide 41.0 H, Anion Gap 1 L, BUN 12, Creatinine 0.30 L, Estim Creat Clear Calc 61.48, Est GFR (MDRD) Af Amer 375, Est GFR (MDRD) Non-Af 310, BUN/Creatinine Ratio 40.0 H, Glucose 89, Calcium 7.7 L 07/12/22 07:06: Blood Type A POSITIVE, Antibody Screen NEGATIVE Micro: Microbiology 07/09/22 06:52 Sputum, Induced/Lukens Gram Stain - Final 07/09/22 06:52 Sputum, Induced/Lukens Respiratory Culture - Final Pseudomonas aeroginosa 07/04/22 18:50 Blood Culture (Wb) - Left Forearm Blood Culture - Final No growth in 5 days. 07/04/22 16:28 Blood Culture (Wb) - Right Forearm Blood Culture - Final No growth in 5 days. 07/05/22 12:15 Sputum, Expectorated/Coughed Gram Stain - Final 07/05/22 12:15 Sputum, Expectorated/Coughed Respiratory Culture - Final Pseudomonas aeroginosa 07/04/22 16:39 Urine, Clean Catch Urine Culture - Final Mixed Gram Pos & Gram Neg Org 07/05/22 03:55 Urine Catheter - Jo Legionella Antigen - Final 07/05/22 03:55 Urine Catheter - Jo Streptococcus pneumoniae Antigen (M - Final 07/04/22 18:02 Nasal Secretion SARS-CoV-2 & FLU Antigen (Rapid) - Final SARS-CoV-2 (COVID 19) Physical Exam Const alert, oriented x3 and no apparent distress HEENT head/scalp atraumatic, moist oral mucous membranes and oropharynx normal Eyes PERRL, EOMs intact bilaterally and conjunctivae normal Neck no lymphadenopathy, supple and no JVD Resp normal respiratory effort, no retractions, no use of accessory muscles and clear to auscultation bilaterally Resp Narrative: on 3L of oxygen by nasal canula Cardio regular rate, regular rhythm, S1 normal heart sound, S2 normal heart sound and no murmurs GI normal to inspection, nondistended, normoactive bowel sounds, soft to palpation, non-tender and non-distended Extremity normal to inspection, full ROM and no clubbing, cyanosis or edema Neuro oriented x3, CN's II-XII intact bilaterally, moves all extremities and no focal motor deficits Sensorium / Orientation: awake and alert Motor Exam: strength 5/5 throughout Psych affect normal Assessment & Plan Assessment/Plan (1) Septic shock: (2) Pneumonia: (3) Neutropenia with fever: (4) Thrombocytopenia: (5) CLL (chronic lymphocytic leukemia): PLAN: Plan #Acute hypoxic respiratory failure due to acute cardiopulmonary arrest * on 3L of oxygen by nasal canula * 2D echo showed EF of 60%, with normal RV and normal LV size and systolic function. Inferior vena cava dilated * titrate oxygen to maintain sats >90% * breathing treatment with bronchodilators * on IV levofloxacin, meropenem and vancomycin * repeat sputum culture growing Pseudomonas aeruginosa #Sepsis due to probable hospital acquired pneumonia * sputum cultured Pseudomonas aeruginosa * now on only IV levofloxacin. meropenem and vancomycin ordered. * critical care on board. * CT of the chest showed development of more numerous infiltrates suggesting a pneumonia which may have worsened on metastatic disease which is worsened * Breathing treatments with bronchodilators. * * #Pancytopenia * Likely due to chemotherapy for CLL as well as acute infection * WBC is 2.9 today, and Hb is 8. WBC is 11 * will transfuse with another unit of platelets today as platelets are down to 11. * oncology on board * #Neutropenic fever: As above. On acyclovir as well as IV levofloxacin #History of CLL: On chemotherapy as above. #KAI: Resolved #Severe protein calorie malnutrition * As evidenced by approximately 15% weight loss over the last 6 months and 89% weight loss over the last 4 months. * technical services specialist on board * #COPD * not in exacerbation. * breathing treatment with bronchodilators * DVT prophylaxis: SCDs Charges/Coding Visit Charges Inpatient E&M: 55614 Subs Hosp L2
[2022-07-12] MEDS: Acyclovir 200 MG Capsule 400 MG PO ×2 (10:57→20:10)
[2022-07-12] MEDS: Cholecalciferol (VIT D3) 25 MCG TABLET (1,000 UNITS) 50 MCG PO (10:57)
[2022-07-12] MEDS: Ensure Plus High Protein 120 ML LIQUID PO ×4 (10:58→20:10)
[2022-07-12] MEDS: Menthol/Lanolin/Calamine/Znox 113 GM Tube 1 APPLIC TOPICAL (10:58)
--- NOTE | 2022-07-12 12:00 | NURSING ---
Pt. SpO2 beginning to drop rapidly down to 48%. O2 increased to 15 L/M via N/C. Respirations increasing to 30. Pt. becoming cyanotic. Platelet infusion discontinued at this time. Physicians at bedside to assess pt. New orders placed. Pt. on non-rebreather and fully recovered at 100% SpO2. Alert and oriented x3 and denies any discomfort at this time. Will continue to monitor.
--- NOTE | 2022-07-12 12:10 | RAD_ITS ---
STUDY: X-RAY CHEST REASON FOR EXAM: Male, 76 years old. decreased spo2 TECHNIQUE: Single AP portable view of the chest. COMPARISON: July 09, 2022 FINDINGS: 1. Interval removal of feeding and endotracheal tubes 2. Stable right chest port and catheter 3. Interval appearance of moderate pulmonary vascular congestion and edema in the bilateral lower lobes with small bilateral pleural effusions. This has worsened since the prior study. 4. Previously seen patchy infiltrate in the medial aspect of the right upper lobe has however clear. 5. Normal heart size 6. Stable mediastinal and osseous structures 7. No pneumothorax is present There is no demonstrated abnormality of the visualized soft tissue structures of the upper abdomen. RAD/Chest 1 View (Portable) IMPRESSION: * Interval appearance of moderate pulmonary vascular congestion and edema in the bilateral lower lobes with small bilateral pleural effusions. This has worsened since the prior study. * Previously seen patchy infiltrate in the medial aspect of the right upper lobe has however clear. Electronically Signed: Guanako Moura MD at 12:38 EDT ,
--- NOTE | 2022-07-12 12:10 | CM.ED ---
SW responded to CHILD PSYCHOMETRIST for patient. Support given to patient's and daughter. SW remains available. No further issues or concerns voiced at this time. Sveta RICHMOND
[2022-07-12] MEDS: Furosemide 40 MG/4 ML Vial IV ×2 (12:17→17:36)
[2022-07-12] MEDS: levoFLOXacin IV 750 MG/150 ML BAG 100 MG IV (12:19)
[2022-07-12 12:45] LABS: Bedside Glucose 120 mg/dL (74-106)
[2022-07-12 13:13] LABS: Hematocrit 29.4 % (40-54); Hemoglobin 9.2 g/dL (13.0-16.5); Mean Corp Hgb Conc 31.3 g/dL (32-36); Mean Corpuscular Hgb 34.8 pg (27.0-32.0); Mean Corpuscular Volume 111.4 fL (80-94); Mean Platelet Vol. 12.1 fl (6.2-12.0); POSITIVE COUNT YES; POSITIVE MORPHOLOGY YES; Platelet Count 27 K/mm3 (150-450); RBC Distribution Width CV 14.6 % (11.6-14.6); RBC Distribution Width SD 60.8 fl (35.1-43.9); Red Blood Count 2.64 M/mm3 (4.6-6.2); White Blood Count 3.3 K/mm3 (4.4-11.0)
[2022-07-12 13:15] LABS: Differential Indicated MANUAL DIFF
[2022-07-12 13:35] LABS: Lymphocyte 32 % (19-41); Metamyelocyte 4 % (0-1); Neutrophil-Band 12 % (0-5); Neutrophil-Segmented 52 % (47-70); Total Cells Counted 100 (MANUAL DIFF)
[2022-07-12 13:36] LABS: Hypochromasia 1+; Platelet Estimate MKD DEC (ADEQ); Red Cell Morphology N CYTIC NORMAL (NORM C&C)
[2022-07-12 13:37] LABS: Absolute Lymphocyte Count 1.05 X10^3/uL (0.83-4.51); Absolute Neutrophil Count 2.1 X10^3/uL (2.0-7.7); Lymphocyte # 1.05 X10^3/ul (0.83-4.51)
[2022-07-12] MEDS: Tamsulosin HCl 0.4 MG Capsule 0.8 MG PO (20:11)
[2022-07-12] MEDS: Sertraline 50 MG Tablet 25 MG PO (20:11)
[2022-07-12] MEDS: LORazepam 1 MG Tablet PO (20:11)
[2022-07-12] MEDS: Pramipexole Di-HCl 0.5 MG Tablet PO (20:12)
[2022-07-12] MEDS: Acetaminophen 325 MG Tablet 650 MG PO (22:26)
[2022-07-12] MEDS: MELATONIN 3 MG TABLET PO (23:37)
[2022-07-13] VITALS (14 sets, daily range): BP systolic 102–155; BP diastolic 46–71; PULSE 80–95; RESP 16–22; TEMP 36.4–36.7; O2SAT 94–97
[2022-07-13] MEDS: Ipratropium/Albuterol Sulfate 3 ML AMPUL.NEB INHALATION ×3 (06:41→15:03)
[2022-07-13 07:06] LABS: Hemoglobin 8.9 g/dL (13.0-16.5); Mean Corp Hgb Conc 31.8 g/dL (32-36); Mean Corpuscular Hgb 34.6 pg (27.0-32.0); Mean Corpuscular Volume 108.9 fL (80-94); Mean Platelet Vol. 11.9 fl (6.2-12.0); POSITIVE COUNT YES; POSITIVE DIFFERENTIAL YES; POSITIVE MORPHOLOGY YES; RBC Distribution Width CV 14.5 % (11.6-14.6); RBC Distribution Width SD 57.9 fl (35.1-43.9); Red Blood Count 2.57 M/mm3 (4.6-6.2); White Blood Count 1.6 K/mm3 (4.4-11.0)
[2022-07-13 07:22] LABS: Anion Gap 2 (5-15); BUN 11 mg/dL (7-18); BUN/Creat Ratio 34.6 RATIO (10-20); Calcium,Total 8.1 mg/dL (8.5-10.1); Chloride 96 mmol/L (98-107); Creatinine, Serum 0.32 mg/dL (0.70-1.30); EST Glomerular Filtration Rate 290 mL/min (>60); Est Glom Filt Rate - Afr Amer 351 mL/min (>60); Estimated Creatinine Clearance 55.43 ml/min; Glucose 100 mg/dL (74-106); Potassium 3.5 mmol/L (3.5-5.1); Sodium Level 140 mmol/L (136-145)
[2022-07-13] MEDS: oxyCODONE 5 MG Tablet PO (07:57)
[2022-07-13] MEDS: Acetaminophen 325 MG Tablet 650 MG PO ×3 (07:57→23:01)
[2022-07-13 08:12] LABS: Differential Indicated MANUAL DIFF; Platelet Count 19 K/mm3 (150-450)
[2022-07-13] MEDS: Ensure Plus High Protein 120 ML LIQUID PO ×3 (09:43→22:55)
[2022-07-13] MEDS: Cholecalciferol (VIT D3) 25 MCG TABLET (1,000 UNITS) 50 MCG PO (09:43)
[2022-07-13] MEDS: Acyclovir 200 MG Capsule 400 MG PO ×2 (09:43→22:57)
[2022-07-13] MEDS: Menthol/Lanolin/Calamine/Znox 113 GM Tube 1 APPLIC TOPICAL ×2 (09:45→22:55)
[2022-07-13] MEDS: levoFLOXacin IV 750 MG/150 ML BAG 100 MG IV (09:46)
[2022-07-13] MEDS: 0.9% Saline Lock 10 ML Syringe IV ×2 (09:46→17:04)
[2022-07-13] MEDS: Furosemide 40 MG/4 ML Vial IV ×2 (09:47→17:04)
[2022-07-13 10:27] LABS: Lymphocyte 25 % (19-41); Monocyte 5 % (0-10); Myelocyte 1 % (0-0); Neutrophil-Band 12 % (0-5); Neutrophil-Segmented 57 % (47-70); Total Cells Counted 100 (MANUAL DIFF)
[2022-07-13 10:29] LABS: Anisocytosis 2+; Macrocytosis 1+; Microcytosis 1+; Platelet Estimate MKD DEC (ADEQ)
[2022-07-13 10:31] LABS: Absolute Neutrophil Count 1.1 X10^3/uL (2.0-7.7)
[2022-07-13] MEDS: LORazepam 1 MG Tablet PO ×2 (10:39→17:46)
--- NOTE | 2022-07-13 13:12 | PN.HOSP_ITS ---
Subjective Subjective Patient seen and examined. He has no active complaints this morning. Patient received platelets yesterday but after the second unit was started, he became acutely short of breath and required oxygen up to 15 L of oxygen. Rapid response was called. His blood pressure also dropped transiently. Chest x-ray done showed evidence of fluid overload so he was diuresed with IV Lasix. He is feeling better today. He was on 4 L of oxygen at time of review. He is still coughing and sounds quite wet. Objective Data Objective Data Vital Signs: Vital Signs Temp Pulse Resp BP Pulse Ox O2 Del Method O2 Flow Rate 98.1 F 89 18 102/46 L 94 High Flow 4 07/13/22 12:00 07/13/22 12:00 07/13/22 12:00 07/13/22 12:00 07/13/22 12:00 07/13/22 12:00 07/13/22 12:00 FiO2 30 07/11/22 09:00 Oxygen Flow Rate (L/min) 4 Oxygen Delivery Method High Flow Weight: 135 lb 5.821 oz Body Mass Index (BMI) 20.2 Intake & Output: Intake and Output for Last 24 Hours 07/11/22 07/12/22 07/13/22 23:59 23:59 23:59 Intake Total 685 / 685 1570.5 / 1870.5 960 / 960 Output Total 1175 / 1175 3975 / 5375 3700 / 3700 Balance -490 / -490 -2404.5 / -3504.5 -2740 / -2740 Medical Nutrition Assessment Dietitian: Malnutrition Criteria Met Start: 07/05/22 11:59 Freq: Status: Active Protocol: Document 07/11/22 09:48 AG (Rec: 07/11/22 09:48 [id number]) Nutrition Malnutrition Evidence of Malnutrition Exists Yes Malnutrition (severe): Chronic Evidenced By Suboptimal Energy Intake ( Severe),Weight Loss (Severe), Physical Changes (Moderate) Clinical Problem Chronic Disease or Condition Related Malnutrition Etiology Severe protein-calorie malnutrition in the context of chronic disease related to increased energy expenditure and inadequate oral intake Signs/Symptoms as evidenced by ~15% wt loss x past 6 months, ~8-9% wt loss x past 4 months, BMI 20.0, moderate muscle/fat wasting in the clavicle, orbitals, arms, legs and face and oral intake meeting less than 50% estimated nutrition needs x past 4-6 months Status Active Problem Recommendation Dietitian Recommendations/Changes NPO until MEDICAL ONCOLOGY PHYSICIAN eval; recommend continue regular diet (texture /consistency per MEDICAL ONCOLOGY PHYSICIAN); magic cup BID w/ lunch and dinner; 120 ml ensure plus high protein 4 times per day w/ medpass. Lab / Micro Data Result Diagrams: 07/13/22 05:45 07/13/22 05:45 Labs: Laboratory Results - last 24 hr 07/12/22 12:50: WBC 3.3 L, RBC 2.64 L, Hgb 9.2 L, Hct 29.4 L, MCV 111.4 H, MCH 34.8 H, MCHC 31.3 L, RDW Std Deviation 60.8 H, RDW Coeff of Yao 14.6, Plt Count 27 L*, MPV 12.1 H, Neut % (Auto) Not Reportable, Absolute Neuts (auto) 2.1, Absolute Lymphs (auto) 1.05, Total Counted 100, Neutrophils % (Manual) 52, Band Neutrophils % 12 H, Lymphocytes % (Manual) 32, Metamyelocytes % 4 H, Diff Path Review May caroline Platelet Estimate MKD DEC, RBC Morphology N CYTIC, Hypochromasia 1+ 07/13/22 05:45: WBC 1.6 L, RBC 2.57 L, Hgb 8.9 L, Hct 28.0 L, MCV 108.9 H, MCH 34.6 H, MCHC 31.8 L, RDW Std Deviation 57.9 H, RDW Coeff of Yao 14.5, Plt Count 19 L*, MPV 11.9, Neut % (Auto) Not Reportable, Absolute Neuts (auto) 1.1 L, Absolute Lymphs (auto) 0.40 L, Total Counted 100, Neutrophils % (Manual) 57, Band Neutrophils % 12 H, Lymphocytes % (Manual) 25, Monocytes % (Manual) 5, Myelocytes % 1 H, Diff Path Review May caroline Platelet Estimate MKD DEC, Anisocytosis 2+, Microcytosis 1+, Macrocytosis 1+ 07/13/22 05:45: Sodium 140, Potassium 3.5, Chloride 96 L, Carbon Dioxide 42.0 H, Anion Gap 2 L, BUN 11, Creatinine 0.32 L, Estim Creat Clear Calc 55.43, Est GFR (MDRD) Af Amer 351, Est GFR (MDRD) Non-Af 290, BUN/Creatinine Ratio 34.6 H, Glucose 100, Calcium 8.1 L Micro: Microbiology 07/09/22 06:52 Sputum, Induced/Lukens Gram Stain - Final 07/09/22 06:52 Sputum, Induced/Lukens Respiratory Culture - Final Pseudomonas aeroginosa 07/04/22 18:50 Blood Culture (Wb) - Left Forearm Blood Culture - Final No growth in 5 days. 07/04/22 16:28 Blood Culture (Wb) - Right Forearm Blood Culture - Final No growth in 5 days. 07/05/22 12:15 Sputum, Expectorated/Coughed Gram Stain - Final 07/05/22 12:15 Sputum, Expectorated/Coughed Respiratory Culture - Final Pseudomonas aeroginosa 07/04/22 16:39 Urine, Clean Catch Urine Culture - Final Mixed Gram Pos & Gram Neg Org 07/05/22 03:55 Urine Catheter - Jo Legionella Antigen - Final 07/05/22 03:55 Urine Catheter - Jo Streptococcus pneumoniae Antigen (M - Final 07/04/22 18:02 Nasal Secretion SARS-CoV-2 & FLU Antigen (Rapid) - Final SARS-CoV-2 (COVID 19) Physical Exam Const alert, oriented x3 and no apparent distress HEENT head/scalp atraumatic, moist oral mucous membranes and oropharynx normal Head and Scalp: normocephalic Mouth: oral and palatal mucosa normal Eyes PERRL, EOMs intact bilaterally and conjunctivae normal Neck no lymphadenopathy, supple and no JVD Resp normal respiratory effort, no retractions and no use of accessory muscles Resp Narrative: on 4L of oxygen by nasal canula. bilateral coarse crackles. Cardio regular rate, regular rhythm, S1 normal heart sound, S2 normal heart sound and no murmurs GI normal to inspection, nondistended, normoactive bowel sounds, soft to palpation, non-tender and non-distended Extremity normal to inspection, full ROM and no clubbing, cyanosis or edema Neuro oriented x3, CN's II-XII intact bilaterally, moves all extremities and no focal motor deficits Sensorium / Orientation: awake and alert Motor Exam: strength 5/5 throughout Psych affect normal Assessment & Plan Assessment/Plan (1) Septic shock: (2) Pneumonia: (3) Neutropenia with fever: (4) Thrombocytopenia: (5) CLL (chronic lymphocytic leukemia): PLAN: Plan #Acute hypoxic respiratory failure due to acute cardiopulmonary arrest and hospital acquired pneumonia * on 4L of oxygen by nasal canula * 2D echo showed EF of 60%, with normal RV and normal LV size and systolic function. Inferior vena cava dilated * titrate oxygen to maintain sats >90% * breathing treatment with bronchodilators * on IV levofloxacin, meropenem and vancomycin * repeat sputum culture growing Pseudomonas aeruginosa * on IV furosemide 40mg bid due to fluid overload; diuresed ~ 4L over last 24 hours #Sepsis due to probable hospital acquired pneumonia * sputum cultured Pseudomonas aeruginosa * now on only IV levofloxacin. * critical care on board. * CT of the chest showed development of more numerous infiltrates suggesting a pneumonia which may have worsened on metastatic disease which is worsened * Breathing treatments with bronchodilators. * * #Pancytopenia * Likely due to chemotherapy for CLL as well as acute infection * WBC is 1.6 today, and Hb is 8.9. platelets are 19. * s/p transfusion of platelets * oncology on board * #Neutropenic fever: As above. On acyclovir as well as IV levofloxacin #History of CLL: On chemotherapy as above. #KAI: Resolved #Severe protein calorie malnutrition * As evidenced by approximately 15% weight loss over the last 6 months and 89% weight loss over the last 4 months. * associate programmer analyst on board * #COPD * not in exacerbation. * breathing treatment with bronchodilators * DVT prophylaxis: SCDs Charges/Coding Visit Charges Inpatient E&M: 27077 Subs Hosp L2
[2022-07-13] MEDS: Tamsulosin HCl 0.4 MG Capsule 0.8 MG PO (22:55)
[2022-07-13] MEDS: Sertraline 50 MG Tablet 25 MG PO (22:56)
[2022-07-13] MEDS: Pramipexole Di-HCl 0.5 MG Tablet PO (22:56)
[2022-07-14] VITALS (16 sets, daily range): BP systolic 98–111; BP diastolic 38–62; PULSE 85–95; RESP 18–22; TEMP 36.4–36.9; O2SAT 94–100
[2022-07-14] MEDS: LORazepam 1 MG Tablet PO ×3 (03:10→22:13)
[2022-07-14 05:48] LABS: Absolute Lymphocyte Count 0.51 X10^3/uL (0.83-4.51); Absolute Neutrophil Count 1.1 X10^3/uL (2.0-7.7); Basophil# 0.01 X10^3/uL; Basophil% 0.6 % (0-1); Eosinophil# 0.02 X10^3/uL; Eosinophils% 1.2 % (0-5); Hematocrit 26.6 % (40-54); Hemoglobin 8.4 g/dL (13.0-16.5); Lymphocyte # 0.51 X10^3/ul (0.83-4.51); Mean Corp Hgb Conc 31.6 g/dL (32-36); Mean Corpuscular Volume 107.7 fL (80-94); Mean Platelet Vol. 11.8 fl (6.2-12.0); Monocyte# 0.06 X10^3/uL; Monocyte% 3.5 % (0-10); NRBC Flagged by Analyzer 0 % (0-5); Neutrophil # 1.06 X10^3/uL (2.7-7.7); Neutrophil % 62.3 % (47-70); POSITIVE COUNT YES; POSITIVE DIFFERENTIAL YES; POSITIVE MORPHOLOGY YES; Platelet Count 20 K/mm3 (150-450); RBC Distribution Width CV 14.2 % (11.6-14.6); RBC Distribution Width SD 56.9 fl (35.1-43.9); Red Blood Count 2.47 M/mm3 (4.6-6.2); White Blood Count 1.7 K/mm3 (4.4-11.0)
[2022-07-14 05:51] LABS: Differential Indicated SCAN CRITERIA MET
[2022-07-14 06:14] LABS: Anion Gap 3 (5-15); BUN 15 mg/dL (7-18); BUN/Creat Ratio 39.8 RATIO (10-20); Calcium,Total 8.3 mg/dL (8.5-10.1); Chloride 93 mmol/L (98-107); Creatinine, Serum 0.38 mg/dL (0.70-1.30); EST Glomerular Filtration Rate 238 mL/min (>60); Est Glom Filt Rate - Afr Amer 288 mL/min (>60); Glucose 102 mg/dL (74-106); Potassium 3.3 mmol/L (3.5-5.1); Sodium Level 140 mmol/L (136-145)
[2022-07-14 06:58] LABS: Macrocytosis 2+; Platelet Estimate MKD DEC (ADEQ)
[2022-07-14 06:59] LABS: Ovalocyte RARE
[2022-07-14] MEDS: Acetaminophen 325 MG Tablet 650 MG PO ×2 (09:21→17:24)
[2022-07-14] MEDS: Midodrine HCl 5 MG Tablet 10 MG PO ×3 (09:22→17:12)
[2022-07-14] MEDS: Menthol/Lanolin/Calamine/Znox 113 GM Tube 1 APPLIC TOPICAL ×2 (09:23→22:14)
[2022-07-14] MEDS: Ensure Plus High Protein 120 ML LIQUID PO ×4 (09:23→22:07)
[2022-07-14] MEDS: Furosemide 40 MG/4 ML Vial IV ×2 (09:24→17:13)
[2022-07-14] MEDS: Acyclovir 200 MG Capsule 400 MG PO ×2 (09:24→22:11)
[2022-07-14] MEDS: Cholecalciferol (VIT D3) 25 MCG TABLET (1,000 UNITS) 50 MCG PO (09:24)
[2022-07-14] MEDS: 0.9% Saline Lock 10 ML Syringe IV ×2 (09:25→17:12)
--- NOTE | 2022-07-14 09:29 | PN.CC_ITS ---
Assessment & Plan Assessment/Plan (1) Septic shock: PLAN: Plan RECOMMENDATIONS: 1. Wean supplemental oxygen to maintain saturations at or above 90%. 2. Continue aggressive bronchopulmonary hygiene measures. 3. BiPAP with naps and nightly. 4. Continue antimicrobials along with scheduled bronchodilators and steroids. 5. Encourage incentive spirometer use and mobilize patient as tolerated. 6. Dietary advancement per speech therapy recommendations. IMPRESSIONS: 1. Acute hypoxemic respiratory failure status post cardiac arrest Improved. The patient was transferred to the ICU after sustaining a cardiac arrest during the [employer] hours of July 09. He does have a baseline history of gold stage III obstructive lung disease. The patient improved from a respiratory perspective with invasive mechanical ventilatory support and was able to be successfully extubated. Plan to continue antimicrobials along with bronchodilators and steroids. Continue aggressive bronchopulmonary hygiene maneuvers to aid in clearance of secretions. Surface echocardiogram was unrevealing. Recommend BiPAP therapy with naps and nightly. The patient is currently maintaining appropriate oxygen saturations on his baseline requirement of 3 L/min. 2. GOLD stage III COPD/history of tobacco dependency/bronchiectasis Continue supportive measures as noted above, along with scheduled bronchodilators and IV steroids. 3. History of CLL with associated pancytopenia The patient has pancytopenia related to recent chemotherapy administration. Continue supportive measures as noted above. 4. Septic shock secondary to COVID-19/pseudomonal pneumonia/neutropenic fever Improved. The patient is currently hemodynamically stable and will remain on antimicrobials to address the pansensitive Pseudomonas identified on sputum culture. This note was generated with [employer] dictation software. It may contain incorrect words, spelling, and punctuation that were not noted in checking the note before signing. Subjective Subjective The patient was seen and examined at the bedside this morning. Events from the last 24 hours have been reviewed. The patient is currently afebrile, hemodynamically stable and maintaining appropriate oxygen saturations on 6 L/min via nasal cannula. The patient is documented to be overall net +2 L for the hospitalization. The patient remains pancytopenic. Potassium is low this morning at 3.3. The patient remains on a modified diet with speech therapy following. Objective Data Objective Data The patient's most recent lab work, culture data and imaging studies have all been personally reviewed. COVID rapid antigen testing was positive on July 04. Sputum culture was positive for Pseudomonas aeruginosa. Vital Signs: Vital Signs Temp Pulse Resp BP Pulse Ox O2 Del Method O2 Flow Rate 97.8 F 88 18 103/47 L 100 Nasal Cannula 6 07/14/22 09:07 07/14/22 09:07 07/14/22 09:07 07/14/22 09:07 07/14/22 09:07 07/14/22 09:07 07/14/22 09:07 FiO2 30 07/11/22 09:00 Oxygen Flow Rate (L/min) 6 Oxygen Delivery Method Nasal Cannula Weight: 129 lb 3.054 oz Body Mass Index (BMI) 20.2 Intake & Output: Intake and Output for Last 24 Hours 07/12/22 07/13/22 07/14/22 23:59 23:59 23:59 Intake Total 1570.5 / 1870.5 1360 / 1560 200 / 200 Output Total 3975 / 5375 5050 / 5775 1025 / 1025 Balance -2404.5 / -3504.5 -3690 / -4215 -825 / -825 Medical Nutrition Assessment Dietitian: Malnutrition Criteria Met Start: 07/05/22 11:59 Freq: Status: Active Protocol: Document 07/11/22 09:48 AG (Rec: 07/11/22 09:48 AG [id number]) Nutrition Malnutrition Evidence of Malnutrition Exists Yes Malnutrition (severe): Chronic Evidenced By Suboptimal Energy Intake ( Severe),Weight Loss (Severe), Physical Changes (Moderate) Clinical Problem Chronic Disease or Condition Related Malnutrition Etiology Severe protein-calorie malnutrition in the context of chronic disease related to increased energy expenditure and inadequate oral intake Signs/Symptoms as evidenced by ~15% wt loss x past 6 months, ~8-9% wt loss x past 4 months, BMI 20.0, moderate muscle/fat wasting in the clavicle, orbitals, arms, legs and face and oral intake meeting less than 50% estimated nutrition needs x past 4-6 months Status Active Problem Recommendation Dietitian Recommendations/Changes NPO until TECHNOLOGY SALES CONSULTANT eval; recommend continue regular diet (texture /consistency per TECHNOLOGY SALES CONSULTANT); magic cup BID w/ lunch and dinner; 120 ml ensure plus high protein 4 times per day w/ medpass. Lab / Micro Data Attestation: I reviewed the patient's lab results. Result Diagrams: 07/14/22 05:26 07/14/22 05:26 Labs: Laboratory Results - last 24 hr 07/13/22 05:45: Absolute Neuts (auto) 1.1 L, Absolute Lymphs (auto) 0.40 L, Total Counted 100, Neutrophils % (Manual) 57, Band Neutrophils % 12 H, Lymphocytes % (Manual) 25, Monocytes % (Manual) 5, Myelocytes % 1 H, Diff Path Review May foll, Platelet Estimate MKD DEC, Anisocytosis 2+, Microcytosis 1+, Macrocytosis 1+ 07/14/22 05:26: WBC 1.7 L, RBC 2.47 L, Hgb 8.4 L, Hct 26.6 L, MCV 107.7 H, MCH 34.0 H, MCHC 31.6 L, RDW Std Deviation 56.9 H, RDW Coeff of Yao 14.2, Plt Count 20 L*, MPV 11.8, Immature Gran % (Auto) 2.400 H, Neut % (Auto) 62.3, Lymph % (Auto) 30.0, Garfield % (Auto) 3.5, Eos % (Auto) 1.2, Baso % (Auto) 0.6, Absolute Neuts (auto) 1.1 L, Absolute Lymphs (auto) 0.51 L, Nucleated RBC % 0, Diff Path Review May caroline, Platelet Estimate MKD DEC, Macrocytosis 2+, Ovalocytes RARE 07/14/22 05:26: Sodium 140, Potassium 3.3 L, Chloride 93 L, Carbon Dioxide 44.0 H, Anion Gap 3 L, BUN 15, Creatinine 0.38 L, Estim Creat Clear Calc 52.90, Est GFR (MDRD) Af Amer 288, Est GFR (MDRD) Non-Af 238, BUN/Creatinine Ratio 39.8 H, Glucose 102, Calcium 8.3 L Micro: Microbiology 07/09/22 06:52 Sputum, Induced/Lukens Gram Stain - Final 07/09/22 06:52 Sputum, Induced/Lukens Respiratory Culture - Final Pseudomonas aeroginosa 07/04/22 18:50 Blood Culture (Wb) - Left Forearm Blood Culture - Final No growth in 5 days. 07/04/22 16:28 Blood Culture (Wb) - Right Forearm Blood Culture - Final No growth in 5 days. 07/05/22 12:15 Sputum, Expectorated/Coughed Gram Stain - Final 07/05/22 12:15 Sputum, Expectorated/Coughed Respiratory Culture - Final Pseudomonas aeroginosa 07/04/22 16:39 Urine, Clean Catch Urine Culture - Final Mixed Gram Pos & Gram Neg Org 07/05/22 03:55 Urine Catheter - Jo Legionella Antigen - Final 07/05/22 03:55 Urine Catheter - Jo Streptococcus pneumoniae Antigen (M - Final 07/04/22 18:02 Nasal Secretion SARS-CoV-2 & FLU Antigen (Rapid) - Final SARS-CoV-2 (COVID 19) ABG Data ABG results: ABG 07/09/22 07:23 Specimen Type ART Sample Site R Radial pH 7.40 Bicarbonate Actual 35.7 H Total CO2 38 Base Excess 11 H O2 Saturation 99 O2 % 60 ABG pCO2 58.2 H ABG pO2 165 H Dionicio Test Positive Respiration Rate 14 O2 Delivery Device ET Tube Vent Mode AC Tidal Volume 400 POC PEEP 5 Radiography Diagnostic Testing: Radiology Impression Chest X-Ray 07/09/22 05:47 IMPRESSION: Satisfactory ET tube position. Increased bilateral infiltrates. Electronically Signed: Na Borges MD at 6:39 EDT , Echocardiogram 07/09/22 06:57 Interpretation Summary The left ventricular ejection fraction is 60 %. The inferior vena cava is dilated Ordering Physician: Abe Dorantes Referring Physician: CHACE LUO Performed By: Luci Stahl RDCS Physical Exam Const alert and no apparent distress Constitutional Narrative: Sitting in bedside recliner. General Appearance: cooperative and frail HEENT normocephalic and head/scalp atraumatic Eyes PERRL and EOMs intact bilaterally Neck supple General: trachea midline Chest inspection of chest normal Resp Auscultation: wheezes and diminished lung sounds Cardio regular rate, regular rhythm, S1 normal heart sound and S2 normal heart sound GI normal to inspection, nondistended, normoactive bowel sounds Extremity no clubbing, cyanosis or edema Skin no rashes or lesions noted Neuro CN's II-XII intact bilaterally, moves all extremities and no focal motor deficits Psych Mood & Affect: flat affect Charges/Coding Visit Charges Inpatient E&M: 44671 Subs Hosp L2
--- NOTE | 2022-07-14 10:23 | CASEMGMT ---
FLORES spoke with patient's Kari. Introduced self and role at [facility]. FLORES asked Kari if she would like FLORES to make a referral to [facility] still. Kari said she is going to stick with [facility]. Eden Engle NEUROLOGY STROKE PHYSICIAN ALEX
[2022-07-14] MEDS: levoFLOXacin IV 750 MG/150 ML BAG 100 MG IV (11:15)
[2022-07-14] MEDS: Potassium Chloride Oral Tablet 20 MEQ PO (11:16)
[2022-07-14 13:30] LABS: Pathologist Review Reviewed
[2022-07-14 13:30] LABS: Pathologist Review Reviewed
[2022-07-14 13:30] LABS: Pathologist Review Reviewed
[2022-07-14 13:30] LABS: Pathologist Review Reviewed
--- NOTE | 2022-07-14 15:30 | CASEMGMT ---
Casie at [facility] aware that plan is for pt to d/c to [facility] when medically ready. Merry YE CM
--- NOTE | 2022-07-14 17:26 | PN.HOSP_ITS ---
Subjective Subjective DOS 07/14/22 CC: Feeling weak Today Mr. Thomas reports feeling week and in the AM he reported feeling somewhat worse than he had been. Breathing roughly the same. Some productive cough, stuffy nose with the OD. Jo got tugged on and some subsequent blood. Slight CP when coughing where ribs hurt, poor PO intake, denies abdominal pain, no change in BM reported Objective Data Objective Data Vital Signs: Vital Signs Temp Pulse Resp BP Pulse Ox O2 Del Method O2 Flow Rate 98 F 93 18 111/38 L 96 Nasal Cannula 3 07/14/22 17:00 07/14/22 17:00 07/14/22 17:00 07/14/22 17:00 07/14/22 17:00 07/14/22 17:00 07/14/22 17:00 FiO2 30 07/11/22 09:00 Oxygen Flow Rate (L/min) 3 Oxygen Delivery Method Nasal Cannula Weight: 58.6 kg Body Mass Index (BMI) 20.2 Intake & Output: Intake and Output for Last 24 Hours 07/12/22 07/13/22 07/14/22 23:59 23:59 23:59 Intake Total 1570.5 / 1870.5 1360 / 1560 860 / 860 Output Total 3975 / 5375 5050 / 5775 1575 / 1575 Balance -2404.5 / -3504.5 -3690 / -4215 -715 / -715 Medical Nutrition Assessment Dietitian: Malnutrition Criteria Met Start: 07/05/22 11:59 Freq: Status: Active Protocol: Document 07/14/22 15:08 (Rec: 07/14/22 15:09 [id number]) Nutrition Malnutrition Evidence of Malnutrition Exists Yes Malnutrition (severe): Chronic Evidenced By Suboptimal Energy Intake ( Severe),Weight Loss (Severe), Physical Changes (Moderate) Clinical Problem Chronic Disease or Condition Related Malnutrition Etiology Severe protein-calorie malnutrition in the context of chronic disease related to increased energy expenditure and inadequate oral intake Signs/Symptoms as evidenced by ~15% wt loss x past 6 months, ~8-9% wt loss x past 4 months, BMI 19.1, moderate muscle/fat wasting in the clavicle, orbitals, arms, legs and face and oral intake meeting less than 50% estimated nutrition needs x past 4-6 months Status Active Problem Recommendation Dietitian Recommendations/Changes continue regular diet (texture /consistency per FLORICULTURE TEACHER); magic cup BID w/ lunch and dinner; 120 ml ensure plus high protein 4 times per day w/ medpass. Lab / Micro Data Result Diagrams: 07/14/22 05:26 07/14/22 05:26 Labs: Laboratory Results - last 24 hr 07/12/22 05:10: Diff Path Review Reviewed 07/12/22 12:50: Diff Path Review Reviewed 07/13/22 05:45: Diff Path Review Reviewed 07/14/22 05:26: WBC 1.7 L, RBC 2.47 L, Hgb 8.4 L, Hct 26.6 L, MCV 107.7 H, MCH 34.0 H, MCHC 31.6 L, RDW Std Deviation 56.9 H, RDW Coeff of Yao 14.2, Plt Count 20 L*, MPV 11.8, Immature Gran % (Auto) 2.400 H, Neut % (Auto) 62.3, Lymph % (Auto) 30.0, [place] % (Auto) 3.5, Eos % (Auto) 1.2, Baso % (Auto) 0.6, Absolute Neuts (auto) 1.1 L, Absolute Lymphs (auto) 0.51 L, Nucleated RBC % 0, Diff Path Review Reviewed, Platelet Estimate MKD DEC, Macrocytosis 2+, Ovalocytes RARE 07/14/22 05:26: Sodium 140, Potassium 3.3 L, Chloride 93 L, Carbon Dioxide 44.0 H, Anion Gap 3 L, BUN 15, Creatinine 0.38 L, Estim Creat Clear Calc 52.90, Est GFR (MDRD) Af Amer 288, Est GFR (MDRD) Non-Af 238, BUN/Creatinine Ratio 39.8 H, Glucose 102, Calcium 8.3 L Micro: Microbiology 07/09/22 06:52 Sputum, Induced/Lukens Gram Stain - Final 07/09/22 06:52 Sputum, Induced/Lukens Respiratory Culture - Final Pseudomonas aeroginosa 07/04/22 18:50 Blood Culture (Wb) - Left Forearm Blood Culture - Final No growth in 5 days. 07/04/22 16:28 Blood Culture (Wb) - Right Forearm Blood Culture - Final No growth in 5 days. 07/05/22 12:15 Sputum, Expectorated/Coughed Gram Stain - Final 07/05/22 12:15 Sputum, Expectorated/Coughed Respiratory Culture - Final Pseudomonas aeroginosa 07/04/22 16:39 Urine, Clean Catch Urine Culture - Final Mixed Gram Pos & Gram Neg Org 07/05/22 03:55 Urine Catheter - Jo Legionella Antigen - Final 07/05/22 03:55 Urine Catheter - Jo Streptococcus pneumoniae Antigen (M - Final 07/04/22 18:02 Nasal Secretion SARS-CoV-2 & FLU Antigen (Rapid) - Final SARS-CoV-2 (COVID 19) Physical Exam Const alert and no apparent distress Constitutional Narrative: Oriented HEENT normocephalic and head/scalp atraumatic Eyes Eyes Narrative: EOM grossly intact, anicteric Neck supple Resp Resp Narrative: Poor inspiratory effort, sounds diminished at bases, no sternal retractions Cardio regular rate and regular rhythm GI soft to palpation, non-tender and non-distended Extremity Extremity Narrative: No edema appreciated, thin Neuro moves all extremities Neuro Narrative: No overt focal deficits appreciated Psych Psych Narrative: Cooperative Assessment & Plan Assessment/Plan (1) Septic shock: (2) Pneumonia: (3) Neutropenia with fever: (4) Thrombocytopenia: (5) CLL (chronic lymphocytic leukemia): PLAN: Plan #Acute hypoxic respiratory failure due to acute cardiopulmonary arrest and hospital acquired pneumonia * on 4L of oxygen by nasal canula * 2D echo showed EF of 60%, with normal RV and normal LV size and systolic function. Inferior vena cava dilated * titrate oxygen to maintain sats >90% * breathing treatment with bronchodilators * on IV levofloxacin, s/p vanc and merem * Also on solumedrol * repeat sputum culture growing Pseudomonas aeruginosa * s/p IV lasix with good diuresis, will monitor, will need to consider further lasix doses pending respiratory status #Sepsis due to probable hospital acquired pneumonia * sputum cultured Pseudomonas aeruginosa * now on only IV levofloxacin. * critical care on board. * CT of the chest showed development of more numerous infiltrates suggesting a pneumonia which may have worsened on metastatic disease which is worsened * Breathing treatments with bronchodilators. #Pancytopenia * Likely due to chemotherapy for CLL as well as acute infection * WBC is 1.7 today, and Hb is 8.9. platelets are 20 * s/p transfusion of platelets * oncology on board #Neutropenic fever: As above. On acyclovir as well as IV levofloxacin #History of CLL: On chemotherapy as above. #KAI: Resolved #Severe protein calorie malnutrition * As evidenced by approximately 15% weight loss over the last 6 months and 89% weight loss over the last 4 months. * financial services education consultant on board #COPD * not in exacerbation. * breathing treatment with bronchodilators * On steroids * ICU team following DVT prophylaxis: SCDs Charges/Coding Visit Charges Inpatient E&M: 73883 Subs Hosp L2
[2022-07-14] MEDS: oxyCODONE 5 MG Tablet PO (18:38)
[2022-07-14] MEDS: Ipratropium/Albuterol Sulfate 3 ML AMPUL.NEB INHALATION (18:49)
[2022-07-14] MEDS: Sertraline 50 MG Tablet 25 MG PO (22:11)
[2022-07-14] MEDS: Tamsulosin HCl 0.4 MG Capsule 0.8 MG PO (22:12)
[2022-07-14] MEDS: Pramipexole Di-HCl 0.5 MG Tablet PO (22:26)
[2022-07-15] VITALS (9 sets, daily range): BP systolic 90–115; BP diastolic 54–83; PULSE 78–96; RESP 14–22; TEMP 36.3–36.8; O2SAT 94–97
[2022-07-15] MEDS: oxyCODONE 5 MG Tablet PO ×3 (02:06→16:02)
[2022-07-15] MEDS: LORazepam 1 MG Tablet PO ×2 (04:34→16:01)
[2022-07-15 06:37] LABS: Absolute Lymphocyte Count 0.62 X10^3/uL (0.83-4.51); Absolute Neutrophil Count 1.2 X10^3/uL (2.0-7.7); Basophil# 0.01 X10^3/uL; Basophil% 0.5 % (0-1); Eosinophil# 0.02 X10^3/uL; Hematocrit 26.9 % (40-54); Hemoglobin 8.5 g/dL (13.0-16.5); Lymphocyte # 0.62 X10^3/ul (0.83-4.51); Lymphocyte % 31.6 % (19-41); Mean Corp Hgb Conc 31.6 g/dL (32-36); Mean Corpuscular Hgb 34.3 pg (27.0-32.0); Mean Corpuscular Volume 108.5 fL (80-94); Mean Platelet Vol. 10.9 fl (6.2-12.0); Monocyte# 0.07 X10^3/uL; Monocyte% 3.6 % (0-10); NRBC Flagged by Analyzer 0 % (0-5); Neutrophil # 1.21 X10^3/uL (2.7-7.7); Neutrophil % 61.8 % (47-70); POSITIVE COUNT YES; POSITIVE MORPHOLOGY YES; RBC Distribution Width CV 14.4 % (11.6-14.6); RBC Distribution Width SD 56.9 fl (35.1-43.9); Red Blood Count 2.48 M/mm3 (4.6-6.2)
[2022-07-15] MEDS: Ipratropium/Albuterol Sulfate 3 ML AMPUL.NEB INHALATION ×2 (06:38→10:48)
[2022-07-15 06:58] LABS: Differential Indicated SCAN CRITERIA MET
[2022-07-15 07:00] LABS: Platelet Count 30 K/mm3 (150-450)
[2022-07-15 07:04] LABS: ALB/GLOB Ratio 0.9 RATIO (0.9-2.4); AST(SGOT) 10 U/L (15-37); Alanine Aminotransfer ALT/SGPT 18 U/L (16-61); Albumin, Serum 2.3 g/dL (3.2-5.0); Alkaline Phosphatase 68 U/L (45-117); Anion Gap 2 (5-15); BUN 24 mg/dL (7-18); BUN/Creat Ratio 54.3 RATIO (10-20); Calcium,Total 8.8 mg/dL (8.5-10.1); Chloride 95 mmol/L (98-107); Creatinine, Serum 0.44 mg/dL (0.70-1.30); EST Glomerular Filtration Rate 198 mL/min (>60); Est Glom Filt Rate - Afr Amer 240 mL/min (>60); Estimated Creatinine Clearance 53.53 ml/min; Globulin 2.7 g/dL (2.2-4.2); Glucose 95 mg/dL (74-106); Potassium 3.8 mmol/L (3.5-5.1); Sodium Level 141 mmol/L (136-145)
[2022-07-15 07:07] LABS: Differential Comment SCANNED; Platelet Estimate MKD DEC (ADEQ)
--- NOTE | 2022-07-15 07:12 | PCM.PN.INT ---
Documented by User: Dr. Jasen Stuart MD 07/15/22 13:23 Assessment & Plan Assessment/Plan (1) Septic shock: PLAN: RECOMMENDATIONS: 1. Complete antibiotic course for patient comfort. Continue bronchodilators and nasal cannula oxygen 2. BiPAP with naps and nightly for patient comfort. 3. Transition to comfort measures. 4. Continue bronchopulmonary hygiene measures 5. Okay to discontinue lab draws and swallow study IMPRESSIONS: 1. Acute hypoxemic respiratory failure status post cardiac arrest Stable. The patient is currently maintaining appropriate oxygen saturations on his baseline requirement of 3 L/min. Plan to continue antimicrobials along with bronchodilators. Okay to transition to p.o. steroids and wean over 12 to 14 days. Continue aggressive bronchopulmonary hygiene maneuvers to aid in clearance of secretions. Recommend BiPAP therapy with naps and nightly. Patient requesting comfort measures, so we will discontinue swallow study and initiate comfort feeds. 2. GOLD stage III COPD/history of tobacco dependency/bronchiectasis Continue supportive measures as noted above, along with scheduled bronchodilators. Okay to transition to p.o. steroids and wean over 12 to 14 days 3. History of CLL with associated pancytopenia The patient has pancytopenia related to recent chemotherapy administration. Continue supportive measures as noted above. Patient refusing further chemotherapy 4. Septic shock secondary to COVID-19/pseudomonal pneumonia/neutropenic fever Improved. The patient is currently hemodynamically stable and afebrile. Patient should complete a 7-day course 5. Goals of therapy Extensive discussion with the patient and his family for over 35 minutes about patient's current status and goals of therapy. Patient states that he feels the chemotherapy is worse than the cancer. Patient is aware that he may have a secondary malignancy and feels that it is most important for him to be comfortable. Patient is requesting a hospice consult. We will transition patient to a DNR Comfort Care only. Nursing and hospitalist has been notified of patient's wishes. Swallow study will be discontinued. Subjective Subjective Patient sitting upright in bed. Complains of pain across his chest with movement and coughing. Patient states shortness of breath continues to be worse than baseline. Patient reports good appetite. Patient's is not present for the exam, but called and spoke with her on the phone. Patient states he has questions specifically for Dr. Stuart. Extensive discussion with patient separately and with family. Patient is requesting comfort measures and hospice referral. Patient does want to complete antibiotics, but is not interested in further chemotherapy. Patient is requesting that his dog be able to visit. Objective Data Objective Data Vital Signs: Vital Signs Temp Pulse Resp BP Pulse Ox O2 Del Method O2 Flow Rate 36.6 C 88 18 108/54 L 97 Nasal Cannula 3 07/15/22 06:41 07/15/22 06:41 07/15/22 06:41 07/15/22 06:41 07/15/22 06:41 07/15/22 06:41 07/15/22 06:41 FiO2 30 07/11/22 09:00 Oxygen Flow Rate (L/min) 3 Oxygen Delivery Method Nasal Cannula Weight: 59.3 kg Body Mass Index (BMI) 20.2 Intake & Output: Intake and Output for Last 24 Hours 07/13/22 07/14/22 07/15/22 23:59 23:59 23:59 Intake Total 1360 / 1560 1260 / 1260 Output Total 5050 / 5775 2400 / 3050 1075 / 1075 Balance -3690 / -4215 -1140 / -1790 -1075 / -1075 Medical Nutrition Assessment Dietitian: Malnutrition Criteria Met Start: 07/05/22 11:59 Freq: Status: Active Protocol: Document 07/14/22 15:08 (Rec: 07/14/22 15:09 [id number]) Nutrition Malnutrition Evidence of Malnutrition Exists Yes Malnutrition (severe): Chronic Evidenced By Suboptimal Energy Intake ( Severe),Weight Loss (Severe), Physical Changes (Moderate) Clinical Problem Chronic Disease or Condition Related Malnutrition Etiology Severe protein-calorie malnutrition in the context of chronic disease related to increased energy expenditure and inadequate oral intake Signs/Symptoms as evidenced by ~15% wt loss x past 6 months, ~8-9% wt loss x past 4 months, BMI 19.1, moderate muscle/fat wasting in the clavicle, orbitals, arms, legs and face and oral intake meeting less than 50% estimated nutrition needs x past 4-6 months Status Active Problem Recommendation Dietitian Recommendations/Changes continue regular diet (texture /consistency per PRINTING EQUIPMENT MECHANIC APPRENTICE); magic cup BID w/ lunch and dinner; 120 ml ensure plus high protein 4 times per day w/ medpass. Lab / Micro Data Result Diagrams: 07/15/22 06:15 07/15/22 06:15 Labs: Laboratory Results - last 24 hr 07/12/22 05:10: Diff Path Review Reviewed 07/12/22 12:50: Diff Path Review Reviewed 07/13/22 05:45: Diff Path Review Reviewed 07/14/22 05:26: Diff Path Review Reviewed 07/15/22 06:15: WBC 2.0 L, RBC 2.48 L, Hgb 8.5 L, Hct 26.9 L, MCV 108.5 H, MCH 34.3 H, MCHC 31.6 L, RDW Std Deviation 56.9 H, RDW Coeff of Yao 14.4, Plt Count 30 L*, MPV 10.9, Immature Gran % (Auto) 1.500 H, Neut % (Auto) 61.8, Lymph % (Auto) 31.6, [place] % (Auto) 3.6, Eos % (Auto) 1.0, Baso % (Auto) 0.5, Absolute Neuts (auto) 1.2 L, Absolute Lymphs (auto) 0.62 L, Nucleated RBC % 0, Differential Comment SCANNED, Diff Path Review May foll, Platelet Estimate MKD 07/15/22 06:15: Sodium 141, Potassium 3.8, Chloride 95 L, Carbon Dioxide 44.0 H, Anion Gap 2 L, BUN 24 H, Creatinine 0.44 L, Estim Creat Clear Calc 53.53, Est GFR (MDRD) Af Amer 240, Est GFR (MDRD) Non-Af 198, BUN/Creatinine Ratio 54.3 H, Glucose 95, Calcium 8.8, Total Bilirubin 0.30, AST 10 L, ALT 18, Alkaline Phosphatase 68, Total Protein 5.0 L, Albumin 2.3 L, Globulin 2.7, Albumin/Globulin Ratio 0.9 Micro: Microbiology 07/09/22 06:52 Sputum, Induced/Lukens Gram Stain - Final 07/09/22 06:52 Sputum, Induced/Lukens Respiratory Culture - Final Pseudomonas aeroginosa 07/04/22 18:50 Blood Culture (Wb) - Left Forearm Blood Culture - Final No growth in 5 days. 07/04/22 16:28 Blood Culture (Wb) - Right Forearm Blood Culture - Final No growth in 5 days. 07/05/22 12:15 Sputum, Expectorated/Coughed Gram Stain - Final 07/05/22 12:15 Sputum, Expectorated/Coughed Respiratory Culture - Final Pseudomonas aeroginosa 07/04/22 16:39 Urine, Clean Catch Urine Culture - Final Mixed Gram Pos & Gram Neg Org 07/05/22 03:55 Urine Catheter - Jo Legionella Antigen - Final 07/05/22 03:55 Urine Catheter - Jo Streptococcus pneumoniae Antigen (M - Final 07/04/22 18:02 Nasal Secretion SARS-CoV-2 & FLU Antigen (Rapid) - Final SARS-CoV-2 (COVID 19) Physical Exam Narrative Physical exam was completed independently. I agree as listed below by nurse practitioner. Patient does appear to have some conversational dyspnea during my evaluation. Patient does appear malnourished and weak. Patient does have scattered rhonchi that improved with coughing. Charges/Coding Visit Charges Inpatient E&M: 92324 Subs Hosp L3 Documented by User: MIKHAIL CHRISTENSEN 07/15/22 13:15 Assessment & Plan Assessment/Plan (1) Septic shock: PLAN: Plan RECOMMENDATIONS: 1. Continue antimicrobials along with scheduled bronchodilators and steroids. 2. BiPAP with naps and nightly. 3. Encourage incentive spirometer use and mobilize patient as tolerated 4. Continue bronchopulmonary hygiene measures IMPRESSIONS: 1. Acute hypoxemic respiratory failure status post cardiac arrest Improved. The patient is currently maintaining appropriate oxygen saturations on his baseline requirement of 3 L/min. Plan to continue antimicrobials along with bronchodilators and steroids. Continue aggressive bronchopulmonary hygiene maneuvers to aid in clearance of secretions. Recommend BiPAP therapy with naps and nightly. 2. GOLD stage III COPD/history of tobacco dependency/bronchiectasis Continue supportive measures as noted above, along with scheduled bronchodilators and IV steroids. 3. History of CLL with associated pancytopenia The patient has pancytopenia related to recent chemotherapy administration. Continue supportive measures as noted above. 4. Septic shock secondary to COVID-19/pseudomonal pneumonia/neutropenic fever Improved. The patient is currently hemodynamically stable and afebrile and will remain on antimicrobials to address the pansensitive Pseudomonas identified on sputum culture. 5. Goals of therapy Discussion between Dr. Stuart and patient and later with patient and family. Patient wishes to discontinue chemotherapy secondary to decreased quality of life. Patient and family both wish to pursue hospice care at inpatient center or SNF. Patient states that he would like to leave his Jo catheter in place for comfort. Swallow evaluation will be canceled, and patient can resume normal diet. Patient expresses that he would like to see his dog. This has been discussed with charge nurse to make appropriate arrangements. Subjective Subjective Patient sitting upright in bed. Complains of pain across his chest with movement and coughing. Patient states shortness of breath continues to be worse than baseline. Patient reports good appetite. Patient's is not present for the exam, but called and spoke with her on the phone. Patient states he has questions specifically for Dr. Stuart. Objective Data Lab / Micro Data Attestation: I reviewed the patient's lab results. Result Diagrams: 07/15/22 06:15 07/15/22 06:15 Physical Exam Const alert and oriented x3 Constitutional Narrative: Mr. Paez is a pleasant 76-year-old male. Patient is visibly tachypneic, but is able to have conversation in complete sentences. General Appearance: cooperative and frail HEENT normocephalic and head/scalp atraumatic HEENT Narrative: Dry mucous membranes. Teeth and Gingiva: poor dentition Throat: posterior oropharynx normal Eyes PERRL, EOMs intact bilaterally and conjunctivae normal Neck full ROM, no lymphadenopathy, supple and no JVD General: trachea midline Lymph Lymphatic: no lymphadenopathy noted Chest inspection of chest normal Chest Narrative: Chest tender to palpation. Resp normal respiratory effort Resp Narrative: Rhonchi and wheezes bilaterally anteriorly. Lung sounds diminished posteriorly, left greater than right. Effort and Inspection: able to speak in complete sentences, tachypneic and actively coughing productive and weak Cardio regular rate, regular rhythm, S1 normal heart sound, S2 normal heart sound, no murmurs, no rub, no gallops and no JVD GI soft to palpation and non-tender GI Narrative: Normal to inspection, hyperactive bowel sounds. no CVA tenderness Back/Spine no CVA tenderness Extremity no clubbing, cyanosis or edema Skin no rashes or lesions noted Skin Narrative: Pale. Neuro oriented x3, CN's II-XII intact bilaterally, moves all extremities and no focal motor deficits Speech: speech normal Psych cooperative and affect normal Psych Narrative: Patient reports ambivalence in regard to continuing chemotherapy. Patient wishes to discuss this with Dr. Stuart and family. Speech: normal speech
--- NOTE | 2022-07-15 08:08 | PN.HOSP_ITS ---
Subjective Subjective DOS: 07/15/22 CC: cough Pt reports doing somewhat better today/feeling better, does continue to have SOB and productive cough. Chest pain the same/msk in nature it seems without change. No abd pain. Attempting to eat, desats while eating, however. Denies bowel problems. Denies other complaints. Objective Data Objective Data Vital Signs: Vital Signs Temp Pulse Resp BP Pulse Ox O2 Del Method O2 Flow Rate 97.9 F 88 18 108/54 L 97 Nasal Cannula 3 07/15/22 06:41 07/15/22 06:41 07/15/22 06:41 07/15/22 06:41 07/15/22 06:41 07/15/22 06:41 07/15/22 06:41 FiO2 30 07/11/22 09:00 Oxygen Flow Rate (L/min) 3 Oxygen Delivery Method Nasal Cannula Weight: 59.3 kg Body Mass Index (BMI) 20.2 Intake & Output: Intake and Output for Last 24 Hours 07/13/22 07/14/22 07/15/22 23:59 23:59 23:59 Intake Total 1360 / 1560 1260 / 1260 Output Total 5050 / 5775 2400 / 3050 1075 / 1075 Balance -3690 / -4215 -1140 / -1790 -1075 / -1075 Medical Nutrition Assessment Dietitian: Malnutrition Criteria Met Start: 07/05/22 11:59 Freq: Status: Active Protocol: Document 07/14/22 15:08 (Rec: 07/14/22 15:09 [id number]) Nutrition Malnutrition Evidence of Malnutrition Exists Yes Malnutrition (severe): Chronic Evidenced By Suboptimal Energy Intake ( Severe),Weight Loss (Severe), Physical Changes (Moderate) Clinical Problem Chronic Disease or Condition Related Malnutrition Etiology Severe protein-calorie malnutrition in the context of chronic disease related to increased energy expenditure and inadequate oral intake Signs/Symptoms as evidenced by ~15% wt loss x past 6 months, ~8-9% wt loss x past 4 months, BMI 19.1, moderate muscle/fat wasting in the clavicle, orbitals, arms, legs and face and oral intake meeting less than 50% estimated nutrition needs x past 4-6 months Status Active Problem Recommendation Dietitian Recommendations/Changes continue regular diet (texture /consistency per PERITONEAL DIALYSIS REGISTERED NURSE); magic cup BID w/ lunch and dinner; 120 ml ensure plus high protein 4 times per day w/ medpass. Lab / Micro Data Result Diagrams: 07/15/22 06:15 07/15/22 06:15 Labs: Laboratory Results - last 24 hr 07/12/22 05:10: Diff Path Review Reviewed 07/12/22 12:50: Diff Path Review Reviewed 07/13/22 05:45: Diff Path Review Reviewed 07/14/22 05:26: Diff Path Review Reviewed 07/15/22 06:15: WBC 2.0 L, RBC 2.48 L, Hgb 8.5 L, Hct 26.9 L, MCV 108.5 H, MCH 34.3 H, MCHC 31.6 L, RDW Std Deviation 56.9 H, RDW Coeff of Yao 14.4, Plt Count 30 L*, MPV 10.9, Immature Gran % (Auto) 1.500 H, Neut % (Auto) 61.8, Lymph % (Auto) 31.6, [place] % (Auto) 3.6, Eos % (Auto) 1.0, Baso % (Auto) 0.5, Absolute Neuts (auto) 1.2 L, Absolute Lymphs (auto) 0.62 L, Nucleated RBC % 0, Differential Comment SCANNED, Diff Path Review May , Platelet Estimate MKD 07/15/22 06:15: Sodium 141, Potassium 3.8, Chloride 95 L, Carbon Dioxide 44.0 H, Anion Gap 2 L, BUN 24 H, Creatinine 0.44 L, Estim Creat Clear Calc 53.53, Est GFR (MDRD) Af Amer 240, Est GFR (MDRD) Non-Af 198, BUN/Creatinine Ratio 54.3 H, Glucose 95, Calcium 8.8, Total Bilirubin 0.30, AST 10 L, ALT 18, Alkaline Phosphatase 68, Total Protein 5.0 L, Albumin 2.3 L, Globulin 2.7, Albumin/Globulin Ratio 0.9 Micro: Microbiology 07/09/22 06:52 Sputum, Induced/Lukens Gram Stain - Final 07/09/22 06:52 Sputum, Induced/Lukens Respiratory Culture - Final Pseudomonas aeroginosa 07/04/22 18:50 Blood Culture (Wb) - Left Forearm Blood Culture - Final No growth in 5 days. 07/04/22 16:28 Blood Culture (Wb) - Right Forearm Blood Culture - Final No growth in 5 days. 07/05/22 12:15 Sputum, Expectorated/Coughed Gram Stain - Final 07/05/22 12:15 Sputum, Expectorated/Coughed Respiratory Culture - Final Pseudomonas aeroginosa 07/04/22 16:39 Urine, Clean Catch Urine Culture - Final Mixed Gram Pos & Gram Neg Org 07/05/22 03:55 Urine Catheter - Jo Legionella Antigen - Final 07/05/22 03:55 Urine Catheter - Jo Streptococcus pneumoniae Antigen (M - Final 07/04/22 18:02 Nasal Secretion SARS-CoV-2 & FLU Antigen (Rapid) - Final SARS-CoV-2 (COVID 19) Physical Exam Const alert Constitutional Narrative: oriented, thin HEENT head/scalp atraumatic and moist oral mucous membranes Eyes Eyes Narrative: EOM grossly intact Neck supple Resp normal respiratory effort Resp Narrative: , coarse at bases Cardio regular rate and regular rhythm GI soft to palpation, non-tender and non-distended Extremity Extremity Narrative: No edema appreciated Neuro moves all extremities Psych Psych Narrative: Somewhat constricted Assessment & Plan Assessment/Plan (1) Septic shock: (2) Pneumonia: (3) Neutropenia with fever: (4) Thrombocytopenia: (5) CLL (chronic lymphocytic leukemia): PLAN: Plan #Acute hypoxic respiratory failure due to acute cardiopulmonary arrest and hospital acquired pneumonia * on 3-4L of oxygen by nasal canula * 2D echo showed EF of 60%, with normal RV and normal LV size and systolic function. Inferior vena cava dilated * titrate oxygen to maintain sats >90% * breathing treatment with bronchodilators * on IV levofloxacin, s/p vanc and merem * Also on Solu medrol * repeat sputum culture growing Pseudomonas aeruginosa * s/p IV lasix with good diuresis, will monitor, will need to consider further lasix doses pending respiratory status * Continues to desat when eating or moving around * ICU team following #Sepsis due to probable hospital acquired pneumonia * sputum cultured Pseudomonas aeruginosa * now on only IV levofloxacin. * critical care on board. * CT of the chest showed development of more numerous infiltrates suggesting a pneumonia which may have worsened on metastatic disease which is worsened * Breathing treatments with bronchodilators. * Sepsis resolved, slowly improving overall #Pancytopenia * Likely due to chemotherapy for CLL as well as acute infection * WBC is 2.0, improved from 1.7 but remains low, and Hb is 8.5. platelets are 30 * s/p transfusion of platelets * oncology on board #Neutropenic fever: As above. On acyclovir as well as IV levofloxacin #History of CLL: On chemotherapy as above. #KAI: Resolved #Severe protein calorie malnutrition * As evidenced by approximately 15% weight loss over the last 6 months and 89% weight loss over the last 4 months. * ag service manager on board #COPD * not in exacerbation. * breathing treatment with bronchodilators * On steroids * ICU team following MDM: Slowly improving but with guarded prognosis, ICU team following. Continue goals of care discussion with family, currently remains full code. Monitor closely. DVT prophylaxis: SCDs Charges/Coding Visit Charges Inpatient E&M: 28693 Subs Hosp L2
[2022-07-15] MEDS: Ensure Plus High Protein 120 ML LIQUID PO (08:10)
[2022-07-15] MEDS: Acyclovir 200 MG Capsule 400 MG PO (08:11)
[2022-07-15] MEDS: Midodrine HCl 5 MG Tablet 10 MG PO ×2 (08:11→11:27)
[2022-07-15] MEDS: Cholecalciferol (VIT D3) 25 MCG TABLET (1,000 UNITS) 50 MCG PO (08:11)
[2022-07-15] MEDS: Acetaminophen 325 MG Tablet 650 MG PO ×2 (08:18→16:02)
[2022-07-15] MEDS: levoFLOXacin IV 750 MG/150 ML BAG 100 MG IV (08:33)
[2022-07-15] MEDS: 0.9% Saline Lock 10 ML Syringe IV (08:33)
[2022-07-15] MEDS: Menthol/Lanolin/Calamine/Znox 113 GM Tube 1 APPLIC TOPICAL (08:35)
--- NOTE | 2022-07-15 09:04 | CASEMGMT ---
Discharge Asian Studies Professor Eleonora oliva assistant restaurant general manager sent updates on patient to Ina at [facility]. Plan: [facility] Eleonora Samaniego Discharge Asian Studies Professor
--- NOTE | 2022-07-15 12:03 | CHAPLAIN ---
Addendum entered by Devante Mckeon 07/15/22 15:44: returned to patient room and discovered hospice team members having a family meeting; patient and daughter saw this maple products maker at the doorway and waved but no interventions were given at this time due to presence of hospice member Original Note: Type of Pastoral Visit ___ Initial Visit ___ Follow-up Visit ___ On-call Visit ___ General Patient Visit ___ Spiritual Assessment ___ Family Conference ___ Bereavement ___ Rapid Response ___ Code Blue ___ Other (describe below) Pastoral Care Referral From ___ Patient ___ Family ___ Nurse ___ Physician ___ Computer Lab Para Professional ___ Equipment Technician ___ Other (describe below) Sacrament/Intervention ___ Active listening ___ Anointing ___ Jehovah'S Witness ___ Bereavement ___ Communion ___ Yanelis exploration ___ ___ Life review ___ Prayer ___ Reconciliation ___ Sacrament of Sick ___ Supportive presence ___ Wedding ___ Other (describe below) Pastoral Comments daughter of this patient found this maple products maker in the hallway and stopped to talk and express thanks for spiritual care of her father; daughter states spiritual care is very important to her and she has seen her father become more open to this during his recent decline in health; pt daughter would welcome more offer of support to patient and other family members; this maple products maker will follow up later after family meeting which will happen soon
--- NOTE | 2022-07-15 13:18 | CASEMGMT ---
SW was informed that patient and family would like to meet with Hospice. SW met with patient and his . SW confirmed they would like to meet with [facility]. SW explained SW will call with referral and fax patient's information. SW said someone from Hospice would give patient's a call to set up a meeting. SW provided emotional support. FLORES called Araeblla at [facility] regarding referral. SW also faxed information. Eden Engle SUBMERSIBLE PILOT [employer]
[2022-07-15 13:21] LABS: Pathologist Review Reviewed
--- NOTE | 2022-07-15 14:39 | CASEMGMT ---
Lisbet from Hospice is at [facility] and talking with patient and family. Shabana YE from Hospice is also present evaluating patient for the inpatient unit. Eden JOHNSON
--- NOTE | 2022-07-15 15:37 | CASEMGMT ---
EPHRAIM Donald from Hospice said they will take patient in the inpatient Hospice unit. FLORES notified physician. FLORES also sent a message to Ina at [facility] letting her know the plan via [employer]. Plan: d/c to [facility]. Eden JOHNSON
--- NOTE | 2022-07-15 16:24 | DCINST_ITS ---
Discharge Instructions Diet Discharge Diet: No restrictions Activity Discharge Activity: Return to Normal Activity Follow Up Care Test Results: Test results from this visit will be discussed in further detail at your follow- up appointment, if applicable. Discharge Plan Admission Admit Date/Time: 07/04/22 19:13 Primary Reason for Your Visit: Fever and low blood pressure Attending Provider: Queta Peña Primary Care Provider: Evaristo Rodriguez Consulting Providers: Ramos Molina ; Suman Mathew ; Jasen Stuart ; Abe Dorantes ; Carlos Manuel Weems ; Perry Melvin ; Suzanne Scott CAMP MANAGER ; Demetrius Heller ; Ramos Carranza ; Abner Goldman ; Santana Valenzuela ; Leo Grant ; Ji Atkins ; Dean Arzate ; Sondra Christie CAMP MANAGER ; Sujey Baez ; Viktoriya Patel ; Demertius Li ; Pam Henry ; Abbie Acosta ; Jeana Rodriguez CAMP MANAGER Instructions Patient Instructions: Hospice Managing Pain Additional Instructions / Restrictions: 1. You have been instructed to continue your levaquin for a total of 7 days, you have one more dose tomorrow 2. You will need to taper your prednisone 40mg over the next 12-14 days, the speed of the taper can be managed per hospice provider pending response to taper 3. Please continue O2 and bipap prn and at night for comfort 4. It was indicated you wanted to keep your morrison catheter in for comfort, your tamsulosin has been discontinued 5. Continue inhalers 6. Anxiety and pain management can be further adjusted by hospice providers Discharge Orders/Prescriptions Prescriptions: New ipratropium-albuterol 0.5 mg-3 mg(2.5 mg base)/3 mL Solution For Nebulization 3 ml inhalation Q4H.RT Qty: 90 0RF albuterol sulfate 2.5 mg /3 mL (0.083 %) Solution For Nebulization 2.5 mg inhalation Q2H PRN PRN (Reason: SOB/Wheezing) Qty: 75 0RF lorazepam 1 mg Tablet 1 mg PO QHS PRN PRN (Reason: Anxiety) Qty: 7 0RF lorazepam 1 mg Tablet 1 mg PO Q6H PRN PRN (Reason: anxiety) Qty: 7 0RF oxycodone 5 mg Tablet 5 mg PO Q6H PRN PRN (Reason: Pain Score 6-10) 5 Days Qty: 7 0RF ondansetron HCl (PF) 4 mg/2 mL Solution 4 mg IV Q8H PRN PRN (Reason: Nausea/Vomiting) Qty: 10 0RF menthol-zinc oxide [Calmoseptine] 0.44-20.6 % Ointment 1 applic topical BID Qty: 113 0RF Protocol: *Topical Application Instructions APPLICATION INSTRUCTIONS: apply to radha rectal area levofloxacin 750 mg tablet 750 mg PO DAILY 1 Days Qty: 1 0RF prednisone 20 mg tablet 40 mg PO DAILY Qty: 30 0RF Rx Instructions: Wean over 12-14 days Continued lorazepam 1 mg tablet 1 mg PO QHS PRN (Reason: Anxiety) lidocaine-prilocaine 2.5-2.5 % cream 1 applic topical ONCE PRN (Reason: port access) 30 Days Qty: 30 2RF sertraline [Zoloft] 25 mg tablet 25 mg PO QHS acyclovir 400 mg tablet 400 mg PO BID ropinirole 1 mg tablet 1 mg PO QHS Rx Instructions: administer 1-3 hours before bedtime midodrine 5 mg tablet 10 mg PO TID Label Comments: TAKE 1 TABLET BY MOUTH THREE TIMES DAILY triamcinolone acetonide 0.1 % cream 1 applic TOPICAL BID PRN PRN (Reason: psoriasis) Label Comments: APPLY TO AFFECTED AREAS OF THE BODY TWICE DAILY albuterol sulfate [ProAir HFA] 90 mcg/actuation HFA aerosol inhaler 2 puff INHALATION Q6H PRN (Reason: shortness of breath or wheezing) Qty: 18 6RF budesonide-formoterol [Symbicort] 160-4.5 mcg/actuation HFA aerosol inhaler 2 puff INHALATION BID Qty: 1 6RF Rx Instructions: administer with spacer, rinse mouth after each use Discontinued ferrous sulfate 325 mg (65 mg iron) tablet 325 mg PO DAILY cholecalciferol (vitamin D3) 50 mcg (2,000 unit) capsule 50 mcg PO DAILY tamsulosin 0.4 MG capsule 0.8 mg PO QHS Label Comments: urinary issues pantoprazole 40 MG tablet,delayed release (DR/EC) 40 mg PO DAILY Referrals / Follow Up: Michael,Evaristo, DO [Primary Care Provider] - Disposition Disposition (needs filled in before D/C Order can be placed): Home Health Service
--- NOTE | 2022-07-15 18:50 | DS.PCM_ITS ---
Providers Date of Admission: 07/04/22 Date of Discharge: 07/15/22 Primary Care Physician: Dr. Evaristo Rodriguez, DO Consultations 07/05/22 03:13 Consult: Certified Forklift Operator / Pulmonary Medicine Routine Consulting Provider: [facility] Reason for Consult: Septic shock EMERGENT Consult: No MD Notified: Yes Date Notified: 07/05/22 Time Notified: 11:40 Method of Notification: Verbal 07/09/22 06:29 Consult: Oncology/Hematology Routine Consulting Provider: [facility] ([facility]) Reason for Consult: Pt known to you, h/o CLL s/p cardiac arrest EMERGENT Consult: No MD Notified: Yes Date Notified: 07/09/22 Time Notified: 07:52 Method of Notification: Answering Service 07/15/22 12:43 Consult: Hospice / Palliative Care Routine Consulting Provider: [facility] Reason for Consult: patient/family wish to d/c chemo and set up care with hospice EMERGENT Consult: No MD Notified: Yes Date Notified: 07/15/22 Time Notified: 12:43 Method of Notification: Text Reason For Visit: SEPSIS, NEUTROPENIC FEVER Diagnosis Discharge Diagnosis (1) Septic shock: Status: Acute Code(s): A41.9 - Sepsis, unspecified organism; R65.21 - Severe sepsis with septic shock Plan #Acute hypoxic respiratory failure due to acute cardiopulmonary arrest and hospital acquired pneumonia #Sepsis due to probable hospital acquired pneumonia #Pancytopenia #Neutropenic fever: As above. On acyclovir as well as IV levofloxacin #History of CLL: On chemotherapy as above. #KAI: #Severe protein calorie malnutrition #COPD Medications at Discharge Home Medications lorazepam 1 mg tablet 1 mg PO QHS PRN Anxiety 07/09/21 acyclovir 400 mg tablet 400 mg PO BID CHEMO 02/14/22 lidocaine-prilocaine 2.5 %-2.5 % topical cream 1 applic topical ONCE PRN port access 30 days #30 grams 02/17/22 albuterol sulfate 90 mcg/actuation aerosol inhaler (ProAir HFA) 2 puff inhalation Q6H PRN shortness of breath or wheezing #18 grams 03/05/22 budesonide-formoterol HFA 160 mcg-4.5 mcg/actuation aerosol inhaler (Symbicort) 2 puff inhalation BID #1 ea 03/05/22 ropinirole 1 mg tablet 1 mg PO QHS RLS 05/08/22 sertraline 25 mg tablet (Zoloft) 25 mg PO QHS 05/29/22 midodrine 5 mg tablet 10 mg PO TID 07/04/22 triamcinolone acetonide 0.1 % topical cream 1 applic topical BID PRN PRN psoriasis 07/04/22 albuterol sulfate 2.5 mg/3 mL (0.083 %) solution for nebulization 2.5 mg (3 mL) inhalation Q2H PRN PRN SOB/Wheezing #75 mL 07/15/22 ipratropium 0.5 mg-albuterol 3 mg (2.5 mg base)/3 mL nebulization soln 3 ml inhalation Q4H.RT #90 mL 07/15/22 levofloxacin 750 mg tablet 750 mg PO DAILY start 07/16 1 day #1 TAB 07/15/22 lorazepam 1 mg tablet 1 mg PO Q6H PRN PRN anxiety #7 tabs 07/15/22 lorazepam 1 mg tablet 1 mg PO QHS PRN PRN Anxiety #7 tabs 07/15/22 menthol 0.44 %-zinc oxide 20.6 % topical ointment (Calmoseptine) 1 applic topical BID #113 grams 07/15/22 ondansetron HCl (PF) 4 mg/2 mL injection solution 4 mg (2 mL) IV Q8H PRN PRN Nausea/Vomiting #10 mL 07/15/22 oxycodone 5 mg tablet 5 mg PO Q6H PRN PRN Pain Score 6-10 5 days #7 tabs 07/15/22 prednisone 20 mg tablet 40 mg PO DAILY Taper over 10-14 days #30 tabs 07/15/22 Hospital Course Procedures ACLS performed Summary of Care Provided Minutes Spent on Discharge: 30 Hospital Course: REJI ORTIZ, is a 76 M with a significant history of CLL who presented to [facility] ED 07/04 with fever and hypotension after his 5th round of chemotherapy. He was found to have septic shock 2/2 pneumonia w/ neutropenic fever and was on merrem and vanc. He had a tumultuous hospital course and had ACL 07/09/22 with ROSC after epi, mag, and bicarb and was transferred to the ICU. He was extubated and struggled to maintain O2 sats. Also abx transitioned to levaquin after sputum cx grew pseudomonas. And he was on Solumedrol as well for breathing. Transferred to the floor with ICU team following. Pt with difficulty with swallowing and poor QOL. He and his also decided they did not want to pursue chemo any further. Dr. Stuart held family meeting and comfort care/inpatient hospice transfer was decided. Instructions to finish abx and steroid taper as well as bipap and bronchodilators for comfort placed. Pt transferred to hospitce 07/15/22. Weight / BMI Weight Weight: 59.3 kg Body Mass Index (BMI) 20.2 ABG / Lab / Microbiology Data Result Diagrams: 07/15/22 06:15 07/15/22 06:15 Laboratory: Laboratory Results - last 24 hr 07/15/22 06:15: WBC 2.0 L, RBC 2.48 L, Hgb 8.5 L, Hct 26.9 L, MCV 108.5 H, MCH 34.3 H, MCHC 31.6 L, RDW Std Deviation 56.9 H, RDW Coeff of Yao 14.4, Plt Count 30 L*, MPV 10.9, Immature Gran % (Auto) 1.500 H, Neut % (Auto) 61.8, Lymph % (Auto) 31.6, Mcduffie % (Auto) 3.6, Eos % (Auto) 1.0, Baso % (Auto) 0.5, Absolute Neuts (auto) 1.2 L, Absolute Lymphs (auto) 0.62 L, Nucleated RBC % 0, Differential Comment SCANNED, Diff Path Review Reviewed, Platelet Estimate MKD DEC 07/15/22 06:15: Sodium 141, Potassium 3.8, Chloride 95 L, Carbon Dioxide 44.0 H, Anion Gap 2 L, BUN 24 H, Creatinine 0.44 L, Estim Creat Clear Calc 53.53, Est GFR (MDRD) Af Amer 240, Est GFR (MDRD) Non-Af 198, BUN/Creatinine Ratio 54.3 H, Glucose 95, Calcium 8.8, Total Bilirubin 0.30, AST 10 L, ALT 18, Alkaline Phosphatase 68, Total Protein 5.0 L, Albumin 2.3 L, Globulin 2.7, Albumin/Globulin Ratio 0.9 Microbiology: Microbiology 07/09/22 06:52 Sputum, Induced/Lukens Gram Stain - Final 07/09/22 06:52 Sputum, Induced/Lukens Respiratory Culture - Final Pseudomonas aeroginosa 07/04/22 18:50 Blood Culture (Wb) - Left Forearm Blood Culture - Final No growth in 5 days. 07/04/22 16:28 Blood Culture (Wb) - Right Forearm Blood Culture - Final No growth in 5 days. 07/05/22 12:15 Sputum, Expectorated/Coughed Gram Stain - Final 07/05/22 12:15 Sputum, Expectorated/Coughed Respiratory Culture - Final Pseudomonas aeroginosa 07/04/22 16:39 Urine, Clean Catch Urine Culture - Final Mixed Gram Pos & Gram Neg Org 07/05/22 03:55 Urine Catheter - Morrison Legionella Antigen - Final 07/05/22 03:55 Urine Catheter - Morrison Streptococcus pneumoniae Antigen (M - Final 07/04/22 18:02 Nasal Secretion SARS-CoV-2 & FLU Antigen (Rapid) - Final SARS-CoV-2 (COVID 19) D/C Instructions Discharge Diet: No restrictions Meaningful Use Info Meaningful Use Diagnoses (Choose all that apply): None applicable Discharge Plan Admission Admit Date/Time: 07/04/22 19:13 Primary Reason for Your Visit: Fever and low blood pressure Attending Provider: Queta Peña Primary Care Provider: Evaristo Rodriguez Consulting Providers: Ramos Molina ; Suman Mathew ; Jasen Stuart ; Abe Dorantes ; Carlos Manuel Weems ; Perry Melvin ; Suzanne Scott GLUING MACHINE FEEDER ; Demetrius Heller ; Ramos Carranza ; Abner Goldman ; Reji Valenzuela ; Leo Grant ; Ji Atkins ; Dean Arzate ; Sondra Christie GLUING MACHINE FEEDER ; Sujey Baez ; Viktoriya Patel ; Demetrius Li ; Pam Henry ; Abbie Acosta ; Jeana Rodriguez GLUING MACHINE FEEDER Instructions Patient Instructions: Hospice Managing Pain Additional Instructions / Restrictions: 1. You have been instructed to continue your levaquin for a total of 7 days, you have one more dose tomorrow 2. You will need to taper your prednisone 40mg over the next 12-14 days, the speed of the taper can be managed per hospice provider pending response to taper 3. Please continue O2 and bipap prn and at night for comfort 4. It was indicated you wanted to keep your morrison catheter in for comfort, your tamsulosin has been discontinued 5. Continue inhalers 6. Anxiety and pain management can be further adjusted by hospice providers Discharge Orders/Prescriptions Prescriptions: New ipratropium-albuterol 0.5 mg-3 mg(2.5 mg base)/3 mL Solution For Nebulization 3 ml inhalation Q4H.RT Qty: 90 0RF albuterol sulfate 2.5 mg /3 mL (0.083 %) Solution For Nebulization 2.5 mg inhalation Q2H PRN PRN (Reason: SOB/Wheezing) Qty: 75 0RF lorazepam 1 mg Tablet 1 mg PO QHS PRN PRN (Reason: Anxiety) Qty: 7 0RF lorazepam 1 mg Tablet 1 mg PO Q6H PRN PRN (Reason: anxiety) Qty: 7 0RF oxycodone 5 mg Tablet 5 mg PO Q6H PRN PRN (Reason: Pain Score 6-10) 5 Days Qty: 7 0RF ondansetron HCl (PF) 4 mg/2 mL Solution 4 mg IV Q8H PRN PRN (Reason: Nausea/Vomiting) Qty: 10 0RF menthol-zinc oxide [Calmoseptine] 0.44-20.6 % Ointment 1 applic topical BID Qty: 113 0RF Protocol: *Topical Application Instructions APPLICATION INSTRUCTIONS: apply to radha rectal area levofloxacin 750 mg tablet 750 mg PO DAILY 1 Days Qty: 1 0RF prednisone 20 mg tablet 40 mg PO DAILY Qty: 30 0RF Rx Instructions: Wean over 12-14 days Continued lorazepam 1 mg tablet 1 mg PO QHS PRN (Reason: Anxiety) lidocaine-prilocaine 2.5-2.5 % cream 1 applic topical ONCE PRN (Reason: port access) 30 Days Qty: 30 2RF sertraline [Zoloft] 25 mg tablet 25 mg PO QHS acyclovir 400 mg tablet 400 mg PO BID ropinirole 1 mg tablet 1 mg PO QHS Rx Instructions: administer 1-3 hours before bedtime midodrine 5 mg tablet 10 mg PO TID Label Comments: TAKE 1 TABLET BY MOUTH THREE TIMES DAILY triamcinolone acetonide 0.1 % cream 1 applic TOPICAL BID PRN PRN (Reason: psoriasis) Label Comments: APPLY TO AFFECTED AREAS OF THE BODY TWICE DAILY albuterol sulfate [ProAir HFA] 90 mcg/actuation HFA aerosol inhaler 2 puff INHALATION Q6H PRN (Reason: shortness of breath or wheezing) Qty: 18 6RF budesonide-formoterol [Symbicort] 160-4.5 mcg/actuation HFA aerosol inhaler 2 puff INHALATION BID Qty: 1 6RF Rx Instructions: administer with spacer, rinse mouth after each use Discontinued ferrous sulfate 325 mg (65 mg iron) tablet 325 mg PO DAILY cholecalciferol (vitamin D3) 50 mcg (2,000 unit) capsule 50 mcg PO DAILY tamsulosin 0.4 MG capsule 0.8 mg PO QHS Label Comments: urinary issues pantoprazole 40 MG tablet,delayed release (DR/EC) 40 mg PO DAILY Referrals / Follow Up: Evaristo Rodriguez DO [Primary Care Provider] - Disposition Disposition (needs filled in before D/C Order can be placed): Home Health Service Charges/Coding Visit Charges Inpatient E&M: 14611 Disch Hosp
== END 2022-07-15 16:30 | disposition hospice, inpatient (51) | DRG 871 ==
LOC: ED 19:35 → ICU 20:02 → PCU 07-07 13:51 → ICU 07-09 06:48 → PCU 07-11 16:04
PROVIDERS: Family Medicine; Internal Medicine Critical Care Medicine; Student in an Organized Health Care Education/Training Program; Admitting Provider Hospitalist; Emergency Provider Emergency Medicine; PCP Family Medicine; Visit Provider Internal Medicine
DX: A41.52 Sepsis due to Pseudomonas (principal); R65.21 Severe sepsis with septic shock; J96.01 Acute respiratory failure with hypoxia; R57.1 Hypovolemic shock; E43 Unspecified severe protein-calorie malnutrition; J15.1 Pneumonia due to Pseudomonas; D61.810 Antineoplastic chemotherapy induced pancytopenia; I46.8 Cardiac arrest due to other underlying condition; J44.0 Chronic obstructive pulmonary disease with (acute) lower respiratory infection; B37.0 Candidal stomatitis; N17.9 Acute kidney failure, unspecified; I47.1 Supraventricular tachycardia; C91.10 Chronic lymphocytic leukemia of B-cell type not having achieved remission; C79.9 Secondary malignant neoplasm of unspecified site; Z68.1 Body mass index [BMI] 19.9 or less, adult; I48.91 Unspecified atrial fibrillation; I25.10 Atherosclerotic heart disease of native coronary artery without angina pectoris; I10 Essential (primary) hypertension; K21.9 Gastro-esophageal reflux disease without esophagitis; G47.33 Obstructive sleep apnea (adult) (pediatric); F41.9 Anxiety disorder, unspecified; E87.70 Fluid overload, unspecified; R50.81 Fever presenting with conditions classified elsewhere; Z79.51 Long term (current) use of inhaled steroids; T45.1X5A Adverse effect of antineoplastic and immunosuppressive drugs, initial encounter; Z91.89 Other specified personal risk factors, not elsewhere classified; Z99.81 Dependence on supplemental oxygen; Z79.899 Other long term (current) drug therapy; Z86.711 Personal history of pulmonary embolism; Z86.16 Personal history of COVID-19; Z87.891 Personal history of nicotine dependence
CPT/HCPCS: 31500; 31720; 36415; 36591; 36600; 71045; 71250; 74177; 74230; 80048; 80053; 80202; 81001; 82550; 82803; 82962; 83605; 83615; 83735; 83880; 84443; 84478; 85025; 85610; 85730; 86644; 86850; 86900; 86901; 86920; 86922; 86965; 87040; 87070; 87077; 87086; 87088; 87184; 87186; 87205; 87428; 87449; 87635; 87641; 92507; 92526; 92610; 92611; 92950; 93005; 93306; 94002; 94003; 94640; 94660; 94668; 94762; 97110; 97116; 97162; 97166; 97530; 97535; 97802; 97803; 99251; 99283; 99406; J2185; J7030; J7040; J7050; J9034; P9035; P9040; Q9967; A4216; G0463; J1940; J2405; J3010; J3475; J3490; Q5108; Q5115; U0003; U0005